=== PATIENT | female | born 1950 ===

== ENCOUNTER 2021-10-21 21:20 | Emergency (ER) | payer MEDICARE, SELFPAY ==
--- NOTE | ~2021-10-21 | XR_ITS ---
XR hand LT min 3V 10/22/2021 01:49 Indication: Left hand laceration after dog bite. Procedure: 3 views left hand Comparison: No prior studies for comparison. Findings: No fracture, subluxation or dislocation. There is anatomic alignment. Evaluation of soft ti ssues limited due to overlying gauze. There are mild degenerative changes of the triscaphe joint. No foreign bodies identified. Impression: 1: No acute fracture. Reviewed, dictated and finalized at location A. D TALENT QUALIFICATION SPECIALIST Impression: 1: No acute fracture.
[2021-10-21 21:58] VITALS: BP 176/76; PULSE 84; RESP 18; TEMP 37; O2SAT 97
[2021-10-21 23:55] VITALS: BP 179/89; PULSE 87; RESP 15; O2SAT 97
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
[2021-10-22] MEDS: AMOXICILLIN/CLAVULANATE K 875-125 MG TAB 1 TABLET PO (00:50)
[2021-10-22 02:29] VITALS: BP 154/61; PULSE 56; RESP 14; O2SAT 96
[2021-10-22] MEDS: ONDANSETRON HCL ODT 4 MG TABLET PO (02:29)
== END 2021-10-22 02:55 | disposition home or self-care (01) ==
PROVIDERS: Emergency Provider Emergency Medicine
DX: S61.452A Open bite of left hand, initial encounter (principal); W54.0XXA Bitten by dog, initial encounter
CPT/HCPCS: 12001; 73130; 99283; A9270

== ENCOUNTER 2024-10-05 17:19 | Inpatient (IN) | payer MEDICARE, SELFPAY ==
--- NOTE | ~2024-10-05 | XR_ITS ---
Portable chest x-ray Comparison: 10/05/2024 Clinical History: 90 Findings: Possible central congestive changes. No pleural effusion or pneumothorax. Cardiomediastin al silhouette is stable. Bones and soft tissues are unremarkable. Impression: Possible central congestive change. Reviewed, dictated and finalized at [facility]. WAY SWITCHMAN Impression: Possible central congestive change.
--- NOTE | ~2024-10-05 | XR_ITS ---
XR chest 2V Ordering provider: Que Alegre MD History: 74 years Female with . worsening pneumonia DX'D WITH PNEUMONIA AT [facility] . Comparison: None. FINDINGS: MEDIASTINUM: The cardiac silhouette is not enlarged. LUNGS: No effusions or pneumothorax. Prominent bronchovascular markings in the lower lobes. Early pneumonia cannot be excluded. OTHER: No free air under the diaphragm. Degenerative changes of the spine. IMPRESSION: Prominent bronchovascular markings in the lower lobes. Early pneumonia cannot be excluded. Reviewed, dictated and finalized at location A. ITY ARBORIST IMPRESSION: Prominent bronchovascular markings in the lower lobes. Early pneumonia cannot b e excluded.
[2024-10-05 17:26] VITALS: BP 154/60; PULSE 100; RESP 22; TEMP 37; O2SAT 99
--- NOTE | 2024-10-05 17:30 | ECG_ITS ---
Test Date: 2024-10-05 17:34:36 Measurements Intervals [place] Rate: 95 P: -3 DE: 127 QRS: 6 QRSD: 83 T: 30 QT: 337 QTc: 425 Interpretive Statements SINUS RHYTHM MODERATE VOLTAGE CRITERIA FOR LVH, CONSIDER NORMAL VARIANT [MEETS CRITERIA IN ONE OF: R(aVL), S(V1), R(V5), R(V5/V6)+S(V1)] NONSPECIFIC T-WAVE ABNORMALITY No previous ECG available for comparison Electronically Signed On 10-05-2024 17:54:16 HIGH RISK CASE MANAGER by Bernard Rubio M.D.
[2024-10-05 17:51] LABS: Hematocrit 37.9 % (37.0-47.0); Hemoglobin 11.7 g/dL (12.0-15.0); Mean Corpuscular HGB Conc 30.9 g/dl (32-36); Mean Corpuscular Hemoglobin 25.8 pg (26-34); Mean Corpuscular Volume 83.5 fl (80-100); Mean Platelet Volume 9.5 fl (7.4-10.4); Platelet Count Result 174 k/mm3 (150-375); Red Blood Count 4.54 M/mm3 (4.2-5.4); Red Cell Distribution Width 20.3 % (11.5-14.5)
[2024-10-05 18:05] LABS: Alanine Aminotransferase 17 U/L (6-35); Albumin Level 3.9 g/dL (3.5-5.1); Alkaline Phosphatase 71 U/L (38-126); Anion Gap 1 mmol/L (4-12); Aspartate Amino Transferase 27 U/L (14-36); Bilirubin,Total 0.5 mg/dL (0.2-1.3); Blood Urea Nitrogen 17 mg/dL (7-17); Calcium 9.1 mg/dL (8.4-10.2); Carbon Dioxide 30 mmol/L (22-30); Chloride 106 mmol/L (98-107); Estimated CRCL calculation 54 ml/min; Estimated Glomerular Filt Rate > 60; Glucose 177 mg/dL (65-110); Potassium 3.8 mmol/L (3.4-5.0); Sodium 137 mmol/L (137-145)
[2024-10-05 18:32] LABS: White Blood Count 87.5 K/mm3 (4.5-10.0)
[2024-10-05 18:36] LABS: Band Neutrophils Percent 1 % (0-6); Monocytes Absolute Manual 1.75 K/mm3 (0.1-0.90); Monocytes Percent Manual 2 % (3-9); Neutrophils Absolute Manual 19.25 K/mm3 (1.7-7.2); Neutrophils Percent Manual 21 % (46-73); Platelet Estimate Adequate (Adequate); Schistocytes None Seen; Total Cells Counted 100
[2024-10-05 18:37] LABS: Anisocytosis 2+; Hypochromasia 1+
--- NOTE | 2024-10-05 19:24 | ED_ITS ---
HPI - SOB/Dyspnea General Chief Complaint: Shortness of Breath/Dyspnea Stated Complaint: shortness of breath Time Seen by Provider: 10/05/24 17:32 Source: patient Mode of arrival: ambulatory Limitations: no limitations History of Present Illness HPI Narrative: This is a 74 year old female that presents to the ER for shortness of breath. Reports recently being diagnosed with pneumonia. She has had worsening shortness of breath and wheezing. She was seen in urgent care and started on oral antibiotics. Was given 2 nebulizer treatments in the Urgent Care with relief initially. Reports she had worsening shortness of breath and wheezing tonight which prompted her to be seen again. Denies fevers. Related Data Allergies Allergy/AdvReac Type Severity Reaction Status Date / Time morphine AdvReac Unknown CONFUSION,A Verified 10/05/24 17:20 GITATION Review of Systems 2 Review of Systems: CONSTITUTIONAL: Denies fever ENT: Reports congestion CARDIOVASCULAR: Denies chest pain RESPIRATORY: Reports cough and dyspnea. All systems reviewed & are unremarkable except as noted in HPI and below PMFSH Past Medical History Medical History (Updated 10/05/24 @ 23:10 by Cristina Junior PA-C) History of chronic lymphocytic leukemia Social History Social History (Updated 10/05/24 @ 19:28 by Cristina Junior PA-C) Substance use: never Exam 2 Narrative: GENERAL: Well-appearing, well-nourished, and in no acute distress. HEAD: Normocephalic, atraumatic. EYES: EOMI. ENT: Nares clear, no rhinorrhea or epistaxis. Mucous membranes moist. Oropharynx without tonsillar hypertrophy exudate or other lesions. NECK: Supple. No adenopathy or masses. CHEST: No respiratory distress. Diffuse expiratory wheezing. Lung sounds are coarse. No rales or rhonchi HEART: Regular rate and rhythm. No murmur heard. Normal peripheral pulses. EXTREMITIES: Normal range of motion. No edema. SKIN: Warm, dry, no rash. NEURO: No focal deficits. Alert and oriented x3. PSYCH: Normal mood and affect Course Course Emergency Course: patient updated on her workup. Patient with continued wheezing, shortness of breath after hour long nebulizer treatment. Will be admitted for further management Consultations Consultation #1: Spoke with hospitalist about patient and workup who accepts admission Date: 10/05/24 Vital Signs Vital signs: Vital Signs Temperature 98.6 F 10/05/24 17:26 Pulse Rate 100 10/05/24 17:26 Respiratory Rate 22 H 10/05/24 17:26 Blood Pressure 154/60 H 10/05/24 17:26 Pulse Oximetry 99 10/05/24 17:26 Oxygen Delivery Room Air 10/05/24 17:26 Temperature 98.6 F 10/05/24 17:26 Pulse Rate 130 H 10/05/24 22:48 Respiratory Rate 20 10/05/24 22:48 Blood Pressure 158/70 H 10/05/24 22:48 Pulse Oximetry 93 10/05/24 22:48 Oxygen Delivery Room Air 10/05/24 17:26 MDM - SOB/Dyspnea MDM Narrative Medical decision making narrative: Patient presents to the emergency department for shortness of breath, wheezing. She is afebrile and nontoxic appearing. Oxygen saturation has been mid to low 90s on room air. Lung sounds are diminished with diffuse expiratory wheezing. CBC with leukocytosis to 87.5, patient does have known history of CLL. Metabolic panel without concerning findings. Chest x-ray shows possible pneumonia. patient updated on her workup. Patient with continued wheezing, shortness of breath after hour long nebulizer treatment. Will be admitted for further management. Spoke with hospitalist about patient and workup who accepts admission Differential Diagnosis Differential diagnosis: Likely congestive heart failure, community acquired pneumonia, asthma with exacerbation and pulmonary embolism Lab Data Attestation: I reviewed the patient's lab results. 10/05/24 17:35 10/05/24 17:35 Labs: Lab Results 10/05/24 10/05/24 Range/Units 17:35 22:43 WBC 87.5 H* (4.5-10.0) K/mm3 RBC 4.54 (4.2-5.4) M/mm3 Hgb 11.7 L (12.0-15.0) g/dL Hct 37.9 (37.0-47.0) % MCV 83.5 (80-100) fl MCH 25.8 L (26-34) pg MCHC 30.9 L (32-36) g/dl RDW 20.3 H (11.5-14.5) % Plt Count 174 (150-375) k/mm3 MPV 9.5 (7.4-10.4) fl Immature Gran % (Auto) Not Reportable Neut % (Auto) Not Reportable Lymph % (Auto) Not Reportable [place] % (Auto) Not Reportable Eos % (Auto) Not Reportable Baso % (Auto) Not Reportable Lymph # (Auto) Not Reportable [place] # (Auto) Not Reportable Eos # (Auto) Not Reportable Baso # (Auto) Not Reportable Abs Immat Gran (auto) Not Reportable Absolute Neuts (auto) Not Reportable Absolute Nucleated RBC Not Reportable Total Counted 100 Neutrophils % (Manual) 21 L (46-73) % Band Neutrophils % 1 (0-6) % Lymphocytes % (Manual) 76.0 H (18-44) % Monocytes % (Manual) 2 L (3-9) % Nucleated RBC % Not Reportable Abs Neuts (Manual) 19.25 H (1.7-7.2) K/mm3 Abs Lymphs (Manual) 66.50 H (1.1-4.5) K/mm3 Abs Monocytes (Manual) 1.75 H (0.1-0.90) K/mm3 Platelet Estimate Adequate (Adequate) Hypochromasia 1+ Anisocytosis 2+ Schistocytes None seen D-Dimer < 0.27 (<0.48) ug/mL Sodium 137 (137-145) mmol/L Potassium 3.8 (3.4-5.0) mmol/L Chloride 106 (98-107) mmol/L Carbon Dioxide 30 (22-30) mmol/L Anion Gap 1 L (4-12) mmol/L BUN 17 (7-17) mg/dL Creatinine 0.90 (0.7-1.0) mg/dL Estim Creat Clear Calc 54 ml/min Estimated GFR > 60 (59 - ) Glucose 177 H (65-110) mg/dL Calcium 9.1 (8.4-10.2) mg/dL Total Bilirubin 0.5 (0.2-1.3) mg/dL AST 27 (14-36) U/L ALT 17 (6-35) U/L Alkaline Phosphatase 71 (38-126) U/L Total Protein 6.0 L (6.3-8.2) g/dL Albumin 3.9 (3.5-5.1) g/dL Influenza A (RT-PCR) Pending Influenza B (RT-PCR) Pending RSV (RT-PCR) Pending SARS-CoV-2 RNA (RT-PCR) Pending Imaging Data Radiologist's impression: ITS Impressions Chest X-Ray 10/05/24 17:46 IMPRESSION: Prominent bronchovascular markings in the lower lobes. Early pneumonia cannot be excluded. ECG Data EKG #1: ECG completion date: 10/05/24 EKG Interpretation: normal rate, sinus rhythm, no ST changes and normal QT Critical Care Time Critical Care Time Critical Care Time: No Discharge Plan Discharge Clinical Impression: Wheezing Community acquired pneumonia Qualifiers: Laterality: unspecified laterality Qualified Code(s): J18.9 - Pneumonia, unspecified organism Patient Disposition: Still a Patient Condition: Stable Patient Language: Uzbek Prescriptions: No Action amoxicillin-pot clavulanate [Augmentin] 875-125 mg tablet 1 tablet PO Q12H Qty: 20 0RF Follow-up/Referrals: UNKNOWN,DOCTOR [Primary Care Provider] -
[2024-10-05] MEDS: methylPREDNISolone SOD SUCC 125 MG VIAL IV PUSH (19:27)
[2024-10-05] MEDS: IPRATROPIUM 0.5 MG/ALBUTEROL SULFATE 2.5 MG AMPUL.NEB 3 ML INHALATION (19:31)
[2024-10-05 19:32] VITALS: PULSE 90; RESP 24
[2024-10-05 19:41] VITALS: PULSE 88; RESP 18
[2024-10-05 19:54] LABS: D Dimer < 0.27 ug/mL (<0.48)
[2024-10-05] MEDS: IPRATROPIUM BR 0.02% INH SOLN 0.5 MG/2.5 ML VIAL 1.5 MG INHALATION (20:57)
[2024-10-05] MEDS: ALBUTEROL SULFATE NEB 2.5 MG/3 ML INH 15 MG INHALATION (20:57)
[2024-10-05 20:58] VITALS: PULSE 105; RESP 24
[2024-10-05 22:48] VITALS: BP 158/70; PULSE 130; RESP 20; O2SAT 93
[2024-10-05 23:38] LABS: Influenza A QL RT-PCR Positive (Negative); Influenza B QL RT-PCR Negative (Negative); RSV RNA, RT-PCR Negative (Negative); SARS-CoV-2 RNA PCR Negative (Negative)
[2024-10-05] MEDS: AZITHROMYCIN 500 MG/NS 250 ML 500 MG/250 ML BAG 250 MG IVPB (23:45)
[2024-10-05 23:59] LABS: Troponin I < 0.012 ng/mL (0.000-0.034)
[2024-10-06] VITALS (14 sets, daily range): BP systolic 131–171; BP diastolic 53–88; PULSE 90–113; RESP 16–24; TEMP 36.3–37.6; O2SAT 91–96; BMI 36.6
[2024-10-06] MEDS: GABAPENTIN 300 MG CAPSULE PO ×2 (00:02→20:51)
--- NOTE | 2024-10-06 01:35 | ADMGEN ---
This patient, Rebeka Hsieh, was admitted to [facility] Surg Room 332-01. Patient/family oriented to hospital policies and general routines including ID bracelet, bed and alarms, visiting hours, pain management, procedures, bathroom and other care routines, personal items, smoking policy, room service/diet, and visiting hours. Information on how to activate the Rapid Response Team has been discussed. Patient/Family are encouraged to report perceived risks to care and to ask questions if they do not understand what they are told or what they should do.
[2024-10-06] MEDS: LEVALBUTEROL NEB 1.25 MG/3 ML 0.63 MG INHALATION ×3 (02:59→14:45)
[2024-10-06 06:38] LABS: Hematocrit 36.2 % (37.0-47.0); Mean Corpuscular HGB Conc 30.4 g/dl (32-36); Mean Corpuscular Hemoglobin 25.3 pg (26-34); Mean Corpuscular Volume 83.2 fl (80-100); Mean Platelet Volume 9.7 fl (7.4-10.4); Platelet Count Result 171 k/mm3 (150-375); Red Blood Count 4.35 M/mm3 (4.2-5.4); Red Cell Distribution Width 20.5 % (11.5-14.5)
[2024-10-06 06:51] LABS: Anion Gap 6 mmol/L (4-12); Blood Urea Nitrogen 21 mg/dL (7-17); Calcium 9.2 mg/dL (8.4-10.2); Carbon Dioxide 26 mmol/L (22-30); Chloride 106 mmol/L (98-107); Estimated CRCL calculation 68 ml/min; Estimated Glomerular Filt Rate > 60; Glucose 257 mg/dL (65-110); Sodium 138 mmol/L (137-145)
[2024-10-06 07:04] LABS: White Blood Count 85.8 K/mm3 (4.5-10.0)
[2024-10-06 07:08] LABS: Anisocytosis 2+; Band Neutrophils Percent 2 % (0-6); Lymphocytes Absolute Manual 72.93 K/mm3 (1.1-4.5); Lymphocytes Percent Manual 85 % (18-44); Neutrophils Absolute Manual 12.87 K/mm3 (1.7-7.2); Neutrophils Percent Manual 13 % (46-73); Platelet Estimate Adequate (Adequate); Schistocytes None Seen; Smudge Cells PRESENT; Total Cells Counted 100
[2024-10-06] MEDS: predniSONE 20 MG TABLET 60 MG PO (09:07)
--- NOTE | 2024-10-06 11:11 | PM.IMHP ---
H&P: HPI History of Present Illness Date/Time: 10/06/24 11:11 Chief Complaint: sob Narrative: this is a 74 year old female that presents to the ER for shortness of breath. Reports recently being diagnosed with pneumonia. She has had worsening shortness of breath and wheezing. She was seen in urgent care and started on oral antibiotics. Was given 2 nebulizer treatments in the Urgent Care with relief initially. Reports she had worsening shortness of breath and wheezing tonight which prompted her to be seen again. Denies fevers. She is afebrile and nontoxic appearing. Oxygen saturation has been mid to low 90s on room air. Lung sounds are diminished with diffuse expiratory wheezing. CBC with leukocytosis to 87.5, patient does have known history of CLL. Metabolic panel without concerning findings. Chest x-ray shows possible pneumonia. patient updated on her workup. Patient with continued wheezing, shortness of breath after hour long nebulizer treatment. Will be admitted for further management. EKG: NSR, no ST changes and normal QT Chest X-Ray 10/05/24 17:46 IMPRESSION: Prominent bronchovascular markings in the lower lobes. Early pneumonia cannot be excluded. Influenza A positive she still feels sob- on duonebs, helping a little bit Review of Systems Review of Systems: All systems reviewed & are unremarkable except as noted in HPI and below PMFSH Past Medical History Medical History (Updated 10/06/24 @ 11:17 by Lucita العراقي APRN) History of chronic lymphocytic leukemia Social History Social History (Updated 10/05/24 @ 19:28 by Cristina Junior PA-C) Smoking status: Never smoker Alcohol intake: never Substance use: never Do You Feel Safe in your Home?: Yes Lack of Transportation: No Lack of Food: Never True Current Housing: I Have Housing Concerned About Future Housing: No Difficulty Paying Gas/Electric Bills: No Difficulty Paying for Meds: No Currently Unemployed: No Education: Master's Degree or Higher Difficulty w/ Childcare or Family Care: No Spiritual care concerns: No Meds Home Medications and Allergies Home Medications ?Medication ?Instructions ?Recorded ?Confirmed ?Type albuterol sulfate 90 mcg/actuation 2 puff inhalation Q4H 10/06/24 10/06/24 History aerosol inhaler amlodipine 10 mg tablet 10 mg PO .daily 10/06/24 10/06/24 History atorvastatin 10 mg tablet 10 mg PO QPM 10/06/24 10/06/24 History azelastine 137 mcg (0.1 %) nasal 1 spray intranasal Q12H PRN 10/06/24 10/06/24 History spray allergy symptoms benzonatate 100 mg capsule 100 mg PO Q8H PRN coughing 10/06/24 10/06/24 History gabapentin 100 mg capsule 300 mg PO HS 10/06/24 10/06/24 History ipratropium bromide 42 mcg (0.06 2 spray intranasal QID PRN allergy 10/06/24 10/06/24 History %) nasal spray symptoms montelukast 10 mg tablet 10 mg PO QPM 10/06/24 10/06/24 History ondansetron HCl 4 mg tablet 4 mg PO Q6H PRN N/V 10/06/24 10/06/24 History paroxetine HCl 20 mg tablet 20 mg PO DAILY 10/06/24 10/06/24 History tirzepatide (weight loss) 2.5 2.5 mg subcut WEEKLY 10/06/24 10/06/24 History mg/0.5 mL subcutaneous pen injector (Zepbound) Allergies Allergy/AdvReac Type Severity Reaction Status Date / Time morphine AdvReac Unknown CONFUSION,A Verified 10/05/24 17:20 GITATION Vital Signs Vital Signs - 24 hr 10/05/24 17:26 10/05/24 19:32 10/05/24 19:41 Temperature 98.6 F Pulse Rate 100 90 88 Respiratory Rate 22 H 24 H 18 Blood Pressure 154/60 H Pulse Oximetry 99 Oxygen Delivery Room Air Fraction of Inspired Oxygen 10/05/24 20:58 10/05/24 22:48 10/06/24 01:16 Temperature 97.7 F Pulse Rate 105 H 130 H 113 H Respiratory Rate 24 H 20 18 Blood Pressure 158/70 H 152/62 H Pulse Oximetry 93 94 Oxygen Delivery Fraction of Inspired Oxygen 10/06/24 03:00 10/06/24 03:03 10/06/24 03:10 Temperature Pulse Rate 106 H 106 H 104 H Respiratory Rate 22 H 22 H Blood Pressure Pulse Oximetry 91 Oxygen Delivery Room Air Fraction of Inspired Oxygen 21 10/06/24 03:26 10/06/24 06:28 10/06/24 07:16 Temperature 98.5 F Pulse Rate 112 H 107 H Respiratory Rate 16 24 H Blood Pressure 131/87 Pulse Oximetry 92 Oxygen Delivery Room Air Fraction of Inspired Oxygen 10/06/24 07:28 10/06/24 08:00 Temperature Pulse Rate 100 Respiratory Rate 24 H Blood Pressure Pulse Oximetry Oxygen Delivery Room Air Fraction of Inspired Oxygen Exam Const: General: comfortable Eyes: General: appearance normal, both eyes and all related structures Resp: Auscultation: wheezes Other: faint wheezes Cardio: Rate: regular rate Rhythm: regular rhythm GI: GI Palp: Yes Soft to palpation Skin: General skin exam: normal color Neuro: Speech: normal speech Extrem: General: normal to inspection Psych: Affect: normal affect H&P: Results Labs Labs: Short CBC 10/05/24 10/06/24 Range/Units 17:35 05:57 WBC 87.5 H* 85.8 H* (4.5-10.0) K/mm3 Hgb 11.7 L 11.0 L (12.0-15.0) g/dL Hct 37.9 36.2 L (37.0-47.0) % Plt Count 174 171 (150-375) k/mm3 [facility] 10/05/24 10/06/24 17:35 05:57 Sodium 137 138 Potassium 3.8 4.0 Chloride 106 106 Carbon Dioxide 30 26 BUN 17 21 H Creatinine 0.90 0.70 Glucose 177 H 257 H Calcium 9.1 9.2 Cardiac Enzymes 10/05/24 Range/Units 23:27 Troponin I < 0.012 (0.000-0.034) ng/mL Liver Function 10/05/24 Range/Units 17:35 Total Bilirubin 0.5 (0.2-1.3) mg/dL AST 27 (14-36) U/L ALT 17 (6-35) U/L Alkaline Phosphatase 71 (38-126) U/L Albumin 3.9 (3.5-5.1) g/dL Assessment and Plan Assessment and plan (1) Community acquired pneumonia: Qualifiers: Laterality: unspecified laterality Qualified Code(s): J18.9 - Pneumonia, unspecified organism Code(s): J18.9 - Pneumonia, unspecified organism Status: Acute Assessment and Plan: was started on cetriaxone and azithromyacin will continue duonebs prn, was given methylprednisolone in in ed-start on po prednisone monitor resp status IS, ambulation (2) Influenza A: Code(s): J10.1 - Influenza due to other identified influenza virus with other respiratory manifestations Status: Acute Assessment and Plan: will start on tamiflu-5 days (3) History of chronic lymphocytic leukemia: Code(s): Z85.6 - Personal history of leukemia Status: Acute Plan # htn- chronic- will review home meds and restart if needed- amlodipine 10 mg # hld- chronic- on atorvastatin 10 mg Quality VTE Prophylaxis VTE prophylaxis: mechanical ordered Hospitalist [facility] Advance Care Plan I have confirmed that the patient's Advanced Care Plan is present, code status is documented, or surrogate decision maker is listed in patient medical record.: Yes Medication Reconciliation I have utilized all available resources to obtain, update and review the patients current medications (includes all prescriptions, OTC, herbals, cannabis, and nutritional supplements).: Yes
[2024-10-06] MEDS: AZITHROMYCIN 250 MG TABLET PO (12:07)
[2024-10-06] MEDS: amLODIPine BESYLATE 10 MG TABLET PO (12:33)
[2024-10-06] MEDS: OSELTAMIVIR PHOSPHATE 75 MG CAPSULE PO ×2 (14:36→20:51)
[2024-10-06] MEDS: ATORVASTATIN 10 MG TABLET PO (16:55)
[2024-10-06] MEDS: MONTELUKAST SODIUM 10 MG TABLET PO (16:55)
[2024-10-06] MEDS: MELATONIN 5 MG TABLET PO (20:51)
--- NOTE | 2024-10-06 23:08 | PCRCNOTE ---
Window of time for administration has passed. See next scheduled administration.
[2024-10-07] VITALS (12 sets, daily range): BP systolic 138–166; BP diastolic 60–72; PULSE 86–106; RESP 18–22; TEMP 36.4–37.1; O2SAT 92–97
[2024-10-07] MEDS: LEVALBUTEROL NEB 1.25 MG/3 ML 0.63 MG INHALATION ×4 (02:10→20:47)
[2024-10-07] MEDS: predniSONE 20 MG TABLET 60 MG PO (08:42)
[2024-10-07] MEDS: PARoxetine 20 MG TABLET PO (08:43)
[2024-10-07] MEDS: amLODIPine BESYLATE 10 MG TABLET PO (08:43)
[2024-10-07] MEDS: AZITHROMYCIN 250 MG TABLET PO (08:43)
[2024-10-07] MEDS: OSELTAMIVIR PHOSPHATE 75 MG CAPSULE PO ×2 (08:43→20:44)
--- NOTE | 2024-10-07 12:03 | PM.IMPN ---
Progress Note: A&P Assessment and Plan (1) Community acquired pneumonia: Qualifiers: Laterality: unspecified laterality Qualified Code(s): J18.9 - Pneumonia, unspecified organism Code(s): J18.9 - Pneumonia, unspecified organism Status: Acute Assessment and Plan: was started on cetriaxone and azithromyacin will continue duonebs prn, was given methylprednisolone in in ed-start on po prednisone monitor resp status IS, ambulation (2) Influenza A: Code(s): J10.1 - Influenza due to other identified influenza virus with other respiratory manifestations Status: Acute Assessment and Plan: will start on tamiflu-5 days (3) History of chronic lymphocytic leukemia: Code(s): Z85.6 - Personal history of leukemia Status: Acute Plan # htn- chronic- will review home meds and restart if needed- amlodipine 10 mg # hld- chronic- on atorvastatin 10 mg Time Spent With Patient Time with patient: 25 - 35 minutes Subjective Date/time seen: 10/07/24 12:03 Interval history: sob Narrative: this is a 74 year old female that presents to the ER for shortness of breath. Reports recently being diagnosed with pneumonia. She has had worsening shortness of breath and wheezing. She was seen in urgent care and started on oral antibiotics. Was given 2 nebulizer treatments in the Urgent Care with relief initially. Reports she had worsening shortness of breath and wheezing tonight which prompted her to be seen again. Denies fevers. She is afebrile and nontoxic appearing. Oxygen saturation has been mid to low 90s on room air. Lung sounds are diminished with diffuse expiratory wheezing. CBC with leukocytosis to 87.5, patient does have known history of CLL. Metabolic panel without concerning findings. Chest x-ray shows possible pneumonia. patient updated on her workup. Patient with continued wheezing, shortness of breath after hour long nebulizer treatment. Will be admitted for further management. EKG: NSR, no ST changes and normal QT Chest X-Ray 10/05/24 17:46 IMPRESSION: Prominent bronchovascular markings in the lower lobes. Early pneumonia cannot be excluded. Influenza A positive 10/07- she was started on antiviral yesterday. duonebs for wheezing and sob. overnight became very anxious as had lots of secretions. 5 mg of melatonin didnot help with sleep Review of Systems Review of Systems: All systems reviewed & are unremarkable except as noted in HPI and below Exam Const: General: comfortable Eyes: General: appearance normal, both eyes and all related structures Resp: Effort & Inspection: normal respiratory effort Auscultation: wheezes Other: faint wheezes Cardio: Rate: regular rate Rhythm: regular rhythm Skin: General skin exam: normal color Neuro: Speech: normal speech Extrem: General: normal to inspection Psych: Affect: normal affect Objective Data Vital Signs Vital Signs: Vital Signs - 24 hr 10/06/24 14:45 10/06/24 14:55 10/06/24 16:00 Temperature 97.7 F Pulse Rate 97 97 95 Respiratory Rate 22 H 22 H 20 Blood Pressure 171/82 H Pulse Oximetry 96 Oxygen Delivery Fraction of Inspired Oxygen 10/06/24 20:00 10/06/24 20:00 10/06/24 23:47 Temperature 99.7 F H 98.6 F Pulse Rate 96 90 Respiratory Rate 20 20 Blood Pressure 156/88 H 162/71 H Pulse Oximetry 96 94 Oxygen Delivery Room Air Fraction of Inspired Oxygen 10/07/24 01:55 10/07/24 01:55 10/07/24 04:00 Temperature 98.0 F Pulse Rate 92 95 Respiratory Rate 20 20 Blood Pressure 138/65 Pulse Oximetry 93 94 Oxygen Delivery Room Air Fraction of Inspired Oxygen 21 10/07/24 08:00 10/07/24 08:00 10/07/24 08:00 Temperature 98.7 F Pulse Rate 92 86 Respiratory Rate 20 22 H Blood Pressure 162/62 H Pulse Oximetry 92 92 Oxygen Delivery Room Air Fraction of Inspired Oxygen 10/07/24 08:00 10/07/24 08:14 Temperature Pulse Rate 94 Respiratory Rate 20 Blood Pressure Pulse Oximetry Oxygen Delivery Room Air Fraction of Inspired Oxygen Intake/Output Intake/Output: Intake & Output 10/04/24 10/05/24 10/06/24 10/07/24 23:59 23:59 23:59 23:59 Intake Total 50 1520 1138 Balance 50 1520 1138 Meds/Results Medications: Active Medications Generic Name Dose Route Start Last Admin Trade Name Freq PRN Reason Stop Dose Admin Albuterol 2 puff 10/06/24 13:55 Albuterol Sulfate (*Sp) Aerosol 1 Puff INHALATION Q4H PRN SOB/WHEEZING Amlodipine Besylate 10 mg 10/07/24 09:00 10/07/24 08:43 Amlodipine Besylate 10 Mg Tablet PO 10 mg DAILY JOEL Administration Atorvastatin Calcium 10 mg 10/06/24 18:00 10/06/24 16:55 Atorvastatin 10 Mg Tablet PO 10 mg QPM JOEL Administration Azelastine HCl 1 spray 10/06/24 13:52 Azelastine Hcl Nasal 0.1% 137 Mcg/Spr 30 Ml Btl NASAL Q12H PRN allergy symptoms Azithromycin 250 mg 10/06/24 11:25 10/07/24 08:43 Azithromycin 250 Mg Tablet PO 10/09/24 09:01 250 mg DAILY JOEL Administration Gabapentin 300 mg 10/06/24 21:00 10/06/24 20:51 Gabapentin 300 Mg Capsule PO 300 mg HS JOEL Administration Ceftriaxone Sodium 1 gm in 50 mls @ 100 mls/hr 10/05/24 22:20 10/06/24 21:21 Rocephin 1 Gm/Ns 50 Ml IVPB Infused HS JOEL Infusion Levalbuterol HCl 0.63 mg 10/06/24 02:00 10/07/24 08:00 Levalbuterol Neb 1.25 Mg/3 Ml INHALATION 0.63 mg Q6HRT JOEL Administration Melatonin 5 mg 10/06/24 21:00 10/06/24 20:51 Melatonin 5 Mg Tablet PO 5 mg HS JOEL Administration Montelukast Sodium 10 mg 10/06/24 18:00 10/06/24 16:55 Montelukast Sodium 10 Mg Tablet PO 10 mg QPM JOEL Administration Ondansetron HCl 4 mg 10/06/24 13:52 Ondansetron Hcl Odt 4 Mg Tablet PO Q6H PRN Nausea And Vomiting Oseltamivir Phosphate 75 mg 10/06/24 14:00 10/07/24 08:43 Oseltamivir Phosphate 75 Mg Capsule PO 10/10/24 21:01 75 mg Q12HR JOEL Administration Paroxetine HCl 20 mg 10/07/24 09:00 10/07/24 08:43 Paroxetine 20 Mg Tablet PO 20 mg DAILY JOEL Administration Prednisone 60 mg 10/06/24 08:00 10/07/24 08:42 Prednisone 20 Mg Tablet PO 60 mg DAILY@08 JOEL Administration Radiology Results: ITS Impressions Chest X-Ray 10/05/24 17:46 IMPRESSION: Prominent bronchovascular markings in the lower lobes. Early pneumonia cannot be excluded. Quality VTE Prophylaxis VTE prophylaxis: mechanical ordered
[2024-10-07] MEDS: hydrOXYzine HCL 25 MG TABLET 50 MG PO ×2 (15:02→20:46)
[2024-10-07] MEDS: ATORVASTATIN 10 MG TABLET PO (17:16)
[2024-10-07] MEDS: MONTELUKAST SODIUM 10 MG TABLET PO (17:16)
[2024-10-07] MEDS: MELATONIN 5 MG TABLET 10 MG PO (20:44)
[2024-10-07] MEDS: GABAPENTIN 300 MG CAPSULE PO (20:44)
[2024-10-07] MEDS: guaiFENesin 600 MG/DEXTROMETHORPHAN 30 MG SR TAB 12 HR 1 TAB PO (20:44)
[2024-10-08] VITALS (12 sets, daily range): BP systolic 135–156; BP diastolic 67–68; PULSE 72–102; RESP 18–22; TEMP 36.6–37.1; O2SAT 92–96
[2024-10-08] MEDS: LEVALBUTEROL NEB 1.25 MG/3 ML 0.63 MG INHALATION ×4 (02:25→21:08)
[2024-10-08 07:17] LABS: Hematocrit 40.9 % (37.0-47.0); Hemoglobin 12.3 g/dL (12.0-15.0); Mean Corpuscular HGB Conc 30.1 g/dl (32-36); Mean Corpuscular Hemoglobin 25.4 pg (26-34); Mean Corpuscular Volume 84.5 fl (80-100); Mean Platelet Volume 9.1 fl (7.4-10.4); Platelet Count Result 181 k/mm3 (150-375); Red Blood Count 4.84 M/mm3 (4.2-5.4)
[2024-10-08 07:23] LABS: White Blood Count 118.4 K/mm3 (4.5-10.0)
[2024-10-08 07:33] LABS: Anion Gap 0 mmol/L (4-12); Blood Urea Nitrogen 19 mg/dL (7-17); Calcium 9.5 mg/dL (8.4-10.2); Carbon Dioxide 36 mmol/L (22-30); Chloride 104 mmol/L (98-107); Estimated CRCL calculation 68 ml/min; Estimated Glomerular Filt Rate > 60; Glucose 136 mg/dL (65-110); Potassium 4.9 mmol/L (3.4-5.0); Sodium 140 mmol/L (137-145)
[2024-10-08] MEDS: AZITHROMYCIN 250 MG TABLET PO (09:35)
[2024-10-08] MEDS: OSELTAMIVIR PHOSPHATE 75 MG CAPSULE PO ×2 (09:35→20:57)
[2024-10-08] MEDS: predniSONE 20 MG TABLET 60 MG PO (09:35)
[2024-10-08] MEDS: PARoxetine 20 MG TABLET PO (09:36)
[2024-10-08] MEDS: guaiFENesin 600 MG/DEXTROMETHORPHAN 30 MG SR TAB 12 HR 1 TAB PO ×2 (09:36→20:57)
[2024-10-08] MEDS: amLODIPine BESYLATE 10 MG TABLET PO (09:36)
[2024-10-08] MEDS: hydrOXYzine HCL 25 MG TABLET 50 MG PO ×2 (13:53→20:57)
--- NOTE | 2024-10-08 15:21 | P.PNIM_ITS ---
Progress Note: A&P Assessment and Plan (1) Community acquired pneumonia: Qualifiers: Laterality: unspecified laterality Qualified Code(s): J18.9 - Pneumonia, unspecified organism Code(s): J18.9 - Pneumonia, unspecified organism Status: Acute Assessment and Plan: was started on cetriaxone and azithromyacin will continue duonebs prn, was given methylprednisolone in in ed-start on po prednisone monitor resp status IS, ambulation -will repeat chest xray (2) Influenza A: Code(s): J10.1 - Influenza due to other identified influenza virus with other respiratory manifestations Status: Acute Assessment and Plan: will start on tamiflu-5 days (3) History of chronic lymphocytic leukemia: Code(s): Z85.6 - Personal history of leukemia Status: Acute Plan # htn- chronic- will review home meds and restart if needed- amlodipine 10 mg # hld- chronic- on atorvastatin 10 mg Time Spent With Patient Time with patient: 25 - 35 minutes Subjective Date/time seen: 10/08/24 15:21 Interval history: sob Narrative: this is a 74 year old female that presents to the ER for shortness of breath. Reports recently being diagnosed with pneumonia. She has had worsening shortness of breath and wheezing. She was seen in urgent care and started on or al antibiotics. Was given 2 nebulizer treatments in the Urgent Care with relief initially. Reports she had worsening shortness of breath and wheezing tonight which prompted her to be seen again. Denies fevers. She is afebrile and nontoxic appearing. Oxygen saturation has been mid to low 90s on room air. Lung sounds are diminished with diffuse expiratory wheezing. CBC with leukocytosis to 87.5, patient does have known history of CLL. Metabolic panel without concerning findings. Chest x-ray shows possible pneumonia. patient updated on her workup. Patient with continued wheezing, shortness of breath after hour long nebulizer treatment. Will be admitted for further management. EKG: NSR, no ST changes and normal QT Chest X-Ray 10/05/24 17:46 IMPRESSION: Prominent bronchovascular markings in the lower lobes. Early pneumonia cannot be excluded. Influenza A positive 10/07- she was started on antiviral yesterday. duonebs for wheezing and sob. overnight became very anxious as had lots of secretions. 5 mg of melatonin didnot help with sleep 1/2 better night- slept better with atarax and increased melatonin. still somehwat wheezy but improving slowly Review of Systems Review of Systems: All systems reviewed & are unremarkable except as noted in HPI and below Exam Const: General: comfortable Eyes: General: appearance normal, both eyes and all related structures Resp: Effort & Inspection: normal respiratory effort Auscultation: wheezes Other: faint wheezes Cardio: Rate: regular rate Rhythm: regular rhythm Skin: General skin exam: normal color Neuro: Speech: normal speech Extrem: General: normal to inspection Psych: Affect: normal affect Objective Data Vital Signs Vital Signs: Vital Signs - 24 hr 10/07/24 16:00 10/07/24 20:00 10/07/24 20:00 Temperature 98.0 F 98.6 F Pulse Rate 106 H 100 Respiratory Rate 18 22 H Blood Pressure 166/72 H 160/68 H Pulse Oximetry 96 97 Oxygen Delivery Room Air 10/07/24 20:48 10/07/24 20:52 10/07/24 21:00 Temperature Pulse Rate 99 102 H Respiratory Rate 20 20 Blood Pressure Pulse Oximetry 96 Oxygen Delivery Room Air 10/07/24 21:01 10/08/24 02:25 10/08/24 02:25 Temperature Pulse Rate 72 72 Respiratory Rate 20 Blood Pressure Pulse Oximetry 94 Oxygen Delivery Room Air CPAP 10/08/24 02:33 10/08/24 04:54 10/08/24 06:48 Temperature 98.0 F Pulse Rate 75 95 90 Respiratory Rate 20 22 H 20 Blood Pressure 156/67 H Pulse Oximetry 92 95 Oxygen Delivery Room Air 10/08/24 06:48 10/08/24 06:58 10/08/24 12:48 Temperature Pulse Rate 90 89 94 Respiratory Rate 20 20 20 Blood Pressure Pulse Oximetry Oxygen Delivery 10/08/24 12:58 10/08/24 14:00 Temperature 98.7 F Pulse Rate 95 102 H Respiratory Rate 20 22 H Blood Pressure 135/67 Pulse Oximetry 96 Oxygen Delivery Intake/Output Intake/Output: Intake & Output 10/05/24 10/06/24 10/07/24 10/08/24 23:59 23:59 23:59 23:59 Intake Total 50 1520 1731 1180 Balance 50 1520 1731 1180 Meds/Results Medications: Active Medications Generic Name Dose Route Start Last Admin Trade Name Freq PRN Reason Stop Dose Admin Albuterol 2 puff 10/06/24 13:55 Albuterol Sulfate (*Sp) Aerosol 1 Puff INHALATION Q4H PRN SOB/WHEEZING Amlodipine Besylate 10 mg 10/07/24 09:00 10/08/24 09:36 Amlodipine Besylate 10 Mg Tablet PO 10 mg DAILY JOEL Administration Amoxicillin/Clavulanate Potassium 1 tablet 10/09/24 21:00 Amoxicillin/Clavulanate K 875-125 Mg Tab PO 10/12/24 09:01 Q12HR JOEL Atorvastatin Calcium 10 mg 10/06/24 18:00 10/07/24 17:16 Atorvastatin 10 Mg Tablet PO 10 mg QPM JOEL Administration Azelastine HCl 1 spray 10/06/24 13:52 Azelastine Hcl Nasal 0.1% 137 Mcg/Spr 30 Ml Btl NASAL Q12H PRN allergy symptoms Azithromycin 250 mg 10/06/24 11:25 10/08/24 09:35 Azithromycin 250 Mg Tablet PO 10/09/24 09:01 250 mg DAILY JOEL Administration Gabapentin 300 mg 10/06/24 21:00 10/07/24 20:44 Gabapentin 300 Mg Capsule PO 300 mg HS JOEL Administration Guaifenesin/Dextromethorphan 1 tab 10/07/24 21:00 10/08/24 09:36 Guaifenesin 600 Mg/Dextromethorphan 30 Mg Sr Tab 12 Hr PO 1 tab Q12HR JOEL Administration Hydroxyzine HCl 50 mg 10/07/24 14:41 10/08/24 13:53 Hydroxyzine Hcl 25 Mg Tablet PO 50 mg Q6H PRN Administration anxiety Levalbuterol HCl 0.63 mg 10/06/24 02:00 10/08/24 12:48 Levalbuterol Neb 1.25 Mg/3 Ml INHALATION 0.63 mg Q6HRT JOEL Administration Melatonin 10 mg 10/07/24 21:00 10/07/24 20:44 Melatonin 5 Mg Tablet PO 10 mg HS JOEL Administration Montelukast Sodium 10 mg 10/06/24 18:00 10/07/24 17:16 Montelukast Sodium 10 Mg Tablet PO 10 mg QPM JOEL Administration Ondansetron HCl 4 mg 10/06/24 13:52 Ondansetron Hcl Odt 4 Mg Tablet PO Q6H PRN Nausea And Vomiting Oseltamivir Phosphate 75 mg 10/06/24 14:00 10/08/24 09:35 Oseltamivir Phosphate 75 Mg Capsule PO 10/10/24 21:01 75 mg Q12HR JOEL Administration Paroxetine HCl 20 mg 10/07/24 09:00 10/08/24 09:36 Paroxetine 20 Mg Tablet PO 20 mg DAILY JOEL Administration Prednisone 60 mg 10/06/24 08:00 10/08/24 09:35 Prednisone 20 Mg Tablet PO 60 mg DAILY@08 JOEL Administration Radiology Results: ITS Impressions Chest X-Ray 10/05/24 17:46 IMPRESSION: Prominent bronchovascular markings in the lower lobes. Early pneumonia cannot be excluded. Labs Labs: Laboratory Results - last 24 hr 10/08/24 07:11 WBC 118.4 H* RBC 4.84 Hgb 12.3 Hct 40.9 MCV 84.5 MCH 25.4 L MCHC 30.1 L RDW 21.0 H Plt Count 181 MPV 9.1 Sodium 140 Potassium 4.9 Chloride 104 Carbon Dioxide 36 H Anion Gap 0 L BUN 19 H Creatinine 0.70 Estim Creat Clear Calc 68 Estimated GFR > 60 Glucose 136 H Calcium 9.5 Quality VTE Prophylaxis VTE prophylaxis: mechanical ordered
[2024-10-08] MEDS: ATORVASTATIN 10 MG TABLET PO (17:28)
[2024-10-08] MEDS: MONTELUKAST SODIUM 10 MG TABLET PO (17:28)
[2024-10-08] MEDS: ONDANSETRON HCL ODT 4 MG TABLET PO (17:53)
[2024-10-08] MEDS: GABAPENTIN 300 MG CAPSULE PO (20:57)
[2024-10-08] MEDS: MELATONIN 5 MG TABLET 10 MG PO (20:57)
[2024-10-09] VITALS (10 sets, daily range): BP systolic 142–146; BP diastolic 58–73; PULSE 78–96; RESP 17–20; TEMP 36.4–37; O2SAT 93–98
[2024-10-09] MEDS: LEVALBUTEROL NEB 1.25 MG/3 ML 0.63 MG INHALATION ×3 (03:23→14:19)
[2024-10-09] MEDS: predniSONE 20 MG TABLET 60 MG PO (08:31)
[2024-10-09] MEDS: amLODIPine BESYLATE 10 MG TABLET PO (08:31)
[2024-10-09] MEDS: guaiFENesin 600 MG/DEXTROMETHORPHAN 30 MG SR TAB 12 HR 1 TAB PO (08:32)
[2024-10-09] MEDS: PARoxetine 20 MG TABLET PO (08:32)
[2024-10-09] MEDS: OSELTAMIVIR PHOSPHATE 75 MG CAPSULE PO (08:32)
[2024-10-09] MEDS: AZITHROMYCIN 250 MG TABLET PO (08:32)
--- NOTE | 2024-10-09 13:52 | PM.DS ---
DS: Admitting Diagnosis Discharge Date 10/09 Admitting Diagnosis sob, wheezing DS: Discharge Diagnosis Discharge Diagnosis (1) Community acquired pneumonia: Qualifiers: Laterality: unspecified laterality Qualified Code(s): J18.9 - Pneumonia, unspecified organism Code(s): J18.9 - Pneumonia, unspecified organism Status: Acute (2) Influenza A: Code(s): J10.1 - Influenza due to other identified influenza virus with other respiratory manifestations Status: Acute (3) History of chronic lymphocytic leukemia: Code(s): Z85.6 - Personal history of leukemia Status: Acute DS: Summary Hospital Course Hospital Course: this is a 74 year old female that presents to the ER for shortness of breath. Reports recently being diagnosed with pneumonia. She has had worsening shortness of breath and wheezing. She was seen in urgent care and started on oral antibiotics. Was given 2 nebulizer treatments in the Urgent Care with relief initially. Reports she had worsening shortness of breath and wheezing tonight which prompted her to be seen again. Denies fevers. She is afebrile and nontoxic appearing. Oxygen saturation has been mid to low 90s on room air. Lung sounds are diminished with diffuse expiratory wheezing. CBC with leukocytosis to 87.5, patient does have known history of CLL. Metabolic panel without concerning findings. Chest x-ray shows possible pneumonia. patient updated on her workup. Patient with continued wheezing, shortness of breath after hour long nebulizer treatment. Will be admitted for further management. EKG: NSR, no ST changes and normal QT Chest X-Ray 10/05/24 17:46 IMPRESSION: Prominent bronchovascular markings in the lower lobes. Early pneumonia cannot be excluded. Influenza A positive 10/07- she was started on antiviral yesterday. duonebs for wheezing and sob. overnight became very anxious as had lots of secretions. 5 mg of melatonin didnot help with sleep slept better with atarax and increased melatonin. still somewhat wheezy but improving slowly. Melatonin was increased to 10 mg. Atarax was helping. / she is not wheezing today feeling better, wants to go home. she will be discharged home iwth 5 more doses of augmentin and 2 tamiflu. She completed her azithromycin course. Status at Discharge Functional status at discharge: independent ambulation Overall status at discharge: patient is progressing back to baseline Time Spent with Patient Time attestation: Total time spent providing and/or coordinating discharge services: Time spent: Greater than 30 minutes Exam Const: General: comfortable Eyes: General: appearance normal, both eyes and all related structures Resp: Effort & Inspection: normal respiratory effort Auscultation: wheezes Other: faint wheezes Cardio: Rate: regular rate Rhythm: regular rhythm Skin: General skin exam: normal color Neuro: Speech: normal speech Extrem: General: normal to inspection Psych: Affect: normal affect DS: Data Data Completed and Pending Labs on day of discharge: Preliminary micro results at discharge 10/05/24 22:30 Blood Culture - Preliminary Blood 10/05/24 22:43 Blood Culture - Preliminary Blood Discharge Plan Discharge Attending physician on discharge: Fransisco Yepez Discharging Clinician: Lucita العراقي Activity: february shower Diet: as tolerated and regular Discharge Instructions: You were admitted for pneumonia and flu. You completed Zithromax course and still have 5 doses left for Augmentin and 2 of tamiflu. I will send the remaining meds to your pharmacy. you can start taking it in am 1/4. i will send nebulizer treatments as well. use it as needed. please f/u with your PCP for a follow up. Patient Instructions: Influenza (GEN), Pneumonia (GEN) Patient Language: Portuguese Follow-up/Referrals: UNKNOWN,DOCTOR [Primary Care Provider] - 1 Week Discharge Medications: New oseltamivir [Tamiflu] 75 mg Capsule 75 mg PO Q12HR Qty: 2 0RF hydroxyzine HCl 25 mg Tablet 50 mg PO Q6H PRN (Reason: anxiety) Qty: 30 0RF amoxicillin-pot clavulanate 875-125 mg tablet 1 tablet PO Q12H Qty: 5 0RF (DME) nebulizer and compressor [[employer] Choice Nebulizer] Device See Rx Instructions .Route Qty: 1 0RF Rx Instructions: As directed ipratropium bromide 0.02 % solution 2.5 ml inhalation Q6H PRN (Reason: shortness of breath or wheezing) Qty: 62.5 0RF Continued atorvastatin 10 mg tablet 10 mg PO QPM ondansetron HCl 4 mg tablet 4 mg PO Q6H PRN (Reason: N/V) amlodipine 10 mg tablet 10 mg PO .daily benzonatate 100 mg capsule 100 mg PO Q8H PRN (Reason: coughing ) paroxetine HCl 20 mg tablet 20 mg PO DAILY montelukast 10 mg tablet 10 mg PO QPM gabapentin 100 mg capsule 300 mg PO HS azelastine 137 mcg (0.1 %) spray,non-aerosol 1 spray INTRANASAL Q12H PRN (Reason: allergy symptoms) albuterol sulfate 90 mcg/actuation HFA aerosol inhaler 2 puff INHALATION Q4H ipratropium bromide 42 mcg (0.06 %) spray,non-aerosol 2 spray INTRANASAL QID PRN (Reason: allergy symptoms) Zepbound 2.5 mg/0.5 mL pen injector 2.5 mg SUBCUT WEEKLY Patient Comments: take every saturday Date of admission: 10/07/24 10:08 Primary Care Provider: UNKNOWN,DOCTOR Admitting Provider: Ruddy Callejas Attending physician on admission: Ruddy Callejas Condition: Stable Quality VTE Prophylaxis VTE prophylaxis: mechanical ordered
--- OUTSIDE RECORDS SUMMARY | 2024-10-13 00:38 | XMS_ITS | Encounter Summary ---
Author Organization [facility] Address [address] [place] [address] Care Team Providers Care Instrument Mechanic Name Role Phone Unavailable Primary Care Provider Unavailabl e Encounter Details Date Type Department Care Team (Latest Contact Info) Description 09/21/2011 7:50 AM BOARD RUNNER - 09/21/2011 11:59 PM BOARD RUNNER Hospital Encounter [facility] [place] A [address] [place] [id number] [facility], External Provider [address] [place] [address] Discharge Disposition: Home or Self Care Social History Tobacco Use Types Packs/Day Years Used Date Smoking Tobacco: Never Assessed Sex and Gender Information Value Date Recorded Sex Assigned at Not on file Gender Identity Not on file Sexual Orientation Not on file documented as of this encounter Plan of Treatment Not on file documented as of this encounter Procedures Procedure Name Priority Date/Time Associated Diagnosis Comments MAMMO PRIOR STUDY Routine 09/21/2011 7:5 0 AM BOARD RUNNER Follow up documented in this encounter Results * MAMMO PRIOR STUDY (09/21/2011 7:50 AM BOARD RUNNER) Narrative 02/29/2016 7:47 AM CDT This exam was auto finalized to allow images to be scanned to PACS. [facility] documented in this encounter Visit Diagnoses Diagnosis Follow up documented in this encounter
--- OUTSIDE RECORDS SUMMARY | 2024-10-13 00:38 | XMS_ITS | Encounter Summary ---
Author Organization [facility] Address [address] [place] [address] Care Team Providers Care Code Number Stamper Name Role Phone Unavailable Primary Care Provider Unavailabl e Encounter Details Date Type Department Care Team (Latest Contact Info) Description 01/21/2015 7:50 AM CDT - 01/21/2015 11:59 PM CDT Hospital Encounter [facility] [place] A [address] [place] [id number] [facility], External Provider [address] [place] [address] Discharge Disposition: Home or Self Care Social [...] Associated Diagnosis Comments MAMMO PRIOR STUDY Routine 01/21/2015 7:5 0 AM CDT Follow up documented in this encounter Results * MAMMO PRIOR STUDY (01/21/2015 7:50 AM CDT) Narrative 02/29/2016 7:49 AM CDT This exam was auto finalized to allow images to be scanned to PACS. External Provider [facility] DIAGNOSTIC IMAGI NG ORDERABLES documented in this encounter Visit Diagnoses Diagnosis Follow up documented in this encounter
--- OUTSIDE RECORDS SUMMARY | 2024-10-13 00:38 | XMS_ITS | Encounter Summary ---
Author Organization [facility] Address [address] [place] [address] Care Team Providers Care Historic Site Administrator Name Role Phone Arben Paredes MD Primary Care Provider + Reason for Visit * Reason Comments Imm Inj Encounter Details Date Type Department Care Team (Late st Contact Info) Description 06/23/2019 10:00 AM CDT Office Visit [facility] [address] [place] [id number] Need for vaccination (Primary Dx) Social History Tobacco Use Types Packs/Day Years Used Date Smoking Tobacco: Never Assessed Sex and Gender Information Value Date Recorded Sex Assigned at Not on file Gender Identity Not on file Sexual Orientation Not on file documented as of this encounter Patient Instructions * Patient Instructions* Niki Patel 06/23/2019 9:51 AM CDT Patient Education Flu Vaccine in Adults PREBOARDER: The flu, or influenza, vaccine is an injection given to help prevent influenza (flu). The flu is caused by a virus. The virus spreads from person to person through coughing and sneezing. Several types of viruses cause the flu. The viruses exchange clerk time, so new vaccines are made each year. The vaccine begins to protect you about 2 weeks after you get it. The flu vaccine is usually injected intothe upper arm. It may be given in your thigh. The vaccine is offered every year starting in early fall. Get the vaccine as soon as it is available. Call your local emergency number (911 in the [place]) if: ?? Your mouth and throat are swollen. ?? You are wheezing or have trouble breathing. ?? You have chest pain or your heart is beating faster than normal for you. ?? You feel like you are going to faint. Call your doctor if: ?? Your face is red or swollen. ?? You have hives that spread over your body. ?? You feel weak or dizzy. ?? You have increased pain, redness, or swelling around the area where the shot was given. ?? You have questions or concerns about the influenza vaccine. Who should not get the flu vaccine or should wait to get it: ?? Anyone who has had an allergic reaction to the flu vaccine ?? Anyone who received a diagnosis of Guillain-Rodriguez?? syndrome within 6 weeks of getting a flu vaccine ?? Anyone who has a fever of 101??F (38.3 ??C) or higher will need to wait until he or she is well Flu vaccine and egg allergies: The flu vaccine may contain a small amount of egg protein. The amount is so low that it is not likely to cause an allergic reaction. Tell your healthcare provider if you have an egg allergy before you get the flu vaccine. Egg-free vaccines may be available, but do notdelay getting a flu vaccine to wait for it. Risks of the flu vaccine: The flu vaccine may cause mild symptoms, such as a fever, headache, and muscle aches. It may also cause mild to moderate soreness or redness at the area where you were giventhe injection. You may still get the flu after you receive the vaccine. You may have an allergic reaction to the vaccine. This can be life-threatening. Apply a warm compress to the injection area to decrease pain and swelling. Follow up with your doctor as directed: Write down your questions so you remember to ask them during your visits. ?? Copyright [employer] 2019 Information is for End User's use only and may not be sold, redistributed or otherwise used for commercial purposes. All illustrations and images included in CareNotes?? are the copyrighted property of [employer] or [employer] The above information is an occupational therapy aides teacher only. It is not intended as medical advice for individual conditions or treatments. Talk to your doctor, nurse or pharmacist before following any medical regimen to see if it is safe and effective for you. documented in this encounter Progress Notes * Niki Patel - 06/23/2019 9:51 AM CDT -Advised patient to keep a record of all vaccinations. (may use [facility] MyChart if desired) -May take Tylenol (acetaminophen) as needed for aches/pains per package directions. -If you develop redness, swelling at the injection site; it should resolve on its own within 5-7 days of injection. Use warm compresses as needed to the site. -Return to clinic for an evaluation if symptoms worsen or persist. -Current [facility] VIS Handout given Follow-up with your Arben Paredes MD as directed. .Niki Patel 06/23/2019 9:51 AM documented in this encounter Plan of Treatment Not on file documented as of this encounter Visit Diagnoses Diagnosis Need for vaccination- Primary Need for prophylactic vaccination and inoculation against unspecified single disease documented in this encounter Care Teams Historic Site Administrator Relationship Specialty Start Date End Date Arben Paredes MD [address] [place] [id number] PCP - General Infectious Disease 07/11/16 documented as of this encounter
--- OUTSIDE RECORDS SUMMARY | 2024-10-13 00:38 | XMS_ITS | Referral Summary ---
Author Organization [facility] Address [address] [place] [address] Care Team Providers Care Envelope Machine Operator Name Role Phone Arben Paredes MD Primary Care Provider + Source Comments [facility],non-owned Affiliates and Associated Physician Practices is amultiple site organization consisting of ambulatory clinics and hospital sitesin [place], [place], [place] and [place]. This disclosure is being madepursuant to the Care Everywhere program and may not contain all information available regarding this patient. Last updated 18.[facility] Allergies Active Allergy Reactions Criticality Noted Date Comments Morphine 06/18/2017 Immunizations Name Administration Dates Next Due INFLUENZA VACCINE, HIGH-DOSE , QUADR. (FLUZONE HIGH-DOSE QUADRIVALENT; 65Y+), 0.7 ML (HD-IIV4) 06/23/2019,06/18/2017,07/11/2016 Social History Tobacco Use Types Packs/Day Years Used Date Smoking Tobacco: Never Assessed Sex and Gender Information Value Date Recorded Sex Assigned at Not on file Gender Identity Not on file Sexual Orientation Not on file Plan of Treatment Not on file Care Teams Envelope Machine Operator Relationship Specialty Start Date End Date Arben Paredes MD [address] [place] [id number] PCP - General Infectious Disease 07/11/16
--- OUTSIDE RECORDS SUMMARY | 2024-10-13 00:38 | XMS_ITS | Encounter Summary ---
Author Organization [facility] Address [address] [place] [address] Care Team Providers Care Load Blocker Name Role Phone Unavailable Primary Care Provider Unavailabl e Encounter Details Date Type Department Care Team (Latest Contact Info) Description 08/20/2008 7:55 AM IRON GUARDRAIL INSTALLER - 08/20/2008 11:59 PM IRON GUARDRAIL INSTALLER Hospital Encounter [facility] [place] [address] [place] [phone] [facility], External Provider [address] [place] [address] Discharge Disposition: Home or Self Care Social [...] Associated Diagnosis Comments MAMMO PRIOR STUDY Routine 08/20/2008 7:5 5 AM IRON GUARDRAIL INSTALLER Follow up documented in this encounter Results * MAMMO PRIOR STUDY (08/20/2008 7:55 AM IRON GUARDRAIL INSTALLER) Narrative 02/29/2016 7:51 AM CDT This exam was auto finalized to allow images to be scanned to PACS. [facility] documented in this encounter Visit Diagnoses Diagnosis Follow up documented in this encounter
--- OUTSIDE RECORDS SUMMARY | 2024-10-13 00:38 | XMS_ITS | Encounter Summary ---
Author Organization [facility] Address [address] [place] [address] Care Team Providers Care Awning Frame Maker Name Role Phone Unavailable Primary Care Provider Unavailabl e Encounter Details Date Type Department Care Team (Latest Contact Info) Description 08/02/2006 7:50 AM CDT - 08/02/2006 11:59 PM CDT Hospital Encounter [facility] [place] [address] [place] [phone] [facility], External Provider [address] [place] [address] Discharge Disposition: Home or Self Care Social [...] Associated Diagnosis Comments MAMMO PRIOR STUDY Routine 08/02/2006 7:5 0 AM CDT Follow up documented in this encounter Results * MAMMO PRIOR STUDY (08/02/2006 7:50 AM CDT) Narrative 02/29/2016 7:50 AM CDT This exam was auto finalized to allow images to be scanned to PACS. External Provider [facility] DIAGNOSTIC IMAGI NG ORDERABLES documented in this encounter Visit Diagnoses Diagnosis Follow up documented in this encounter
--- OUTSIDE RECORDS SUMMARY | 2024-10-13 00:38 | XMS_ITS | Encounter Summary ---
Author Organization [facility] Address [address] [place] [address] Care Team Providers Care Missile And Missile Checkout Technician Name Role Phone Unavailable Primary Care Provider Unavailabl e Encounter Details Date Type Department Care Team (Latest Contact Info) Description 10/31/2012 7:50 AM AUTOMOBILE BRAKE BONDER - 10/31/2012 11:59 PM AUTOMOBILE BRAKE BONDER Hospital Encounter [facility] [place] A [address] [place] [phone] [facility], External Provider [address] [place] [address] Discharge Disposition: Home or Self Care Social [...] Associated Diagnosis Comments MAMMO PRIOR STUDY Routine 10/31/2012 7:5 0 AM AUTOMOBILE BRAKE BONDER Follow up documented in this encounter Results * MAMMO PRIOR STUDY (10/31/2012 7:50 AM AUTOMOBILE BRAKE BONDER) Narrative 02/29/2016 7:47 AM CDT This exam was auto finalized to allow images to be scanned to PACS. [facility] documented in this encounter Visit Diagnoses Diagnosis Follow up documented in this encounter
--- OUTSIDE RECORDS SUMMARY | 2024-10-13 00:38 | XMS_ITS | Encounter Summary ---
Author Organization [facility] Address [address] [place] [address] Care Team Providers Care Technical Account Representative Name Role Phone Unavailable Primary Care Provider Unavailabl e Encounter Details Date Type Department Care Team (Latest Contact Info) Description 09/07/2009 7:55 AM CARE PROVIDER - 09/07/2009 11:59 PM CARE PROVIDER Hospital Encounter [facility] [place] [address] [place] [phone] [facility], External Provider [address] [place] [address] Discharge Disposition: Home or Self Care Social [...] Associated Diagnosis Comments MAMMO PRIOR STUDY Routine 09/07/2009 7:5 5 AM CARE PROVIDER Follow up documented in this encounter Results * MAMMO PRIOR STUDY (09/07/2009 7:55 AM CARE PROVIDER) Narrative 02/29/2016 7:52 AM CDT This exam was auto finalized to allow images to be scanned to PACS. [facility] documented in this encounter Visit Diagnoses Diagnosis Follow up documented in this encounter
--- OUTSIDE RECORDS SUMMARY | 2024-10-13 00:38 | XMS_ITS | Clinical Summary ---
Author Organization [facility] [employer] Address [address] [place] [address] Care Team Providers Care Medical Dir Name Role Phone Librado Hernandez MD Primary Care Provider + Allergies Active Allergy Reactions Criticality Noted Date Comments Morphine Hives,Rash High 02/08/2016 Nickel Other (See comments),Rash Medium 04/03/2022 Burning sensation contact Medications azelastine (ASTELIN) 137 mcg (0.1 %) nasal sprayIndications :Seasonal Allergic Rhinitis Administer 1 spray into each nostril 2 (two) times a day Active calcium carbonate-vitami n D3 (CALTRATE WITH VITAMIN D3) 1,500 mg (600mg elemental) -800 unit per tabletIndication s:Prevention of Vitamin D Deficiency Take 1 tablet by mouth every morning Active montelukast (SINGULAIR) 10 mg tabletIndication s:Allergic Rhinitis Take 1 tablet (10 mg total) by mouth nightly Active PARoxetine (PAXIL) 20 mg tabletIndication s:depression Take 1 tablet (20 mg total) by mouth every morning 8 Active atorvastatin (LIPITOR) 10 mg tabletIndication s:hyperlipidemia Take 1 tablet (10 mg total) by mouth nightly 8 Active pramipexole 0.375 mg tablet extended release 24 hrIndications:Re stless Legs Syndrome,ALSO TAKING AN AM DOSE Take 1 tablet by mouth daily with dinner 8 Active pramipexole (MIRAPEX) 0.125 mg tabletIndication s:Restless Legs Syndrome Take 1 tablet (0.125 mg total) by mouth 2 (two) times a day Active omeprazole OTC (PriLOSEC OTC) 20 mg EC tabletIndication s:Treatment of Non-Bleeding Gastric Disorder Take 1 tablet (20 mg total) by mouth nightly Active meclizine (ANTIVERT) 25 mg tabletIndication s:Vertigo Take 1 tablet (25 mg total) by mouth 3 (three) times a day as needed for dizziness Active acetaminophen (TYLENOL) 500 mg tablet Take 2 tablets (1,000 mg total) by mouth every 8 (eight) hours 90 tablet 4 Active senna-docusate (PERICOLACE) 8.6-50 mg Take 2 tablets by mouth 2 (two) times a day May increase to 4 tablets twice daily if needed. HOLD medication for diarrhea. 80 tablet 4 Active multivitamin tablet Take 1 tablet by mouth daily Active amLODIPine (NORVASC) 10 mg tabletIndication s:Primary hypertension Take 1 tablet (10 mg total) by mouth daily 90 tablet 3 4 Active gabapentin (NEURONTIN) 100 mg capsuleIndicatio ns:Restless Legs Syndrome Take 3 capsules (300 mg total) by mouth nightly 90 capsule 3 4 Active tirzepatide, weight loss, (ZEPBOUND) 2.5 mg/0.5 mL pen injector Inject 0.5 mL (2.5 mg total) under the skin every 7 days 2 mL 4 Active ondansetron (ZOFRAN) 4 mg tablet Take 1 tablet (4 mg total) by mouth every 8 (eight) hours as needed for nausea or vomiting 20 tablet 4 Active amLODIPine (NORVASC) 5 mg tablet 2 tablets (10 mg total) 4 024 Discontin ued(Reord er) tirzepatide, weight loss, (ZEPBOUND) 2.5 mg/0.5 mL pen injectorIndicati ons:Class 2 severe obesity due to excess calories with serious comorbidity and body mass index (BMI) of 36.0 to 36.9 in adult (HCC) Inject 0.5 mL (2.5 mg total) under the skin every 7 days 2 mL 4 024 Discontin ued(Other ) Active Problems Problem Noted Date Diagnosed Date Failed total knee, left, 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 Will plan to start on tirzepatide, and follow up in 3 months. Chronic insomnia 07/23/2023 Sleep apnea 05/20/2023 Restless legs syndrome 05/20/2023 Hyperlipidemia 05/20/2023 Impaired fasting glucose 05/20/2023 Depressive disorder 05/20/2023 Assessment & Plan (07/15/2024 8:17 AM CDT): Stable well controlled on current regimen, will send in refills as needed Chronic lymphocytic leukemia 05/20/2023 Assessment & Plan (07/15/2024 8:16 AM CDT): Follows with oncology, planning to start medication soon. Benign paroxysmal positional vertigo 05/20/2023 Dry eye syndrome of both eyes 05/02/2021 Assessment & Plan (05/02/2021 11:19 AM CDT): Recommend increase lubricant eye drops to 4 times/day; consider preservative- free drops, especially if using drops more than that. Add hot compresses with lid scrubs to improve quality of tears. Failed total knee arthroplasty ([facility] 019 Overview (10/18/2018): Added automatically from request for surgery [id number] [place] of both optic discs 04/15/2018 Assessment & Plan (05/02/2021 9:38 AM CDT): More OS>OD. Small optic nerves. Takes amlodipine in the morning. Continue to monitor. Assessment & Plan (04/26/2020 1:31 PM CDT): More OS>OD. Small optic nerves. Takes amlodipine in the morning. Continue to monitor. Assessment & Plan (04/15/2018 11:19 AM CDT): More left eye (OS)>OD. Small optic nerves. Takes bp meds in the AM. 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 Area appears to be helaing well with no clinically evident residual SCCIS. Patient counseled to re-treat area with 5-FU topical bid for 2 weeks at some point before follow up in 6 months. Scar of nose 03/11/2018 Overview (03/11/2018): From SCCIS that has been biopsied. Patient counseled on sun protection and dermablend. Light pink color will likely improve over time. Discussed option of referral for laser or scar revision. Recheck at follow up visit. History of nonmelanoma skin cancer 08/09/2017 Overview (03/11/2018): Description: NER, Photoprotection,; Regular MD FBSE next visit. Basal cell carcinoma (BCC) of skin of trunk 11/2016 Overview (01/17/2018): Description: EDC today, 1st pass: 1.1cm. wound care provided.RTC 6 mo for f/u Neoplasm of skin of breast 09/05/2015 Overview (01/17/2018): Description: shave bx r/o bcc. rtc per path Eczema 08/08/2015 Overview (01/17/2018): Description: Given 2-3 week h/o papules and 2 day history of many of them, treat with TMC 0.1% ointment BID along with topical emollients. Follow closely in one month. Lentigo 01/17/2015 Nuclear sclerotic cataract of both eyes 12/16/19 15 Assessment & Plan (05/02/2021 11:18 AM CDT): Not visually significant. Do not recommend surgery at this time. Continue to monitor. Patient to call if problems with activities of daily living. Brochure offered/given. Assessment & Plan (04/26/2020 1:30 PM CDT): 2+NS OU. BAT 20/20 but glare and poor night vision are becoming bothersome to the patient and affecting her activities of daily living. Assessment & Plan (04/15/2018 11:13 AM CDT): Not visually significant. Do not recommend surgery at this time. Continue to monitor. Patient to call if problems with activities of daily living. Brochure offered/given. Try MRx change. History of malignant neoplasm of skin 08/27/2014 Hypertension 11/05/2013 Assessment & Plan (09/14/2024 10:50 AM NEUROPATHOLOGIST): Hypertensive in office today, will increase amlodipine to 10mg, and plan to follow up in 1 month Assessment & Plan (07/15/2024 8:14 AM CDT): Hypertensive in office today, Will have patient keep blood pressure log for the next two weeks and send back results. Will determine at that time if additional antihypertensive is needed. Would plan to increase amlodipine as needed. Actinic keratosis 09/05/2012 Overview (01/17/2018): Description: LN2 x 4 lesions on right yarsanism and right upper lip, blister care reviewed. Seborrheic keratosis 09/05/2012 Chronic pain of left knee 04/30/2011 Resolved Problems Problem Noted Date Diagnosed Date Resolved Date Trichiasis 02/26/2017 04/15/2018 Age-related osteoporosis wit hout current pathological fracture 02/22/2016 07/14/2024 Encounter for screening mamm ogram for malignant neoplasm of breast 02/08/2016 07/14/2024 Abnormal finding on imaging 02/03/2016 07/14/2024 Inflamed seborrheic keratosis 08/08/2015 03/11/2018 Overview (01/17/2018): Description: LN2 to 2 lesions, left thigh and left ankle, blister care reviewed Intertrigo 03/29/2014 03/11/2018 Skin neoplasm 03/29/2014 03/11/2018 Overview (01/17/2018): Annotation: back left medial clavicle Presbyopia 11/12/2012 04/15/2018 Melanocytic nevus 09/05/2012 03/11/2018 Keratosis, senilis 09/05/2012 8 Surgical follow-up care 05/16/201105/2024 Encounters Date Type Department Care Team Description 09/25/[address] [address] Librado Hernandez MD 09/22/2024 Orders Only [address] [address] Librado Hernandez MD 09/22/[address] [address] Librado Hernandez MD PA request 09/21/[address] [address] Librado Hernandez MD 09/16/2024 10:30 AM NEUROPATHOLOGIST Office Visit [facility] [address] [place] [address] Aurora Chou DNP Sleep apnea, unspecified type (Primary Dx); Sleep disorder; Iron deficiency; Vitamin D deficiency; CARRILLO (obstructive sleep apnea); Hypersomnia; RLS (restless legs syndrome) 09/16/2024 Telephone [facility] [address] [place] [address] Channing Kendrick MA DME 09/14/2024 11:00 AM NEUROPATHOLOGIST Office Visit [address] [address] Librado Hernandez MD Primary hypertension (Primary Dx); Class 2 severe obesity due to excess calories with serious comorbidity and body mass index (BMI) of 36.0 to 36.9 in adult (HCC) 07/14/2024 11:00 AM CDT Office Visit [address] [address] Librado Hernandez MD Primary hypertension (Primary Dx); Chronic lymphocytic leukemia (HCC); Depressive disorder from Last 3 Months Immunizations Name Administration Dates Next Due COVID-19 mRNA (iMedicare) 0.3 m L (30 mcg) vaccine (12 years and up) 06/26/2024 Influenza, Quad, Adjuvantate d, Intramuscular 06/20/2022 Influenza, Quadrivalent, Hig h Dose, Preservative Free, Intrr 07/12/2023,06/26/2021,06/10/2020,06/23,06/18/2017,07/11/2016 Influenza, Trivalent, High D ose, Split, Preservative Free, Intramuscular 06/26/2024,06/20/2022,06/23/2019,06/20,07/16/2017,06/18/2017,06/21/2016 ,06/15/2015 Influenza, Trivalent, IM (MDV) 06/23/2013 Influenza, Unspecified 07/19/2023,2021,06/21/2021,06/14 Yang (J&J) SARS-CoV-2 Vaccination 06/07/2021, 12/27/2020,11/17/2020 Moderna SARS-CoV-2 Monovalen t Vaccination (12+ YRS) 06/07/2021,12/27/2020,11/17/2020 Moderna Sars-cov-2 Bivalent Vaccine 50 Mcg/0.5 mL (12+ YRS)-Blue/Dugan 07/19/2023,06/20/2022 Pfizer SARS-CoV-2 Monovalent Vaccination (12+ Yrs) PURPLE 06/07/2021,12/27/2020,11/17/2020 Microtask Sars-Cov-2 Bivalent V accination (12+ YRS) 07/19/2023 Pneumococcal Conjugate PCV 13 10/28/2015 Pneumococcal Conjugate Pcv20 11/26/2023 Pneumococcal Polysaccharide PPV23 10/22/2014 RSV Vaccine, Pref, Recombina nt, Subunit, Adjuvanted, PF, IM (Arexvy) 07/19/2023 RSV, Bivalent, Protein Subun it Rsvpref, Diluent (Abrysvo) 07/12/2023 Tdap 03/20/2021,02/25/2012 ZOSTER Recombinant 02/17/2019,11/18/2018 Surgical History Surgery Date Site/Laterality Comments [place] CHOLECYSTECTOMY Cholecystectomy - (Added by TW Conv) TOTAL KNEE ARTHROPLASTY 10/07/2008 - 11/06/2008 Bilateral UPPER GASTROINTESTINAL ENDOSCOPY VEIN LIGATION AND STRIPPING 10/07/1981 - 10/06/1982 Right COLONOSCOPY REVISION TOTAL KNEE ARTHROPLASTY Left- 2010 KNEE ARTHROSCOPY W/ MENISCAL REPAIR 10/07/1996 - 10/06/1997 BASAL CELL CARCINOMA EXCISION x2- nose and forehead Medical History Medical History Date Comments Aftercare following joint re placement surgery Aftercare following joint replacement - (Added by TW Conv) Personal history of other ma lignant neoplasm of skin History of skin cancer - (Ad ded by TW Conv) Basal cell carcinoma of skin of other part of trunk Basal cell carcinoma of ante rior chest - (Added by TW Conv) Cataract PONV (postoperative nausea a nd vomiting) Hypertension Sleep apnea GERD (gastroesophageal reflux disease) Age-related osteoporosis wit hout current pathological fracture 02/22/2016 Family History Medical History Relation Name Comments Hypertension Father Family history of hypertension - (Added by TW Conv) Anesthesia problems Neg Hx Relation Name Status Comments Father Social History Tobacco Use Types Packs/Day Years Used Date Smoking Tobacco: Former Cigarettes 0.3 2 1 968 - 1970 Smokeless Tobacco: Never Tobacco Cessation:Counseling Given: Not Answered Alcohol Use Standard Drinks/Week Comments Yes 0 (1 standard drink = 0.6 oz pur e alcohol) RARELY AUDIT-C Answer Date Recorded Q1: How often do you have a drink containing alc ohol? Never 06/01/2024 Average Number of Drinks Not on file 024 Q3: How often do you have si x or more drinks on one occasion? Less than monthly 06/01/2024 PHQ-2 Answer Date Recorded PHQ-2 Score 0 05/28/2019 Personal Safety Answer Date Recorded Have you ever been in or are you currently in a harmful physical or emotional relationship or is someone making you feel afraid or unsafe? Denies 06/01/2024 Comments No Sex and Gender Information Value Date Recorded Sex Assigned at Not on file Legal Sex Female 9:36 AM NEUROPATHOLOGIST Gender Identity Not on file Sexual Orientation Not on file Obstetrics History Last Filed Vital Signs Vital Sign Reading Time Taken Comments Blood Pressure 150/73 09/16/2024 10:18 AM NEUROPATHOLOGIST Pulse 73 09/16/2024 10:18 AM NEUROPATHOLOGIST Temperature 36.4 ??C (97.6 ??F) 09/16/2024 10:[address] Respiratory Rate 20 06/13/2024 11:08 AM CDT Oxygen Saturation 95% 09/16/2024 10:18 AM NEUROPATHOLOGIST Inhaled Oxygen Concentration - - Weight 95.7 kg (211 lb) 09/16/2024 10:18 AM NEUROPATHOLOGIST Height 162.6 cm (5' 4.02 ) 09/14/2024 10:[address] Body Mass Index 36.2 09/14/2024 10:34 AM NEUROPATHOLOGIST Plan of Treatment Health Maintenance Due Date Last Done Comments Hepatitis C Screening 1950 Hepatitis B Screening 1967 Well Visit 65+ 2014 Depression Screening 10/18/2019 10/18/2018, 10/18/19 19 Covid-19 Vaccine ( season) 2024 06/26/2024, 07/19/2023, 07/19/2023, Additional history exists Fall Risk Assessment 06/02/2025 06/02/2024 Osteoporosis Screening-Bone Density Scan 03/25/2026 03/25/2024, 03/25/2024, 09/21/2022, Additional history exists Colon Cancer Screening-Colonoscopy 10/10/2028 10/10/2023 DTaP/Tdap/Td Vaccine (3 - Td or Tdap) 03/20/2031 03/20/2021, 02/25/2012 Zoster Vaccine Completed 02/17/2019, 11/18/2018 Pneumococcal vaccine 65+ Completed 024, 10/28/2015, 10/22/2014 Breast Cancer Screening-Mammogram Discontinued 12/27/2023, 12/27/2023, 09/21/2022, Additional history exists Influenza Vaccine Completed 06/26/2024, , 07/12/2023, Additional history exists Medical Devices Implanted Type Area Tablet Technician Device Identifier Shelf Expiration Date Model / Serial / Lot [employer] [id number] Biomet Ascent Maxim Primary Lock Bar Knee Component Tibial Tray - S.0 - [id number] Implanted:Qty: 1 on 12/30/2018 by Jim Fraire MD at [facility] [employer] [id number] 07/04/2027 [id number] / .0 / [id number] [employer] [id number] Vanguard [id number] Anterior Stabilize Inlay Knee 0d Bearing - S.0 - [id number] Implanted:Qty: 1 on 12/30/2018 by Jim Fraire MD at [facility] [employer] [id number] 04/22/2023 [id number] / .0 / [id number] [employer] Vanguard [id number] Anterior Stabilize Inlay Knee 0d Bearing [id number] - [id number] Implanted:Qty: 1 on 06/01/2024 at [facility] Left: Knee [employer] 08/14/2028 [id number] / / [id number] [employer] Biomet Ascent Maxim Primary Lock Bar Knee Component Tibial Tray [id number] - [id number] Implanted:Qty: 1 on 06/01/2024 at [facility] Left: Knee [employer] 01/06/2034 [id number] / / [id number] Procedures Procedure Name Priority Date/Time Associated Diagnosis Comments FERRITIN Routine 09/16/2024 1:07 PM NEUROPATHOLOGIST TEST AUTHORIZATION Routine 09/16/2024 1: 07 PM NEUROPATHOLOGIST IRON PROFILE W/ IBC Routine 09/16/2024 1 :07 PM NEUROPATHOLOGIST VITAMIN D 25 HYDROXY Routine 09/16/2024 1:07 PM NEUROPATHOLOGIST Vitamin D deficiency SCREENING MAMMOGRAM Routine 01/21/2015 1 1:50 AM CDT from Last 3 Months or Most Recently Relevant to Health Maintenance Results * TEST AUTHORIZATION (09/16/2024 1:07 PM NEUROPATHOLOGIST) Test name FERRITIN IRON AND TOTAL IRON [facility] TEST CODE: [id number] [id number] [facility] CLIENT CONTACT: CHANNING Bermudez ROXANN [facility] Report Always Message Signature [facility] Comment: The laboratory testing on this patient was verbally requested or confirmed by the ordering physician or his or her authorized territory sales representative after contact with an employee of [employer]. Federal regulations require that we maintain on file written authorization for all laboratory testing. ??Accordingly we are asking that the ordering physician or his or her authorized territory sales representative sign a copy of this report and promptly return it to the client support associate. Signature: Comment [facility] Comment: Fax number: [phone] 09/16/2024 1:07 PM NEUROPATHOLOGIST 09/16/2024 1:08 PM NEUROPATHOLOGIST Aurora Chou [facility] LAB BLOOD ORDERABLES Final Resu lt QUEST [facility] [address] [address] [place] [address] * Iron profile w/ IBC (09/16/2024 1:07 PM NEUROPATHOLOGIST) Iron 122 45 - 160 mcg/dL [facility] TIBC 367 250 - 450 mcg/dL (calc) [facility] Iron saturation 33 16 - 45 % (calc) [facility] 09/16/2024 1:07 PM NEUROPATHOLOGIST 09/16/2024 1:08 PM NEUROPATHOLOGIST Aurora Chou [facility] LAB BLOOD ORDERABLES Final Resu lt Performing Organization Address [facility] de Phone Number [facility] [address] [place] [address] * Vitamin D 25 hydroxy (09/16/2024 1:07 PM NEUROPATHOLOGIST) Vitamin D 25-OH 31 30 - 100 ng/mL [facility] Comment: Vitamin D Status ? 25-OH Vitamin D: Deficiency: ?<20 ng/mL Insufficiency: ? 20 - 29 ng/mL Optimal: ? > or = 30 ng/mL For 25-OH Vitamin D testing on patients on D2-supplementation and patients for whom quantitation of D2 and D3 fractions is required, the QuestAssureD(TM) 25-OH VIT D, (D2,D3), LC/MS/MS is recommended: order code 45466 (patients >2yrs). See Note 1 Note 1 For additional information, please refer to http://education.[employer]/faq/IET935 (This link is being provided for informational/ educational purposes only.) Blood 09/16/2024 1:07 PM NEUROPATHOLOGIST 09/16/2024 1:08 PM NEUROPATHOLOGIST Result [facility] Aurora Chou [facility] LAB BLOOD ORDERABLES Final Resu lt Performing Organization Address [facility] Co de Phone Number [facility] [address] [facility] [place] [address] * (ABNORMAL) Ferritin (09/16/2024 1:07 PM NEUROPATHOLOGIST) Pathologist [facility] Ferritin 422(H) 16 - 288 ng/mL [facility] 09/16/2024 1:07 PM NEUROPATHOLOGIST 09/16/2024 1:08 PM NEUROPATHOLOGIST Result [facility] Aurora Chou [facility] LAB BLOOD ORDERABLES Final Resu lt [place] [facility] [place] [address] [id number] * Screening Mammogram (01/21/2015 11:50 AM CDT) Anatomical Region Laterality Modality Breast N/A Mammography 01/21/2015 11:5 0 AM CDT Narrative 01/24/2015 12:41 PM CDT CHIRAG YEE M.D. FINAL REPORT The radiology attending physician has personally reviewed this study, and has reviewed and/or edited this written report and agrees with it. ACC# ??Date Time ??Exam [id number] Jan 21, 2015 11:50:00 HBC [id number] Bilateral Screen w Mauricio ?? Technologist(s): Susanna Sheffield; ; EXAMINATION: ??Mammogram Technique: Bilateral Bilateral Full-Field Digital Screening Mammogram and Digital Breast Tomosynthesis were performed. ??Views obtained: ??bilateral craniocaudal and bilateral mediolateral oblique. ??Computer Aided Detection of the 2D images was performed with [employer].3 version 9.3. Mammogram Findings: The present examination has been compared to prior imaging studies performed at [facility] on 11/05/2013, 10/31/2012, 09/21/2011, 09/18/2010 and 09/07/2009. There are scattered fibroglandular densities. There is no suspicious abnormality in either breast. IMPRESSION: ??Annual screening mammography is recommended. OVERALL FINAL ASSESSMENT: BI-RADS CATEGORY 1: ??Negative. Requested By: Dictated By: ?? CHIRAG YEE M.D. ??on Jan 24 2015 12:41P This document has been electronically signed by: CHIRAG YEE M.D. on Jan 24 2015 12:40P [id number] Procedure Note Provider, MD Kelton - 02/06/2017 CHIRAG YEE M.D. FINAL REPORT The radiology attending physician has personally reviewed this study, and has reviewed and/or edited this written report and agrees with it. ACC# Date Time Exam [id number] Jan 21, 2015 11:50:00 HBC [id number] Bilateral Screen w Mauricio Technologist(s): Susanna Sheffield; ; EXAMINATION: Mammogram Technique: Bilateral Bilateral Full-Field Digital Screening Mammogram and Digital Breast Tomosynthesis were performed. Views obtained: bilateral craniocaudal and bilateral mediolateral oblique. Computer AidedDetection of the 2D images was performed with HemaSource.3 version 9.3. Mammogram Findings: The present examination has been compared to prior imaging studies performed at [facility] on 11/05/2013, 10/31/2012,09/21/2011, 09/18/2010 and 09/07/2009. There are scattered fibroglandular densities. There is no suspicious abnormality in either breast. IMPRESSION: Annual screening mammography is recommended. OVERALL FINAL ASSESSMENT: BI-RADS CATEGORY 1: Negative. Requested By: Dictated By: CHIRAG YEE M.D. on Jan 24 2015 12:41P This document has been electronically signed by: CHIRAG YEE M.D. on Jan 24 2015 12:40P [id number] Historical Provider MD [facility] MAMMO PROCEDURES Belinda l Result from Last 3 Months or Most Recently Relevant to Health Maintenance Insurance AETNA MEDICARE [facility] MEDICARE [facility] SENIOR SUPPLEMENT [facility] AETNA MEDICARE AETNA MEDICARE Advance Directives For more information, please contact: [phone] Documents on File Type Date Recorded Patient Mattress Filler Expl anation Power of Forestry Foreman 06/01/2024 10:19 AM * Full Code (Latest Code Status on File) Date Activated Date Inactivated Comments 06/01/2024 4:58 PM 06/02/2024 2:30 PM * Full Code Date Activated Date Inactivated Comments 12/30/2018 12:48 PM 12/31/2018 7:12 PM Care Teams Medical Dir Relationship Specialty Start Date End Date Librado Hernandez MD [facility] [address] Queta ROY [address] [place] [id number] PCP - General Internal Medicine 06/02/24
--- OUTSIDE RECORDS SUMMARY | 2024-10-13 00:38 | XMS_ITS | Encounter Summary ---
Author Organization [facility] Address [address] [place] [address] Care Team Providers Care Business Analyst Sales Operations Name Role Phone Arben Paredes MD Primary Care Provider + Reason for Referral * Outpatient Services (Routine) - Closed Specialty Diagnoses / Procedures Referred By Rosangela zabala Referred To Contact Radiology Diagnoses Visit for screening mammogram Procedures MAMMO SCRN BILAT 3D ALFONZO W OR WO CAD MAMMO SCREEN BILAT W OR WO CAD Akua Pina MD NO ADDRESS ON FILE Referral ID Status Reason Start Date Expiration Date V isits Requested Visits Authorized [id number] Closed [facility] CTS 12/05/2017 01/05/2019 1 1 Reason for Visit * Outpatient Services (Routine) - Closed Specialty Diagnoses / Procedures Referred By Rosangela zabala Referred To Contact Radiology Diagnoses Visit for screening mammogram Procedures MAMMO SCRN BILAT 3D ALFONZO W OR WO CAD MAMMO SCREEN BILAT W OR WO Akua Syed MD NO ADDRESS ON FILE Referral ID Status Reason Start Date Expiration Date V isits Requested Visits Authorized [id number] Closed [facility] CTS 12/05/2017 01/05/2019 1 1 Encounter Details Date Type Department Care Team (Latest Contact Info) Description 03/12/2018 11:45 AM CDT - 03/12/2018 11:59 PM CDT Hospital Encounter [facility] [place] A [address] [place] [address] Akua Pina MD NO ADDRESS ON FILE Discharge Disposition: Home or Self Care Social [...] Name Priority Date/Time Associated Diagnosis Comments MAMMO 3D ALFONZO SCREEN BILAT W OR WO CAD Routine 03/12/2018 12:02 PM CDT Visit for screening mammogram documented in this encounter Results * MAMMO SCRN BILAT 3D ALFONZO W OR WO CAD (03/12/2018 12:02 PM CDT) Anatomical Region Laterality Modality Breast Bilateral Mammography 03/12/2018 12:0 3 PM CDT Impressions 03/12/2018 4:39 PM CDT IMPRESSION: Negative bilateral screening mammogram. Recommend routine followup. Overall Assessment: BI-RADS Category 1 - Negative. Dictation Location: [facility] Narrative 03/12/2018 4:39 PM CDT BILATERAL SCREENING DIGITAL MAMMOGRAMS WITH COMPUTER ASSISTED DIAGNOSIS WITH TOMOGRAPHY DATE: 03/12/2018 12:02 PM HISTORY: Annual screening study. COMPARISON: 03/01/2017, 09/21/2011. TECHNIQUE: A bilateral screening mammogram was performed. Low-dose full-field digital breast tomosynthesis examination was performed with 2D and 3D acquisitions. Examination is read in conjunction with computer aided detection. BREAST COMPOSITION: Scattered fibroglandular densities. FINDINGS: No new masses, suspicious calcifications, or areas of asymmetry or distortion are identified. The images were reviewed using the CAD system. Procedure Note Soumya Aponte MD - 03/12/2018 BILATERAL SCREENING DIGITAL MAMMOGRAMS WITH COMPUTER ASSISTED DIAGNOSIS WITH TOMOGRAPHY DATE: 03/12/2018 12:02 PM HISTORY: Annual screening study. COMPARISON: 03/01/2017, 09/21/2011. TECHNIQUE: A bilateral screening mammogram was performed. Low-dose full-field digital breast tomosynthesis examination was performed with 2D and 3D acquisitions. Examination is read in conjunction with computer aided detection. BREAST COMPOSITION: Scattered fibroglandular densities. FINDINGS: No new masses, suspicious calcifications, or areas of asymmetry or distortion are identified. The images were reviewed using the CAD system. IMPRESSION: Negative bilateral screening mammogram. Recommend routine followup. Overall Assessment: BI-RADS Category 1 - Negative. Dictation Location: [facility] Akua Pina MD MAMMO ORDERABLES documented in this encounter Visit Diagnoses Diagnosis Visit for screening mammogram Other screening mammogram documented in this encounter Care Teams Business Analyst Sales Operations Relationship Specialty Start Date End Date Arben Paredes MD [address] [phone] PCP - General Internal Medicine 02/20/16 documented as of this encounter
--- OUTSIDE RECORDS SUMMARY | 2024-10-13 00:38 | XMS_ITS | Encounter Summary ---
Author Organization [facility] Address [address] [place] [address] Care Team Providers Care Picker Box Operator Name Role Phone Arben Paredes MD Primary Care Provider + Reason for Referral * Outpatient Services (Routine) - Closed Specialty Diagnoses / Procedures Referred By Rosangela zabala Referred To Contact Radiology Diagnoses Visit for screening mammogram Procedures MAMMO DIGITAL SCREEN BILAT Akua Pina MD NO ADDRESS ON FILE Referral ID Status Reason Start Date Expiration Date V isits Requested Visits Authorized [id number] Closed [facility] 02/20/2016 03/22/2017 1 1 Reason for Visit * Auth/Cert Specialty Diagnoses / Procedures Referred By Rosangela zabala Referred To Contact Radiology [facility] [place] A [address] [place] [address] Referral ID Status Reason Start Date Expiration Date Visits Re quested Visits Authorized [id number] 1 1 Encounter Details Date Type Department Care Team (Latest Contact Info) Description 02/28/2016 9:24 AM CDT - 02/28/2016 11:59 PM CDT Hospital Encounter [facility] [place] A [address] [place] [address] Akua Pina MD NO ADDRESS ON FILE Arben Paredes MD [address] [place] [address] [address] [place] [phone] Discharge Disposition: Home or Self Care Social [...] Name Priority Date/Time Associated Diagnosis Comments MAMMO SCREEN BILAT W OR WO CAD Routine 02/28/2016 9:51 AM CDT Visit for screening mammogram documented in this encounter Results * MAMMO DIGITAL SCREEN BILAT (02/28/2016 9:51 AM CDT) Anatomical Region Laterality Modality Breast Bilateral Mammography 02/28/2016 9:5 1 AM CDT Impressions 02/29/2016 12:13 PM CDT IMPRESSION: No suspicious findings to suggest malignancy in either breast. Annual mammography is recommended. OVERALL ASSESSMENT: ??BI-RADS category 1 - Negative Narrative 02/29/2016 12:13 PM CDT BILATERAL FULL FIELD DIGITAL SCREENING MAMMOGRAM WITH CAD DATE: 02/28/2016 9:51 AM HISTORY: Routine screening. TECHNIQUE: Full field digital craniocaudal and mediolateral oblique projections of both breasts were obtained. Computer aided diagnosis was performed. COMPARISON: Mammograms from [facility] dated 11/05/2013 and older dating back to 08/02/2006 BREAST COMPOSITION: Scattered fibroglandular densities. FINDINGS: No suspicious mass, suspicious microcalcifications, or architectural distortion is identified in either breast. Computer aided detection was used in the interpretation of this examination. Procedure Note Kaleigh Glynn MD - 02/29/2016 BILATERAL FULL FIELD DIGITAL SCREENING MAMMOGRAM WITH CAD DATE: 02/28/2016 9:51 AM HISTORY: Routine screening. TECHNIQUE: Full field digital craniocaudal and mediolateral oblique projections of both breasts were obtained. Computer aided diagnosis was performed. COMPARISON: Mammograms from [facility] dated 11/05/2013 and older dating back to 08/02/2006 BREAST COMPOSITION: Scattered fibroglandular densities. FINDINGS: No suspicious mass, suspicious microcalcifications, or architectural distortion is identified in either breast. Computer aided detection was used in the interpretation of this examination. IMPRESSION IMPRESSION: No suspicious findings to suggest malignancy in either breast. Annual mammography is recommended. OVERALL ASSESSMENT: BI-RADS category 1 - Negative Akua Pina MD MAMMO ORDERABLES documented in this encounter Visit Diagnoses Diagnosis Visit for screening mammogram Other screening mammogram documented in this encounter Care Teams Picker Box Operator Relationship Specialty Start Date End Date Arben Paredes MD [address] [phone] PCP - General Internal Medicine 02/20/16 documented as of this encounter
--- OUTSIDE RECORDS SUMMARY | 2024-10-13 00:38 | XMS_ITS | Patient Health Summary ---
Author Organization [facility] Address [address] [place] [address] Care Team Providers Care Wastewater Treatment Operator Name Role Phone Arben Paredes MD Primary Care Provider + Note from [facility] [place],non-owned Affiliates and Associated Physician Practices is amultiple site organization consisting of ambulatory clinics and hospital sitesin [place], [place], [place] and [place]. This disclosure is being madepursuant to the Care Everywhere program and may not contain all information available regarding this patient. Last updated 18.[facility] Allergies * Morphine Immunizations * INFLUENZA VACCINE, HIGH-DOSE, QUADR. (FLUZONE HIGH-DOSE QUADRIVALENT; 65Y+), 0.7 ML (HD-IIV4)(Given 06/23/2019, 06/18/2017, 07/11/2016) Social History Tobacco Use Types Packs/Day Years Used Date Smoking Tobacco: Never Assessed Sex and Gender Information Value Date Recorded Sex Assigned at Not on file Gender Identity Not on file Sexual Orientation Not on file Care Teams Wastewater Treatment Operator Relationship Specialty Start Date End Date Arben Paredes MD [address] [address] PCP - General Infectious Disease 07/11/16
--- OUTSIDE RECORDS SUMMARY | 2024-10-13 00:38 | XMS_ITS | Encounter Summary ---
Author Organization [facility] Address [address] [place] [address] Care Team Providers Care Maintenance Shop Technician Name Role Phone Arben Paredes MD Primary Care Provider + Reason for Visit * Reason Comments Imm Inj Encounter Details Date Type Department Care Team (Late st Contact Info) Description 07/11/2016 9:15 AM CDT Office Visit [facility] AT [address] [place] [phone] Needs flu shot (Primary Dx) Social History Tobacco Use Types Packs/Day Years Used Date Smoking Tobacco: Never Assessed Sex and Gender Information Value Date Recorded Sex Assigned at Not on file Gender Identity Not on file Sexual Orientation Not on file documented as of this encounter Progress Notes * Praneeth Guajardo APRN-CNP - 07/11/2016 9:38 AM CDT Pt presents for Flu shot documented in this encounter Plan of Treatment Not on file documented as of this encounter Visit Diagnoses Diagnosis Needs flu shot- Primary Need for prophylactic vaccination and inoculation against influenza documented in this encounter Care Teams Maintenance Shop Technician Relationship Specialty Start Date End Date Arben Paredes MD [address] [address] PCP - General Infectious Disease 07/11/16 documented as of this encounter
--- OUTSIDE RECORDS SUMMARY | 2024-10-13 00:38 | XMS_ITS | Encounter Summary ---
Author Organization [facility] Address [address] [facility] [place] [address] Care Team Providers Care Sand Slinger Name Role Phone Arben Paredes MD Primary Care Provider + Encounter Details Date Type Department Care Team (Late st Contact Info) Description 01/02/2021 Orders Only [facility] - COVID Vax [address] [place] [address] Arie Ramirez MD [address] [facility] [address] [place] [address] Need for vaccination Social History Tobacco Use Types Packs/Day Years Used Date Smoking Tobacco: Never Assessed Sex and Gender Information Value Date Recorded Sex Assigned at Not on file Gender Identity Not on file Sexual Orientation Not on file documented as of this encounter Plan of Treatment Not on file documented as of this encounter Visit Diagnoses Diagnosis Need for vaccination Need for prophylactic vaccination and inoculation against unspecified single disease documented in this encounter Care Teams Sand Slinger Relationship Specialty Start Date End Date Arben Paredes MD [address] [facility] [address] [place] [address] PCP - General Infectious Disease 07/11/16 documented as of this encounter
--- OUTSIDE RECORDS SUMMARY | 2024-10-13 00:38 | XMS_ITS | Encounter Summary ---
Author Organization [facility] Address [address] [place] [address] Care Team Providers Care Sheather Name Role Phone Unavailable Primary Care Provider Unavailabl e Encounter Details Date Type Department Care Team (Latest Contact Info) Description 09/18/2010 7:55 AM FLORAL MANAGER - 09/18/2010 11:59 PM FLORAL MANAGER Hospital Encounter [facility] [place] A [address] [place] [phone] [facility], External Provider [address] [place] [address] Discharge Disposition: Home or Self Care Social [...] Associated Diagnosis Comments MAMMO PRIOR STUDY Routine 09/18/2010 7:5 5 AM FLORAL MANAGER Follow up documented in this encounter Results * MAMMO PRIOR STUDY (09/18/2010 7:55 AM FLORAL MANAGER) Narrative 02/29/2016 7:53 AM CDT This exam was auto finalized to allow images to be scanned to PACS. [facility] ORDERABLES documented in this encounter Visit Diagnoses Diagnosis Follow up documented in this encounter
--- OUTSIDE RECORDS SUMMARY | 2024-10-13 00:38 | XMS_ITS | Encounter Summary ---
Author Organization [facility] Address [address] [place] [address] Care Team Providers Care Quickbooks Bookkeeper Name Role Phone Unavailable Primary Care Provider Unavailabl e Encounter Details Date Type Department Care Team (Latest Contact Info) Description 11/05/2013 7:50 AM CAR PINCHER - 11/05/2013 11:59 PM CAR PINCHER Hospital Encounter [facility] [place] A [address] [place] [phone] [facility], External Provider [address] [place] [address] Discharge Disposition: Home or Self Care Social [...] Associated Diagnosis Comments MAMMO PRIOR STUDY Routine 11/05/2013 7:5 0 AM CAR PINCHER Follow up documented in this encounter Results * MAMMO PRIOR STUDY (11/05/2013 7:50 AM CAR PINCHER) Narrative 02/29/2016 7:48 AM CDT This exam was auto finalized to allow images to be scanned to PACS. [facility] documented in this encounter Visit Diagnoses Diagnosis Follow up documented in this encounter
--- OUTSIDE RECORDS SUMMARY | 2024-10-13 00:38 | XMS_ITS | Encounter Summary ---
Author Organization [facility] Address [address] [place] [address] Care Team Providers Care Drupal Web Developer Name Role Phone Unavailable Primary Care Provider Unavailabl e Encounter Details Date Type Department Care Team (Latest Contact Info) Description 08/05/2007 7:55 AM CDT - 08/05/2007 11:59 PM CDT Hospital Encounter [facility] [place] A [address] [place] [phone] [facility], External Provider [address] [place] [address] Discharge Disposition: Home or Self Care Social [...] Associated Diagnosis Comments MAMMO PRIOR STUDY Routine 08/05/2007 7:5 5 AM CDT Follow up documented in this encounter Results * MAMMO PRIOR STUDY (08/05/2007 7:55 AM CDT) Narrative 02/29/2016 7:51 AM CDT This exam was auto finalized to allow images to be scanned to PACS. External Provider [facility] DIAGNOSTIC IMAGI NG ORDERABLES documented in this encounter Visit Diagnoses Diagnosis Follow up documented in this encounter
--- OUTSIDE RECORDS SUMMARY | 2024-10-13 00:38 | XMS_ITS | Encounter Summary ---
Author Organization [facility] Address [address] [place] [address] Care Team Providers Care Assistant Chief Train Dispatcher Name Role Phone Arben Paredes MD Primary Care Provider + Reason for Visit * Reason Comments Imm Inj Encounter Details Date Type Department Care Team (Late st Contact Info) Description 06/18/2017 10:00 AM CDT Office Visit [facility] [employer] [facility] AT [address] [place] [address] Provider, [facility] Need for vaccination (Primary Dx) Social History Tobacco Use Types Packs/Day Years Used Date Smoking Tobacco: Never Assessed Sex and Gender Information Value Date Recorded Sex Assigned at Not on file Gender Identity Not on file Sexual Orientation Not on file documented as of this encounter Patient Instructions * Patient Instructions* Gila Rueda APRN-CNP - 06/18/2017 10:17 AM CDT Influenza Vaccine WHAT YOU NEED TO KNOW: The influenza vaccine is an injection given to help prevent influenza (flu). The flu is caused by avirus. The virus spreads from person to person through coughing and sneezing. Several types of viruses cause the flu. The viruses guide changer time, so new vaccines are made each year. The vaccine begins to protect you about 2 weeks after you get it. The flu shot usually injected into your upper arm. It may be given in your thigh. DISCHARGE INSTRUCTIONS: Call 911 for any of the following: ?? Your mouth and throat are swollen. ?? You are wheezing or have trouble breathing. ?? You have chest pain or your heart is beating faster than normal for you. ?? You feel like you are going to faint. Return to the emergency department if: ?? Your face is red or swollen. ?? You have hives that spread over your body. ?? You feel weak or dizzy. Contact your healthcare provider if: ?? You have increased pain, redness, or swelling around the area where the shot was given. ?? You have questions or concerns about the influenza vaccine. Apply a warm compress to the injection area if you got a flu shot. Apply the compress as directed to decrease pain and swelling. Follow up with your healthcare provider as directed: Write down your questions so you remember to ask them during your visits. ?? 2016 [employer]. Information is for End User's use only and may not be sold, redistributed or otherwise used for commercial purposes. All illustrations and images included in CareNotes?? are the copyrighted property of [employer]. or [employer]. The above information is an housekeeping aide only. It is not intended as medical advice for individual conditions or treatments. Talk to your doctor, nurse or pharmacist before following any medical regimen to see if it is safe and effective for you. documented in this encounter Progress Notes * Gila Rueda APRN-CNP - 06/18/2017 10:12 AM CDT Pt tolerated injection well. Pt advised to seek medical attention for severe reaction Including: hives, swelling of the face and/or throat, difficulty breathing, fever, a fast heartbeat, dizziness, and weakness. If you think you are having a severe allergic reaction or other emergency call 911 Educational material given documented in this encounter Plan of Treatment Not on file documented as of this encounter Visit Diagnoses Diagnosis Need for vaccination- Primary Need for prophylactic vaccination and inoculation against unspecified single disease documented in this encounter Care Teams Assistant Chief Train Dispatcher Relationship Specialty Start Date End Date Arben Paredes MD [address] [place] [address] PCP - General Infectious Disease 07/11/16 documented as of this encounter
--- OUTSIDE RECORDS SUMMARY | 2024-10-13 00:38 | XMS_ITS | Clinical Summary ---
Author Organization [facility] Address [address] [place] [phone] Care Team Providers Care Medical Support Specialist Name Role Phone Arben Paredes MD Primary Care Provider + Family History Medical History Relation Name Comments Breast Cancer Neg Hx Cancer Neg Hx Ovarian Cancer Neg Hx Social History Tobacco Use Types Packs/Day Years Used Date Smoking Tobacco: Never Assessed Sex and Gender Information Value Date Recorded Sex Assigned at Not on file Gender Identity Not on file Sexual Orientation Not on file Plan of Treatment Health Maintenance Due Date Last Done Comments DTAP/TDAP/TD VACCINES (1 - Tdap) 1968 COLORECTAL SCREENING 1994 Colorectal Cancer Screening 1994 FIT-DNA Q 3 years 1994 FIT/FOBT Q 1 year 1994 Flex Sig/CT Colonography Q 5 years 1994 ZOSTER VACCINE (1 of 2) 1999 PNEUMOCOCCAL VACCINE 65+ YEA RS (1 of 1 - PCV) 2014 INFLUENZA VACCINE (#1) 2024 06/18/2017, 2015 RSV VACCINE (60+ or ) (1 - 1-dose 75+ series) 2024 OSTEOPOROSIS SCREENING Completed 02/28/2016 Procedures Procedure Name Priority Date/Time Associated Diagnosis Comments XR DEXA BONE DENSITY AXIAL 1 OR MORE SITES Routine 02/28/2016 9:15 AM CDT Post-menopausal from Last 3 Months or Most Recently Relevant to Health Maintenance Results * XR DEXA BONE DENSITY AXIAL 1 OR MORE SITES (02/28/2016 9:15 AM CDT) Anatomical Region Laterality Modality Digital Radiogra phy 02/28/2016 9:15 AM CDT Impressions 02/28/2016 9:46 AM CDT IMPRESSION: Normal BMD. Lumbar Spine ??T-score 0.2 Left femoral neck ?T-score -0.9 Right femoral neck ??T-score -0.8 Left Forearm ??T-score 0.1 Comments: L3 excluded because of statistical variation related to significant osteoarthritis. Statistical change: No prior exam is available. Definitions: Normal: T-score above -1.0 Osteopenia T-score less than -1.0 and above -2.5 Osteoporosis: T-score <= -2.5 Follow-up Recommendations: ?? Patients without high risk factors for osteoporosis ? T-score -1.0 to -1.5 - Consider repeat BMD in 5-10 years ? T-score -1.5 to - 2.0 - Consider repeat BMD in 3-5 years ? T-score -2.0 to - 2.5 - Consider repeat BMD every 2 years ?? Patients on treatment for osteoporosis ? 1-2 years after initiation of treatment and every 2 [address] Mak Syed MD DICTATION LOCATION: Location 1 - [facility] 02/28/2016 9:46 AM CDT EXAMINATION: ??BONE DENSITY STUDY (DXA) DATE: 02/28/2016 9:15 AM CLINICAL HISTORY: 65 years ??postmenopausal female. PROCEDURE: Planar images of the lumbar spine, hip(s) and forearm(s) using a Pixelpipe DEXA scanner for bone mineral density determination (BMD). ?? FINDINGS: ? Lumbar Spine (L1, L2 and L4) T-score 0.2 ?? 1.189 g/sq cm Left femoral neck ?T-score -0.9 ?? 0.907 g/sq cm Right femoral neck ??T-score -0.8 ?? 0.926 g/sq cm ?? Left 33% radius T-score 0.1 ?? 0.881 density g/sq cm Detailed report placed in Imaging Section of [facility] EMR. Procedure Note Mak ySed MD - 02/28/2016 EXAMINATION: BONE DENSITY STUDY (DXA) DATE: 02/28/2016 9:15 AM CLINICAL HISTORY: 65 years postmenopausal female. PROCEDURE: Planar images of the lumbar spine, hip(s) and forearm(s) using a Pixelpipe DEXA scanner for bone mineral density determination (BMD). FINDINGS: Lumbar Spine (L1, L2 and L4) T-score 0.2 1.189 g/sq cm Left femoral neck T-score -0.9 0.907 g/sq cm Right femoral neck T-score -0.8 0.926 g/sq cm Left 33% radius T-score 0.1 0.881 density g/sq cm Detailed report placed in Imaging Section of [facility] EMR. IMPRESSION IMPRESSION: Normal BMD. Lumbar Spine T-score 0.2 Left femoral neck T-score -0.9 Right femoral neck T-score -0.8 Left Forearm T-score 0.1 Comments: L3 excluded because of statistical variation related to significant osteoarthritis. Statistical change: No prior exam is available. Definitions: Normal: T-score above -1.0 Osteopenia T-score less than -1.0 and above -2.5 Osteoporosis: T-score <= -2.5 Follow-up Recommendations: Patients without high risk factors for osteoporosis T-score -1.0 to -1.5 - Consider repeat BMD in 5-10 years T-score -1.5 to - 2.0 - Consider repeat BMD in 3-5 years T-score -2.0 to - 2.5 - Consider repeat BMD every 2 years Patients on treatment for osteoporosis 1-2 years after initiation of treatment and every 2 years thereafter [address] Dr[address] Mak Syed MD DICTATION LOCATION: Location 1 - [facility] Akua Pina MD DIAGNOSTIC IMAGING O RDERABLES from Last 3 Months or Most Recently Relevant to Health Maintenance Care Teams Medical Support Specialist Relationship Specialty Start Date End Date Arben Paredes MD [address] [facility] [address] [place] [address] PCP - General Internal Medicine 02/20/16
--- OUTSIDE RECORDS SUMMARY | 2024-10-13 00:38 | XMS_ITS | Clinical Summary ---
Author Organization [facility] Address [address] [facility] [place] [address] Care Team Providers Care Staff Registered Nurse Name Role Phone Arben Paredes MD Primary Care Provider + Source Comments [facility] [employer],non-owned Affiliates and Associated Physician Practices is amultiple site organization consisting of ambulatory clinics and hospital sitesin [place], [place], [place] and [place]. This disclosure is being madepursuant to the Care Everywhere program and may not contain all information available regarding this patient. Last updated 18.[facility] [employer] Allergies Active Allergy Reactions Criticality Noted Date [...] Health Maintenance Due Date Last Done Comments BONE DENSITY TESTING 1950 COLOGUARD (AGES 45-75) - COL ON CA SCREENING 1949 COLON MONITORING 1949 COLONOSCOPY - COLON CA SCREENING 1949 CT COLONOGRAPHY - COLON CA SCREENING 1950 Colorectal Cancer Screening 1949 FIT - COLON CA SCREENING 1949 FLEX SIG - COLON CA SCREENING 1949 LIPID TESTING 1950 MAMMOGRAM 1949 HEPATITIS C SCREENING 08/11/1967 DTAP/TDAP/TD VACCINES (1 - Tdap) 1968 ZOSTER VACCINE (1 of 2) 1999 PNEUMOCOCCAL VACCINE 65+ (1 of 1 - PCV) 2014 DEPRESSION SCREENING 10/07/2023 COVID-19 VACCINE (1 - 2023-2 5 season) 2024 INFLUENZA VACCINE (#1) 2024 9, 06/18/2017, 07/11/2016 Respiratory Syncytial Virus (RSV) Vaccine Pt: or over 60 yrs (1 - 1-dose 75+ series) 2024 HEPATITIS B VACCINE Aged Out No longe r eligible based on patient's age to complete this topic HIB VACCINE Aged Out No longer eligi ble based on patient's age to complete this topic HPV VACCINE Aged Out No longer eligi ble based on patient's age to complete this topic MENINGOCOCCAL VACCINE Aged Out No sylvia petar eligible based on patient's age to complete this topic Care Teams Staff Registered Nurse Relationship Specialty Start Date End Date Arben Paredes MD [address] [place] [address] PCP - General Infectious Disease 07/11/16
--- OUTSIDE RECORDS SUMMARY | 2024-10-13 00:38 | XMS_ITS | Encounter Summary ---
Author Organization [facility] Address [address] [place] [address] Care Team Providers Care Studio Data Analyst Name Role Phone Arben Paredes MD Primary Care Provider + Reason for Referral * Outpatient Services (Routine) - Closed Specialty Diagnoses / Procedures Referred By Rosangela zabala Referred To Contact Diagnoses Visit for screening mammogram Procedures MAMMO SCREEN BILAT W OR WO Akua Syed MD NO ADDRESS ON FILE Referral ID Status Reason Start Date Expiration Date V isits Requested Visits Authorized [id number] Closed [facility] 11/19/2016 12/20/2017 1 1 Reason for Visit * Outpatient Services (Routine) - Closed Specialty Diagnoses / Procedures Referred By Rosangela zabala Referred To Contact Diagnoses Visit for screening mammogram Procedures MAMMO SCREEN BILAT W OR WO Akua Syed MD NO ADDRESS ON FILE Referral ID Status Reason Start Date Expiration Date V isits Requested Visits Authorized [id number] Closed [facility] 11/19/2016 12/20/2017 1 1 Encounter Details Date Type Department Care Team (Latest Contact Info) Description 03/01/2017 10:26 AM CDT - 03/01/2017 11:59 PM CDT Hospital Encounter [facility] [address] [place] [id number] Akua Pina MD NO ADDRESS ON FILE [...] SCREEN BILAT W OR WO CAD Routine 03/01/2017 10:37 AM CDT Visit for screening mammogram documented in this encounter Results * MAMMO SCREEN BILAT W OR WO CAD (03/01/2017 10:37 AM CDT) Anatomical Region Laterality Modality Breast Bilateral Mammography 03/01/2017 10:3 7 AM CDT Impressions 03/01/2017 5:13 PM CDT IMPRESSION: No mammographic evidence of malignancy. RECOMMENDATIONS: Routine screening mammogram in one year. Dictation Location: [facility] Narrative 03/01/2017 5:13 PM CDT BILATERAL FULL-FIELD DIGITAL SCREENING MAMMOGRAM WITH CAD DATE: 03/01/2017 10:37 AM HISTORY: Routine screening. TECHNIQUE: Full field digital craniocaudal and mediolateral oblique projections of both breasts were obtained. Computer aided diagnosis was performed. COMPARISON: September 2010 through February 2016. BREAST COMPOSITION: Scattered fibroglandular densities. FINDINGS: No suspicious mass, suspicious microcalcifications, or architectural distortion in either breast is identified. Since the prior study, there has been no significant interval change. The computer aided diagnosis detects no significant abnormality. OVERALL ASSESSMENT: BI-RADS Category 1 - Negative. Procedure Note Mak Caro MD - 03/01/2017 BILATERAL FULL-FIELD DIGITAL SCREENING MAMMOGRAM WITH CAD DATE: 03/01/2017 10:37 AM HISTORY: Routine screening. TECHNIQUE: Full field digital craniocaudal and mediolateral oblique projections of both breasts were obtained. Computer aided diagnosis was performed. COMPARISON: September 2010 through February 2016. BREAST COMPOSITION: Scattered fibroglandular densities. FINDINGS: No suspicious mass, suspicious microcalcifications, or architectural distortion in either breast is identified. Since the prior study, there has been no significant interval change. The computer aided diagnosis detects no significant abnormality. OVERALL ASSESSMENT: BI-RADS Category 1 - Negative. IMPRESSION IMPRESSION: No mammographic evidence of malignancy. RECOMMENDATIONS: Routine screening mammogram in one year. Dictation Location: [facility] Akua Pina MD MAMMO ORDERABLES documented in this encounter Visit Diagnoses Diagnosis Visit for screening mammogram Other screening mammogram documented in this encounter Care Teams Studio Data Analyst Relationship Specialty Start Date End Date Arben Paredes MD [facility] [address] [address] PCP - General Internal Medicine 02/20/16 documented as of this encounter
--- OUTSIDE RECORDS SUMMARY | 2024-10-13 00:39 | XMS_ITS | Encounter Summary ---
Author Organization [facility] Address [address] [place] [address] Phone Care Team Providers Care Small Appliance Assembly Supervisor Name Role Phone Librado Hernandez MD Primary Care Provider + Encounter Details Date Type Department Care Team (Late st Contact Info) Description 09/21/2024 Telephone [facility] [address] [facility] [address] [place] [address] Librado Hernandez MD [address] [place] [address] [address] [place] [address] Social History Tobacco Use Types Packs/Day Years Used Date Smoking Tobacco: Former Cigarettes 0.3 2 1 968 - 1970 Smokeless Tobacco: Never Alcohol Use Standard Drinks/Week Comments Yes 0 [...] on file 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 12.16.24 NARY ARTIST documented in this encounter Plan of Treatment Not on file documented as of this encounter Visit Diagnoses Not on filedocumented in this encounter Care Teams Small Appliance Assembly Supervisor Relationship Specialty Start Date End Date Librado Hernandez MD [address] [place] [address] DR Queta ROY [address] [place] [address] PCP - General Internal Medicine 06/02/24 documented as of this encounter
--- OUTSIDE RECORDS SUMMARY | 2024-10-13 00:39 | XMS_ITS | Encounter Summary ---
Author Organization [facility] Address [address] [place] [address] Phone Care Team Providers Care Cake Former Name Role Phone Arben Paredes MD Primary Care Provider [phone] Encounter Details Date Type Department Care Team (Late st Contact Info) Description 11/18/2020 Telephone [facility] Dermatology [address] [place] [address] [address] [place] [address] Anthony Rodríguez MD [address] [place] [address] [address] [place] [address] Social History Tobacco Use Types Packs/Day Years Used Date Smoking Tobacco: Former Cigarettes 0.3 2 1 968 - 1970 Smokeless Tobacco: Never Alcohol Use Standard Drinks/Week Comments Yes 0 (1 standard drink = 0.6 oz pur e alcohol) RARELY PHQ-2 Answer Date Recorded PHQ-2 Score 0 05/28/2019 Comments No Sex and Gender Information Value Date Recorded Sex Assigned at Not on file 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 - 11/18/2020 2:24 PM CST Patient says someone called her today and said she could come in early she is on her way she says it takes her about 40 minutes. DING MACHINE OPERATOR AUTOMATIC documented in this encounter Plan of Treatment Not on file documented as of this encounter Visit Diagnoses Not on filedocumented in this encounter Care Teams Cake Former Relationship Specialty Start Date End Date Arben Paredes MD PCP - General 01/24/17 06/01/24 documented as of this encounter
--- OUTSIDE RECORDS SUMMARY | 2024-10-13 00:39 | XMS_ITS | Encounter Summary ---
Author Organization [facility] Address [address] [place] [address] Phone Care Team Providers Care Brush Polisher Name Role Phone Arben Paredes MD Primary Care Provider [phone] Reason for Referral * Diagnostic Imaging (Routine) - Closed Specialty Diagnoses / Procedures Referred By Rosangela zabala Referred To Contact Diagnoses Aftercare following left knee joint replacement surgery Procedures XR Knee Left 3 Views Jim Fraire MD [address] [facility] [address] [place] [address] Phone: tel: fax: [facility] Radiology [address] [facility] [address] [place] [address] Phone: tel: Referral ID Status Reason Start Date Expiration Date Visits Re quested Visits Authorized [id number] Closed 05/15/2024 06/14/2025 1 1 Reason for Visit * Reason Comments Pain * Consultation (Routine) - Closed Specialty Diagnoses / Procedures Referred By Rosangela zabala Referred To Contact Orthopedic Surgery Diagnoses Failure of total knee replacement, initial encounter ([facility]) [facility] Orthopaedic Surgery [address] [place] [address] Phone: tel: fax: [facility] (All Locations) Referral ID Status Reason Start Date Expiration Date V isits Requested Visits Authorized [id number] Closed Specialty Services Required 05/11/2024 06/10/2025 1 1 Encounter Details Date Type Department Care Team (Late st Contact Info) Description 05/26/2024 2:00 PM CDT Office Visit [facility] [address] [facility] [address] [place] [address] Jim Fraire MD [address] [facility] [address] [place] [address] Failure of total knee replacement, initial encounter (HCC) (Primary Dx); Aftercare following left knee joint replacement surgery Social History Tobacco Use Types Packs/Day Years Used Date Smoking Tobacco: Former Cigarettes 0.3 2 1 968 - 6980 Smokeless Tobacco: Never Alcohol Use Standard Drinks/Week Comments Yes 0 (1 standard drink = 0.6 oz pur e alcohol) RARELY AUDIT-C Answer Date Recorded Frequency of Alcohol Consumption Not on file 05/27/2024 Average Number of Drinks Not on file 024 Q3: How often do you have si x or more drinks on one occasion? 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 She has had progressive pain deformityin his stability since that time. At the time of her revision she had a broken polyethylene. She was revised to a thicker more conforming polyethylene. On exam today she has varus deformity with 2+ opening to valgus stress. Radiographs show asymmetric wear of the polyethylene with broken versus worn medial tibial polyethylene. Patient is candidate for liner change versus revision knee replacement. The components appear to be well fixed with no evidence of loosening. We will be prepared to do a complete revision however components appear well aligned well fixed and stable at the time of surgery will do a liner change. 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 Electronically signed by: Dionicio Aguilar MD Narrative 05/26/2024 2:31 PM CDT EXAMINATION: XR KNEE LEFT 3 VIEWS HISTORY: Left knee pain FINDINGS: Comparison dated 07/12/2020. 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 Alignment is unchanged. ??Heterotopic ossification about the left knee joint is unchanged. ??Mild patella baja. ??Small left knee joint effusion. ??Mild soft tissue swelling. Procedure Note Dionicio Aguilar MD - 05/26/2024 EXAMINATION: XR KNEE LEFT 3 VIEWS HISTORY: Left knee pain FINDINGS: Comparison dated 07/12/2020. 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 Alignment is unchanged. Heterotopic ossification about the left knee joint is unchanged. Mild patella baja. Small left knee joint effusion. Mild soft tissue swelling. 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 Electronically signed by: Dionicio Aguilar MD us Jim Fraire MD IMG XR PROCEDURES Final Res ult documented in this encounter Visit Diagnoses Diagnosis Failure of total knee replacement, initial encounter (HCC)- Primary Aftercare following left knee joint replacement surgery Aftercare following left knee joint replacement surgery documented in this encounter Orders Outpatient Referral Count Last Ordered Date Fir st Ordered Date AMB REFERRAL TO ORTHOPEDIC SURGERY 1 2023 documented in this encounter Care Teams Brush Polisher Relationship Specialty Start Date End Date Arben Paredes MD PCP - General 01/24/17 06/01/24 documented as of this encounter
--- OUTSIDE RECORDS SUMMARY | 2024-10-13 00:39 | XMS_ITS | Encounter Summary ---
Author Organization [facility] Address [address] [place] [address] Phone Care Team Providers Care Marine Service Operator Name Role Phone Arben Paredes MD Primary Care Provider [phone] Reason for Visit * Reason Comments Cataract Encounter Details Date Type Department Care Team (Late st Contact Info) Description 05/02/2021 10:15 AM CDT Office Visit [facility] Ophthalmology [address] [facility] 6th Floor, [address] [place] [facility] [place] [address] Julia Trimble MD [address] [facility], [address] [address] Nuclear sclerotic cataract of both eyes (Primary Dx); Drusen of both optic discs; Dry eye syndrome of both eyes Social History Tobacco Use Types Packs/Day Years [...] on file 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 documented in this encounter Progress Notes * Julia Trimble MD - 05/02/2021 10:15 AM CDT Assessment/Plan Diagnoses and all orders for this visit: Nuclear sclerotic cataract of both eyes (Primary) Assessment & Plan: Not visually significant. Do not recommend surgery at this time. Continue to monitor. Patient to call if problems with activities of daily living. Brochure offered/given. Drusen of both optic discs Assessment & Plan: More OS>OD. Small optic nerves. Takes amlodipine in the morning. Continue to monitor. Dry eye syndrome of both eyes Assessment & Plan: Recommend increase lubricant eye drops to 4 times/day; consider preservative- free drops, especiallyif using drops more than that. Add hot compresses with lid scrubs to improve quality of tears. Return in about 1 year (around 05/02/2022), or if symptoms worsen or fail to improve, for with Optometry/ ok to alternate with LMT. Visual Acuity (Snellen - Linear) Right Left Dist cc 20/20 -1 20/20 -1 Near cc J1 J1 Correction: Glasses Tonometry Tonometry (Tonopen, 10:32 AM) Right Left Pressure 21 21 Eyeglass Final Rx Eyeglass Final Rx Sphere Cylinder [place] Dist VA Add Right +1.75 +0.75 170 20/20 +2.50 Left +1.25 +1.00 005 20/20- +2.50 documented in this encounter Miscellaneous Notes * Assessment & Plan Note - Julia Trimble MD - 05/02/2021 11:19 AM CDT Associated Problem(s): Dry eye syndrome of both eyes Recommend increase lubricant eye drops to 4 times/day; consider preservative- free drops, especiallyif using drops more than that. Add hot compresses with lid scrubs to improve quality of tears. * Assessment & Plan Note - Martha Lui - 05/02/2021 9:38 AM CDTAssociated Problem(s): Drusen of both optic discs More OS>OD. Small optic nerves. Takes amlodipine in the morning. Continue to monitor. * Assessment & Plan Note - Martha Lui - 05/02/2021 9:37 AM CDTAssociated Problem(s): Nuclear sclerotic cataract of both eyes Not visually significant. Do not recommend surgery at this time. Continue to monitor. Patient to call if problems with activities of daily living. Brochure offered/given. 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 Dry eye syndrome of both eyes documented in this encounter Discontinued Medications Medication Sig Discontinue Reason Start Date End Da te diclofenac sodium (VOLTAREN) 1 % gel Apply 2 g topically 4 (four) times a day Apply topically 4gms to the effected joint 4 times a day Therapy completed 07/12/2020 05/02/2021 levocetirizine (XYZAL) 5 mg tablet Take 1 tablet by mouth daily Therapy completed 05/02/2021 aspirin 325 mg enteric coated tabletIndications:Deep Vein Thrombosis Prevention Take 1 tablet (325 mg total) by mouth 2 (two) times a day Therapy completed 12/31/2018 05/02/2021 ALPRAZolam (XANAX) 0.25 mg tablet TK 2 TS PO 1 HOUR BEFORE PROCEDURE Therapy completed 05/19/2020 05/02/2021 senna-docusate (PERICOLACE) 8.6-50 mgIndications:constipat ion Take 2 tablets by mouth 2 (two) times a day Therapy completed 12/31/2018 05/02/2021 documented as of this encounter Historical Medications * This list may reflect changes made after this encounter. pramipexole (MIRAPEX) 0.125 mg tabletIndications :Restless Legs Syndrome Take 1 tablet (0.125 mg total) by mouth 2 (two) times a day added in this encounter Eye Exam Visual Acuity (Snellen - Linear) Right eye Left eye Dist cc 20/20 -1 20/20 -1 Near cc J1 J1 Correction: Glasses Tonometry (Tonopen, 10:32 AM) Right eye Left eye Pressure 21 21 Pupils Dark Light Shape React APD Right eye 4 3 Round Brisk None Left eye 4 3 Round Brisk None Visual Johnson Right eye Left eye Full Full Extraocular Movement Right eye Left eye Full, Ortho Full, Ortho Neuro/Psych Oriented x3: Yes Mood/Affect: Normal Dilation Both eyes: 1.0% Mydriacyl, 2 .5% Phenylephrine @ 10:33 AM Keratometry K1 [place] K2 [place] Right eye 42.12 160 42.25 070 Left eye 43.00 113 43.37 023 Glare Testing (in direct) High Right eye 20/25 Left eye 20/25 External Exam Right eye Left eye External Normal Normal Slit Lamp Exam Right eye Left eye Lids/Lashes Trace Dermatochalasis Trace Derm atochalasis Conjunctiva/Sclera White and quiet White and mehreen et Cornea no Guttata, 1+ Punct ate epithelial erosions no Guttata, 1+ Punctate epithelial erosions Anterior Chamber Deep and quiet Deep and quiet Iris Round and dilated to 7mm Round a nd dilated to 7mm Lens 2+ Nuclear sclerosis 2+ Nuclear sclerosis Vitreous syneresis, no cell syneresis, no cell Fundus Exam Right eye Left eye Disc no Optic disc hemorr davin, slightly crowded no heme, +optic drusen, slightly crowded C/D Ratio 0.1 0.1 Macula Normal Normal Vessels Normal Normal Periphery Normal Normal Wearing Rx Sphere Cylinder [place] Add Right eye +1.75 +0.75 162 +2.50 Left eye +1.25 +0.75 008 +2.50 Age: 1yr Type: trifocal Manifest Refraction #1 (Auto) Sphere Cylinder [place] Dist VA Add Right eye +2.50 +0.75 170 Left eye +2.00 +0.50 005 Manifest Refraction #2 Sphere Cylinder [place] Dist VA Add Right eye +1.75 +0.75 170 20/20 +2.50 Left eye +1.25 +1.00 005 20/20- +2.50 Final Rx Sphere Cylinder [place] Dist VA Add Right eye +1.75 +0.75 170 20/20 +2.50 Left eye +1.25 +1.00 005 20/20- +2.50 Care Teams Marine Service Operator Relationship Specialty Start Date End Date Arben Paredes MD PCP - General 01/24/17 06/01/24 documented as of this encounter
--- OUTSIDE RECORDS SUMMARY | 2024-10-13 00:39 | XMS_ITS | Encounter Summary ---
Author Organization [facility] Address [address] [place] [address] Phone Care Team Providers Care Business Services Associate Name Role Phone Librado Hernandez MD Primary Care Provider + Reason for Referral * Consultation (Routine) - Pending Review Specialty Diagnoses / Procedures Referred By Rosangela zabala Referred To Contact Physical Therapy Diagnoses Failed total knee, left, sequela Left knee pain, unspecified chronicity Jim Fraire MD [address] [facility] [address] [place] [address] Phone: tel: fax: [facility] [address] [place] [address] fax: Referral ID Status Reason Start Date Expiration Date Visits Requested Visits Authorized [id number] Pending Review Specialty Services Required 06/02/2024 07/02/2025 24 24 Question Answer PTRFR PT Evaluate and Treat Therapy options discussed with patient? Yes Location provided for therapy services is: Patient requested/Patient preferred Please select the performing region: External Order [171] To loc/pos [facility] [[id number]] # of visits: 24 Comments POST-OPERATIVE TOTAL KNEE - PHYSICAL THERAPY REFERRAL DATE: 06/02/2024 1949 Diagnosis: Left Revision Total Knee Replacement Date of Surgery: 06/01/2024 Duration of therapy: 2-3 times per week for 4-6 weeks Evaluate and Treat Weight Bearing Status: Full weight bearing bilateral lower extremity Active/Active Assisted ROM, Passive ROM, Strengthening, Gait Training, Massage Therapy, Ultrasound, Modalities, and Home Exercise Program Restrictions: no squats past 45 degrees, use stationary bike at each visit. 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 documented in this encounter Plan of Treatment Scheduled Referrals Name Type Priority Associated Diagnoses Orde r Schedule Ambulatory referral order to Physical Therapy - Outpatient Referral Routine Failed total knee, left, sequela Left knee pain, unspecified chronicity Expected: 06/16/2024 (Approximate), Expires: 06/02/2025 documented as of this encounter Visit Diagnoses Diagnosis Failed total knee, left, sequela- Primary Left knee pain, unspecified chronicity documented in this encounter Care Teams Business Services Associate Relationship Specialty Start Date End Date Librado Hernandez MD [address] [place] [address] DR Queta ROY [address] [place] [id number] PCP - General Internal Medicine 06/02/24 documented as of this encounter
--- OUTSIDE RECORDS SUMMARY | 2024-10-13 00:39 | XMS_ITS | Encounter Summary ---
Author Organization [facility] Address [address] [facility] [address] [place] [address] Phone Care Team Providers Care Production Sound Mixer Name Role Phone Librado Hernandez MD Primary Care Provider + Encounter Details Date Type Department Care Team (Late st Contact Info) Description 09/25/2024 Telephone [facility] [address] [facility] [address] [place] [address] Librado Hernandez MD [address] [place] [address] [address] [place] [address] Social History Tobacco Use Types [...] on file Legal Sex Female 9:36 AM HIDE AND SKIN CLASSER Gender Identity Not on file Sexual Orientation Not on file documented as of this encounter Miscellaneous Notes * Telephone Encounter - Taylor Ac - 09/28/2024 12:04 PM CST Pt stated she called the insurance and it was approved and she was able to fill. 09.28.24. AND SKIN CLASSER * Telephone Encounter - Taylor Ac - 09/25/2024 12:43 PM CST Calling in regards to the [employer] 09.25.24 AND SKIN CLASSER documented in this encounter Plan of Treatment Not on file documented as of this encounter Visit Diagnoses Not on filedocumented in this encounter Care Teams Production Sound Mixer Relationship Specialty Start Date End Date Librado Hernandez MD [facility] [address] Queta ROY [address] [place] [address] PCP - General Internal Medicine 06/02/24 documented as of this encounter
--- OUTSIDE RECORDS SUMMARY | 2024-10-13 00:39 | XMS_ITS | Encounter Summary ---
Author Organization [facility] Address [address] [place] [address] Care Team Providers Care Lvn Name Role Phone Librado Hernandez MD Primary Care Provider + Reason for Visit * Reason Comments Hives Rash on her left leg around her knee, and on her back, and it is itchy, X 4 days, had knee surgury on 06/01 Encounter Details Date Type Department Care Team (Late st Contact Info) Description 06/13/2024 11:15 AM CDT Office Visit [facility] at [address] [address] Lashay Velazco PA [address] [place] [address] [address] [place], [place] [id number] Rash and nonspecific skin eruption (Primary Dx) Social History Tobacco Use Types [...] on file Legal Sex Female 9:36 AM NURSING INFORMATICS ANALYST Gender Identity Not on file Sexual Orientation Not on file documented as of this encounter Last Filed Vital Signs Vital Sign Reading Time Taken Comments Blood Pressure 146/76 06/13/2024 11:08 AM CDT Pulse 91 06/13/2024 11:08 AM CDT Temperature 36.9 ??C (98.4 ??F) 06/13/2024 11:08 AM C DT Respiratory Rate 20 06/13/2024 11:08 AM CDT Oxygen Saturation 96% 06/13/2024 11:08 AM CDT Inhaled Oxygen Concentration - - Weight 93.6 kg (206 lb 6.4 oz) 06/13/2024 11:08 AM CDT Height 162.6 cm (5' 4.02 ) 06/13/2024 11:08 AM C DT Body Mass Index 35.41 06/13/2024 11:08 AM CDT documented in this encounter Patient Instructions * Patient Instructions* Lashay Velazco PA - 06/13/2024 11:15 AM CDT -take medication as directed -continue cool packs -may try benadryl cream -may continue kenalog cream -follow up with ortho or pcp for further management -ER for new or worsening symptoms * Attachments The following attachments cannot be sent through Care Everywhere. * Acute Rash (AfterCare(R) Instructions(ER/ED)) (Indonesian) documented in this encounter Ordered Prescriptions Prescription Sig Dispense Quantity Refills Last Filled Start Date End Date predniSONE (DELTASONE) 20 mg tablet Take 1 tablet (20 mg) by mouth daily for 3 days 3 tablet 06/13/2024 hydrOXYzine (ATARAX) 25 mg tablet Take 1 tablet (25 mg total) by mouth 3 (three) times a day as needed for itching 12 tablet 06/13/2024 4 documented in this encounter Progress Notes * Lashay Velazco PA - 06/13/2024 11:15 AM CDT Images from the original note were not included. Subjective/Objective Patient ID: Albert Hsieh is a 73 y.o. female. Chief Complaint Hives (Rash on her left leg around her knee, and on her back, and it is itchy, X 4 days, had knee surgury on 06/01 ) Pt presents w/ rash x 4 days. Had L knee surgery (knee replacement revision) 12 days ago, states she has had itching around the incision since that time. No pain, redness, swelling. Then developed rash in the itching area 3-4 days ago. Also developed rash on her lower and mid back. Did start a new detergent 1-2 weeks ago. Has tried benadryl, ice packs, kenalog cream w/ minimal relief. Review of Systems All systems reviewed and are negative or non contributory for this patient's presentation today other than as stated in the HPI . Physical Exam Constitutional: General: She is not in acute distress. HENT: Head: Normocephalic and atraumatic. Mouth/Throat: Pharynx: Oropharynx is clear. Eyes: Pupils: Pupils are equal, round, and reactive to light. Cardiovascular: Rate and Rhythm: Normal rate. Pulmonary: Effort: Pulmonary effort is normal. Musculoskeletal: General: Normal range of motion. Cervical back: Normal range of motion. Skin: General: Skin is warm and dry. Comments: Fine erythematous maculopapular rash noted to mid and lower back as well as surrounding her L anterior knee incision. Incision itself is c/d/I, no erythema Neurological: General: No focal deficit present. Mental Status: She is alert and oriented to person, place, and time. Psychiatric: Mood and Affect: Mood normal. Behavior: Behavior normal. Vitals: 06/13/24 1108 BP: 146/76 Pulse: 91 Resp: 20 Temp: 36.9 ??C (98.4 ??F) TempSrc: Oral SpO2: 96% Weight: 93.6 kg (206 lb 6.4 oz) Height: 162.6 cm (5' 4.02 ) Assessment/Plan -rash to low/mid back and L knee x 3-4 days -did start new detergent 1-2 weeks ago, recommended going back to old detergent -of note, she did have revision of L knee replacement 12 days ago, has had itching around the incision for over a week but developed this maculopapular rash in the area surrounding it 3-4 days ago. The incision itself appears c/d/I with no signs of infection. -has tried benadryl w/ minimal relief, will try hydroxyzine -will also try low dose prednisone x 3 days, do not want to do more than that unless cleared by orthopedics -recommended continue ice packs -pcp or ortho follow up this week -ER precautions reviewed Diagnoses and all orders for this visit: Rash and nonspecific skin eruption (Primary) Other orders - hydrOXYzine (ATARAX) 25 mg tablet; Take 1 tablet (25 mg total) by mouth 3 (three) times a day as needed for itching - predniSONE (DELTASONE) 20 mg tablet; Take 1 tablet (20 mg) by mouth daily for 3 days No results found for this or any previous visit (from the past 4 hour(s)). Disposition Treatment plan including expectations, follow up, and return precautions discussed with patient/parent, verbalizes understanding. Medication dosage, use, and potential adverse reactions discussed with patient/parent. Advised to follow up with PCP if symptoms do not resolve as expected or sooner if condition worsens. Signs/symptoms warranting ER evaluation reviewed. Patient and/or guardian was given an opportunity to ask questions, questions answered. TOMMY Kulkarni 06/13/24 11:49 AM documented in this encounter Plan of Treatment Not on file documented as of this encounter Visit Diagnoses Diagnosis Rash and nonspecific skin eruption- Primary Rash and other nonspecific skin eruption documented in this encounter Care Teams Lvn Relationship Specialty Start Date End Date Librado Hernandez MD [address] [place] [address] DR Queta ROY [address] [place] [address] PCP - General Internal Medicine 06/02/24 documented as of this encounter
--- OUTSIDE RECORDS SUMMARY | 2024-10-13 00:39 | XMS_ITS | Encounter Summary ---
Author Organization [facility] Address [address] [place] [address] Phone Care Team Providers Care Clinical Systems Analyst Name Role Phone Arben Paredes MD Primary Care Provider [phone] Reason for Visit * Consultation (Routine) - Closed Specialty Diagnoses / Procedures Referred By Contac t Referred To Contact Dermatology Diagnoses Actinic keratosis Arben Paredes MD [address] [place] [address] Phone: tel: fax: [facility] [address] [facility] [address] [place] [address] Phone: tel: fax: Referral ID Status Reason Start Date Expiration Date V isits Requested Visits Authorized [id number] Closed Specialty Services Required 02/16/2020 08/27/2021 12 12 Encounter Details Date Type Department Care Team (Late st Contact Info) Description 06/15/2021 12:30 PM CDT Office Visit [facility] [address] [place] [address] [address] [place] [address] Anthony Rodríguez MD [address] [place] [address] [address] [place] [address] Actinic keratosis (Primary Dx); Seborrheic keratosis; History of nonmelanoma skin cancer Social History Tobacco Use Types Packs/Day Years [...] on file Legal Sex Female 9:36 AM BEHAVIORAL SPECIALIST Gender Identity Not on file Sexual Orientation Not on file documented as of this encounter Ordered Prescriptions Prescription Sig Dispense Quantity Refills Last Filled Start Date End Date calcipotriene (Dovonex) 0.005 % creamIndications: Plaque Psoriasis Mix 50/50 with Fluorouracil apply to forehead, cheeks, nose twice daily for 4 days then STOP. Repeat after 3 weeks. 60 g 06/15/2021 documented in this encounter Progress Notes * Anthony Rodríguez MD - 06/15/2021 12:30 PM CDT DERMATOLOGY OUTPATIENT NOTE CC: Red rough spots on face HPI Rebeka Hsieh is a 70 y.o. female with history of SCCIS nasal tip s/p 5fu, perioral dermatitis whopresents today for FBSE.. Concerns today: -Red scaly spots on face. Some of them have been present for months. They don't quite seem to heal.She is interested in treating with efudex. -Brown spots on trunk and extremities. Reviewed medications, allergies, past medical history, family history, and social history. Non-contributory unless otherwise specified below. ROS No fever or chills, mouth sores, genital sores PHYSICAL EXAM: Gen: WD, WN, NAD; Neuro: A&O; Psyc: Normal mood and affect; Skin exam: Inspected the Scalp/Hair, Head/Face, Conjunctivae/Lids, Oropharynx/Lips, Neck, R. Upper Extremity, L. Upper Extremity, Chest/Breast, Abdomen, Back, R. Lower Extremity, L. Lower Extremity, Buttocks Examination normal with the following exceptions: -Thin red papules with scale on the cheeks, nose, forehead. -Waxy brown papules with stuck-on appearance on the trunk and extremities. -WHSS without induration or pigmentation, nose ASSESSMENT AND PLAN: Actinic keratoses, flaring, chronic -Discussed precancerous nature of lesions -After verbal consent obtained, cryotherapy with LN for 5-7 seconds, 1 cycle per lesion, 3 lesions.Blister care reviewed -Start topical 5-FU cream + calcipotriene cream in 1:1 mixture, apply twice daily for 4 days on theforehead, cheeks, nose then STOP for 3 weeks, then repeat for 4 days. Seborrheic keratoses, trunk and extremities -Benign-appearing, reassurance provided. History of non-melanoma skin cancer -No evidence of recurrence on exam today -Skin cancer education was provided, sun protection measures were discussed. -Follow-up for any concerning new or changing moles or non healing sores. RTC 6 months Remington Horowitz MD Dermatology Resident, PGY-3 ATTESTATION: I have seen and examined the patient. I agree with the findings and plan of care as documented in the resident's note. I was present for the entire procedure. Anthony Rodríguez MD documented in this encounter Plan of Treatment Not on file documented as of this encounter Visit Diagnoses Diagnosis Actinic keratosis- Primary Seborrheic keratosis History of nonmelanoma skin cancer documented in this encounter Discontinued Medications Medication Sig Discontinue Reason Start Date End Da te calcipotriene (Dovonex) 0.005 % creamIndications:Plaq ue Psoriasis Mix 50/50 with Fluorouracil apply to forehead and chest for 5 days then stop. Reorder 11/05/2019 06/15/2021 documented as of this encounter Care Teams Clinical Systems Analyst Relationship Specialty Start Date End Date Arben Paredes MD PCP - General 01/24/17 06/01/24 documented as of this encounter
--- OUTSIDE RECORDS SUMMARY | 2024-10-13 00:39 | XMS_ITS | Referral Summary ---
Author Organization [facility] Address [address] [place] [address] Care Team Providers Care Financial Institution Branch Manager Name Role Phone Librado Hernandez MD Primary Care Provider + Encounters Date Type Department Care Team Description 09/25/[address] [address] Librado Hernandez MD 09/22/2024 Orders Only [address] [address] Librado Hernandez MD 09/22/[address] [address] Librado Hernandez MD PA request 09/21/[address] [address] Librado Hernandez MD 09/16/2024 Telephone [facility] [address] [facility] [address] [facility] 6[address] [place] [id number] Channing Kendrick MA DME 09/16/2024 10:30 AM FARM SUPERVISOR Office Visit [facility] [address] [facility] [facility] 6[address] [place] [id number] Aurora Chou DNP Sleep apnea, unspecified type (Primary Dx); Sleep disorder; Iron deficiency; Vitamin D deficiency; CARRILLO (obstructive sleep apnea); Hypersomnia; RLS (restless legs syndrome) 09/14/2024 11:00 AM FARM SUPERVISOR Office Visit [address] [address] Librado Hernandez MD Primary hypertension (Primary Dx); Class 2 severe obesity due to excess calories with serious comorbidity and body mass index (BMI) of 36.0 to 36.9 in adult ([facility]) 07/14/2024 11:00 AM CDT Office Visit [address] [address] Librado Hernandez MD Primary hypertension (Primary Dx); Chronic lymphocytic leukemia ([facility]); Depressive disorder from Last 3 Months Allergies Active Allergy Reactions Criticality Noted Date [...] the skin every 7 days 2 mL 12/09 024 Discontin ued(Other ) Active Problems Problem Noted Date Diagnosed Date Failed total knee, left, 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 [...] senilis 09/05/2012 8 Surgical follow-up care 05/16/201105/2024 Immunizations Name Administration Dates Next Due COVID-19 mRNA ([employer]) 0.3 m L (30 mcg) vaccine (12 [...] SARS-CoV-2 Monovalent Vaccination (12+ Yrs) PURPLE 06/07/2021,12/27/2020,11/17/2020 Uni-Pixel Sars-Cov-2 Bivalent V accination (12+ YRS) 07/19/2023 Pneumococcal Conjugate PCV 13 10/28/2015 Pneumococcal Conjugate Pcv20 11/26/2023 Pneumococcal Polysaccharide PPV23 10/22/2014 RSV Vaccine, Pref, Recombina nt, Subunit, Adjuvanted, PF, IM (Arexvy) 07/19/2023 RSV, Bivalent, Protein Subun it Rsvpref, Diluent (Abrysvo) 07/12/2023 Tdap 03/20/2021,02/25/2012 ZOSTER Recombinant 02/17/2019,11/18/2018 Social History Tobacco Use Types Packs/Day Years [...] on file Legal Sex Female 9:36 AM FARM SUPERVISOR Gender Identity Not on file Sexual Orientation Not on file Last Filed Vital Signs Vital Sign Reading Time Taken Comments Blood Pressure 150/73 09/16/2024 10:18 AM FARM SUPERVISOR Pulse 73 09/16/2024 10:18 AM FARM SUPERVISOR Temperature 36.4 ??C (97.6 ??F) 09/16/2024 10:[address] Respiratory Rate 20 06/13/2024 11:08 AM CDT Oxygen Saturation 95% 09/16/2024 10:18 AM FARM SUPERVISOR Inhaled Oxygen Concentration - - Weight 95.7 kg (211 lb) 09/16/2024 10:18 AM FARM SUPERVISOR Height 162.6 cm (5' 4.02 ) 09/14/2024 10:[address] Body Mass Index 36.2 09/14/2024 10:34 AM FARM SUPERVISOR Plan of Treatment Not on file Medical Devices Implanted Type Area Account Executive Trainee Device Identifier Shelf Expiration Date Model / Serial / Lot [employer] [id number] Biomet Ascent Maxim Primary Lock Bar Knee Component Tibial Tray - S.0 - [id number] Implanted:Qty: 1 on 12/30/2018 by Jim Fraire MD at [facility] [employer] [id number] 07/04/2027 [id number] / .0 / [id number] [employer] [id number] Vanguard [id number] Anterior Stabilize Inlay Knee 0d Bearing - S.0 - [id number] Implanted:Qty: 1 on 12/30/2018 by Jim Fraire MD at [facility] [employer] [id number] 04/22/2023 [id number] / .[id number] / [id number] [employer] Vanguard [id number] Anterior Stabilize Inlay Knee 0d Bearing [id number] - [id number] Implanted:Qty: 1 on 06/01/2024 at [facility] Left: Knee [employer] 08/14/2028 [id number] / / [id number] [employer] Biomet Ascent Maxim Primary Lock Bar Knee Component Tibial Tray [id number] - [id number] Implanted:Qty: 1 on 06/01/2024 at [facility] Left: Knee [employer] 01/06/2034 [id number] / / [id number] Procedures Procedure Name Priority Date/Time Associated Diagnosis Comments FERRITIN Routine 09/16/2024 1:07 PM FARM SUPERVISOR TEST AUTHORIZATION Routine 09/16/2024 1: 07 PM FARM SUPERVISOR IRON PROFILE W/ IBC Routine 09/16/2024 1 :07 PM FARM SUPERVISOR VITAMIN D 25 HYDROXY Routine 09/16/2024 1:07 PM FARM SUPERVISOR Vitamin D deficiency SCREENING MAMMOGRAM Routine 01/21/2015 1 1:50 AM CDT from Last 3 Months or Most Recently Relevant to Health Maintenance Results * TEST AUTHORIZATION (09/16/2024 1:07 PM FARM SUPERVISOR) Test name FERRITIN IRON AND TOTAL IRON [facility] TEST CODE: [id number] [id number] [facility] CLIENT CONTACT: CHANNING Bermudez ROXANN [facility] Report Always Message Signature [facility] Comment: The laboratory testing on this patient was verbally requested or confirmed by the ordering physician or his or her authorized food service sales representatives after contact with an employee of [facility]. Federal regulations require that we maintain on file written authorization for all laboratory testing. ??Accordingly we are asking that the ordering physician or his or her authorized food service sales representatives sign a copy of this report and promptly return it to the client service supervisor. Signature: Comment [facility] Comment: Fax number: [phone] 09/16/2024 1:07 PM FARM SUPERVISOR 09/16/2024 1:08 PM FARM SUPERVISOR Aurora Chou [facility] LAB BLOOD ORDERABLES Final Resu lt Performing Organization Address City/[facility] Co de Phone Number QUEST [facility] [address] [place] [address] * Iron profile w/ IBC (09/16/2024 1:07 PM FARM SUPERVISOR) Iron 122 45 - 160 mcg/dL [facility] TIBC 367 250 - 450 mcg/dL (calc) [facility] Iron saturation 33 16 - 45 % (calc) [facility] 09/16/2024 1:07 PM FARM SUPERVISOR 09/16/2024 1:08 PM FARM SUPERVISOR Aurora Chou [facility] LAB BLOOD ORDERABLES Final Resu lt [facility] [address] [place] [address] * Vitamin D 25 hydroxy (09/16/2024 1:07 PM FARM SUPERVISOR) Pathologist [facility] Vitamin D 25-OH 31 30 - 100 ng/mL [facility] Comment: Vitamin D Status ? 25-OH Vitamin D: Deficiency: ?<20 ng/mL Insufficiency: ? 20 - 29 ng/mL Optimal: ? > or = 30 ng/mL For 25-OH Vitamin D testing on patients on D2-supplementation and patients for whom quantitation of D2 and D3 fractions is required, the QuestAssureD(TM) 25-OH VIT D, (D2,D3), LC/MS/MS is recommended: order code 45277 (patients >2yrs). See Note 1 Note 1 For additional information, please refer to http://education.Teralytics/faq/LLP283 (This link is being provided for informational/ educational purposes only.) Blood 09/16/2024 1:07 PM FARM SUPERVISOR 09/16/2024 1:08 PM FARM SUPERVISOR Aurora Chou [facility] LAB BLOOD ORDERABLES Final Resu lt Performing Organization Address [facility] Co de Phone Number [facility] [address] [place] [address] * (ABNORMAL) Ferritin (09/16/2024 1:07 PM FARM SUPERVISOR) Pathologist [facility] Ferritin 422(H) 16 - 288 ng/mL [facility] 09/16/2024 1:07 PM FARM SUPERVISOR 09/16/2024 1:08 PM FARM SUPERVISOR Aurora Chou [facility] LAB BLOOD ORDERABLES Final Resu lt Performing Organization Address [facility]/State/[facility] Co de Phone Number [facility] [address] [phone] * Screening Mammogram (01/21/2015 11:50 AM CDT) Anatomical Region Laterality Modality Breast N/A Mammography 01/21/2015 11:5 0 AM CDT Narrative 01/24/2015 12:41 PM CDT CHIRAG YEE M.D. FINAL REPORT The radiology attending physician has personally reviewed this study, and has reviewed and/or edited this written report and agrees with it. ACC# ??Date Time ??Exam [id number] Jan 21, 2015 11:50:00 HBC [id number] Bilateral Screen w Mauricio ?? Technologist(s): Susanna Sheffield; ; EXAMINATION: ??Mammogram Technique: Bilateral Bilateral Full-Field Digital Screening Mammogram and Digital Breast Tomosynthesis were performed. ??Views obtained: ??bilateral craniocaudal and bilateral mediolateral oblique. ??Computer Aided Detection of the 2D images was performed with Vobi.3 version 9.3. Mammogram Findings: The present examination has been compared to prior imaging studies performed at [facility] on 11/05/2013, 10/31/2012, 09/21/2011, 09/18/2010 and 09/07/2009. There are scattered fibroglandular densities. There is no suspicious abnormality in either breast. IMPRESSION: ??Annual screening mammography is recommended. OVERALL FINAL ASSESSMENT: BI-RADS CATEGORY 1: ??Negative. Requested By: Dictated By: ?? CHIRAG YEE M.D. ??on Jan 24 2015 12:41P This document has been electronically signed by: CHIRAG YEE M.D. on Jan 24 2015 12:40P [id number] Procedure Note Provider, MD Kelton - 02/06/2017 CHIRAG YEE M.D. FINAL REPORT The radiology attending physician has personally reviewed this study, and has reviewed and/or edited this written report and agrees with it. ACC# Date Time Exam [id number] Jan 21, 2015 11:50:00 HBC [id number] Bilateral Screen w Mauricio Technologist(s): Susanna Sheffield; ; EXAMINATION: Mammogram Technique: Bilateral Bilateral Full-Field Digital Screening Mammogram and Digital Breast Tomosynthesis were performed. Views obtained: bilateral craniocaudal and bilateral mediolateral oblique. Computer AidedDetection of the 2D images was performed with Vobi.3 version 9.3. Mammogram Findings: The present examination has been compared to prior imaging studies performed at [facility] on 11/05/2013, 10/31/2012,09/21/2011, 09/18/2010 and 09/07/2009. There are scattered fibroglandular densities. There is no suspicious abnormality in either breast. IMPRESSION: Annual screening mammography is recommended. OVERALL FINAL ASSESSMENT: BI-RADS CATEGORY 1: Negative. Requested By: Dictated By: CHIRAG YEE M.D. on Jan 24 2015 12:41P This document has been electronically signed by: CHIRAG YEE M.D. on Jan 24 2015 12:40P [id number] Historical Provider MD [facility] MAMMO PROCEDURES Belinda l Result from Last 3 Months or Most Recently Relevant to Health Maintenance Insurance AETNA MEDICARE [facility] MEDICARE [facility] SENIOR SUPPLEMENT [facility] MEDICARE Address: [facility] [id number] [place] [phone] AETNA MEDICARE AETNA MEDICARE Advance Directives For more information, please contact: [phone] Documents on File Type Date Recorded Patient Scientific Informatics Project Leader Expl anation Power of Industrial Real Estate Agent 06/01/2024 10:19 AM * Full Code (Latest Code Status on File) Date Activated Date Inactivated Comments 06/01/2024 4:58 PM 06/02/2024 2:30 PM * Full Code Date Activated Date Inactivated Comments 12/30/2018 12:48 PM 12/31/2018 7:12 PM Care Teams Financial Institution Branch Manager Relationship Specialty Start Date End Date Librado Hernandez MD [facility] [address]ch [address] [address] PCP - General Internal Medicine 06/02/24
--- OUTSIDE RECORDS SUMMARY | 2024-10-13 00:39 | XMS_ITS | Encounter Summary ---
Author Organization [facility] Address [address] [place] [address] Phone Care Team Providers Care Health Administrator Name Role Phone Arben Paredes MD Primary Care Provider [phone] Encounter Details Date Type Department Care Team (Late st Contact Info) Description 01/11/2021 Orders Only [facility] [address] [place] [address] [address] [place] [address] Anthony Rodríguez MD [address] [place] [address] [address] [place] [address] Social History Tobacco Use Types [...] on file Legal Sex 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 Gender Identity Not on file Sexual Orientation Not on file documented as of this encounter Ordered Prescriptions Prescription Sig Dispense Quantity Refills Last Filled Start Date End Date triamcinolone (KENALOG) 0.1 % ointment Apply topically 2 (two) times a day as needed (Rash) 60 g 2 01/11/2021 4 documented in this encounter Plan of Treatment Not on file documented as of this encounter Visit Diagnoses Not on filedocumented in this encounter Care Teams Health Administrator Relationship Specialty Start Date End Date Arben Paredes MD PCP - General 01/24/17 06/01/24 documented as of this encounter
--- OUTSIDE RECORDS SUMMARY | 2024-10-13 00:39 | XMS_ITS | Encounter Summary ---
Author Organization [facility] Address [address] [facility] [address] [place] [address] Phone Care Team Providers Care Mold Laminator Name Role Phone Librado Hernandez MD Primary Care Provider + Reason for Visit * Reason Comments Obesity Encounter Details Date Type Department Care Team (Late st Contact Info) Description 09/14/2024 11:00 AM SMOKE INSPECTOR Office Visit [facility] [address] [facility] [address] [place] [address] Librado Hernandez MD [address] [place] [address] [address] [place] [address] Primary hypertension (Primary Dx); Class 2 severe obesity due to excess calories with serious comorbidity and body mass index (BMI) of 36.0 to 36.9 in adult (HCC) Social History Tobacco Use Types Packs/Day Years [...] on file 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 Gender Identity Not on file Sexual Orientation Not on file documented as of this encounter Last Filed Vital Signs Vital Sign Reading Time Taken Comments Blood Pressure 134/82 09/14/2024 10:34 AM SMOKE INSPECTOR Pulse 85 09/14/2024 10:34 AM SMOKE INSPECTOR Temperature - - Respiratory Rate - - Oxygen Saturation 96% 09/14/2024 10:34 AM SMOKE INSPECTOR Inhaled Oxygen Concentration - - Weight 95.7 kg (211 lb) 09/14/2024 10:34 AM SMOKE INSPECTOR Height 162.6 cm (5' 4.02 ) 09/14/2024 10:[address] Body Mass Index 36.2 09/14/2024 10:34 AM SMOKE INSPECTOR documented in this encounter Ordered Prescriptions Prescription Sig Dispense Quantity Refills Last Filled Start Date End Date amLODIPine (NORVASC) 10 mg tabletIndications: Primary hypertension Take 1 tablet (10 mg total) by mouth daily 90 tablet 3 09/14/2024 tirzepatide, weight loss, (ZEPBOUND) 2.5 mg/0.5 mL pen injectorIndication s:Class 2 severe obesity due to excess calories with serious comorbidity and body mass index (BMI) of 36.0 to 36.9 in adult (HCC) Inject 0.5 mL (2.5 mg total) under the skin every 7 days 2 mL 09/14/2024 09/16/2024 documented in this encounter Progress Notes * Librado Hernandez MD - 09/14/2024 11:00 AM CST Subjective/Objective Patient ID: Rebeka Hsieh is a 74 y.o. female. Chief Complaint Obesity Ms. Hsieh is here today to discuss her obesity. She notes she has been on GLP- 1 in the past and done well, and feels her weight is making her joint pains worse, as well has her hypertension not improving. She tries to eat well but has not had improvement in weight. She is hypertensive in office today, notes has been at home as well. She takes her medication as prescribed and tolerates well. Sheotherwise has no concerns today, is interested primarily in improving her weght nad blood pressure.No other concerns today. Review of Systems Constitutional: Negative for chills, fatigue and fever. Respiratory: Negative for cough, chest tightness and shortness of breath. Cardiovascular: Negative for chest pain, palpitations and leg swelling. Gastrointestinal: Negative for abdominal pain, diarrhea, nausea and vomiting. Musculoskeletal: Negative for back pain. Skin: Negative for rash. Neurological: Negative for dizziness, weakness, light-headedness, numbness and headaches. Physical Exam Vitals reviewed. Constitutional: Appearance: Normal appearance. She is obese. HENT: Head: Normocephalic and atraumatic. Mouth/Throat: Mouth: Mucous membranes are moist. Eyes: Extraocular Movements: Extraocular movements intact. Cardiovascular: Rate and Rhythm: Normal rate and regular rhythm. Heart sounds: Normal heart sounds. Pulmonary: Effort: Pulmonary effort is normal. Breath sounds: Normal breath sounds. Musculoskeletal: General: No swelling. Normal range of motion. Cervical back: Normal range of motion. Skin: General: Skin is warm and dry. Neurological: General: No focal deficit present. Mental Status: She is alert and oriented to person, place, and time. Assessment/Plan Diagnoses and all orders for this visit: Primary hypertension (I10) (Primary) Assessment & Plan: Hypertensive in office today, will increase amlodipine to 10mg, and plan to follow up in 1 month Orders: - amLODIPine (NORVASC) 10 mg tablet; Take 1 tablet (10 mg total) by mouth daily Class 2 severe obesity due to excess calories with serious comorbidity and body mass index (BMI) of36.0 to 36.9 in adult ([facility]) (E66.812, E66.01, Z68.36) Assessment & Plan: Notes no improvements in obesity, has been on GLP-1 in the past and done well. Will plan to start on tirzepatide, and follow up in 3 months. Orders: - tirzepatide, weight loss, (ZEPBOUND) 2.5 mg/0.5 mL pen injector; Inject 0.5 mL (2.5 mg total) under the skin every 7 days E INSPECTOR documented in this encounter Miscellaneous Notes * Assessment & Plan Note - Librado Hernandez MD - 09/14/2024 10:51 AM SMOKE INSPECTOR Associated Problem(s): Class 2 severe obesity due to excess calories with serious comorbidity and body mass index (BMI) of 36.0 to 36.9 in adult (HCC) Notes no improvements in obesity, has been on GLP-1 in the past and done well. Will plan to start on tirzepatide, and follow up in 3 months. E INSPECTOR * Assessment & Plan Note - Librado Hernandez MD - 09/14/2024 10:50 AM SMOKE INSPECTOR Associated Problem(s): Hypertension Hypertensive in office today, will increase amlodipine to 10mg, and plan to follow up in 1 month E INSPECTOR documented in this encounter Plan of Treatment Not on file documented as of this encounter Visit Diagnoses Diagnosis Primary hypertension- Primary Unspecified essential hypertension Class 2 severe obesity due to excess calories with serious comorbidity and body mass index (BMI) of 36.0 to 36.9 in adult (HCC) documented in this encounter Discontinued Medications Medication Sig Discontinue Reason Start Date End Da te amLODIPine (NORVASC) 5 mg tablet 2 tablets (10 mg total) Reorder 06/22/2024 09/14/2024 documented as of this encounter Care Teams Mold Laminator Relationship Specialty Start Date End Date Librado Hernandez MD [address] [place] [address] DR Queta ROY [address] [place] [address] PCP - General Internal Medicine 06/02/24 documented as of this encounter
--- OUTSIDE RECORDS SUMMARY | 2024-10-13 00:39 | XMS_ITS | Encounter Summary ---
Author Organization [facility] Address [address] [place] [address] Phone Care Team Providers Care Corporate Safety Director Name Role Phone Librado Hernandez MD Primary Care Provider + Reason for Referral * (Routine) - Pending Review Specialty Diagnoses / Procedures Referred By Contalbert zabala Referred To Contact Diagnoses Sleep apnea, unspecified type Procedures Miscellaneous DME Aurora Chou DNP [address] [facility] [facility] [address] [place] [address] Phone: tel: fax: Referral ID Status Reason Start Date Expiration Date V isits Requested Visits Authorized [id number] Pending Review 09/16/2024 10/16/2025 1 1 ND INSTRUCTOR BASIC Reason for Visit * Consultation (Routine) - Closed Specialty Diagnoses / Procedures Referred By Rosangela zabala Referred To Contact Sleep Medicine Diagnoses Sleep disorder Arben Paredes MD [address] [place] [address] Phone: tel: fax: [facility] (All Locations) Referral ID Status Reason Start Date Expiration Date V isits Requested Visits Authorized [id number] Closed Specialty Services Required 01/07/2024 02/05/2025 1 1 Encounter Details Date Type Department Care Team (Late st Contact Info) Description 09/16/2024 10:30 AM GROUND INSTRUCTOR BASIC Office Visit [facility] Neuro Sleep [address] [facility] 6th [address] [place] [address] Aurora Chou DNP [address] [place] [address] Sleep apnea, unspecified type (Primary Dx); Sleep disorder; Iron deficiency; Vitamin D deficiency; CARRILLO (obstructive sleep apnea); Hypersomnia; RLS (restless legs syndrome) Social History Tobacco Use Types Packs/Day Years [...] on file Legal Sex Female 9:36 AM GROUND INSTRUCTOR BASIC Gender Identity Not on file Sexual Orientation Not on file documented as of this encounter Last Filed Vital Signs Vital Sign Reading Time Taken Comments Blood Pressure 150/73 09/16/2024 10:18 AM GROUND INSTRUCTOR BASIC Pulse 73 09/16/2024 10:18 AM GROUND INSTRUCTOR BASIC Temperature 36.4 ??C (97.6 ??F) 09/16/2024 10:[address] Respiratory Rate - - Oxygen Saturation 95% 09/16/2024 10:18 AM GROUND INSTRUCTOR BASIC Inhaled Oxygen Concentration - - Weight 95.7 kg (211 lb) 09/16/2024 10:18 AM GROUND INSTRUCTOR BASIC Height - - Body Mass Index 36.2 09/14/2024 10:34 AM GROUND INSTRUCTOR BASIC documented in this encounter Patient Instructions * Patient Instructions* Aurora Chou DNP - 09/16/2024 10:30 AM GROUND INSTRUCTOR BASIC Healthy sleep habits at night: -The CDC and the [place] [employer] recommend adults get at least 7 hours of sleep per a day for optimal health. - Dedicate at least 30 minutes of wind-down time before bedtime in which you do something relaxing,such as read a book. Dim the lights in the house slightly for an hour or so before bed. - Disconnect electronics: Stay away from light-emitting devices such as television, laptops, phones, and tablets. The blue light from their screens can alert the brain and make it harder to fall asleep. - Use the bed and bedroom for sleep and sex only. - Established a regular pre-bedtime routine and a regular sleep-wake schedule - Avoid alcohol or heavy meals too close to bedtime. - Create a sleep-promoting environment that is dark, cool, and comfortable. - Avoid disturbing noises: Consider a bedside fan or white noise machine to block out disturbing sounds. - If you are unable to fall asleep within 20 minutes, get up and return to another space in the house to engage in a relaxing activity, such as reading or listening to music. Lying in bed awake can create an unhealthy conditioned association between the sleep environment and wakefulness. You want your bed to conjure sleepy thoughts and positive feelings only. - Go to bed and wake up at the same time every day. Even if you have difficulties falling asleep and trouble waking up in the morning because you are tired, try to get up at the same time every day including weekends. This can help adjust your body's clock and aid in falling asleep at night. Healthy sleep habits during the day: - Avoid caffeine, particularly after noon. - Avoid alcohol and nicotine, especially close to bedtime. - Exercise regularly earlier during the day, not within 3 hours before bedtime. - Avoid naps, particularly longer than 20 minutes in outside the 1-3 p.m. time window. Keep a sleep diary to identify sleep habits and patterns that you can share with your doctor. Recommendations based on data from the National Sleep Foundation. For more information, please visit sleepeducation.org or cdc.gov/sleep Tips for CPAP/Auto-PAP use -Keep up the good work! It will only get easier with time. -Use your CPAP whenever you sleep, including naps if you can (if you take naps in your bedroom). -If the CPAP pressure feels too strong for you, use the ???ramp?? setting on your CPAP unit, so that the pressure starts low and increases slowly to the prescribed level. -Avoid things that can make sleep apnea worse, like: alcohol, smoking, some medications (like sedatives,muscle relaxants and some sleeping pills) and not getting enough sleep. -Weight gain can make sleep apnea worse. If you are of normal weight, try to stay at your current weight. If you are overweight or obese, weight loss should be an important part of your treatment plan. -Clean your CPAP mask and equipment on a regular basis. Wash all mask parts that touch your face daily. Wash the entire mask, tubing and headgear once per week. Use warm water with a mild soap, such as dish soap. -Empty any leftover water from the humidifier chamber each morning. -Replace your CPAP mask, tubing and filters on a regular basis (usually every 4- 6 months). Sometimes, mask liners or pillows need to be replaced every month. Call your Durable medical equipment (DME)company to find out when you are due for replacement supplies. -Take your CPAP with you when you travel. If you travel outside of the [place], you may need an electrical adapter. When flying, you should take your CPAP as a carry-on item, but it should not count towards your carry-on allotment. Airport security personnel is usually familiar with CPAP equipment. PAP Cleaning Instructions: Daily Cleaning Wipe down your mask using a damp towel with mild detergent and warm water. Gently rinse with a clean towel and let the mask air-dry. You can also use pre-moistened towels designed specifically for cleaning CPAP masks. If your unit has a humidifier, empty any leftover water. Refill the humidifier with clean, distilled water right before bedtime. If you've been sick, wash your mask, tubing, humidifier and filter daily until your cold, flu or virus symptoms are gone. Weekly Cleaning Clean the CPAP tubing, nasal mask and headgear in a bathroom sink filled with warm water and a few drops of ammonia-free, mild dish detergent. Hang the tubing over the shower julieta, on a towel rack or in the laundry room to ensure all the water drips out. (If a heated hose with electrical prongs, keep the end with the electrical prongs out of the water and dry.) The mask and headgear can be air-dried on a towel or hung on a hook or rehanger. Wipe down your CPAP machine with a damp cloth (not too damp or wet, as water could get into the machine). Clean the long-term filter by removing it and rinsing it in warm tap water. Squeeze it under the water to make sure there is no dust. Then blot down the filter with a towel. Don't wash your machine's white filter --those are disposable and should be replaced once a month, or sooner if it's dirty. Humidifier Every week empty any remaining water and then wash the water chamber in the sink with warm soapy water. Rinse well and drain out as much of the water as possible. Let the chamber air-dry before placing it back into the CPAP unit. Every other week you should disinfect the humidifier by soaking it in a solution of one part vinegar to five parts water for 30 minutes, thoroughly rinsing and then placing in your general helper's top rack for washing. And keep it clean by using only distilled water to prevent mineral deposits that can build up and cause damage to your machine. Change disposable filters every 1-2 months. Restless Legs Syndrome Restless legs syndrome (RLS) is a disorder that causes a powerful urge to move your legs and feet. You may also have pain, itching, tingling, throbbing, or pulling sensations in your legs. Movement relieves the symptoms for a short time. RLS is usually worse late in the day and at night. Your symptoms may come and go for days or weeks at a time, and worsen during periods of stress. It is important to treat and manage RLS to improve your quality of life. What increases my risk for RLS? Chronic conditions such as diabetes, kidney disease, neuropathy, and Parkinson disease Medicines to treat nausea, psychosis, depression, allergies, or seizures A family history of RLS Anemia due to low levels of iron, folic acid, or other nutrients How is RLS treated? There is no cure for RLS, but you may receive medicine to help treat it. You must also learn how tomanage your symptoms. Management will not get rid of symptoms, but will help reduce them. Keep your legs warm with thick socks or an electric blanket. It may also help to take a hot bath ormassage your legs before bedtime. Avoid alcohol and caffeine, especially in the evening. Alcohol and caffeine may make your symptoms worse. Do not smoke. If you smoke, it is never too late to quit. Smoking worsens the symptoms of RLS. Ask your healthcare provider for information on programs to help you quit. Go to bed and wake up at the same time every day. Lack of sleep makes RLS symptoms worse. Stay active. Moderate physical activity such as walking and stretching may help relieve your symptoms. Ask your healthcare provider about the best exercise plan for you. It is also important to have normal iron and vitamin D levels, as low levels can cause or worsen restless legs syndrome. ND INSTRUCTOR BASIC documented in this encounter Ordered Prescriptions Prescription Sig Dispense Quantity Refills Last Filled Start Date End Date gabapentin (NEURONTIN) 100 mg capsuleIndications :Restless Legs Syndrome Take 3 capsules (300 mg total) by mouth nightly 90 capsule 3 09/16/2024 documented in this encounter Progress Notes * Aurora Chou DNP - 09/16/2024 10:30 AM CST Images from the original note were not included. Patient Name: Rebeka Hsieh Medical Record Number (MRN): [id number] Date of (): 1950 Encounter Date: 09/16/24 [facility] Chief Complaint She is a 74 y.o. female with a history of hypertension, dyslipidemia depression, GERD, CLL, seen today for evaluation of sleep disorder. Referring provider: Arben Paredes MD Initial HPI She has hx of CARRILLO (for 10+ years, says severe CARRILLO, no sleep study available for review), currently on CPAP prescribed 2 years ago in [place]. She wants to transfer her care here. She also has hx of RLS and insomnia. Getting iron infusion for low iron level. DME: [facility] (in [place]) Mask: Nasal pillow, old Resmed type Data download from the machine Data range: 06/18/2024 to 09/15/2024 Compliance rate (>4h): 100 % Average usage: 7h 35 min Current pressure setting: auto 8-10, median 9.1, max 9.8 Median leaks: 0.2 L/min, 95th %: 6.0 AHI: 1.4 Excessive daytime sleepiness: YES [place] Sleepiness Scale (ESS): 14 Duration: 10 Drowsy driving: no Tired/fatigued: YES Non-restorative sleep: YES Sleep apnea symptoms: Snoring: YES Duration: 10+ years Apnea: YES Restless sleep: YES Morning headaches: no Vivid dreams: no Narcolepsy symptoms: Cataplexy: no Sleep-related hallucinations: no Sleep paralysis: no Restless legs syndrome symptoms: Reports experiencing an uncomfortable sensation and urge to move in the legs in the evening/bedtime, which is worseing at rest and relieved by movement Happening nightly for over 10 years. She never tried gabapentin/lyrica/ropinirole. No labs available for RLS. She is supposed to be on mirapex 0.125 mg in AM, and mirapex ER 0.375 mg nightly. But she has been taking 3 of mirapex in AM (2 tabs did not work). If she does not take morning dose, her leg jerks by10 am. She would like to continue current dose. She never had morning symptoms initially. Having aug mentation? Parasomnia symptoms: Sleepwalking/sleep terrors/confusional arousals: no Dream enactment: no Sleep schedule: Bed/wake time: 10:30 pm through 2-4 am Sleep latency: 10 min Awakenings: 2-3 time for bathroom use and no reasons Wake after sleep onset: 2-3 min Naps: daily for 90 min Insomnia: Medication use to help sleep: none Current active medical problems Patient Active Problem List Diagnosis Chronic pain of left knee Hypertension Lentigo Eczema Neoplasm of skin of breast Nuclear sclerotic cataract of both eyes History of malignant neoplasm of skin Basal cell carcinoma (BCC) of skin of trunk Actinic keratosis History of nonmelanoma skin cancer 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 Scar of nose Drusen of both optic discs Seborrheic keratosis Failed total knee arthroplasty (CMS/HCC) (HCC) Dry eye syndrome of both eyes Failed total knee, left, sequela Sleep apnea Restless legs syndrome Class 2 severe obesity due to excess calories with serious comorbidity and body mass index (BMI) of36.0 to 36.9 in adult (HCC) Hyperlipidemia Impaired fasting glucose Depressive disorder Chronic lymphocytic leukemia (HCC) Benign paroxysmal positional vertigo Chronic insomnia Past Medical History: Diagnosis Date Aftercare following joint replacement surgery Aftercare following joint replacement - (Added by TW Conv) Age-related osteoporosis without current pathological fracture 02/22/2016 Basal cell carcinoma of skin of other part of trunk Basal cell carcinoma of anterior chest - (Added by TW Conv) Cataract GERD (gastroesophageal reflux disease) Hypertension Personal history of other malignant neoplasm of skin History of skin cancer - (Added by TW Conv) PONV (postoperative nausea and vomiting) Sleep apnea Past Surgical History: Procedure Laterality Date BASAL CELL CARCINOMA EXCISION x2- nose and forehead COLONOSCOPY KNEE ARTHROSCOPY W/ MENISCAL REPAIR 1996 [place] CHOLECYSTECTOMY Cholecystectomy - (Added by TW Conv) REVISION TOTAL KNEE ARTHROPLASTY Left- 2010 TOTAL KNEE ARTHROPLASTY Bilateral 10/2008 UPPER GASTROINTESTINAL ENDOSCOPY VEIN LIGATION AND STRIPPING Right 1981 Allergies Allergen Reactions Morphine Hives and Rash Nickel Other (See comments) and Rash Burning sensation contact Current Outpatient Medications: acetaminophen, 1,000 mg, oral, Q8H JOEL amLODIPine, 10 mg, oral, Daily atorvastatin, 10 mg, oral, Nightly azelastine, 1 spray, each nostril, BID calcium carbonate-vitamin D3, 1 tablet, oral, QAM meclizine, 25 mg, oral, TID PRN montelukast, 10 mg, oral, Nightly multivitamin, 1 tablet, oral, Daily omeprazole OTC, 20 mg, oral, Nightly PARoxetine, 20 mg, oral, QAM pramipexole, 0.125 mg, oral, BID pramipexole, 1 tablet, oral, Daily with dinner senna-docusate, 2 tablet, oral, BID tirzepatide (weight loss), 2.5 mg, subcutaneous, Q7 Days Family History Problem Relation Age of Onset Hypertension Father Family history of hypertension - (Added by TW Conv) Anesthesia problems Neg Hx Social History Tobacco Use Smoking status: Former Current packs/day: 0.00 Average packs/day: 0.3 packs/day for 2.0 years (0.5 ttl pk-yrs) Types: Cigarettes Start date: 1967 Quit date: 1970 Years since quittin.9 Smokeless tobacco: Never Substance and Sexual Activity Drug use: Never Sexual activity: Defer Alcohol Use: Not At Risk (06/01/2024) AUDIT-C Frequency of Alcohol Consumption: Never Average Number of Drinks: Not on file Frequency of Binge Drinking: Less than monthly 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 Marital status: Smoking: no Alcohol use: none per week Recreational drug use: no Caffeine use: 1 per day Exercise: none per week ROS Positive for: none reported Otherwise negative for ten organ systems reviewed except per HPI Lab/procedure review: Lab Results Component Value Date CO2 26 06/02/2024 CO2 28 05/27/2024 HGB 10.0 (L) 06/02/2024 HGB 11.9 05/27/2024 HCT 32.7 (L) 06/02/2024 HCT 37.7 05/27/2024 WBC 119.7 (Critical) 05/27/2024 WBC 12.7 (H) 12/31/2018 25HYDROVITD 36 05/27/2024 25HYDROVITD 46 12/12/2018 Lab Results Component Value Date ALT 16 05/27/2024 AST 27 05/27/2024 CREATININE 0.70 06/02/2024 Echocardiogram: none Vital Signs Vitals: 09/16/24 1018 BP: 150/73 BP Location: Left arm Patient Position: Sitting Pulse: 73 Temp: 36.4 ??C (97.6 ??F) SpO2: 95% Weight: 95.7 kg (211 lb) Wt Readings from Last 3 Encounters: 09/16/24 95.7 kg (211 lb) 09/14/24 95.7 kg (211 lb) 07/14/24 93.4 kg (206 lb) BMI Readings from Last 3 Encounters: 09/16/24 36.20 kg/m?? 09/14/24 36.20 kg/m?? 07/14/24 35.34 kg/m?? Physical Exam: Constitutional: Well appearing and well nourished with appropriate mood Head and Neck: The head is normocephalic and atraumatic. Oropharynx is clear ENT: Mallampati score: 3 Cardiovascular: Regular rate and rhythm without murmur Lungs: Clear to auscultation bilaterally Neurological: Alert and oriented times three, normal speech and comprehension CN: Pupils are equal/round/reactive to light, facial strength intact bilaterally, hearing intact bilaterally, palate elevates symmetrically, tongue protrudes to midline Motor: Normal bulk and tone, full strength on extremities Gait: Normal gait Assessment/Plan: The pt is a 74 y.o. female who presents to the clinic with symptoms suggestive of obstructive sleepapnea including snoring, witnessed apneas, daytime sleepiness, and poor sleep quality. Exam was notable for elevated BMI>30 and a narrow airway, which place her at higher risk for CARRILLO. She has hx of CARRILLO (for 10+ years, says severe CARRILLO, no sleep study available for review), currently on CPAP prescribed 2 years ago in [place]. She wants to transfer her care here. She also has hx of RLS and insomnia. Getting iron infusion for low iron level. 1. Obstructive sleep apnea -The physiology of sleep disordered breathing and its increased association with hypertension, diabetes, heart arrhythmia, strokes, heart attacks, heart failure, hypersomnia, obesity and mood disorders was discussed. -We went over normal maintenance and required cleaning and replacement of the PAP machine and related supplies, provided other troubleshooting and helpful tips. -Follow-up to ensure tolerance, efficacy and compliance. -Continue current setting of auto setting 8-10 cm. Will change her mask to P10. Will find a new DME. 2 Hypersomnia -Likely secondary to sleep fragmentation associated with sleep disordered breathing and insufficient sleep, RLS. -Advised to not drive while sleepy. 3 Morbid Obesity -Recommended diet and exercise for ideal body weight. 4. Restless legs syndrome -The history is suggestive of restless leg syndrome. RLS may be worsened by underlying iron depletion, sleep deprivation, or untreated sleep disordered breathing, or use of antihistamine, antiemetics, or antidepressants. -Will obtain ferritin level and iron panel, vitamin D. To [facility]. Note iron infusion was done a weekago. -If ferritin level is low (goal is >75 ng/ml), we recommend ferrous sulfate 325 mg daily. We explained that in order to maximize iron absorption, ferrous sulfate should be taken on an empty stomach, along with vitamin C 100-200 mg. Food and drinks that contain calcium, such as milk, may decreaseiron absorption. RLS symptoms may improve after possible CARRILLO is treated accordingly. We will repeata ferritin level at the next clinic visit. -Will add Gabapentin 100 mg nightly and titrate up as needed to 300 mg nightly. -for now continue mirapex 0.125 mg x3 in AM and mirapex ER 0.375mg at HS. Discontinue additional mirapex 0.125 mg at bedtime. Goal is to lower the dose further and minimize augmentation. -She is advised to avoid sleep deprivation, long trips without breaks, caffeine, alcohol, tobacco, and phlebotomy for blood donation. Light to moderate exercise was encouraged but avoid strenuous exercise before bedtime. We discussed conservative treatments such as hot baths, leg message, and applied heat/ice. -Will monitor closely for worsening of the above symptoms. Will follow up in 3 months. Future Appointments Date Time Provider Department Center 10/14/2024 10:00 AM Librado Hernandez MD [facility] 11/26/2024 10:30 AM Julia Trimble MD [facility] 12/16/2024 10:00 AM Librado Hernandez MD [facility] Thank you for allowing us to participate in the care of this pt. Please feel free to contact us with questions. Aurora Chou DNP, SCANNING COORDINATOR-C [facility], Department of Neurology [facility] Voice recognition software [employer] was used dictate and transcribe this document. Corporate Compliance Director variances may occur. Despite proofreading, typographical errors may occur I was with the patient during the session for 50 minutes. In addition to the time spent during the session with the patient, I spent 26 minutes on the day of the visit on other activities related to the visit such as preparing to see the patient, counseling and educating the patient/family/caregiver, ordering medications, tests, or procedures, referring and communicating with other healthcare professionals, documenting clinical information in the electronic or other health record, independentlyinterpreting results and communicating the results to the patient/family/caregiver, and/or on care coordination. My total encounter time today was 76 minutes which was spent in the activities documented in the note. This time does not include time spent in any separately reportable services. ND INSTRUCTOR BASIC documented in this encounter Plan of Treatment Scheduled Orders Name Type Priority Associated Diagnoses Orde r Schedule Iron profile w/ IBC Lab Routine Iron deficiency Expected: 09/16/2024, Expires: 09/16/2025 Ferritin Lab Routine Iron deficiency Expected: 09/16/2024, Expires: 09/16/2025 documented as of this encounter Procedures Procedure Name Priority Date/Time Associated Diagnosis Comments TEST AUTHORIZATION Routine 09/16/2024 1: 07 PM GROUND INSTRUCTOR BASIC IRON PROFILE W/ IBC Routine 09/16/2024 1 :07 PM GROUND INSTRUCTOR BASIC VITAMIN D 25 HYDROXY Routine 09/16/2024 1:07 PM GROUND INSTRUCTOR BASIC Vitamin D deficiency FERRITIN Routine 09/16/2024 1:07 PM GROUND INSTRUCTOR BASIC documented in this encounter Results * (ABNORMAL) Ferritin (09/16/2024 1:07 PM GROUND INSTRUCTOR BASIC) Ferritin 422(H) 16 - 288 ng/mL [facility] 09/16/2024 1:07 PM GROUND INSTRUCTOR BASIC 09/16/2024 1:08 PM GROUND INSTRUCTOR BASIC Aurora Chou [facility] BLOOD ORDERABLES Final Resu lt [facility] [address] [place] [address] * TEST AUTHORIZATION (09/16/2024 1:07 PM GROUND INSTRUCTOR BASIC) Test name FERRITIN IRON AND TOTAL IRON [facility] [place] TEST CODE: [id number] [facility] [place] CLIENT CONTACT: CHANNING HACKETT [facility] [place] Report Always Message Signature [facility] [place] Comment: The laboratory testing on this patient was verbally requested or confirmed by the ordering physician or his or her authorized account representative after contact with an employee of [facility]. Federal regulations require that we maintain on file written authorization for all laboratory testing. ??Accordingly we are asking that the ordering physician or his or her authorized account representative sign a copy of this report and promptly return it to the client solutions manager. Signature: Comment [facility] [place] Comment: Fax number: [phone] 09/16/2024 1:07 PM GROUND INSTRUCTOR BASIC 09/16/2024 1:08 PM GROUND INSTRUCTOR BASIC Aurora Chou [facility] BLOOD ORDERABLES Final Resu lt Performing Organization Address [facility] [facility] de Phone Number QUEST [facility] [address] [place] [address] * Iron profile w/ IBC (09/16/2024 1:07 PM GROUND INSTRUCTOR BASIC) [facility] Iron 122 45 - 160 mcg/dL [facility] TIBC 367 250 - 450 mcg/dL (calc) [facility] Iron saturation 33 16 - 45 % (calc) [facility] 09/16/2024 1:07 PM GROUND INSTRUCTOR BASIC 09/16/2024 1:08 PM GROUND INSTRUCTOR BASIC Aurora Chou [facility] LAB BLOOD ORDERABLES Final Resu Performing Organization Address [facility] de Phone Number QUEST [facility] [address] [place] [address] * Vitamin D 25 hydroxy (09/16/2024 1:07 PM GROUND INSTRUCTOR BASIC) Pathologist [facility] Vitamin D 25-OH 31 30 - 100 ng/mL [facility] Comment: Vitamin D Status ? 25-OH Vitamin D: Deficiency: ?<20 ng/mL Insufficiency: ? 20 - 29 ng/mL Optimal: ? > or = 30 ng/mL For 25-OH Vitamin D testing on patients on D2-supplementation and patients for whom quantitation of D2 and D3 fractions is required, the [facility]() 25-OH VIT D, (D2,D3), LC/MS/MS is recommended: order code [id number] (patients >2yrs). See Note 1 Note 1 For additional information, please refer to http://education.Intrapace/faq/EWE649 (This link is being provided for informational/ educational purposes only.) Blood 09/16/2024 1:07 PM GROUND INSTRUCTOR BASIC 09/16/2024 1:08 PM GROUND INSTRUCTOR BASIC Aurora Chou DNP LAB BLOOD ORDERABLES Final Resu lt [facility] [address] [place] [address] documented in this encounter Visit Diagnoses Diagnosis Sleep apnea, unspecified type- Primary Sleep disorder Unspecified sleep disturbance Iron deficiency Disorders of iron metabolism Vitamin D deficiency CARRILLO (obstructive sleep apnea) Obstructive sleep apnea (adult) (pediatric) Hypersomnia Hypersomnia, unspecified RLS (restless legs syndrome) Restless legs syndrome (RLS) documented in this encounter Discontinued Medications Medication Sig Discontinue Reason Start Date End Da te tirzepatide, weight loss, (ZEPBOUND) 2.5 mg/0.5 mL pen injectorIndications:Class 2 severe obesity due to excess calories with serious comorbidity and body mass index (BMI) of 36.0 to 36.9 in adult (HCC) Inject 0.5 mL (2.5 mg total) under the skin every 7 days Other 09/14/2024 09/16/2024 documented as of this encounter Orders General Supply Count Last Ordered Date First Or dered Date MISCELLANEOUS DME 1 09/16/2024 Outpatient Referral Count Last Ordered Date Fir st Ordered Date AMB REFERRAL TO SLEEP MEDICINE 1 09/16/2024 documented in this encounter Care Teams Corporate Safety Director Relationship Specialty Start Date End Date Librado Hernandez MD [address] [place] [address] DR Queta ROY [address] [place] [id number] PCP - General Internal Medicine 06/02/24 documented as of this encounter
--- OUTSIDE RECORDS SUMMARY | 2024-10-13 00:39 | XMS_ITS | Encounter Summary ---
Author Organization [facility] Address [address] [place] [address] Phone Care Team Providers Care Major Assembly Inspector Name Role Phone Librado Hernandez MD Primary Care Provider + Encounter Details Date Type Department Care Team (Late st Contact Info) Description 06/18/2024 Orders Only [facility] [address] [facility] Building [address] [place] [address] Jim Fraire MD [address] [place] [address] Social History Tobacco Use Types Packs/Day Years [...] on file Legal 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 Gender Identity Not on file Sexual Orientation Not on file documented as of this encounter Ordered Prescriptions Prescription Sig Dispense Quantity Refills Last Filled Start Date End Date methylPREDNISolone (MEDROL DOSEPACK) 4 mg Dosepack Take as directed on package 1 packet 06/18/2024 4 documented in this encounter Plan of Treatment Not on file documented as of this encounter Visit Diagnoses Not on filedocumented in this encounter Care Teams Major Assembly Inspector Relationship Specialty Start Date End Date Librado Hernandez MD [facility] [address]ch [address] [address] PCP - General Internal Medicine 06/02/24 documented as of this encounter
--- OUTSIDE RECORDS SUMMARY | 2024-10-13 00:39 | XMS_ITS | Encounter Summary ---
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, subsequent encounter [T84.018D, Z96.659] Procedures AL REVISE KNEE JOINT REPLACE,ALL PARTS AL REVJ TOT KNEE ARTHRP FEM&ENTIRE TIBIAL COMPONE AL REVJ TOTAL KNEE ARTHRP W/WO ALGRFT 1 COMPONENT REVISION ARTHROPLASTY LEFT TOTAL KNEE Referral ID Status Reason Start Date Expiration Date Visits Re quested Visits Authorized [id number] 1 1 Encounter Details Date Type Department Care Team (Late st Contact Info) Description 06/01/2024 2:02 PM CDT Anesthesia Event [facility] Operating Room [address] [place] [address] Melly Lee MD [address] [place] [address] Taylor Moseley CRNA [address] [place] [address] Anesthesia Record Procedure Summary Procedure Name Responsible Anesthesiologist Anesthesia Start Time Anesthesia Stop Time REVISION ARTHROPLASTY LEFT TOTAL KNEE (Left: Knee) Melly Lee MD 06/01/24 1402 06/01/24 1539 Events Date Time Event Comment 06/01/2024 1148 In Preop 1339 Time out - Regional 1339 Start Supplemental O2 1339 Face Time 1339 AN Equip Check 1342 An Block Induction The patie nt was reevaluated immediately before moderate or deep sedation and before anesthesia induction. 1345 Spinal Placed 1348 1402 In Room 1402 An Start 1402 An Start Data 1410 An Induction The patient was reevaluated immediately before moderate or deep sedation use and before anesthesia induction. 1418 Anesthesia Ready 1421 Proc Start 1422 Incision Start 1527 Proc Fin 1532 an stop data 1532 Out of Room 1538 Handoff to RN I completed my handoff to the receiving nurse during which we: 1. Patient identified 2. Responsible provider identified 3. Pertinent medical history reviewed 4. Procedure type and surgical course discussed 5. Intraoperative anesthetic management and any significant issues discussed 6. Expectations and concerns for postop period discussed 7. Questions solicited from receiving nurse 8. Patient disposition at the time of handoff: PACU 1539 An Stop Meds Name Total ceFAZolin (ANCEF) 1 gram/10 mL in steril e water (premix) 2,000 mg 2,000 mg tranexamic acid 10 mg/mL 100 mL (premix) 2,000 mg fentaNYL PF 100 mcg midazolam 2 mg/2 mL 2 mg Propofol Bolus 75 mg Propofol Infusion 292.96 mg mepivacaine 2% PF 3.4 mL Lidocaine IV 1% 5 mL ondansetron PF 4 mg ketorolac 15 mg LR 1,000 mL * Agents Name O2 N2O Air * Blood No blood administrations on file. Lines, Drains, and Airways Type Details Placement Removal Wound 06/01/24; N; Knee; Anterior, Left 06/01/24 0000 by Sadia Jamil RETIRED Surgical Site 12/30/18; 0823; Ri ght; Leg; 06/02/24; 0846; Not present on admission 12/30/18 0823 by Lyle Ralph RN 06/02/24 0846 by Kim Reilly RN Peripheral IV Placement Date: 06/01/24; Placement Time: 1237; Catheter Size: 20 G; Orientation: Anterior, Right; Location: Forearm; Site Prep: Chlorhexidine; Technique: Anatomical landmarks; Inserted by: Carter; Insertion Attempts: 4 (Fernando X2, EbelingX1, Carter x1); Patient Tolerance: Tolerated well; Removal Date: 06/02/24; Removal Time: 1024; Removal Reason: Discharge 06/01/24 1237 by Ashtyn Carter RN 06/02/24 1024 by Kim Reilly RN documented in this encounter Social History Tobacco Use Types Packs/Day Years Used Date Smoking Tobacco: Former Cigarettes 0.3 2 1 968 - 1969 Smokeless Tobacco: Never Alcohol Use Standard Drinks/Week [...] on file 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 Gender Identity Not on file Sexual Orientation Not on file documented as of this encounter OR Notes * Anesthesia Postprocedure Evaluation - Melly Lee MD - 06/01/2024 4:02 PM CDT Patient: Rebeka Hsieh Procedure Summary Date: 06/01/24 Room / Location: [facility] OPERATING ROOM 12 / [facility] OPERATING ROOM Anesthesia Start: 1402 Anesthesia Stop: 1539 Procedure: REVISION ARTHROPLASTY LEFT TOTAL KNEE (Left: Knee) Diagnosis: Failure of total knee replacement, subsequent encounter (Failure of total knee replacement, subsequent encounter [T84.018D, Z96.655]) Surgeons: Jim Fraire MD Responsible Provider: Melly Lee MD Anesthesia Type: regional as primary anesthetic, spinal ASA Status: 3 Anesthesia Type: regional as primary anesthetic, spinal Last vitals BP (!) 181/79 Pulse 81 Temp 36.4 ??C (97.5 ??F) Resp 30 SpO2 98% Anesthesia Post Evaluation Patient location during evaluation: PACU Pain management: adequate Airway patency: adequate and patent Cardiovascular status: acceptable Respiratory status: acceptable Hydration status: acceptable Comments: Ready for discharge from pacu No notable events documented. * Anesthesia Procedure Notes - Ne Graff MD - 06/01/2024 1:50 PM CDT Associated Order(s): Spinal Block Spinal Block Patient location: OR Reason for block: primary anesthetic Staff: Supervising provider: Melly Lee MD Placed by: Resident: Ne Graff MD Procedure prep: Preprocedure checklist: patient identified, procedure contraindications assessed, procedure consent, surgical consent, IV checked, risks, benefits and alternatives discussed, monitors and equipment checked and timeout performed Patient position: sitting Procedure performed while patient: awake Monitoring: ECG, oximetry, blood pressure and capnography Prep solution: chlorhexadine/alcohol PPE: provider hat/mask, sterile gloves and sterile drape Skin infiltrated with lidocaine 1%: yes Spinal: Approach: midline Introducer used: yes Location: L3-4 Spinal injection: CSF demonstrated Number of attempts: 1 Spinal Needle: Needle type: Chaparrita Dallas Needle gauge: 24 G Needle length: 10 cm Assessment: Sensory deficit - left: full eval pending Sensory deficit - right: full eval pending Events: patient tolerated procedure well with no complications Cosigned by Melly Lee MD at 06/01/2024 2:21 PM CDT * Anesthesia Preprocedure Evaluation - Melly Lee MD - 05/27/2024 9:17 AM CDT Images from the original note were not included. [facility] Preoperative Evaluation Record Evaluation type/location: [facility] Planned procedure site: [facility] OR Date: 05/27/24 Anesthesia Evaluation Rebeka Hsieh is a 73 y.o. female REVISION ARTHROPLASTY LEFT TOTAL KNEE (Left: Knee) Pre-Op Diagnosis Codes: * Failure of total knee replacement, subsequent encounter [T84.018D, Z96.659] HISTORY HPI Rebeka Hsieh is a 73 y.o. female with a hx of HTN, CARRILLO, and CLL who is being evaluated prior to undergoing REVISION ARTHROPLASTY LEFT TOTAL KNEE Past Medical History Information obtained from: patient and chart. Information obtained during: In Person Neurological + Neuromuscular disease (RLS) Pertinent negatives: seizures; CVA/stroke; TIA; CEA; ICA stenosis; dementia/mild cognitive impairment; psychiatric history and carotid artery stent Cardiovascular + Hypertension Typical systolic BP - 140 Typical diastolic BP - 70 + Hyperlipidemia (statin) + Systolic or diastolic dysfunction w/o CHF (TTE 06/2023) Diastolic dysfunction w/o CHF. Diastolic function: stage II - pseudonormal LVEF: >70%. + Current valvular disease (TTE 06/2023) - TR - mild. Pertinent negatives: CAD ; HI ; CABG ; valve replacement; atrial fibrillation; arrhythmia; pacemaker/ICD; PVD; DVT/PE; negative for CHF; drug-eluting stent(s); bare metal stent(s); unknown stent(s) type and coronary angioplasty Respiratory + Sleep apnea (CARRILLO) Prescribed device: CPAP and PAP compliant. Pertinent negatives: COPD; asthma; pulmonary hypertension; no O2 use outside the hospital and non-smoker Hepatic / Heme Pertinent negatives: liver disease; history of anemia; history of thrombocytopenia and history of Jayce positive Gastrointestinal + GERD - on daily therapy. Symptoms weekly but < daily. Pertinent negatives: hiatal hernia Renal / Pertinent negatives: renal disease; dialysis and nephrolithiasis Musculoskeletal/Pain + Chronic pain (Left knee) Pertinent negatives: chronic opioid use; previous treatment for opioid use disorder; osteoarthritisand headaches Comments: S/p bilateral TKA in 2008, L TKA revision in 2010 Endocrine / Other + Obesity (BMI >30) + Cancer history- skin cancer only and current cancer. Cancer type: CLL stage 0 s/p ongoing surveillance (diagnosed in 2019) and prior skin cancer. Pertinent negatives: diabetes mellitus; thyroid disease; rheumatological disease; transplanted organ; infectious disease; eye disorder and pancreatitis Comments: F/b oncology last OV 01/12 Dr. Meneses Functional Capacity Functional capacity: 4-6 METs Functional capacity limited by a non-cardiovascular, non-pulmonary condition. Comments: Water aerobic 3x week and walk up 1-2 flights of stairs without SOB or CP. Limited by left knee pain. Day of Surgery assessments + Possibility of assessed - ruled out by patient's provided history. Review of Systems + pedal edema (Right foot, improves with elevation) + previous transfusion (11/08 surgery) + transfusion reaction + chronic pain (Left knee) + vision loss (glasses) + heartburn Pertinent negatives: productive cough; wheezing; SOB; recent cold/flu; fever; chest pain; palpitations; orthopnea; PND; heavy menses; Sickle Cell disease/trait; melena/hematochezia; easy bruising; bleeding problems; syncope; dizziness; muscle weakness; numbness/tingling; hard of hearing; nausea; dys phagia; diarrhea; dentures/partials; chipped/loose teeth; abdominal pain; diaphoresis and no unexpected weight change Comments: Denies symptoms of UTI PAT Summary and Plans Cardiac risk classification of planned procedure: intermediate cardiac risk. Preoperative assessment status: complete. Initial preoperative evaluation discussed with: Mike Abdi MD Additional comments: Rebeka Hsieh is a 73 y.o. female who is being evaluated prior to undergoing an intermediate cardiac risk surgery. Revised Cardiac Risk Index factors are (none) for a total RCRIof 0 out of 6. Functional capacity is 4-6 METs. Obstructive sleep apnea (CARRILLO) screening status is HIGH RISK due to known CARRILLO. CARRILLO orders placed Blood bank needs for day of procedure: T&C 1 unit pRBCs Pending labs/tests include: CBC BMP T&S Vitamin D Reviewed with CPAP attending d/t hx murmur, 06/2023 TTE grade 2 diastolic dysfunction, EF 70%, and mild TR. METs 4-6 and denies SOB. No additional workup required. Anesthesia note: Pt has anxiety r/t spinal anesthesia. Recommend pre-op antianxiety medication. >>Hx PONV >>Hx CLL f/b oncology last OV 01/[address] Meneses, WBC 104 on 01/12. Asymptomatic and not current treatment with WBC ~80-100. Reviewed with CPAP attending. CBC drawn at today's visit, may need oncology recommendation prior to surgery if WBC remains elevated. Preoperative evaluation performed by Tiff Haas NP on 05/27/24 at 10:37 AM. . Follow up note Labs reviewed and are significant for: WBC 119. Pt with known CLL with ongoing surveillance. Last WBC 104 on 01/12. Discussed with Cpap attending today and will reach out to oncologist. Discussed abnormal labs with oncology team (Zahraa) via phone call. States that pt has new care team in office, as her previous oncologist, Dr. Meneses, has retired. Pt will now be followed by Dr. Roberta Love until she establishes care closer to home. Faxed current lab results to Dr. Love at . Office aware of pt's scheduled surgery date and will reach out to pt when lab results from Cpap are reviewed. Awaiting recommendation from Dr. Love. Message sent to surgeon's office to update. Patient called to update. Surgeon's office reviews laboratory results independently. Surgeon's office reviews laboratory results independently, including final results of surgeon ordered labs. Follow-up completed by: Charleen Hay NP on 05/28/24 at 8:25 AM Discussed with: Joseph Wylie MD I agree with this Pre-Procedural Assessment performed by the above primary evaluating TIN PLATER, who is currently in the CPAP TIN PLATER Orientation interval. Signed by: Rimma Moran NP on 05/28/24 at 11:51 AM Follow up note Received call from patients Medicine oncology office - they are unable to comment or make recs on this patient as the patient has relocated and is no longer established w/ them as a patient. Patients WBC has increased from 62 (05/2023) to 81 (10/2023) to 104 (01/2024) to 119 most recently at CPAP appointment. Called and spoke to patient who denies malaise or night sweats, states she is asymptomatic. She does have an oncologist [place] [facility] that she plans to follow up on soon for her CLL. CPAP will not require oncology follow up prior to her surgery - surgeon office messaged to notify for continuity of care. 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 03/11/2018 Scar of nose 03/11/2018 History of nonmelanoma skin cancer 08/09/2017 Basal cell carcinoma (BCC) of skin of trunk 02/05/2017 Age-related osteoporosis without current pathological fracture 02/22/2016 Encounter for screening mammogram for malignant neoplasm of breast 02/08/2016 Abnormal finding on imaging 02/03/2016 Neoplasm of skin of breast 09/05/2015 Eczema 08/08/2015 Lentigo 01/17/2015 Nuclear sclerotic cataract of both eyes 12/15/2014 History of malignant neoplasm of skin 08/27/2014 Hypertension 11/05/2013 Actinic keratosis 09/05/2012 Seborrheic keratosis 09/05/2012 Surgical follow-up care 05/16/2011 Knee pain 04/30/2011 Past Medical History: Diagnosis Date Aftercare following joint replacement surgery Aftercare following joint replacement - (Added by TW Conv) Basal cell carcinoma of skin of other part of trunk Basal cell carcinoma of anterior chest - (Added by TW Conv) Cataract Hypertension Personal history of other malignant neoplasm of skin History of skin cancer - (Added by TW Conv) PONV (postoperative nausea and vomiting) Sleep apnea Past Surgical History: Procedure Laterality Date BASAL CELL CARCINOMA EXCISION x2- nose and forehead COLONOSCOPY KNEE ARTHROSCOPY W/ MENISCAL REPAIR 1996 AL CHOLECYSTECTOMY Cholecystectomy - (Added by TW Conv) REVISION TOTAL KNEE ARTHROPLASTY Left- 2010 TOTAL KNEE ARTHROPLASTY Bilateral 10/2008 UPPER GASTROINTESTINAL ENDOSCOPY VEIN LIGATION AND STRIPPING Right 1981 OB History No obstetric history on file. Allergies Allergen Reactions Opioids - Morphine Analogues Hives Reaction: Hives, Morphine Hives Nickel Other (See comments) Burning sensation Med List Status: Nurse Complete Set By: Jef Moody RN at 05/27/2024 10:25 AM Taking? Last Dose Start Date End Date Provider acetaminophen (TYLENOL) 500 mg tablet 05/27/2024 -- -- ProviderKelton MD amLODIPine (NORVASC) 2.5 mg tablet 05/27/2024 -- -- ProviderKelton MD atorvastatin (LIPITOR) 10 mg tablet 05/26/2024 07/27/18 -- Provider, MD Kelton azelastine (ASTELIN) 137 mcg (0.1 %) nasal spray 05/26/2024 -- -- Provider, MD Kelton calcipotriene (Dovonex) 0.005 % cream Not Taking 06/19/21 -- Anthony Rodríguez MD Mix 50/50 with Fluorouracil apply to forehead, cheeks, nose twice daily for 4 days then STOP. Repeat after 3 weeks. Patient not taking: Reported on 05/27/2024 calcium carbonate-vitamin D3 (CALTRATE WITH VITAMIN D3) 1,500 mg (600mg elemental) -800 unit per tablet 05/27/2024 -- -- Provider, MD Kelton cetirizine (ZyrTEC) 10 mg tablet 05/27/2024 -- -- Provider, HistoricalMD docusate sodium (DOK) 100 mg tablet 05/26/2024 -- -- Provider, MD Kelton ketoconazole (NIZORAL) 2 % cream Not Taking 03/25/20 -- Anthony Rodríguez MD Apply to rash on body bid prn Patient not taking: Reported on 05/27/2024 liraglutide, weight loss, 3 mg/0.5 mL (18 mg/3 mL) pen injector 05/26/2024 -- -- Provider, MD Kelton meclizine (ANTIVERT) 25 mg tablet More than a month -- -- Provider, HistoricalMD montelukast (SINGULAIR) 10 mg tablet 05/26/2024 -- -- Provider, HistoricalMD mupirocin (BACTROBAN) 2 % ointment -- 05/26/24 05/31/24 Jim Fraire MD Apply topically 2 (two) times a day for 5 days APPLY TO NOSTRILS TWICE A DAY FOR 5 DAYS PRIOR TO SURGERY. Notes: Pre op med naproxen sodium 220 mg capsule 05/27/2024 -- -- Provider, MD Kelton omeprazole OTC (PriLOSEC OTC) 20 mg EC tablet 05/26/2024 -- -- ProviderKelton MD PARoxetine (PAXIL) 20 mg tablet 05/27/2024 02/06/18 -- Kelton Land MD pramipexole (MIRAPEX) 0.125 mg tablet 05/27/2024 -- -- Kelton Land MD pramipexole 0.375 mg tablet extended release 24 hr 05/26/2024 08/24/18 -- Kelton Land MD therapeutic multivitamin (THERA) tablet 05/27/2024 -- -- Kelton Land MD triamcinolone (KENALOG) 0.1 % ointment Not Taking 01/11/21 -- Anthony Rodríguez MD Apply topically 2 (two) times a day as needed (Rash) Patient not taking: Reported on 05/27/2024 vit C,E-Kb-chhcv-lutein-zeaxan 250-90-40-1 mg capsule 05/27/2024 -- -- Kelton Land MD -- -- Patient not taking: -- Notes: Current Outpatient Medications: acetaminophen (TYLENOL) 500 mg tablet amLODIPine (NORVASC) 2.5 mg tablet atorvastatin (LIPITOR) 10 mg tablet azelastine (ASTELIN) 137 mcg (0.1 %) nasal spray calcium carbonate-vitamin D3 (CALTRATE WITH VITAMIN D3) 1,500 mg (600mg elemental) -800 unit per tablet cetirizine (ZyrTEC) 10 mg tablet docusate sodium (DOK) 100 mg tablet liraglutide, weight loss, 3 mg/0.5 mL (18 mg/3 mL) pen injector montelukast (SINGULAIR) 10 mg tablet naproxen sodium 220 mg capsule omeprazole OTC (PriLOSEC OTC) 20 mg EC tablet PARoxetine (PAXIL) 20 mg tablet pramipexole (MIRAPEX) 0.125 mg tablet pramipexole 0.375 mg tablet extended release 24 hr therapeutic multivitamin (THERA) tablet vit C,Q-Iw-pvvpk-lutein-zeaxan 250-90-40-1 mg capsule calcipotriene (Dovonex) 0.005 % cream ketoconazole (NIZORAL) 2 % cream meclizine (ANTIVERT) 25 mg tablet mupirocin (BACTROBAN) 2 % ointment triamcinolone (KENALOG) 0.1 % ointment Social History Tobacco Use Smoking Status Former Current packs/day: 0.00 Average packs/day: 0.3 packs/day for 2.0 years (0.5 ttl pk-yrs) Types: Cigarettes Start date: 1967 Quit date: 1970 Years since quittin.6 Smokeless Tobacco Never Alcohol Use: Unknown (05/27/2024) AUDIT-C Frequency of Alcohol Consumption: Not on file Average Number of Drinks: Not on file Frequency of Binge Drinking: Less than monthly Substance and Sexual Activity Drug Use Never Family History Problem Relation Age of Onset Hypertension Father Family history of hypertension - (Added by TW Conv) Anesthesia problems Neg Hx PAT Physical Exam Cardiovascular Exam: Rate: regular Rhythm: regular Murmur: No extra heart sounds appreciated Negative for peripheral edema Pulmonary Exam: LCTA, bilat EENT Exam: trachea midline Dental Exam: Appears intact Skin Exam: Skin is warm. Capillary refill is < 3 seconds. Turgor is normal. Abdominal exam: Abdomen is soft. Bowel sounds are present. Current state: Patient's current state is cooperative and interactive. Vitals: 05/27/24 1025 05/27/24 1030 BP: (!) 173/69 146/73 Pulse: 86 Resp: 18 SpO2: 97% Relevant diagnostics: ECG(s): N/A TTE 06/07/23 OSH Conclusions: The left ventricular size is normal. The left ventricular function is normal. The ejection fraction is calculated to be 70% using the Recinos's method. There is grade 2 diastolic dysfunction with elevated left atrial pressure. Asymmetrical basal septal hypertrophy measuring 1.3 cm without evidence of REED. Consider cardiac MRI if infiltrative etiology of hypertrophy suspected. The left atrium is moderately enlarged. The aortic valve has minimal degenerative changes and no significant stenosis. There is mild tricuspid regurgitation. Stress test(s): N/A Cardiac catheterization(s): N/A PFT(s): 10/22/23 OSH Interpretation: The post-bronchodilator FVC, FEV1 and FEV1/FVC ratio is normal. Spirometry is normal. There is no good bronchodilator response. Lung volumes are normal. The diffusing capacity is normal. Flow-volume loop is adequate. Vascular studies: N/A Other: N/A PT: No results found for requested labs within last 30 days. INR: No results found for requested labs within last 30 days. APTT: No results found for requested labs within last 30 days. Hgb A1C: No results found for requested labs within last 30 days. CBC RBC: No results found for requested labs within last 30 days. RDW: No results found for requested labs within last 30 days. MCHC: No results found for requested labs within last 30 days. MCH: No results found for requested labs within last 30 days. MCV: No results found for requested labs within last 30 days. Hct: No results found for requested labs within last 30 days. Hgb: No results found for requested labs within last 30 days. WBC: No results found for requested labs within last 30 days. MPV: No results found for requested labs within last 30 days. Platelets: No results found for requested labs within last 30 days. RDW CV: No results found for requested labs within last 30 days. RDW Sd: No results found for requested labs within last 30 days. BMP Glucose: No results found for requested labs within last 30 days. Calcium: No results found for requested labs within last 30 days. Sodium: No results found for requested labs within last 30 days. Potassium: No results found for requested labs within last 30 days. CO2: No results found for requested labs within last 30 days. Chloride: No results found for requested labs within last 30 days. BUN: No results found for requested labs within last 30 days. Creatinine: No results found for requested labs within last 30 days. Dagoberto index score: 100 Short Blessed Total Score: 0 DOS Physical Exam Medical history, medications, and allergies reviewed. Attestation: This PAT evaluation Airway Exam: Mallampati: III Cervical ROM: limited extension Pulmonary Exam: LCTA, bilat EENT Exam: trachea midline Anesthesia Plan ASA 3 My patient is approved for the Anesthesia Controlled Medication protocol when under care of a TAPPER BIT Planned anesthesia: Regional as primary anesthetic and spinal Informed Consent: Anesthesia plan and risks discussed with patient. Plan and Consent Comments: Risks of spinal anesthesia discussed including infection, bleeding, nerve injury/paralysis, backache, PDPH as well as ineffective/patchy spinal effect (with potential conversion to general anesthesia) Consent and Attending signature: I and/or my designee have discussed the anesthesia plan, benefits, possible alternatives, parental presence at time of induction (if indicated), and clinically relevant risks that may include dental injury, unintentional awareness, and/or other complications. The patient and/or parent/legal guardian understand, and agree to proceed. All questions answered. documented in this encounter Plan of Treatment Not on file documented as of this encounter Procedures Procedure Name Priority Date/Time Associated Diagnosis Comments AL AN PROCEDURE PLACEHOLDER Routine 06/01/2024 1:50 PM CDT documented in this encounter Results * AL AN PROCEDURE PLACEHOLDER (06/01/2024 1:50 PM CDT) Narrative Melly Lee MD - 06/01/2024 1:50 PM CDT Ne Graff MD ? 06/01/2024 ??1:51 PM Spinal Block Patient location: OR Reason for block: primary anesthetic Staff: Supervising provider: Melly Lee MD Placed by: Resident: Ne Graff MD Procedure prep: Preprocedure checklist: patient identified, procedure contraindications assessed, procedure consent, surgical consent, IV checked, risks, benefits and alternatives discussed, monitors and equipment checked and timeout performed Patient position: sitting Procedure performed while patient: awake Monitoring: ECG, oximetry, blood pressure and capnography Prep solution: chlorhexadine/alcohol PPE: provider hat/mask, sterile gloves and sterile drape Skin infiltrated with lidocaine 1%: yes Spinal: Approach: midline Introducer used: yes Location: L3-4 Spinal injection: CSF demonstrated Number of attempts: 1 Spinal Needle: Needle type: Chaparrita [place] Needle gauge: 24 G Needle length: 10 cm Assessment: Sensory deficit - left: full eval pending Sensory deficit - right: full eval pending Events: patient tolerated procedure well with no complications Ne Graff MD ANESTHESIA ORDERABLES Final Re sult documented in this encounter Visit Diagnoses Not on filedocumented in this encounter Administered Medications Inactive Administered Medications - up to 3 most recent administrations Medication Order MAR Action Action Date Dose Rate Site ceFAZolin (ANCEF) 1 gram/10 mL in sterile water (premix) 2,000 mg 2,000 mg, intravenous, at 400 mL/hr, Administer over 3 Minutes, Once, On Sat06/01/24 at 1230, For 1 dose, Pre-Op, Administer within 60 minutes of incision., Indications: Prophylaxis, SurgicalIndications:Prophylaxis, Surgical Given 06/01/2024 2:05 PM CDT 2,000 mg fentaNYL (SUBLIMAZE) preservative free injection intravenous, As needed, Starting on Sat06/01/24 at 1339, Anesthesia Intra-op Given 06/01/2024 1:39 PM CDT 100 mcg ketorolac (TORADOL) 30 mg/mL injection intravenous, As needed, Starting on Sat06/01/24 at 1522, Anesthesia Intra-op Given 06/01/2024 3:22 PM CDT 15 mg Lactated Ringer's (LR) infusion intravenous, Continuous PRN, Starting on Sat06/01/24 at 1349, Anesthesia Intra-op New Bag 06/01/2024 2:28 PM CDT New Bag 06/01/2024 1:00 PM CDT 50 mL/hr lidocaine (PF) (XYLOCAINE) 10 mg/mL (1 %) preservative free injection intravenous, As needed, Starting on Sat06/01/24 at 1405, Anesthesia Intra-op Given 06/01/2024 2:09 PM CDT 5 mL mepivacaine (CARBOCAINE) 20 mg/mL (2 %) preservative free injection caudal block, As needed, Starting on Sat06/01/24 at 1345, Anesthesia Intra-op Given 06/01/2024 1:45 PM CDT 3.4 mL midazolam (VERSED) 1 mg/mL injection intravenous, As needed, Starting on Sat06/01/24 at 1339, Anesthesia Intra-op Given 06/01/2024 1:39 PM CDT 2 mg ondansetron (ZOFRAN) injection intravenous, Administer over 2 Minutes, As needed, Starting on Sat06/01/24 at 1405, Anesthesia Intra-op Given 06/01/2024 2:05 PM CDT 4 mg propofoL (DIPRIVAN) 10 mg/mL IV intravenous, Continuous PRN, Starting on Sat06/01/24 at 1405, Anesthesia Intra-op Rate/Dose Change 06/01/2024 2:34 PM CDT 35 mcg/kg/min 19.593 mL/hr New Bag 06/01/2024 2:09 PM CDT 50 mcg/kg/min 27.99 mL/h r propofoL (DIPRIVAN) 10 mg/mL IV intravenous, As needed, Starting on Sat06/01/24 at 1405, Anesthesia Intra-op Given 06/01/2024 2:34 PM CDT 25 mg Given 06/01/2024 2:09 PM CDT 50 mg tranexamic acid (CYKLOKAPRON) 1,000 mg/100 mL (10 mg/mL) in sodium chloride (premix) intravenous, Administer over 15 Minutes, As needed, Starting on Sat06/01/24 at 1410, Anesthesia Intra-op Given 06/01/2024 3:03 PM CDT 1,000 mg Given 06/01/2024 2:10 PM CDT 1,000 mg documented in this encounter Care Teams Marsh Buggy Operator Relationship Specialty Start Date End Date Arben Paredes MD PCP - General 01/24/17 06/01/24 documented as of this encounter
--- OUTSIDE RECORDS SUMMARY | 2024-10-13 00:39 | XMS_ITS | Encounter Summary ---
Author Organization [facility] Address [address] [place] [address] Phone Care Team Providers Care International Account Manager Name Role Phone Arben Paredes MD Primary Care Provider [phone] Reason for Visit * Consultation (Routine) - Closed Specialty Diagnoses / Procedures Referred By Contac t Referred To Contact Dermatology Diagnoses Basal cell carcinoma (BCC) of skin of trunk Anthony Rodríguez MD Phone: tel: fax: Anthony Rodríguez MD [address] [place] [address] [address] [place] [address] Phone: tel: fax: Referral ID Status Reason Start Date Expiration Date V isits Requested Visits Authorized [id number] Closed Specialty Services Required 02/12/2022 02/12/2023 25 25 Encounter Details Date Type Department Care Team (Late st Contact Info) Description 02/15/2022 3:15 PM CDT Office Visit [facility] Dermatology [address] [place] [address] [address] [place] [id number] Anthony Rodríguez MD [address] [place] [address] [address] [place] [address] Inflammatory papule (Primary Dx); Hx of nonmelanoma skin cancer; Multiple benign nevi; Lentigines; Seborrheic keratosis Social History Tobacco Use Types Packs/Day Years [...] on file 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 Concerns today: inflamed spot to left breast x today. Otherwise no new or concerning lesions. Reviewed medications, allergies, past medical history, family history, and social history. Non-contributory unless otherwise specified below. ROS No fever/chills. No unintended weight loss. PHYSICAL EXAM: Gen: WD, WN, NAD; Neuro: A&O; Psyc: Normal mood and affect; Skin exam: Inspected the Scalp/Hair, Head/Face, Conjunctivae/Lids, Oropharynx/Lips, Neck, R. Upper Extremity, L. Upper Extremity, Chest/Breast, Abdomen, Back, R. Lower Extremity, L. Lower Extremity, Buttocks Examination normal with the following exceptions: erythematous patch with central papule to left breast multiple regular brown macules and papules on trunk and extremities waxy brown papules with stuck-on appearance on the trunk and extremities. WHSS nose, forehead, right clavicle ASSESSMENT AND PLAN: Inflammatory papule, left breast, favor arthropod - Recommended OTC HCT - If worsens or persists, counseled to RTC Seborrheic keratoses - Benign. Reassured. Multiple Benign Nevi Lentigines - Patient reassured. - ABCDE's and photoprotection were reviewed. - Recommend monthly self-skin checks. - Recommend MD skin check every year. History of non-melanoma skin cancer - WHSS, NER - Photoprotect, SPF 30+ daily - Skin cancer warning signs reviewed - Regular MD FBSE RTC 6 months (moving to [place]) Erasto Mckinnon MD Dermatology PGY-3 ATTESTATION: I interviewed and examined the patient. I agree with the residents findings as documented in the note. Anthony Rodríguez MD documented in this encounter Plan of Treatment Not on file documented as of this encounter Visit Diagnoses Diagnosis Inflammatory papule- Primary Hx of nonmelanoma skin cancer Multiple benign nevi Lentigines Seborrheic keratosis documented in this encounter Orders Outpatient Referral Count Last Ordered Date Fir st Ordered Date AMB REFERRAL TO DERMATOLOGY 1 02/15/2022 documented in this encounter Care Teams International Account Manager Relationship Specialty Start Date End Date Arben Paredes MD PCP - General 01/24/17 06/01/24 documented as of this encounter
--- OUTSIDE RECORDS SUMMARY | 2024-10-13 00:39 | XMS_ITS | Encounter Summary ---
Author Organization [facility] Address 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 09.23.24 S PROFESSIONAL * Telephone Encounter - Librado Hernandez MD - 09/22/2024 1:32 PM PARTS PROFESSIONAL sent S PROFESSIONAL * Telephone Encounter - Librado Hernandez MD - 09/22/2024 8:23 AM PARTS PROFESSIONAL This was sent on 09/14 - someone in another office discontinued it off her medlist on 09/16 - shouldI resend it? S PROFESSIONAL * Telephone Encounter - Taylor Ac - 09/22/2024 8:11 AM CST I am getting a PA request for Zepbound for her, not listed in her chart. Is she on this? If so, needs script sent to pharmacy. 09.22.24 S PROFESSIONAL documented in this encounter Plan of Treatment Not on file documented as of this encounter Visit Diagnoses Not on filedocumented in this encounter Care Teams Industrial Safety Engineer Relationship Specialty Start Date End Date Librado Hernandez MD [address] [place] [address] [place] [address] PCP - General Internal Medicine 06/02/24 documented as of this encounter
--- OUTSIDE RECORDS SUMMARY | 2024-10-13 00:39 | XMS_ITS | Encounter Summary ---
Author Organization [facility] Address [address] [place] [address] Phone Care Team Providers Care Senior Interactive Producer Name Role Phone Librado Hernandez MD Primary Care Provider + Encounter Details Date Type Department Care Team (Late st Contact Info) Description 09/22/2024 Orders Only [facility] [address] [facility] [address] [place] [address] Librado Hernandez MD [address] [place] [address] [address] [place] [address] Social History Tobacco Use Types [...] on file 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 Gender Identity Not on file Sexual Orientation Not on file documented as of this encounter Ordered Prescriptions Prescription Sig Dispense Quantity Refills Last Filled Start Date End Date tirzepatide, weight loss, (ZEPBOUND) 2.5 mg/0.5 mL pen injector Inject 0.5 mL (2.5 mg total) under the skin every 7 days 2 mL 09/22/2024 documented in this encounter Plan of Treatment Not on file documented as of this encounter Visit Diagnoses Not on filedocumented in this encounter Care Teams Senior Interactive Producer Relationship Specialty Start Date End Date Librado Hernandez MD [address] [place] [address] [address]eta [address] [place] [id number] PCP - General Internal Medicine 06/02/24 documented as of this encounter
--- OUTSIDE RECORDS SUMMARY | 2024-10-13 00:39 | XMS_ITS | Encounter Summary ---
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, subsequent encounter [T84.018D, Z96.659] Procedures [place] REVISE KNEE JOINT REPLACE,ALL PARTS WV REVJ TOT KNEE ARTHRP FEM&ENTIRE TIBIAL COMPONE WV REVJ TOTAL KNEE ARTHRP W/WO ALGRFT 1 COMPONENT REVISION ARTHROPLASTY LEFT TOTAL KNEE Referral ID Status Reason Start Date Expiration Date Visits Re quested Visits Authorized [id number] 1 1 Encounter Details Date Type Department Care Team (Late st Contact Info) Description 06/01/2024 1:55 PM CDT - 06/01/2024 4:25 PM CDT Surgery [facility] Operating Room [address] [place] [address] Jim Fraire MD [address] [place] [address] REVISION ARTHROPLASTY LEFT TOTAL KNEE Surgery Details Date/Time Status Location OR Service Patient Class Case Class Case Type Trauma Case? 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 Gender Identity Not on file Sexual Orientation Not on file documented as of this encounter Last Filed Vital Signs Vital Sign Reading Time Taken Comments Blood Pressure 174/81 06/01/2024 4:25 PM CDT Pulse 81 06/01/2024 4:25 PM CDT Temperature 36.6 ??C (97.9 ??F) 06/01/2024 4:05 PM CD T Respiratory Rate 30 06/01/2024 4:25 PM CDT Oxygen Saturation 96% 06/01/2024 4:25 PM CDT Inhaled Oxygen Concentration - - Weight 93.3 kg (205 lb 9.6 oz) 06/01/2024 11:48 AM CDT Height 162.6 cm (5' 4.02 ) 06/01/2024 11:48 AM C DT Body Mass Index 35.27 06/01/2024 11:48 AM CDT documented in this encounter Discharge Summaries * Rita Khanna NP - 06/02/2024 6:48 AM CDT Inpatient Discharge Summary Admitting Provider: Jim Fraire MD Discharge Provider: Jim Fraire MD Primary Care Physician at Discharge: Arben Paredes MD [phone] Admission Date: 06/01/2024 Discharge Date: 06/02/2024 Primary Discharge Diagnosis: Failed total knee arthroplasty (CMS/[facility]) ([facility]) Secondary Discharge Diagnosis: Principal Problem: Failed total knee arthroplasty (CMS/HCC) ([facility]) Active Problems: Failed total knee, left, sequela Resolved Problems: No resolved hospital problems. DETAILS OF HOSPITAL STAY Date of Admission: 06/01/2024 Date of Discharge: 06/02/2024 Procedure Performed: Procedure(s): REVISION ARTHROPLASTY LEFT TOTAL KNEE Chief Complaint: Left knee pain History of Present Illness: The patient is a 73 y.o. year old female cared for by Dr. Jim Fraire. The risks, benefits, alternatives and complications of a left revision total knee arthroplasty was discussed with the patientat length prior to surgery. The patient elected to proceed with a surgical intervention given the significant influence on their quality of life. Informed consent was obtained prior to surgery. Physical Exam: On the day of discharge, the patient was afebrile with stable vital signs. Examination of the left lower extremity revealed the patient was neurovascularly intact. Incision was clean, dry and intact.Pain was adequately maintained on oral opiates. Hospital Course: The patient was admitted on 06/01/2024 and underwent the aforementioned procedure. The patient tolerated the procedure well and was taken in stable condition to the postoperative recovery room then transferred to the orthopedic floor in stable condition. The patient progressed well and was able to be weaned off IV opiates. The patient participated with physical and occupational therapy and was deemed stable for discharge. She was maintained on Aspirin for deep venous thrombosis prophylaxis. Pain was adequately maintained on oral opiates. The patient was discharged in stable condition to home with outpatient therapy on 06/02/2024. Discharge Medications: Your medication list START taking these medications Instructions Last Dose Given Next Dose Due aspirin 81 mg enteric coated tablet 81 mg, oral, 2 times daily meloxicam 7.5 mg tablet Commonly known as: MOBIC 7.5 mg, oral, Daily oxyCODONE 5 mg immediate release tablet Commonly known as: ROXICODONE 5 mg, oral, Every 4 hours PRN senna-docusate 8.6-50 mg Commonly known as: PERICOLACE 2 tablets, oral, 2 times daily, May increase to 4 tablets twice daily if needed. HOLD medication for diarrhea. traMADoL 50 mg tablet Commonly known as: ULTRAM 50 mg, oral, Every 8 hours PRN CHANGE how you take these medications Instructions Last Dose Given Next Dose Due acetaminophen 500 mg tablet Commonly known as: TYLENOL What changed: when to take this reasons to take this 1,000 mg, oral, Every 8 hours scheduled CONTINUE taking these medications Instructions Last Dose Given Next Dose Due amLODIPine 2.5 mg tablet Commonly known as: NORVASC 5 mg, oral, Every morning atorvastatin 10 mg tablet Commonly known as: LIPITOR 10 mg, oral, Nightly azelastine 137 mcg (0.1 %) nasal spray Commonly known as: ASTELIN 1 spray, each nostril, 2 times daily Caltrate with Vitamin D3 1,500 mg (600mg elemental) -800 unit per tablet Generic drug: calcium carbonate-vitamin D3 1 tablet, oral, Every morning cetirizine 10 mg tablet Commonly known as: ZyrTEC 10 mg, oral, Nightly liraglutide (weight loss) 3 mg/0.5 mL (18 mg/3 mL) pen injector 1.2 mg, subcutaneous, Nightly meclizine 25 mg tablet Commonly known as: ANTIVERT 25 mg, oral, 3 times daily PRN omeprazole OTC 20 mg EC tablet Commonly known as: PriLOSEC OTC 20 mg, oral, Nightly PARoxetine 20 mg tablet Commonly known as: PAXIL 20 mg, oral, Every morning pramipexole 0.125 mg tablet Commonly known as: MIRAPEX 0.125 mg, oral, 2 times daily pramipexole 0.375 mg tablet extended release 24 hr 1 tablet, oral, Daily with dinner Singulair 10 mg tablet Generic drug: montelukast 10 mg, oral, Nightly STOP taking these medications calcipotriene 0.005 % cream Commonly known as: Dovonex docusate sodium 100 mg tablet Commonly known as: DOK ketoconazole 2 % cream Commonly known as: NIZORAL mupirocin 2 % ointment Commonly known as: BACTROBAN naproxen sodium 220 mg capsule therapeutic multivitamin tablet Commonly known as: THERA triamcinolone 0.1 % ointment Commonly known as: KENALOG vit C,J-Cg-tccmm-lutein-zeaxan 250-90-40-1 mg capsule Where to Get Your Medications These medications were sent to [id number] - [place] - [address] [place] [address] acetaminophen 500 mg tablet aspirin 81 mg enteric coated tablet meloxicam 7.5 mg tablet oxyCODONE 5 mg immediate release tablet senna-docusate 8.6-50 mg traMADoL 50 mg tablet Discharge Activity: Weight bearing: Weight bearing as tolerated left lower extremity Assistive Devices: Walker or crutches for all walking DVT prophylaxis: Aspirin 81mg twice daily for 30 days Discharge Diet: Resume previous diet Follow-up: Dr. Jim Fraire. on 06/23/2024 at 1:00pm at [facility], [address] [place] [address], Medical Office [address], [address] [address]. Condition on Discharge: Stable Cosigned by Jim Fraire MD at 06/02/2024 4:03 PM CDT documented in this encounter Discharge Instructions * Discharge Instructions* Rita Khanna NP - 06/02/2024 6:48 AM CDT Images from the original note were not included. Our goal is for you to be successful in using your new joint and be ready to return to an active lifestyle. It is important to us that your journey is successful. Please use this QR code to view the discharge video to help you and your Joint Deblocker with the post- operative recovery: Or use this URL link: [email or web address] Review this page of our website for additional resources documented in this encounter Medications at Time of Discharge acetaminophen (TYLENOL) 500 mg tablet Take 2 tablets (1,000 mg total) by mouth every 8 (eight) hours 90 tablet 06/02/2024 atorvastatin (LIPITOR) 10 mg tabletIndication s:hyperlipidemia Take 1 tablet (10 mg total) by mouth nightly 07/27/2018 azelastine (ASTELIN) 137 mcg (0.1 %) nasal sprayIndications :Seasonal Allergic Rhinitis Administer 1 spray into each nostril 2 (two) times a day calcium carbonate-vitami n D3 (CALTRATE WITH VITAMIN D3) 1,500 mg (600mg elemental) -800 unit per tabletIndication s:Prevention of Vitamin D Deficiency Take 1 tablet by mouth every morning meclizine (ANTIVERT) 25 mg tabletIndication s:Vertigo Take 1 tablet (25 mg total) by mouth 3 (three) times a day as needed for dizziness montelukast (SINGULAIR) 10 mg tabletIndication s:Allergic Rhinitis Take 1 tablet (10 mg total) by mouth nightly omeprazole OTC (PriLOSEC OTC) 20 mg EC tabletIndication s:Treatment of Non-Bleeding Gastric Disorder Take 1 tablet (20 mg total) by mouth nightly PARoxetine (PAXIL) 20 mg tabletIndication s:depression Take 1 tablet (20 mg total) by mouth every morning 02/06/2018 pramipexole (MIRAPEX) 0.125 mg tabletIndication s:Restless Legs Syndrome Take 1 tablet (0.125 mg total) by mouth 2 (two) times a day pramipexole 0.375 mg tablet extended release 24 hrIndications:Re stless Legs Syndrome,ALSO TAKING AN AM DOSE Take 1 tablet by mouth daily with dinner 08/24/2018 amLODIPine (NORVASC) 2.5 mg tabletIndication s:hypertension Take 2 tablets (5 mg total) by mouth every morning 4 aspirin 81 mg enteric coated tablet Take 1 tablet (81 mg total) by mouth 2 (two) times a day 60 tablet 06/02/2024 4 cetirizine (ZyrTEC) 10 mg tabletIndication s:Seasonal Allergic Rhinitis Take 1 tablet (10 mg total) by mouth nightly 4 liraglutide, weight loss, 3 mg/0.5 mL (18 mg/3 mL) pen injectorIndicati ons:Weight Loss Management for Obese Patient (BMI >= 30) Inject 1.2 mg under the skin nightly Indications: weight loss management for an obese person 4 meloxicam (MOBIC) 7.5 mg tablet Take 1 tablet (7.5 mg total) by mouth daily 30 tablet 06/02/2024 4 oxyCODONE (ROXICODONE) 5 mg immediate release tabletIndication s:Pain Take 1 tablet (5 mg total) by mouth every 4 (four) hours as needed for pain (Breakthrough Pain) 30 tablet 06/01/2024 4 senna-docusate (PERICOLACE) 8.6-50 mg Take 2 tablets by mouth 2 (two) times a day May increase to 4 tablets twice daily if needed. HOLD medication for diarrhea. 80 tablet 1 06/02/2024 4 traMADoL (ULTRAM) 50 mg tablet Take 1 tablet (50 mg total) by mouth every 8 (eight) hours as needed for pain 42 tablet 06/01/2024 4 documented as of this encounter Ordered Prescriptions Prescription Sig Dispense Quantity Refills Last Filled Start Date End Date acetaminophen (TYLENOL) 500 mg tablet Take 2 tablets (1,000 mg total) by mouth every 8 (eight) hours 90 tablet 06/02/2024 meloxicam (MOBIC) 7.5 mg tablet Take 1 tablet (7.5 mg total) by mouth daily 30 tablet 06/02/2024 4 senna-docusate (PERICOLACE) 8.6-50 mg Take 2 tablets by mouth 2 (two) times a day May increase to 4 tablets twice daily if needed. HOLD medication for diarrhea. 80 tablet 1 06/02/2024 4 aspirin 81 mg enteric coated tablet Take 1 tablet (81 mg total) by mouth 2 (two) times a day 60 tablet 06/02/2024 4 traMADoL (ULTRAM) 50 mg tablet Take 1 tablet (50 mg total) by mouth every 8 (eight) hours as needed for pain 42 tablet 06/01/2024 4 oxyCODONE (ROXICODONE) 5 mg immediate release tabletIndications: Pain Take 1 tablet (5 mg total) by mouth every 4 (four) hours as needed for pain (Breakthrough Pain) 30 tablet 06/01/2024 4 documented in this encounter Discharge Disposition Disposition Code Departure Means Destination Comment s Discharge to home or self care documented in this encounter Progress Notes * Sonali LkueTerrell - 06/02/2024 8:45 AM CDT [facility] Physical Therapy Treatment Patient Name: Rebeka Hsieh Date of Service: 06/02/2024 Date of : 1950 Age: 73 y.o. female Room: [address] Admit Date: 06/01/2024 Attending Provider: Jim Fraire MD Primary Diagnosis: Failed total knee arthroplasty (CMS/HCC) ([facility]) Subjective HPI: Rebeka Hsieh is a 73 y.o. female s/p revision left total knee arthroplasty on 06/01/[address] Fraire. Patient is agreeable to physical therapy treatment. Precautions: fall risk and CARRILLO Weightbearing Status: Weightbearing as tolerated (WBAT) on left Lower Extremity Patient Comment: Pat sitting up in bed with daughter present. Pat reports pain is well controlled. Pat does not need to perform stairs at home, however family requested stairs be performed. Objective Vitals: Blood pressure: 141/67 mmHg, Heart rate: 74 beats per minute, SPO2: 96% Comments: Blood pressure taken in right arm and pat on room air Activity Tolerance: Endurance: Tolerates 30 minutes of activity with multiple rests Pain Assessment: Pre-treatment pain: 2 /10 Post-treatment pain: I don't feel any Location: Medial left knee Pain intervention: Patient received pain medication prior to physical therapy treatment, Cold applied, Repositioned, Ambulation, Exercise, Physical therapy, and RN notified Cognition: Overall Cognitive Status: WFL to complete therapy related tasks Lower Extremity Assessment: left Knee ROM: 5o-83o Supine AROM Bed Mobility: Patient performs supine to and from edge of bed with supervision/touching assistance. Simulated home environment with side and height of bed. Cues provided to utilize what they have at home to perform bed mobility. Transfers: Patient performs sit to and from stand with wheeled walker and supervision/touching assistance. Cues provided for hand placement. Patient performs car transfer via the FERRER-SIT Car Transfer Simulator with wheeled walker and supervision/touching assistance. Patient educated on safety/precaution awareness, seat positioning, and hand placement. Pat educated to keep walker close when approaching car. Gait: Patient ambulates x 125 x 125 feet with wheeled walker and supervision/touching assistance. Pat demonstrates upright posture, heel strike, reciprocal gait pattern, and upright posture. Stairs: Patient negotiates 4 stairs with bilat hand railing and supervision/touching assistance. Cue provided for walker management when approaching stairs and leading lower extremity. Gait belt was used for all out of bed mobility. Therapeutic Exercise: Ankle Pumps 1x10 Quad Sets 1x10 Straight Leg Raise 1x10 Short-Arc Quads 1x10 Heel Slides 1x10 Long-Arc Quads 1x10 Comments: Per [facility] TKA protocol. Balance Sitting Static Balance Good: The patient is able to maintain balance without hand-hold support; limited postural sway Comments: Assessed with pat sitting at the edge of the bed. Dynamic Balance Fair: The patient accepts minimal challenge; able to maintain balance while turning head/trunk Comments: Assessed with pat sitting at the edge of the bed. Standing Static Balance Good: The patient is able to maintain balance without hand-hold support; limited postural sway Comments: Assessed during walker height assessment Dynamic Balance Fair: The patient accepts minimal challenge; able to maintain balance while turning head/trunk Comments: Assessed during ambulation with wheeled walker. Assessment Prognosis: Good Response to today???s treatment: Good Completed patient handoff and notified RN of patient???s location and functional status upon completion of session. Pat sitting up in bed and is agreeable to treatment. Supervision/touching assist for all mobility with intermittent verbal cues provided for hand placement with transfers, walker management, and sequencing with stairs. Pat reports that her daughter will be available to assist on return to home. At end of session pat sitting up in chair with questions addressed, ice returned, and call button in reach. Education: Patient and family has been educated on the role of physical therapy, precautions, mobility training, stairs, home exercise program, and car transfer technique. Education completed via explanation and teach back. Patient and family verbalized understanding and demonstrated understanding. Handouts Issued: None issued this visit Patient at high risk for: (None) Care Plan Goals established: 06/01/24 Goals to be completed by: 06/03/2024 The patient will perform bed mobility including supine to/from sit with supervision/touching assistance in order to safely return home by the above completion date. Comments: Completed 06/02/24 The patient will perform sit to/from stand transfers using wheeled walker and supervision/touching assistance in order to safely return home by the above completion date. Comments: Completed 06/02/24 The patient will ambulate 100 feet using wheeled walker and supervision/touching assistance in order to safely return home by the above completion date. Comments: Completed 06/02/24 The patient will perform HEP appropriately per protocol with assistance from joint cheerleading coach as needed in order to increase strength/increase endurance by the above completion date. Comments: Completed 06/02/24 Plan Physical therapy frequency: Discharge from this Service If this is the last note, consider this the discharge summary Physical Therapy interventions: (n/a) Recommended equipment to safely discharge: Wheeled walker (Issued last session) Recommended method of transportation at discharge: Personal vehicle with family Referrals Recommended: None Patient okay to discharge: Yes Discharge Recommendation: Home with family, Home with intermittent assist, Outpatient PT Discharge destination and transportation depends not only upon the therapists??? recommendations, but also on insurance authorization, bed availability, acceptance to the facility, medical diagnosis,and any other specialized needs. Case Management and/or Social Work will work with the patient and their interdisciplinary team to determine the most appropriate discharge disposition. Sonali Luke, [facility] Cosigned by Zain Nguyen PT at 06/02/2024 9:54 AM CDT Associated attestation - Zain Nguyen PT - 06/02/2024 9:54 AM CDT I was present and in the room for the entire session. The student participating in delivery of services directed by myself. I have reviewed their note and I am in agreement with the plan and recommendations. Zain Nguyen, PT * Arben Johnson MD - 06/02/2024 6:30 AM CDT Orthopaedic Reconstruction Service Daily Progress Note Admit Date: 06/01/2024 Hospital Day: 0 Barrack Rev L TKA, poly liner exchange Significant PMHx/PSHx: HTN, RLS, CARRILLO, and CLL Interval History: POD1. Pain controlled this morning, doing well. LLE NVI, dressing c/d/I. Labs within expected postoperative values; glucose 200. Plan for therapy, likely discharge today. Edited by: Arben Johnson MD at 06/02/2024 0630 Objective Vitals: 24hr Min/Max: Temp Min: 36.3 ??C (97.3 ??F) Max: 37.1 ??C (98.8 ??F) Pulse Min: 81 Max: 90 BP Min: 129/55 Max: 188/84 Resp Min: 15 Max: 30 SpO2 Min: 90 % Max: 100 % I/O last 2 completed shifts: In: 1500 [P.O.:500; I.V.:1000] Out: 550 [Urine:450; Blood:100] I/O this shift: In: 600 [P.O.:600] Out: 1500 [Urine:1500] Physical Exam: Gen: No acute distress Alert and oriented: x3 Extremity LLE Dressing/wound: dressing c/d/i Immobilization: N/A Sensation: SILT SP/DP/T Motor: fires TA/GS/EHL/FHL Perfusion: Toes WWP Wound Vac(s): n/a Hemovac(s): n/a Lab/Diagnostic Review: Recent Labs Lab Units 06/02/24 0308 06/01/24 1234 05/27/24 1124 SODIUM mmol/L 136 -- 144 POTASSIUM PLASMA mmol/L 4.3 -- 3.7 CHLORIDE mmol/L 99 -- 106 CO2 mmol/L 26 -- 28 ANIONGAP mmol/L 11 -- 11 GLUCOSE mg/dL 200* -- 90 POC GLUCOSE MONITOR -- < > -- BUN SERUM mg/dL 15 -- 15 CREATININE mg/dL 0.70 -- 0.67 CALCIUM mg/dL 8.9 -- 9.6 ALBUMIN g/dL -- -- 4.3 ALK PHOS Units/L -- -- 88 ALT Units/L -- -- 16 AST Units/L -- -- 27 BILIRUBIN TOTAL mg/dL -- -- 0.3 WBC K/cumm -- -- 119.7* HEMOGLOBIN g/dL 10.0* -- 11.9 HEMATOCRIT % 32.7* -- 37.7 PLATELETS K/cumm -- -- 259 NEUTROS PCT % -- -- 0.8 See Comment LYMPHS PCT % -- -- 95.1 See Comment MONOS PCT % -- -- See Comment See Comment EOS PCT % -- -- See Comment See Comment < > = values in this interval not displayed. Micro: No results found for: MICROBIOLOGY Assessment/Plan: 73 y.o. female s/p L revision TKA with liner exchange. WB Status: WBAT LLE Activity: Ambulate with assist Therapy: PT for OOB/mobilization as tolerated. Precautions: n/a Drain: n/a DVT ppx: ASA 81mg BID Antibiotics: Ancef 24 hours postoperative Cultures: n/a Rachel: n/a Wound Care: Maintain surgical dressing, will be managed by Ortho team Diet: Regular Additional Needs: None Closure/Dressings: dionisio/donaldo Ortho Recon is the primary team, and will manage this patient's hospital course. Dispo: Pending progress, postoperative recovery, and progress with therapy Follow-Up: This patient does not require any formal follow-up with orthopaedic surgery Edited by: Arben Johnson MD at 06/02/2024 0630 Please call with questions during daytime. See below for overnight issues. If you know the resident's name on the appropriate orthopaedic surgery team, please use [email or web address] to page resident directly. If questions arise and the appropriate resident can't be reached or you are calling overnight, please contact [phone] ([facility] 7:30 PM - 6:30 AM - Floor Resident) or [phone] (24 hours/day - Consult Resident) Cosigned by Jim Fraire MD at 06/02/2024 5:19 PM CDT documented in this encounter H&P Notes * Jammie Church MD - 06/01/2024 12:37 PM CDT I have reviewed the H&P, examined the patient, and endorse the findings as written. Plan of Care : Based on the above findings, I consider Rebeka Hsieh to be an acceptable risk for : Procedure(s): REVISION ARTHROPLASTY LEFT TOTAL KNEE Jammie Church MD Adult Reconstruction and Preservation Fellow ' [employer] Department of Orthopaedic Surgery Source Note - Renny Doe NP - 05/27/2024 9:17 AM CDT Images from the original note were not included. Center for Preoperative Assessment and Planning Preoperative Evaluation Record Evaluation type/location: [facility] Planned procedure site: [facility] OR Date: 05/27/24 Anesthesia Evaluation Rebeka Hsieh [...] TR - mild. Pertinent negatives: CAD ; [place] ; CABG ; valve replacement; atrial fibrillation; [...] Assessment performed by the above primary evaluating BARBERING INSTRUCTOR, who is currently in the CPAP BARBERING INSTRUCTOR Orientation interval. Signed by: Rimma Moran NP [...] She does have an oncologist here [facility] at [facility] that she plans to follow up on [...] History of skin cancer - (Added by KALLI Conv) PONV (postoperative nausea and vomiting) Sleep apnea Past Surgical History: Procedure Laterality Date BASAL CELL CARCINOMA EXCISION x2- nose and forehead COLONOSCOPY KNEE ARTHROSCOPY W/ MENISCAL REPAIR 1996 [place] CHOLECYSTECTOMY Cholecystectomy - (Added by TW Conv) REVISION TOTAL KNEE ARTHROPLASTY Left- 2011 TOTAL KNEE ARTHROPLASTY Bilateral 10/2008 UPPER GASTROINTESTINAL ENDOSCOPY VEIN LIGATION AND STRIPPING Right 1981 OB History No obstetric history on file. Allergies Allergen Reactions Opioids - Morphine Analogues Hives Reaction: Hives, Morphine Hives Nickel Other (See comments) Burning sensation Med List Status: Nurse Complete Set By: Jef Moody, RN at 05/27/2024 10:25 AM Taking? Last Dose Start Date End Date Provider acetaminophen (TYLENOL) 500 mg tablet 05/27/2024 -- -- Provider, HistoricalMD amLODIPine (NORVASC) 2.5 mg tablet 05/27/2024 -- -- Provider, MD Keltno atorvastatin (LIPITOR) 10 mg tablet 05/26/2024 07/27/18 -- Provider, HistoricalMD azelastine (ASTELIN) 137 mcg (0.1 %) nasal [...] 10 mg tablet 05/27/2024 -- -- Provider, MD Kelton docusate sodium (DOK) 100 mg tablet 05/26/2024 -- -- Provider, MD Kelton ketoconazole (NIZORAL) 2 % cream Not Taking 03/25/20 -- Anthony Rodríguez MD Apply to rash on body bid prn Patient not taking: Reported on 05/27/2024 liraglutide, weight loss, 3 mg/0.5 mL (18 mg/3 mL) pen injector 05/26/2024 -- -- ProviderKelton MD meclizine (ANTIVERT) 25 mg tablet More than a month -- -- ProviderKelton MD montelukast (SINGULAIR) 10 mg tablet 05/26/2024 -- -- Kelton Land MD mupirocin (BACTROBAN) 2 % ointment -- 05/26/24 05/31/24 Jim Fraire MD Apply topically 2 (two) times a day for 5 days APPLY TO NOSTRILS TWICE A DAY FOR 5 DAYS PRIOR TO SURGERY. Notes: Pre op med naproxen sodium 220 mg capsule 05/27/2024 -- -- Kelton Land MD omeprazole OTC (PriLOSEC OTC) 20 mg EC tablet 05/26/2024 -- -- Kelton Land MD PARoxetine (PAXIL) 20 mg tablet 05/27/2024 02/06/18 -- ProviderKelton MD pramipexole (MIRAPEX) 0.125 mg tablet 05/27/2024 -- -- ProviderKelton MD pramipexole 0.375 mg tablet extended release 24 hr 05/26/2024 08/24/18 -- ProviderKelton MD therapeutic multivitamin (THERA) tablet 05/27/2024 -- -- Kelton Land MD triamcinolone (KENALOG) 0.1 % ointment Not Taking 01/11/21 -- Anthony Rodríguez MD Apply topically 2 (two) times a day as needed (Rash) Patient not taking: Reported on 05/27/2024 vit C,B-Lj-dmzzy-lutein-zeaxan 250-90-40-1 mg capsule 05/27/2024 -- -- ProviderKelton MD -- -- Patient not taking: -- [...] 24 hr therapeutic multivitamin (THERA) tablet vit C,F-Qw-zdhul-lutein-zeaxan 250-90-40-1 mg capsule calcipotriene (Dovonex) 0.005 % cream ketoconazole (NIZORAL) 2 % cream meclizine (ANTIVERT) 25 mg tablet mupirocin (BACTROBAN) 2 % ointment triamcinolone (KENALOG) 0.1 % ointment Social History Tobacco Use Smoking Status Former Current packs/day: 0.00 Average packs/day: 0.3 packs/day for 2.0 years (0.5 ttl pk-yrs) Types: Cigarettes Start date: 1967 Quit date: 1969 Years since quittin.6 Smokeless Tobacco Never Alcohol [...] score: 100 Short Blessed Total Score: 0 documented in this encounter Consult Notes * Mika Valladares, PT - 06/01/2024 6:03 PM CDT [facility] Physical Therapy Initial Evaluation Patient Name: Rebeka Hsieh Date of Service: 06/01/2024 Date of : 1950 Age: 73 y.o. female Room: [address] Admit Date: 06/01/2024 Attending Provider: Jim Fraire MD Primary Diagnosis: Failed total knee arthroplasty ([facility]) ([facility]) Subjective HPI: Rebeka Hsieh is a 73 y.o. female s/p right revision total knee arthroplasty, polyethylene liner exchange on 06/01/[address] Fraire. Patient is agreeable to physical therapy evaluation. Past Medical History: Diagnosis Date Aftercare following [...] COLONOSCOPY KNEE ARTHROSCOPY W/ MENISCAL REPAIR 1996 [place] CHOLECYSTECTOMY Cholecystectomy - (Added by [facility]) REVISION TOTAL KNEE ARTHROPLASTY Left- 2011 TOTAL KNEE ARTHROPLASTY Bilateral 10/2008 UPPER GASTROINTESTINAL ENDOSCOPY VEIN LIGATION AND STRIPPING Right 1981 Precautions: fall risk and CARRILLO Weightbearing Status: Weightbearing as tolerated (WBAT) on left Lower Extremity Physical Therapy Goal: Return home. Patient Comment: Patient reports she is doing well. Prior Living Environment and Level of Function: Type of Home: Apartment Lives With: Alone Stairs to Enter: Elevator entrance Railings: 0 Stairs Inside: 0 Railings: 0 Comments: Daughter is going to stay with patient 24 hours/day to assist as needed until Saturday. Then patient has another daughter that lives 5 minutes away. Home Equipment: single point cane Comments: Patient was using cane prior to surgery. Prior Level of Function: Independent with ADLs, Independent with transfers, and Independent with ambulation Driving: Yes Vocational/Occupation: Retired Falls Within the Last 6 Months: Yes: Had a series of falls, due to vertigo, in early Spring. Objective Vitals: Blood pressure: 131/83 mmHg, Heart rate: 90 beats per minute, SPO2: 91% Comments: on room air Activity Tolerance: Endurance: Tolerates 30 minutes of activity with multiple rests. Pain Assessment: Pre-evaluation pain: 10 Post-evaluation pain: Location: Left knee Pain intervention: Cold applied, Repositioned, Ambulation, Exercise, Physical therapy, Rest, and RNnotified Cognition: Overall Cognitive Status: WFL to complete therapy related tasks Lower Extremity Assessment: left knee ROM: 5o-70o In supine Bed Mobility: Patient performs edge of bed and short sit to supine with partial/moderate assistance. Verbal cues provided for sequencing and safety. Assistance is provided for lifting left lower extremity into bed. Transfers: Patient performs sit to and from stand with wheeled walker and partial/moderate assistance. Verbal cues provided for sequencing and safety. Patient utilized bilateral upper extremities to assist withforce production to assume standing position as well as to control descent to sit. Gait: Patient ambulates x 10 feet with wheeled walker and partial/moderate assistance. Verbal cues provided for sequencing and safety. Patient demonstrates decreased aric, step length and weight bearingon left lower extremity. Stairs: Not assessed at this time. Gait belt was used for all out of bed mobility. Therapeutic Exercise: Ankle Pumps 1x10 Quad Sets 1x10 Straight Leg Raise 1x10 Short-Arc Quads 1x10 Heel Slides 1x10 Long-Arc Quads 1x10 Comments: Per [facility] TKA protocol. Balance Sitting Static Balance Good: The patient is able to maintain balance without hand-hold support; limited postural sway Standing Static Balance Fair: The patient is able to maintain balance with hand-hold support; may require occasional minimal assistance Assessment Physical Therapy Diagnosis: Impaired joint mobility, motor function, muscle performance, and range of motion associated with joint arthroplasty Prognosis: Good Response to today???s treatment: Good Completed patient handoff and notified RN of patient???s location and functional status upon completion of session. Patient tolerated physical therapy session well. Patient's daughter is present for today's therapy session. Patient performed home exercise program and demonstrated understanding. Patient ambulated 10' from recliner to bed with wheeled walker and partial/moderate assistance. Patient is supine in bed with sequential compression devices in place and on at conclusion of therapy session. Patient has call light within reach and is instructed to utilize call light to communicate out of bed needs withnursing. RN is notified of patient's status. Patient's clinical presentation is stable and the patient's clinical course is expected to progress in a typical manner. Patient demonstrates deficiencies in the following areas: gait deviations, decreased strength, decreased range of motion, decreased endurance, and decreased mobility. Patient would benefit from physical therapy intervention to address these impairments and functional limitations. Education: Patient and family has been educated on the role of physical therapy, safety, mobility training, home exercise program, and car transfer technique. Education completed via explanation, teach back, demonstration, and handout . Patient and family verbalized understanding, demonstrated understanding, and needs ongoing reinforcement. Handouts Issued: [facility] TKA HEP Patient at high risk for: Falls Care Plan Goals established: 06/01/24 Goals to be completed by: 06/03/2024 The patient will perform bed mobility including supine to/from sit with supervision/touching assistance in order to safely return home by the above completion date. Comments: Initiated The patient will perform sit to/from stand transfers using wheeled walker and supervision/touching assistance in order to safely return home by the above completion date. Comments: Initiated The patient will ambulate 100 feet using wheeled walker and supervision/touching assistance in order to safely return home by the above completion date. Comments: Initiated The patient will perform HEP appropriately per protocol with assistance from joint cheerleading coach as needed in order to increase strength/increase endurance by the above completion date. Comments: Initiated Plan Physical therapy frequency: Daily If this is the last note, consider this the discharge summary Physical Therapy interventions: Balance Training, Bed mobility, Endurance training, Equipment eval/education, Functional activity, Functional transfer training, Gait training, Range of motion, Therapeutic activity, Therapeutic exercise, Transfer training Recommended equipment to safely discharge: Wheeled walker (issued 06/01/24) Recommended method of transportation at discharge: Personal vehicle with family Referrals Recommended: None Patient okay to discharge: No Discharge Recommendation: Home with family, Home with intermittent assist, Outpatient PT Discharge destination and transportation depends not only upon the therapists??? recommendations, but also on insurance authorization, bed availability, acceptance to the facility, medical diagnosis,and any other specialized needs. Case Management and/or Social Work will work with the patient and their interdisciplinary team to determine the most appropriate discharge disposition. Mika Valladares PT documented in this encounter Miscellaneous Notes * Plan of Care - Maryam Draper PTA - 06/02/2024 9:46 AM CDT Patient care and status discussed at multidisciplinary discharge rounds. Charge Nurse, Therapy Lead, Pharmacist, Power Regulator, and Provider present. Planned discharge 06/02/24 to home with familysupport on ASA for DVT prophylaxis and with Outpatient Physical Therapy. * Plan of Care - Kim Reilly RN - 06/02/2024 8:43 AM CDT Goals: Clinical Goals for the Shift: pain management, stable vitals, work with therapy, IS 10 x/hr, ankle pumps, discharge planning and education [facility] Patient Centered Goal for Treatment: d/c home Summary: Problem: Discharge Planning Goal: Understanding discharge needs will improve Outcome: Adequate for Discharge Problem: Fall Risk Goal: Will remain free from falls Outcome: Adequate for Discharge Problem: Skin/Tissue Integrity Goal: Incisions, wounds, or drain sites healing without S/S of infection Outcome: Adequate for Discharge Problem: Musculoskeletal Goal: Return ADL status to a safe level of function Outcome: Adequate for Discharge Problem: Lack of Knowledge Goal: Ability to develop a pain control plan will improve Outcome: Adequate for Discharge * Plan of Care - Di Irvin RN - 06/02/2024 1:36 AM CDT Problem: Discharge Planning Goal: Understanding discharge needs will improve Outcome: Progressing Flowsheets (Taken 06/01/20242099) Understanding of discharge needs will improve: Discuss information regarding discharge instructions Problem: Fall Risk Goal: Ability to state ways to decrease the risk of falls will improve Outcome: Progressing Flowsheets (Taken 06/01/20242099) Ability to state ways to decrease the risk of falls will improve: Teach fall prevention measures Goal: Will remain free from falls Outcome: Progressing Flowsheets (Taken 06/01/20242099) Will remain free from falls: Implement fall prevention measures Goal: Will remain free from injury from falls Outcome: Progressing Flowsheets (Taken 06/01/20242099) Will remain free from injury from falls: Provide safe environment for conduction of activities of daily living in hospital environment Problem: Neurosensory Goal: Achieves stable or improved neurological status Outcome: Progressing Goal: Achieves maximal functionality and self care Outcome: Progressing Flowsheets (Taken 06/01/20242099) Achieves maximal functionality and self care: Encourage and assist patient to increase activity andself care with guidance from therapies Problem: Skin/Tissue Integrity Goal: Skin integrity remains intact Outcome: Progressing Flowsheets (Taken 06/01/20242099) Skin integrity remains intact: Assess and document risk factors for pressure injury development Assess and document skin integrity Monitor for areas of redness and/or skin breakdown Goal: Incisions, wounds, or drain sites healing without S/S of infection Outcome: Progressing Flowsheets (Taken 06/01/20242099) Incision(s), Wound(s) or Drain Site(s) healing without S/S of infection: Assess and document skin integrity Problem: Musculoskeletal Goal: Maintain proper alignment of affected body part Outcome: Progressing Flowsheets (Taken 06/01/20242099) Maintain proper alignment of affected body part: Instruct and reinforce with patient and family useof appropriate assistive device and precautions (e.g. spinal or hip dislocation precautions) Goal: Return ADL status to a safe level of function Outcome: Progressing Flowsheets (Taken 06/01/20242099) Return activities of daily living status to a safe level of function: Assess patient's activities of daily living deficits and provide assistive devices as needed Goal: Ability to perform activities at highest level will improve Outcome: Progressing Flowsheets (Taken 06/01/20242099) Ability to perform activities at highest level will improve: Collaborate with rehabilitation services Problem: Lack of Knowledge Goal: Ability to develop a pain control plan will improve Outcome: Progressing Flowsheets (Taken 06/01/20242099) Ability to develop a pain control plan will improve: Teach information regarding pain management Educate pain scale for assessing level of pain Problem: Medication Goal: Satisfaction with pain management medication regimen will improve Outcome: Progressing Flowsheets (Taken 06/01/20242099) Satisfaction with pain management medication regimen will improve: Provide administration of medications prior to painful activities Report inadequate pain control to healthcare provider Assess satisfaction with pain management regimen Problem: Sensory Goal: Ability to identify factors that increase pain levels will improve while working to decrease the patient's pain levels Outcome: Progressing Flowsheets (Taken 06/01/20242099) Ability to identify factors that increase pain levels will improve while working to decrease patients pain levels: Assess pain status Provide hot or cold therapy Explore factors that precipitate, worsens, or relieves pain or discomfort Assess effects of pain control measures Problem: Coping Goal: Ability to cope will improve Outcome: Progressing Flowsheets (Taken 06/01/20242099) Ability to cope will Improve: Encourage vebalization of feelings surrounding pain Problem: Health Behavior Goal: Identification of resources available to assist in meeting health care needs will improve Outcome: Progressing Goals: Clinical Goals for the Shift: Pain management discussed ,use of incentive spirometer,return demo ,ankle pumps,pt encouraged to use calllight at all times,am labs and am physical therapy,pain level stephen below 4 at the end of my shift [facility] Patient [facility] Goal for Treatment: d/c home Summary: * Plan of Care - Alvaro Majano RN - 06/01/2024 5:49 PM CDT Goals: Clinical Goals for the Shift: Pt will report pain <4, VSS, IS 10/hr, ambulate OOB [facility] Patient Centered Goal for Treatment: D/C Summary: Problem: Discharge Planning Goal: Understanding discharge needs will improve Outcome: Progressing Problem: Fall Risk Goal: Ability to state ways to decrease the risk of falls will improve Outcome: Progressing Goal: Will remain free from falls Outcome: Progressing Goal: Will remain free from injury from falls Outcome: Progressing * Op Note - Jim Fraire MD - 06/01/2024 2:22 PM CDT OPERATIVE REPORT ATTENDING SURGEON: Jim Fraire M.D. 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 POSTOPERATIVE DIAGNOSIS: Left knee polyethylene liner failure PROCEDURE: Right revision total knee arthroplasty, polyethylene liner exchange IMPLANTS: Dayna anterior stabilized polyethylene: 20 mm thick SURGICAL DETAILS: 1) Incision/arthrotomy type: Medial parapatellar 2) Estimated blood loss: 50 3) Crystalloid replacement: 1500 4) Colloid replacement: 0 5) Blood replacement: 0 6) Anesthesia type: spinal 7) Specimens removed: none 8) Capsular injection: 30 mL of 0.5% Marcaine with epinephrine and 30 mg of Toradol 9) Tourniquet Use: none 10) Tourniquet Time in Minutes: 0 INDICATIONS FOR PROCEDURE: This patient presents today with pain and instability many years after a total knee arthoplasty, including a revision knee arthroplasty consisting of polyethylene exchange. Radiographs demonstrated poly wear and subluxation. The patient has failed non-operative treatment and presents for revision total knee replacement with polyethylene liner exchange. Risks, complications, and benefits of the procedure have been discussed and all questions have been answered preoperatively. PROCEDURE: The patient was brought to the operating room and placed on the operating room table in the supine position. After anesthesia was established, the patient was positioned supine and a tourniquet placed on the proximal thigh. Bony prominences were padded. The patient was given prophylactic antibiotics within one hour of skin incision. The involved lower extremity was prepped and draped in usual sterile fashion. Surgical timeout was taken to confirm the operative side and planned procedure. The prior incision was used medial to the midline carried through the subcutaneous tissue to the underlying extensor mechanism. A medial parapatellar approach was utilized. The poly was exposed and removed; there was evidence of shear force on the poly especially medially, with loose polyethylene fragment visible in the joint. The knee was copiously irrigated. A trial poly of 20 mm was used and the knee was tested for full extension, stability to stress in extension, mid flexion, and 90 of flexion, as well as for patellar tracking. We were happy with the stability. The tibial insert was exchanged to the final tibial insert 20 mm which was impacted into position. The wound was closed in layers and the skin was approximated with subcutaneous Monocryl and Prineo dressing. The patient tolerated the procedure well and was taken to the recovery room in stable condition. EXCEPTIONS/COMPLICATIONS: none SPONGE, INSTRUMENT AND NEEDLE COUNTS: Correct x 2. See Dr. Fraire's attending addendum for further details. ATTENDING SURGEON ADDENDUM: I was present for all critical portions of the case including component removal and insertion of all trials and implants, and assessment of alignment stability, range of motion, and patellar tracking. Dr. Jammie Church was immediately available for the noncritical portions of the procedure. * Brief Op Note - Arben Johnson MD - 06/01/2024 2:22 PM CDT Operative Progress Note Surgical Team: Surgeons and Role: * Jim Fraire MD - Primary * Arben Johnson MD - Resident - Assisting Anesthesiologist: Melly Lee MD DIRECTOR EHS: Jose Crowley CRNA Electrical Engineering Professor: Sujata Tsang RN Electrical Engineering Professor Relief: Sadia Jamil Scrub: Clover Dominguez ST MANAGER HARBOR: Kateryna Carmona RN DATE OF SURGERY : 06/01/2024 Preoperative Diagnosis: Pre-op Diagnosis * Failure of total knee replacement, subsequent encounter [T84.018D, Z96.373] Postoperative Diagnosis: Post-op Diagnosis * Failure of total knee replacement, subsequent encounter [T84.018D, Z96.096] Procedure(s): Procedure(s) (LRB): REVISION ARTHROPLASTY LEFT TOTAL KNEE (Left) Operative Findings: Poly shearing, loose fragment of polyethylene Estimated Blood Loss: No blood loss documented. Intraoperative Fluids: 1500 mls Specimens: No specimen collected in procedure Implants: Nothing was implanted during the procedure Blood/Blood Products Transfused: 0 mls Complications: None Condition on Discharge from the operating room was stable Arben Johnson MD Date: 06/01/2024 Time: 3:30 PM TEACHING ATTESTATION : I was present and directly participated in the entire procedure (including opening and closing). Cosigned by Jim Fraire MD at 06/02/2024 5:19 PM CDT documented in this encounter Plan of Treatment Not on file documented as of this encounter Procedures Procedure Name Priority Date/Time Associated Diagnosis Comments EGFR Routine 06/02/2024 3:08 AM CDT HEMOGLOBIN AND HEMATOCRIT Routine 06/02/2024 3:08 AM CDT BASIC METABOLIC PANEL Routine 06/02/2024 3:08 AM CDT XR KNEE LEFT 1 OR 2 VIEWS ED Urgent/IP Urgent 06/01/2024 3:49 PM CDT REVISION ARTHROPLASTY TOTAL KNEE 06/01/2024 2:02 PM CDT Failure of total knee replacement, subsequent encounter Special Needs [place] PREPARE RBC Timed 06/01/2024 1:20 PM CDT ABO/RH Timed 06/01/2024 12:39 PM CDT TYPE AND SCREEN Timed 06/01/2024 12:39 PM CDT POCT GLUCOSE DEVICE Routine 06/01/2024 1 2:34 PM CDT documented in this encounter Results * eGFR (06/02/2024 3:08 AM CDT) Pathologist [facility] eGFR >90 >=60 mL/min/1. 73 m2 Comment: Interpretive Data Reference Interval Normal ?>/= 90 mL/min/1.73m2 Mildly decreased* ? 60 - 89 mL/min/1.73m2 Mildly to moderately decreased ?45 - 59 mL/min/1.73m2 Moderately to severely decreased ??30 - 44 mL/min/1.73m2 Severely decreased ?15 - 29 mL/min/1.73m2 Kidney Failure ?< 15 ??mL/min/1.73m2 *Relative to young adult level Estimated glomerular filtration rate is determined by the 2020 CKD-EPI equation recommended by the National Kidney Foundation (A Unifying Approach to GFR Estimation: Recommendations of the NKF-ASK Task Force on Reassessing the Inclusion of Race in Diagnosing Kidney Disease, JASN 2020). The CKD-EPI equation should not be used for patients with unstable renal function and has not been validated in children and those over 70. Current interpretive data was last reviewed 2021. Blood 06/02/2024 3:08 AM CDT 06/02/2024 3:11 AM CDT us Jammie Church MD LAB BLOOD ORDERABLES Final Result [facility] [id number] [facility]. [place] [address] * (ABNORMAL) Hemoglobin and hematocrit (06/02/2024 3:08 AM CDT) Pathologist [facility] Hgb 10.0(L) 11.9 - 15.5 g/dL Hct 32.7(L) 35.6 - 45.5 % [facility] Blood 06/02/2024 3:08 AM CDT 06/02/2024 3:11 AM CDT us Jammie Church MD LAB BLOOD ORDERABLES Final Result [facility] [id number] [facility] Department [place] [address] * (ABNORMAL) Basic metabolic panel (06/02/2024 3:08 AM CDT) [facility] Sodium 136 135 - 145 mmol/L Potassium, pl 4.3 3.3 - 4.9 mmol/L [facility] Chloride 99 97 - 110 mmol/L [facility] CO2 26 22 - 32 mmol/L [facility] Anion gap 11 2 - 15 mmol/L [facility] BUN 15 6 - 25 mg/dL [facility] Creatinine 0.70 0.60 - 1.10 mg/dL [facility] Glucose 200(H) 70 - 199 mg/dL [facility] Comment: Interpretive Data Fasting glucose >/= 126 mg/dl is diagnostic for diabetes. ?? Fasting is defined as no caloric intake for at least 8 hours. Fasting glucose between 100 mg/dl to 125 mg/dl is diagnostic of prediabetes. In a patient with classic symptoms of hyperglycemia or hyperglycemic crisis, a random glucose >/= 200 mg/dl is diagnostic for diabetes. In the absence of unequivocal hyperglycemia, results should be confirmed by repeat testing. The classification and Diagnosis of Diabetes Diabetes Care 202; 46: S19-S40. Current interpretive data was last revised 2022. Calcium 8.9 8.5 - 10.3 mg/dL [facility] Blood 06/02/2024 3:08 AM CDT 06/02/2024 3:11 AM CDT Jammie Church MD LAB BLOOD ORDERABLES Final Result [facility] [id number] [address] Department [place] [address] * XR Knee Left 1 or 2 View (06/01/2024 3:49 PM CDT) Anatomical Region Laterality Modality Lower Extremities, Knee Left Computed Radiography 06/01/2024 3:52 PM CDT Impressions 06/01/2024 3:52 PM CDT 1. ??Unchanged left knee arthroplasty in near-anatomic alignment. Electronically signed by: Hank Muller MD Narrative 06/01/2024 3:52 PM CDT EXAMINATION: XR KNEE LEFT 1 OR 2 VIEWS HISTORY: ??Knee pain. FINDINGS: Comparison is made to 05/26/2024. Unchanged left total knee arthroplasty in near-anatomic alignment. No periprosthetic fracture or component migration. ??Deep soft tissue gas and small effusion persists. ??Heterotopic ossification at the medial and lateral knee unchanged. Procedure Note Hank Muller MD - 06/01/2024 EXAMINATION: XR KNEE LEFT 1 OR 2 VIEWS HISTORY: Knee pain. FINDINGS: Comparison is made to 05/26/2024. Unchanged left total knee arthroplasty in near-anatomic alignment. No periprosthetic fracture or component migration. Deep soft tissue gas and small effusion persists. Heterotopic ossification at the medial and lateral knee unchanged. IMPRESSION: 1. Unchanged left knee arthroplasty in near-anatomic alignment. Electronically signed by: Hank Muller MD Jammie Church MD IMG XR PROCEDURES Final Re sult * Prepare RBC: 1 Units (06/01/2024 1:20 PM CDT) Units requested 1 Units requested Ready YESSENIA SUAZO Blood 06/01/2024 1:20 PM CDT 06/01/2024 1:20 PM CDT Narrative YESSENIA XAVIERKevinCH - 06/01/2024 1:23 PM CDT Are special requirements needed? (All products are leukoreduced and CMV- safe)->No Tiff Haas [employer]BER[employer]CTOR BLOOD BANK PRODUCT OR DERABLES Final Result Performing Organization Address [facility] Co de Phone Number [facility] [phone] [employer] [address] [place], [place] [id number] * ABO/Rh (06/01/2024 12:39 PM CDT) Pathologist [facility] ABO/Rh B Positive Blood 06/01/2024 12:3 9 PM CDT 06/01/2024 12:39 PM CDT Narrative YESSENIA SUAZO - 06/01/2024 1:20 PM CDT Has the patient had Daratumumab or Isatuximab in the past 6 months?->Unknown Jim Fraire MD LAB BLOOD BANK TEST ORDERAB LES Final Result Performing Organization Address [facility] de Phone Number [facility] [id number] [facility] [employer] [place], [place] [id number] * POCT glucose (06/01/2024 12:34 PM CDT) Pathologist [facility] Glucose, POC 101 70 - 199 mg/dL Comment: Interpretive Data Glucose is assumed to be non-fasting. Fasting Glucose reference ranges are: 0 - 150 years: ??70 mg/dL - 99 mg/dL Current interpretive data was last revised on 2014. POC Performer [id number] YESSENIA PHILIP POC Device Number [id number] [facility] Blood 06/01/2024 12:3 4 PM CDT 06/01/2024 12:34 PM CDT Jim Fraire MD LAB POCT ORDERABLES - DEVIC E Final Result Performing Organization Address [facility] Co de Phone Number YESSENIA [facility] [phone] [facility]. 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, left, sequela documented in this encounter Administered Medications Inactive Administered Medications - up to 3 most recent administrations Medication Order MAR Action Action Date Dose Rate Site acetaminophen (TYLENOL) tablet 1,000 mg 1,000 mg, oral, Every 8 hours, First dose on Sat06/01/24 at 2200, Indications: PainIndications:Pain Given 06/02/2024 5:30 AM CDT 1,000 mg Given 06/01/2024 9:11 PM CDT 1,000 mg aluminum-magnesium hydroxide-simethicone (MAALOX) 40-40-4 mg/mL oral suspension 30 mL 30 mL, oral, Every 4 hours PRN, indigestion, heartburn, Starting on Sat06/01/24 at 1658, Indications: HeartburnIndications:Heartburn amLODIPine (NORVASC) tablet 5 mg 5 mg, oral, Every morning, First dose on Sat06/02/24 at 0900, Indications: hypertensionIndications:hypertension Given 06/02/2024 7:49 AM CDT 5 mg aspirin enteric coated tablet 81 mg 81 mg, oral, 2 times daily, First dose on Sat06/01/24 at 2100, Start first dose POD#0 at 2100. Do not crush, chew, cut, dissolve, open or otherwise manipulate tablet/capsule., Indications: Deep Vein Thrombosis PreventionIndications:Deep Vein Thrombosis Prevention Given 06/02/2024 7:49 AM CDT 81 mg Given 06/01/2024 9:12 PM CDT 81 mg atorvastatin (LIPITOR) tablet 10 mg 10 mg, oral, Nightly, First dose on Sat06/01/24 at 2100, Indications: hyperlipidemiaIndications:hyperlipid emia Given 06/01/2024 9:12 PM CDT 10 mg azelastine (ASTELIN) 137 mcg (0.1 %) nasal spray 1 spray 1 spray, each nostril, 2 times daily, First dose on Sat06/01/24 at 2100, Indications: Seasonal Allergic RhinitisIndications:Seasonal Allergic Rhinitis Given 06/02/2024 7:50 AM CDT 1 spray benzocaine-menthoL (CHLORASEPTIC MAX) lozenge 1 lozenge 1 lozenge, mouth/throat, Every 4 hours PRN, sore throat, Starting on Sat06/01/24 at 1658, Indications: Mouth IrritationIndications:Mouth Irritation BUPivacaine (MARCAINE) 0.25 % (2.5 mg/mL) preservative free injection As needed, Starting on Sat06/01/24 at 1506, Intra-Op Given 06/01/2024 3:06 PM CDT 31 mL Left Knee camphor-menthoL (SARNA) 0.5-0.5 % lotion topical, Every 2 hours PRN, other, itching, Starting on Sat06/01/24 at 1658, Apply to affected area: other, Indications: UrticariaIndications:Urticaria cetirizine (ZyrTEC) tablet 10 mg 10 mg, oral, Nightly, First dose on Sat06/01/24 at 2100, Indications: Seasonal Allergic RhinitisIndications:Seasonal Allergic Rhinitis Given 06/01/2024 9:12 PM CDT 10 mg famotidine (PEPCID) tablet 20 mg 20 mg, oral, 2 times daily, First dose on Sat06/01/24 at 2100, Indications: HeartburnIndications:Heartburn Given 06/02/2024 7:50 AM CDT 20 mg Given 06/01/2024 9:12 PM CDT 20 mg meloxicam (MOBIC) tablet 7.5 mg 7.5 mg, oral, Daily, First dose on Sat06/02/24 at 0900, Indications: PainIndications:Pain Given 06/02/2024 7:49 AM CDT 7.5 mg montelukast (SINGULAIR) tablet 10 mg 10 mg, oral, Nightly, First dose on Sat06/01/24 at 2100, Indications: Allergic RhinitisIndications:Allergic Rhinitis Given 06/01/2024 9:12 PM CDT 10 mg ondansetron (ZOFRAN) injection 4 mg 4 mg, intravenous, Administer over 2 Minutes, Every 6 hours PRN, nausea, vomiting, Starting on Sat06/01/24 at 1658, Proceed to prochlorperazine if no relief within 30 minutes. oxyCODONE (ROXICODONE) tablet 5 mg 5 mg, oral, Every 4 hours PRN, breakthrough pain, May administer 1 hour after 1st line treatment. If pain remains uncontrolled or is increasing - revert back to 1st line treatment if available otherwise repeat dose of Oxycodone may be given. MAX 2 tablets Oxycodone within a 4-hour period of time., Starting on Sat06/01/24 at 1658, Indications: PainIndications:Pain Given 06/02/2024 7:49 AM CDT 5 mg Given 06/02/2024 3:25 AM CDT 5 mg Given 06/02/2024 12:51 AM CDT 5 mg PARoxetine (PAXIL) tablet 20 mg 20 mg, oral, Every morning, First dose on Sat06/02/24 at 0900, Indications: depressionIndications:depression Given 06/02/2024 7:49 AM CDT 20 mg polyethylene glycol (MIRALAX) packet 17 g 17 g, oral, Daily PRN, constipation, Starting on Sat06/01/24 at 1658, Indications: constipationIndications:constipation pramipexole (MIRAPEX) tablet 0.25 mg 0.25 mg, oral, 2 times daily, First dose (after last modification) on Sat06/01/24 at 2100, Indications: Restless Legs SyndromeIndications:Restless Legs Syndrome Given 06/02/2024 7:49 AM CD T 0.25 mg Given 06/01/2024 9:12 PM CDT 0.25 mg prochlorperazine (COMPAZINE) injection 5 mg 5 mg, intravenous, Administer over 2 Minutes, Every 6 hours PRN, nausea, vomiting, Starting on Sat06/01/24 at 1658, If not relieved by ondansetron within 30 minutes. senna-docusate (PERICOLACE) 8.6-50 mg per tablet 2 tablet 2 tablet, oral, 2 times daily, First dose on Sat06/01/24 at 2100, Hold for diarrhea., Indications: constipationIndications:constipation Given 06/02/2024 7:50 AM CDT 2 table ts Given 06/01/2024 9:12 PM CDT 2 tablets sodium chloride 0.9% flush 0.5-20 mL 0.5-20 mL, intra-catheter, Every 8 hours scheduled, First dose on Sat06/01/24 at 1730, Flush volume based on line type and size. Given 06/02/2024 5:31 AM CDT 10 mL Given 06/01/2024 10:11 PM CDT 10 mL sodium chloride 0.9% flush 0.5-20 mL 0.5-20 mL, intra-catheter, As needed, line care, Starting on Sat06/01/24 at 1658, Flush volume based on line type and size. Flush before and after each use. sodium chloride 0.9% infusion 100 mL/hr, intravenous, Continuous, Starting on Sat06/01/24 at 1730 sodium chloride 0.9% irrigation As needed, Starting on Sat06/01/24 at 1505, Intra-Op Given 06/01/2024 3:05 PM CDT 250 mL traMADoL (ULTRAM) tablet 50 mg 50 mg, oral, Every 6 hours PRN, 1st line for pain, Starting on Sat06/01/24 at 1658, Indications: PainIndications:Pain Given 06/02/2024 6:45 AM CDT 50 mg Given 06/02/2024 12:03 AM CDT 50 mg Given 06/01/2024 5:36 PM CDT 50 mg documented in this encounter Discontinued Medications Medication Sig Discontinue Reason Start Date End Da te ketoconazole (NIZORAL) 2 % creamIndications:do not apply near incision Apply to rash on body bid prn Stop Taking at Discharge 03/25/2020 06/02/2024 triamcinolone (KENALOG) 0.1 % ointment Apply topically 2 (two) times a day as needed (Rash) Stop Taking at Discharge 01/11/2021 06/02/2024 calcipotriene (Dovonex) 0.005 % creamIndications:Plaqu e Psoriasis Mix 50/50 with Fluorouracil apply to forehead, cheeks, nose twice daily for 4 days then STOP. Repeat after 3 weeks. Stop Taking at Discharge 06/19/2021 06/02/2024 mupirocin (BACTROBAN) 2 % ointment Apply topically 2 (two) times a day for 5 days APPLY TO NOSTRILS TWICE A DAY FOR 5 DAYS PRIOR TO SURGERY. Stop Taking at Discharge 05/26/2024 06/02/2024 acetaminophen (TYLENOL) 500 mg tablet Take 2 tablets (1,000 mg total) by mouth every 6 (six) hours as needed for pain Stop Taking at Discharge 06/02/2024 naproxen sodium 220 mg capsuleIndications:Jodi n Take 2 capsules by mouth 2 (two) times a day Stop Taking at Discharge 06/02/2024 therapeutic multivitamin (THERA) tabletIndications:Denae min Deficiency Prevention Take 1 tablet by mouth every morning Stop Taking at Discharge 06/02/2024 vit C,O-St-mwgwc-lutein-ze axan 250-90-40-1 mg capsule Take 1 capsule by mouth 2 (two) times a day Stop Taking at Discharge 06/02/2024 docusate sodium (DOK) 100 mg tabletIndications:cons tipation Take 2 tablets (200 mg total) by mouth nightly Stop Taking at Discharge 06/02/2024 documented as of this encounter Active and Recently Administered Medications Times are shown in CDT. Scheduled Medication Order 05/31/2024 06/01/2024 06/02/2024 acetaminophen (TYLENOL) tablet 1,000 mg (COMPLETED) 1,000 mg, oral, Once, On Sat06/01/24 at 1230, For 1 dose, Pre-Op, Indications: Pain 1225 (Given - Provider: Ashtyn Carter RN) acetaminophen (TYLENOL) tablet 1,000 mg 1,000 mg, oral, Every 8 hours, First dose on Sat06/01/24 at 2200, Indications: Pain 2110 (Given - Provider: Di Irvin RN) 0530 (Given - Provider: Di Irvin RN) amLODIPine (NORVASC) tablet 5 mg 5 mg, oral, Every morning, First dose on Sat06/02/24 at 0900, Indications: hypertension 0749 (Given - Provider: Kim Reilly RN) aspirin enteric coated tablet 81 mg 81 mg, oral, 2 times daily, First dose on Sat06/01/24 at 2100, Start first dose POD#0 at 2100. Do not crush, chew, cut, dissolve, open or otherwise manipulate tablet/capsule., Indications: Deep Vein Thrombosis Prevention 2111 (Given - Provider: Di Irvin RN) 0749 (Given - Provider: Kim Reilly RN) atorvastatin (LIPITOR) tablet 10 mg 10 mg, oral, Nightly, First dose on Sat06/01/24 at 2100, Indications: hyperlipidemia 2112 (Given - Provider: Di Irvin RN) azelastine (ASTELIN) 137 mcg (0.1 %) nasal spray 1 spray 1 spray, each nostril, 2 times daily, First dose on Sat06/01/24 at 2100, Indications: Seasonal Allergic Rhinitis 2116 (Not Given - Provider: Di Irvin RN - Reason: Patient/family refused) 0750 (Given - Provider: Kim Reilly RN) ceFAZolin (ANCEF) 1 gram/10 mL in sterile water (premix) 2,000 mg (COMPLETED) 2,000 mg, intravenous, at 400 mL/hr, Administer over 3 Minutes, Once, On Sat06/01/24 at 1230, For 1 dose, Pre-Op, Administer within 60 minutes of incision., Indications: Prophylaxis, Surgical 1404 (Given - Provider: Jose Crowley CRNA) ceFAZolin (ANCEF) 2,000 mg/20 mL in sterile water (premix) 2,000 mg (COMPLETED) 2,000 mg, intravenous, at 400 mL/hr, Administer over 3 Minutes, Every 8 hours, First dose on Sat06/01/24 at 2200, For 2 doses, Beginning 8 hours after last sloan-operative dose., Indications: Prophylaxis, Surgical 2112 (Given - Provider: Di Irvin RN) 0530 (Given - Provider: Di Irvin RN) cetirizine (ZyrTEC) tablet 10 mg 10 mg, oral, Nightly, First dose on Sat06/01/24 at 2100, Indications: Seasonal Allergic Rhinitis 2111 (Given - Provider: Di Irvin RN) dexAMETHasone (DECADRON) 4 mg/mL injection 8 mg (COMPLETED) 8 mg, intravenous, Administer over 2 Minutes, Once, On Sat06/02/24 at 0800, For 1 dose, Indications: Pain Treatment Adjunct 0750 (Given - Provider: Kim Reilly, JUDD) famotidine (PEPCID) tablet 20 mg 20 mg, oral, 2 times daily, First dose on Sat06/01/24 at 2100, Indications: Heartburn 2111 (Given - Provider: Di Irvin RN) 0750 (Given - Provider: Kim Reilly RN) ketorolac (TORADOL) 15 mg/mL injection 15 mg (COMPLETED) 15 mg, intravenous, Every 6 hours, First dose on Sat06/01/24 at 2100, For 2 doses, For Adult IV push, administer over 15 seconds, Indications: Pain 2111 (Given - Provider: Di Irvin RN) 0322 (Given - Provider: Di Irvin RN) Lactated Ringer's (LR) bolus 1,000 mL (COMPLETED) 1,000 mL, intravenous, Once, On Sat06/01/24 at 1230, For 1 dose, Pre-Op 1238 (New Bag - Provider: Ashtyn Carter RN) meloxicam (MOBIC) tablet 15 mg (COMPLETED) 15 mg, oral, Once, On Sat06/01/24 at 1230, For 1 dose, Pre-Op, Indications: Pain 1225 (Given - Provider: Ashtyn Carter RN) meloxicam (MOBIC) tablet 7.5 mg 7.5 mg, oral, Daily, First dose on Sat06/02/24 at 0900, Indications: Pain 0749 (Given - Provider: Kim Reilly RN) montelukast (SINGULAIR) tablet 10 mg 10 mg, oral, Nightly, First dose on Sat06/01/24 at 2100, Indications: Allergic Rhinitis 2111 (Given - Provider: Di Irvin RN) oxyCODONE (ROXICODONE) tablet 5 mg (CANCELED) 5 mg, oral, Every 15 min, First dose on Sat06/01/24 at 1630, For 2 doses, Phase I, Give upon arrival in PACU as soon as able to tolerate PO. May give 2nd pill 15 minutes later if needed for pain. , Indications: Pain 1605 (Given - Provider: Carina Zepeda RN)1739 (Canceled Entry - Provider: Alvaro Majano RN) PARoxetine (PAXIL) tablet 20 mg 20 mg, oral, Every morning, First dose on Sat06/02/24 at 0900, Indications: depression 0749 (Given - Provider: Kim Reilly RN) pramipexole (MIRAPEX) tablet 0.25 mg 0.25 mg, oral, 2 times daily, First dose (after last modification) on Sat06/01/24 at 2100, Indications: Restless Legs Syndrome 2111 (Given - Provider: Di Irvin RN) 0749 (Given - Provider: Kim Reilly RN) scopolamine patch 72 hour 1 patch 1 patch, transdermal, Administer over 72 Hours, Every 72 hours, First dose on Sat06/01/24 at 1730, For 1 dose, Pre-Op, Apply to Dr. Cochran's patients, as well as to beach-chair position shoulder surgery patients, and to patients with a history of PONV and/or Motion Sickness. Do NOT administer to patients with a history of BPH or Glaucoma. Consult Anesthesiologist with any questions. In case of Urinary Retention, remove patch immediately and clean patch site with Alcohol., Indications: Motion Sickness, Prevention of Motion Sickness, Prevention of Post-Operative Nausea and Vomiting 1736 (Not Given - Provider: Alvaro Majano RN - Reason: Patient/family refused) senna-docusate (PERICOLACE) 8.6-50 mg per tablet 2 tablet 2 tablet, oral, 2 times daily, First dose on Sat06/01/24 at 2100, Hold for diarrhea., Indications: constipation 2111 (Given - Provider: Di Irvin RN) 0750 (Given - Provider: Kim Reilly RN) sodium chloride 0.9% flush 0.5-20 mL 0.5-20 mL, intra-catheter, Every 8 hours scheduled, First dose on Sat06/01/24 at 1730, Flush volume based on line type and size. 173 (Canceled Entry - Provider: Alvaro Majano RN)2211 (Given - Provider: Di Irvin RN) 0531 (Given - Provider: Di Irvin RN) Continuous Medication Order 05/31/2024 06/01/2024 06/02/2024 sodium chloride 0.9% infusion 100 mL/hr, intravenous, Continuous, Starting on Sat06/01/24 at 1730 1737 (Canceled Entry - Provider: Alvaro Majano RN) PRN Medication Order 05/31/2024 06/01/2024 06/02/2024 aluminum-magnesium hydroxide-simethicone (MAALOX) 40-40-4 mg/mL oral suspension 30 mL 30 mL, oral, Every 4 hours PRN, indigestion, heartburn, Starting on Sat06/01/24 at 1658, Indications: Heartburn benzocaine-menthoL (CHLORASEPTIC MAX) lozenge 1 lozenge 1 lozenge, mouth/throat, Every 4 hours PRN, sore throat, Starting on Sat06/01/24 at 1658, Indications: Mouth Irritation BUPivacaine (MARCAINE) 0.25 % (2.5 mg/mL) preservative free injection (CANCELED) As needed, Starting on Sat06/01/24 at 1506, Intra-Op 1506 (Given - Provider: Jim Fraire MD) camphor-menthoL (SARNA) 0.5-0.5 % lotion topical, Every 2 hours PRN, other, itching, Starting on Sat06/01/24 at 1658, Apply to affected area: other, Indications: Urticaria famotidine (PEPCID) injection 20 mg 20 mg, intravenous, Administer over 2 Minutes, Once as needed, heartburn, Medication to be administered by the anesthesia staff (Anesthesiologist or DIRECTOR EHS), Starting on Sat06/01/24 at 1658, For 1 dose, Pre-Op, Indications: Heartburn, Heartburn Prevention, gastroesophageal reflux disease, Reflux HYDROmorphone (DILAUDID) injection 0.2 mg (CANCELED) 0.2 mg, intravenous, Administer over 2 Minutes, Every 5 min PRN, 1st line for pain, Starting on Sat06/01/24 at 1558, Phase I, Use as first line pain medication for INpatients with pain score LESS than 6 out of 10. May use as first line medication for OUTpatients with extremely severe pain (7 out of 10 or above), history of opioid tolerance, or history of Chronic Pain with opioid tolerance, after consulting with Anesthesiologist. Inform anesthesiologist when dose reaches 2 mg for INpatients or 1 mg for OUTpatients. , Indications: Pain 1616 (Given - Provider: Carina Zepeda RN)1629 (Given - Provider: Carina Zepeda RN)1641 (Given - Provider: Carina Zepeda RN) labetaloL (NORMODYNE,TRANDATE) injection 5 mg (CANCELED) 5 mg, intravenous, Every 5 min PRN, high blood pressure, Starting on Sat06/01/24 at 1558, For 4 doses, Phase I, Max cumulative dose 20 mg. Dose if systolic blood pressure greater than 180 AND HR greater than 70. 1605 (Given - Provider: Carina Zepeda RN)1630 (Given - Provider: Carina Zepeda RN)1641 (Given - Provider: Carina Zepeda RN) lidocaine (PF) (XYLOCAINE) 10 mg/mL (1 %) preservative free injection 2-10 mg 2-10 mg (0.2-1 mL), subcutaneous, Once as needed, pain with IV placement, Starting on Sat06/01/24 at 1658, For 1 dose, Pre-Op, Administer volume needed to infiltrate IV site. ondansetron (ZOFRAN) injection 4 mg 4 mg, intravenous, Administer over 2 Minutes, Every 6 hours PRN, nausea, vomiting, Starting on Sat06/01/24 at 1658, Proceed to prochlorperazine if no relief within 30 minutes. oxyCODONE (ROXICODONE) tablet 5 mg 5 mg, oral, Every 4 hours PRN, breakthrough pain, May administer 1 hour after 1st line treatment. If pain remains uncontrolled or is increasing - revert back to 1st line treatment if available otherwise repeat dose of Oxycodone may be given. MAX 2 tablets Oxycodone within a 4-hour period of time., Starting on Sat06/01/24 at 1658, Indications: Pain 1850 (Given - Provider: Alvaro Majano, JUDD)2210 (Given - Provider: Di Irvin, JUDD) 0051 (Given - Provider: Di Irvin, JUDD)0325 (Given - Provider: Di Irvin RN)0749 (Given - Provider: Kim Reilly RN) polyethylene glycol (MIRALAX) packet 17 g 17 g, oral, Daily PRN, constipation, Starting on Sat06/01/24 at 1658, Indications: constipation prochlorperazine (COMPAZINE) injection 5 mg 5 mg, intravenous, Administer over 2 Minutes, Every 6 hours PRN, nausea, vomiting, Starting on Sat06/01/24 at 1658, If not relieved by ondansetron within 30 minutes. sodium chloride 0.9% flush 0.5-20 mL 0.5-20 mL, intra-catheter, As needed, line care, Flush [place] Block Hep Locks to keep vein open., Starting on Sat06/01/24 at 1658, Pre-Op, Flush volume based on line type and size. Flush before and after each use. , Indications: Flushing sodium chloride 0.9% flush 0.5-20 mL 0.5-20 mL, intra-catheter, As needed, line care, Starting on Sat06/01/24 at 1658, Flush volume based on line type and size. Flush before and after each use. sodium chloride 0.9% irrigation (CANCELED) As needed, Starting on Sat06/01/24 at 1505, Intra-Op 1505 (Given - Provider: Jim Fraire MD) traMADoL (ULTRAM) tablet 50 mg 50 mg, oral, Every 6 hours PRN, 1st line for pain, Starting on Sat06/01/24 at 1658, Indications: Pain 1736 (Given - Provider: Alvaro Majano RN) 0003 (Given - Provider: Di Irvin RN)0645 (Given - Provider: Di Irvin RN) documented in this encounter Orders Medications Ordered That Stephen ht Not Have Been Administered Count Last Ordered Date First Ordered Date acetaminophen (TYLENOL) tablet 1,000 mg 2 0 06/01/2024 acetaminophen (TYLENOL) tablet 500 mg 1 aluminum-magnesium hydroxide -simethicone (MAALOX) 40-40-4 mg/mL oral suspension 30 mL 1 06/01/2024 amLODIPine (NORVASC) tablet 5 mg 06/01/20 aspirin enteric coated tablet 81 mg 06/01 atorvastatin (LIPITOR) tablet 10 mg 1 06/01 azelastine (ASTELIN) 137 mcg (0.1 %) nasal spray 1 spray 06/01/2024 benzocaine-menthoL (CHLORASE PTIC MAX) lozenge 1 lozenge 1 06/01/2024 camphor-menthoL (SARNA) 0.5-0.5 % lotion 1 06/01/2024 ceFAZolin (ANCEF) 1 gram/10 mL in sterile water (premix) 2,000 mg 1 06/01/2024 ceFAZolin (ANCEF) 2,000 mg/2 0 mL in sterile water (premix) 2,000 mg 1 06/01/2024 ceFAZolin (ANCEF) 3,000 mg i n sodium chloride 0.9% 3,000 mL irrigation solution 1 06/01/2024 cetirizine (ZyrTEC) tablet 10 mg 1 06/01/20 dexAMETHasone (DECADRON) 4 m g/mL injection 8 mg 2 06/01/2024 diphenhydrAMINE (BENADRYL) 5 0 mg/mL injection 12.5 mg 1 06/01/2024 famotidine (PEPCID) injection 20 mg 06/01 famotidine (PEPCID) tablet 20 mg 1 06/01/20 hydrALAZINE (APRESOLINE) injection 5 mg 1 0 06/01/2024 HYDROmorphone (DILAUDID) injection 0.2 mg 06/01/2024 HYDROmorphone (DILAUDID) injection 0.4 mg 1 06/01/2024 ketorolac (TORADOL) 15 mg/mL injection 15 mg 06/01/2024 ketorolac (TORADOL) 30 mg/mL injection 15 mg 1 06/01/2024 labetaloL (NORMODYNE,TRANDAT E) injection 5 mg 1 06/01/2024 Lactated Ringer's (LR) bolus 1,000 mL 1 Lactated Ringer's (LR) bolus 500 mL 06/01 Lactated Ringer's (LR) infusion 2 lidocaine (PF) (XYLOCAINE) 1 0 mg/mL (1 %) preservative free injection 2-10 mg 1 06/01/2024 meloxicam (MOBIC) tablet 15 mg 1 06/01/2024 meloxicam (MOBIC) tablet 7.5 mg meperidine (DEMEROL) preserv ative free injection 12.5 mg 1 06/01/2024 montelukast (SINGULAIR) tablet 10 mg 1 05/08 naloxone (NARCAN) 0.4 mg/mL injection 0.04-0.4 mg 1 06/01/2024 ondansetron (ZOFRAN) injection 4 mg 2 06/01 oxyCODONE (ROXICODONE) tablet 5 mg 2 2023 PARoxetine (PAXIL) tablet 20 mg 1 polyethylene glycol (MIRALAX) packet 17 g 1 06/01/2024 pramipexole (MIRAPEX) tablet 0.125 mg 1 pramipexole (MIRAPEX) tablet 0.25 mg 1 05/08 pramipexole tablet extended release 24 hr 1 tablet 1 06/01/2024 prochlorperazine (COMPAZINE) injection 5 mg 2 06/01/2024 scopolamine patch 72 hour 1 patch 1 024 senna-docusate (PERICOLACE) 8.6-50 mg per tablet 2 tablet 1 06/01/2024 sodium chloride 0.9% flush 0.5-20 mL 3 05/08 sodium chloride 0.9% infusion 1 06/01/2024 traMADoL (ULTRAM) tablet 50 mg 1 06/01/2024 tranexamic acid (CYKLOKAPRON ) 1,000 mg/100 mL (10 mg/mL) in sodium chloride (premix) 1,000 mg 2 06/01/2024 Lab Orders Without Results Count Last Ordered D ate First Ordered Date ANTIBODY SCREEN 1 06/01/2024 General Supply Count Last Ordered Date First Or dered Date WALKER 1 06/01/2024 Diet Count Last Ordered Date First Orde red Date ADULT DISCHARGE DIET 1 06/02/2024 Nursing Count Last Ordered Date First Orde red Date DISCHARGE ACTIVITY 1 06/02/2024 DISCHARGE CALL PROVIDER 11 06/02/2024 DISCHARGE DRESSING 1 06/02/2024 DISCHARGE INSTRUCTIONS 2 06/02/2024 WEIGHT BEARING STATUS 1 06/02/2024 BLADDER SCAN 1 06/01/2024 VITAL SIGNS 1 06/01/2024 Admission Count Last Ordered Date First Orde red Date ADMIT TO INPATIENT 1 06/02/2024 INITIATE OUTPATIENT IN A BED 2 06/01/2024 Discharge Count Last Ordered Date First Orde red Date DISCHARGE PATIENT 1 06/02/2024 documented in this encounter Care Teams Team Driver Relationship Specialty Start Date End Date Arben Paredes MD PCP - General 01/24/17 06/01/24 documented as of this encounter
--- OUTSIDE RECORDS SUMMARY | 2024-10-13 00:39 | XMS_ITS | Encounter Summary ---
Author Organization [facility] Address [address] [place] [address] Phone Care Team Providers Care Crocheter Hand Name Role Phone Arben Paredes MD Primary Care Provider [phone] Librado Hernandez MD Primary Care Provider + Reason for Visit * Reason Onset Date Comments TJA 05/26/2024 Encounter Details Date Type Department Care Team (Late st Contact Info) Description 05/26/2024 Documentation [facility] Orthopaedic Surgery [address] [facility] [address] Building [address] [place] [address] Nalini Rodriguez RN TJA Social History Tobacco Use Types Packs/Day Years [...] on file 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 (work) Procedure: L TKA Rev OR Date: 06/01/2024 OR Location: [facility] Joint Cooler Service Supervisor Name: daughterRebeka Telephone: PCP: Librado Hernandez MD When was you last visit: Pre-Op Scheduling Anesthesia: Spinal Preferred Blood Requirements: T & S Consents: Surgery procedure consent obtained. Blood transfusion consent obtained. Preadmission Testing/Anesthesia H&P: Date: 05/27/24 Time: 1000 Pre-Op Joint Class Scheduled for: Date: Saturday Time: 1 pm PreHab Rx given to Patient: Faxed to: Doppler: Date: Time: Pre-Op Meds/Anticoag: Instructed to stop primary prevention ASA/hormones/supplements 7 Days prior to surgery Instructed to stop NSAIDS 5 days prior to surgery Anticoagulation protocol discussed: yes ASA Decolonization Instructions: yes Skin preparations guide Mupirocin Rx Prescription for Celebrex The patient was given a TKA teaching packet including surgery guidelines with instructions, DECOL protocol instructions, instructions to stop all NSAID's, Blood thinners and aspirin products one weekbefore surgery, as well as office contacts to call if they have any additional questions prior to their surgery date. Current Outpatient Medications: acetaminophen (TYLENOL) 500 mg tablet, Take 2 tablets (1,000 mg total) by mouth every 8 (eight) hours, Disp: 90 tablet, Rfl: 0 amLODIPine (NORVASC) 2.5 mg tablet, Take 2 tablets (5 mg total) by mouth every morning, Disp: , Rfl: aspirin 81 mg enteric coated tablet, Take 1 tablet (81 mg total) by mouth 2 (two) times a day, Disp: 60 tablet, Rfl: 0 atorvastatin (LIPITOR) 10 mg tablet, Take 1 tablet (10 mg total) by mouth nightly, Disp: , Rfl: azelastine (ASTELIN) 137 mcg (0.1 %) nasal spray, Administer 1 spray into each nostril 2 (two) times a day, Disp: , Rfl: calcium carbonate-vitamin D3 (CALTRATE WITH VITAMIN D3) 1,500 mg (600mg elemental) -800 unit per tablet, Take 1 tablet by mouth every morning, Disp: , Rfl: cetirizine (ZyrTEC) 10 mg tablet, Take 1 tablet (10 mg total) by mouth nightly, Disp: , Rfl: hydrOXYzine (ATARAX) 25 mg tablet, Take 1 tablet (25 mg total) by mouth 3 (three) times a day as needed for itching, Disp: 12 tablet, Rfl: 0 liraglutide, weight loss, 3 mg/0.5 mL (18 mg/3 mL) pen injector, Inject 1.2 mg under the skin nightly Indications: weight loss management for an obese person, Disp: , Rfl: meclizine (ANTIVERT) 25 mg tablet, Take 1 tablet (25 mg total) by mouth 3 (three) times a day as needed for dizziness, Disp: , Rfl: meloxicam (MOBIC) 7.5 mg tablet, Take 1 tablet (7.5 mg total) by mouth daily, Disp: 30 tablet, Rfl:0 montelukast (SINGULAIR) 10 mg tablet, Take 1 tablet (10 mg total) by mouth nightly, Disp: , Rfl: omeprazole OTC (PriLOSEC OTC) 20 mg EC tablet, Take 1 tablet (20 mg total) by mouth nightly, Disp: , Rfl: PARoxetine (PAXIL) 20 mg tablet, Take 1 tablet (20 mg total) by mouth every morning, Disp: , Rfl: pramipexole (MIRAPEX) 0.125 mg tablet, Take 1 tablet (0.125 mg total) by mouth 2 (two) times a day,Disp: , Rfl: pramipexole 0.375 mg tablet extended release 24 hr, Take 1 tablet by mouth daily with dinner, Disp:, Rfl: senna-docusate (PERICOLACE) 8.6-50 mg, Take 2 tablets by mouth 2 (two) times a day May increase to 4 tablets twice daily if needed. HOLD medication for diarrhea., Disp: 80 tablet, Rfl: 0 She is allergic to morphine and nickel. Risk Assessment CARRILLO RISK: Yes STOP BANG Score: CMP(CO2): Sleep Study: CPAP/BIPAP: Yes Bone Health screen - Vitamin D Level Ordered: Yes No Oral Health: Healthy teeth Smoking History: No Family History of DVT/PE: No She reports that she quit smoking about 54 years ago. Her smoking use included cigarettes. She started smoking about 56 years ago. She has a 0.5 pack-year smoking history. She has never used smokeless tobacco. She reports that she does not use drugs. Patient denies consuming alcoholic drinks. Audit-C Alcohol Screening How often do you have a drink containing alcohol?: Monthly or less How many standard drinks containing alcohol do you have on a typical day?: 1 or 2 drinks How often do you have six or more drinks on one occasion?: Never Audit-C Score: 1 Male: Female: <3 (negative) Illegal Drug Use: Never Functional/Home Assessment nematologist assistance: Live in available day/night In a: Apartment Home Accessibility: Home Environment: Entry Steps: no Bedroom Location: 1st Floor Bathroom Location:1st Floor What Medical Devices/Equipment used: Tub bench and CPAP/BIPAP Are you able to self-manage activities of daily living: ADL's: Bathing, Dressing, Self-feeding, Personal Hygiene, and Toilet Hygiene IADL's: Housework, Medications, Managing Money, Shopping, and Telephone Transportation: Self Pre-Op Ambulation: Impaired Community distances Projected Post-Op Weight bearing: Full or WBAT Home Location: < 150 miles RAPT: What is your age group?: 66-75 Years Gender: Female How far on average can you walk? (a block is 200 meters): 1-2 blocks (+/-rest) Which gait aid do you use most? (more often than not): Single-point stick Do you use community supports? (home-help, meals on wheels, district nursing): None or one per week Will you live with someone who can care for you after your operation?: Yes RAPT Total Score: 8 (If <9 send to Recon CAM MAKER's floor care team for review) (If <6 Pre-Op SW Consult) BUSTAMANTE: Destination at discharge from acute care predicted by score: Scores <6 facility placement Scores 6-9 directly home after additional acute intervention Scores >9 directly home Patient's expectation of discharge destination is also a determinant. The prediction indicated by the score is discussed with the patient and the destination agreed to. Patient's preference: Home Agreed destination: Home-Self Care Social Work Referral: Potential Rehab/SNF Candidate: RRAT Infection Risk Factors: Is patient positive for MRSA colonization at CPAP?: No Every Patient is decolonized per guideline. - Nasal Mupirocin (Bid x5 days pre-op) or povidone-iodine (DOS) and chlorhexidine gluconate (CHG) showers (QD x5 days prior to surgery & morning of surgery) and appropriate antibiotic coverage. - If these requirements are not met then HARD STOP until protocol implemented. Smoking (Tobacco Use): Current Smoker? No All tobacco users will be provided with smoking cessation resources and instructed to stop tobacco use a minimum of 1 month prior to surgery and 1 month after surgery. Obesity: What is the patient's BMI? BMI 36 - 39 Cardiovascular Disease: Patient has a history of Coronary Artery Disease (CAD), stroke, Peripheral Vascular Disease or VTED, is 60 years of age or older and has at least 2 cardiac risk factors: Yes All qualifying patients will require medical and/or cardiac clearance/and will be flagged for CPAP high risk screening/monitoring sloan-Operatively. Venous Thromboembolic Disease: Does the patient have a history of Pulmonary Embolus or Deep Vein Thrombosis? No Does the patient have any of the following VTED risk factors: CVA, COPD, BMI>30, CAD, Stroke, PVD, or Activated Protein C Resistance? Yes Neurocognitive, Psychological and Behavioral Problems (including alcohol and drug dependency): Does the patient have a history of alcohol abuse or chronic active narcotic dependency? No Does the patient have any neurocognitive deficits such as traumatic brain injury (TBI)l active psychiatric illness, dementia, etc? No Was the patient's last calculated PROMIS depression score greater than or equal to 60? No Physical Deconditioning: Patient is nonambulatory or needs assistance with transfer status? No Patient has comorbidities affecting physical function and ambulation? No Diabetes: Is the patient diabetic? No Last calculated Fasting Blood Glucose > 180 mg/dl? Last calculated Hgb A1c > 8? Is DM well controlled? RRAT Total Score: 4 Recommendations for Preoperative Care/Optimization: 3-4 Moderate Risk: Preoperative optimization interventions with medical clearance obtained prior tosurgery. Alejandra Rodriguez RN documented in this encounter Plan of Treatment Not on file documented as of this encounter Visit Diagnoses Not on filedocumented in this encounter Care Teams Crocheter Hand Relationship Specialty Start Date End Date Arben Paredes MD PCP - General 01/24/17 06/01/24 Librado Hernandez MD [address] [place] [address] DR Queta ROY [address] [place] [id number] PCP - General Internal Medicine 06/02/24 documented as of this encounter
--- OUTSIDE RECORDS SUMMARY | 2024-10-13 00:39 | XMS_ITS | Encounter Summary ---
Author Organization [facility] Address [address] [place] [address] Phone Care Team Providers Care Antique Furniture Restorer Name Role Phone Librado Hernandez MD Primary Care Provider + Reason for Visit * Reason Onset Date Comments DME 09/16/2024 Encounter Details Date Type Department Care Team (Late st Contact Info) Description 09/16/2024 Telephone [facility] Neuro Sleep [address] 6[address] [place] [address] Waleska Kendrick MA DME Social History Tobacco Use Types Packs/Day Years [...] on file 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 -------Fax Transmission Report------- To: Recipient at [phone] Subject: DME Order and Note 2 Result: The transmission was successful. Explanation: All Pages Ok Pages Sent: 9 Connect Time: 3 minutes, 38 seconds Transmit Time: 09/16/2024 14:15 SEAT TRIMMER SEAT TRIMMER * Telephone Encounter - Waleska Kendrick MA - 09/16/2024 2:14 PM CST ----- Message from Aurora Chou DNP sent at 09/16/2024 10:35 AM HEEL SEAT TRIMMER ----- Regarding: Order is coming Please look for order for new supply. She moved from [place], and needs a new DME. Pleas find one for her. She lives in [place]. Thank you. SEAT TRIMMER documented in this encounter Plan of Treatment Not on file documented as of this encounter Visit Diagnoses Not on filedocumented in this encounter Care Teams Antique Furniture Restorer Relationship Specialty Start Date End Date Librado Hernandez MD [address] [place] [address] DR Queta ROY [address] [place] [id number] PCP - General Internal Medicine 06/02/24 documented as of this encounter
--- OUTSIDE RECORDS SUMMARY | 2024-10-13 00:39 | XMS_ITS | Encounter Summary ---
Author Organization [facility] Address [address] [place] [address] Phone Care Team Providers Care Brazer Crawler Torch Name Role Phone Librado Hernandez MD Primary Care Provider + Reason for Visit * Consultation (Routine) - Closed Specialty Diagnoses / Procedures Referred By Contac t Referred To Contact Orthopedic Surgery Diagnoses Follow-up exam Librado Hernandez MD [address] [facility] [address] [address] Phone: tel: fax: [facility] (All Locations) Referral ID Status Reason Start Date Expiration Date V isits Requested Visits Authorized [id number] Closed Specialty Services Required 06/15/2024 07/15/2025 1 1 Encounter Details Date Type Department Care Team (Late st Contact Info) Description 06/15/2024 10:30 AM CDT Office Visit [facility] Orthopaedic Surgery [facility] Medical Office Building [address] [place] [address] Jim Fraire MD [facility] [address] [place] [address] Follow-up exam Social History Tobacco Use Types Packs/Day Years [...] on file 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 HOLD medication for diarrhea. 80 tablet 06/15/2024 documented in this encounter Plan of Treatment Not on file documented as of this encounter Visit Diagnoses Diagnosis Follow-up exam Unspecified follow-up examination documented in this encounter Discontinued Medications Medication Sig Discontinue Reason Start Date End Da te oxyCODONE (ROXICODONE) 5 mg immediate release tabletIndications:Pain Take 1 tablet (5 mg total) by mouth every 4 (four) hours as needed for pain (Breakthrough Pain) Therapy completed 06/01/2024 06/15/2024 predniSONE (DELTASONE) 20 mg tablet Take 1 tablet (20 mg) by mouth daily for 3 days Therapy completed 06/13/2024 06/15/2024 traMADoL (ULTRAM) 50 mg tablet Take 1 tablet (50 mg total) by mouth every 8 (eight) hours as needed for pain Therapy completed 06/01/2024 06/15/2024 senna-docusate (PERICOLACE) 8.6-50 mg Take 2 tablets by mouth 2 (two) times a day May increase to 4 tablets twice daily if needed. HOLD medication for diarrhea. Reorder 06/02/2024 06/15/2024 documented as of this encounter Orders Outpatient Referral Count Last Ordered Date Fir st Ordered Date AMB REFERRAL TO ORTHOPEDIC SURGERY 1 2023 documented in this encounter Care Teams Brazer Crawler Torch Relationship Specialty Start Date End Date Librado Hernandez MD [facility] [address]eta ROY [address] [place] [address] PCP - General Internal Medicine 06/02/24 documented as of this encounter
--- OUTSIDE RECORDS SUMMARY | 2024-10-13 00:39 | XMS_ITS | Encounter Summary ---
Author Organization [facility] Address [address] [place] [address] Phone Care Team Providers Care Oceanologist Name Role Phone Librado Hernandez MD Primary Care Provider + Reason for Visit * Reason Onset Date Comments newpt 06/30/2024 Encounter Details Date Type Department Care Team (Late st Contact Info) Description 06/30/2024 Telephone [facility] Ophthalmology [address] [place] [address] Julia Trimble MD [address] [facility] DEPT OPHTHALMOLOGY, [address] [address] newpt Social History Tobacco Use Types Packs/Day Years [...] on file 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 Homero GRACE Referring doctor contact information: [phone] Pt's appt scheduled for: 11.26 Transfer of care or 2nd opinion? FRANK Were Notes requested? Yes *Please inform caller that records need to be received before the appointment. If records are not received, there is a chance that the appointment may be canceled* Additional comments: PT had moved to [place] and is back and wanting to reestablish care w/ Dr. Trimble. PT was last seen by Dr. Randall . documented in this encounter Plan of Treatment Not on file documented as of this encounter Visit Diagnoses Not on filedocumented in this encounter Care Teams Oceanologist Relationship Specialty Start Date End Date Librado Hernandez MD [address] [place] [address] DR [address] [address] PCP - General Internal Medicine 06/02/24 documented as of this encounter
--- OUTSIDE RECORDS SUMMARY | 2024-10-13 00:39 | XMS_ITS | Encounter Summary ---
Author Organization [facility] Address [address] [place] [address] Phone Care Team Providers Care Electric Locomotive Crane Operator Name Role Phone Arben Paredes MD Primary Care Provider [phone] Reason for Referral * Diagnostic Imaging (Routine) - Closed Specialty Diagnoses / Procedures Referred By Contac t Referred To Contact Diagnoses Left knee pain, unspecified chronicity Procedures XR Knee Left 3 Views Jim Fraire MD [address] [facility] [address] [place] [address] Phone: tel: fax: [address] [address] Referral ID Status Reason Start Date Expiration Date Visits Re quested Visits Authorized [id number] Closed 07/12/2020 08/11/2021 1 1 Encounter Details Date Type Department Care Team (Late st Contact Info) Description 07/12/2020 Orders Only [facility] Orthopaedic Surgery [address] [facility] Medical Office Building [address] [place] [address] Jim Fraire MD [address] [facility] [address] [place], [place] [id number] Left knee pain, unspecified chronicity (Primary Dx) Social History Tobacco Use Types [...] on file 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 The radiology attending physician has personally reviewed this study, and had reviewed and/or edited this written report and agrees with it. Electronically signed by: Carlyn Mitchell M.D. Narrative 07/12/2020 12:47 PM CDT EXAMINATION: XR KNEE RIGHT 3 VIEWS XR KNEE LEFT 3 VIEWS HISTORY: Bilateral knee pain FINDINGS: Right knee: 3 radiographs of the right knee are submitted for interpretation with comparison made to 01/26/2019. ??Right total knee arthroplasty is noted in unchanged near anatomic alignment. ??No radiographic evidence of periprosthetic fracture or lucency. ??There are scattered loose bodies ??about the knee joint. ??Trace joint effusion. Left knee: 3 radiographs left knee are submitted for interpretation with comparison made to 01/26/2019 and 11/03/2018. ??Left total knee arthroplasty is noted in unchanged near anatomic alignment. ??No radiographic evidence of periprosthetic fracture or lucency. ??There are scattered loose bodies about the knee joint. ??Trace joint effusion. Procedure Note Carlyn Mitchell MD - 07/12/2020 EXAMINATION: XR KNEE RIGHT 3 VIEWS XR KNEE LEFT 3 VIEWS HISTORY: Bilateral knee pain FINDINGS: Right knee: 3 radiographs of the right knee are submitted for interpretation with comparison made to 01/26/2019. Right total knee arthroplasty is noted in unchanged near anatomic alignment. No radiographic evidence of periprosthetic fracture or lucency. There are scattered loose bodies about the knee joint. Trace joint effusion. Left knee: 3 radiographs left knee are submitted for interpretation with comparison made to 01/26/2019 and 11/03/2018. Left total knee arthroplasty is noted in unchanged near anatomic alignment. No radiographic evidence of periprosthetic fracture or lucency. There are scattered loose bodies about the knee joint. Trace joint effusion. IMPRESSION: Bilateral total knee arthroplasties in unchanged near anatomic alignment Dictated by: Rogers Nieves M.D. The radiology attending physician has personally reviewed this study, and had reviewed and/or edited this written report and agrees with it. Electronically signed by: Carlyn Mitchell M.D. Jim Fraire MD IMG XR PROCEDURES Final Res ult documented in this encounter Visit Diagnoses Diagnosis Aftercare following right knee joint replacement surgery Left knee pain, unspecified chronicity Left knee pain, unspecified chronicity- Primary documented in this encounter Care Teams Electric Locomotive Crane Operator Relationship Specialty Start Date End Date Arben Paredes MD PCP - General 01/24/17 06/01/24 documented as of this encounter
--- OUTSIDE RECORDS SUMMARY | 2024-10-13 00:39 | XMS_ITS | Encounter Summary ---
Author Organization [facility] Address [address] [place] [address] Phone Care Team Providers Care Platen Press Operator Apprentice Name Role Phone Librado Hernandez MD Primary Care Provider + Reason for Visit * Reason Comments Post-op * Consultation (Routine) - Closed Specialty Diagnoses / Procedures Referred By Contac t Referred To Contact Orthopedic Surgery Diagnoses Follow-up exam Librado Hernandez MD [address] [facility] [address] [address] Phone: tel: fax: [facility] (All Locations) Referral ID Status Reason Start Date Expiration Date V isits Requested Visits Authorized [id number] Closed Specialty Services Required 06/18/2024 07/18/2025 1 1 Encounter Details Date Type Department Care Team (Late st Contact Info) Description 06/23/2024 1:00 PM CDT Office Visit [facility] Orthopaedic Surgery [facility] Medical Office Building [address] [place] [address] Jim Fraire MD [facility] [address] [place] [address] Status post left knee replacement (Primary Dx); Follow-up exam Social History Tobacco Use Types [...] on file 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 Incision is well healed no redness erythema or drainage. Excellent early motion 0-120 degrees with excellent stability. She will return on an annual basis for routine follow-up. documented in this encounter Plan of Treatment Not on file documented as of this encounter Visit Diagnoses Diagnosis Status post left knee replacement- Primary Follow-up exam Unspecified follow-up examination documented in this encounter Orders Outpatient Referral Count Last Ordered Date Fir st Ordered Date AMB REFERRAL TO ORTHOPEDIC SURGERY 1 2023 documented in this encounter Care Teams Platen Press Operator Apprentice Relationship Specialty Start Date End Date Librado Hernandez MD [address] [place] [address] DR Queta ROY [address] [place] [address] PCP - General Internal Medicine 06/02/24 documented as of this encounter
--- OUTSIDE RECORDS SUMMARY | 2024-10-13 00:39 | XMS_ITS | Encounter Summary ---
Author Organization [facility] Address [facility] [address] [place] [address] Phone Care Team Providers Care Sheet Metal Layout Mechanic Name Role Phone Librado Hernandez MD Primary Care Provider + Reason for Visit * Reason Comments Hypertension Encounter Details Date Type Department Care Team (Late st Contact Info) Description 07/14/2024 11:00 AM CDT Office Visit [place] [id number] [facility] [address] [place] [address] Librado Hernandez MD [address] [place] [address] [address] [place] [address] Primary hypertension (Primary Dx); Chronic lymphocytic leukemia (HCC); Depressive disorder Social History Tobacco Use Types Packs/Day Years [...] on file 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 Gender Identity Not on file Sexual Orientation Not on file documented as of this encounter Last Filed Vital Signs Vital Sign Reading Time Taken Comments Blood Pressure 160/86 07/14/2024 10:31 AM CDT Pulse 88 07/14/2024 10:31 AM CDT Temperature - - Respiratory Rate - - Oxygen Saturation 98% 07/14/2024 10:31 AM CDT Inhaled Oxygen Concentration - - Weight 93.4 kg (206 lb) 07/14/2024 10:31 AM CDT Height 162.6 cm (5' 4.02 ) 07/14/2024 10:31 AM C DT Body Mass Index 35.34 07/14/2024 10:31 AM CDT documented in this encounter Progress Notes * Librado Hernandez MD - 07/14/2024 11:00 AM CDT Subjective/Objective Patient ID: Rebeka Hsieh is a 73 y.o. female. Chief Complaint Hypertension Ms. Hsieh is here today to establish care. She overall is doing okay, no major concerns - she notes that she has a history of CLL and plans to start medication soon. She is hypertensive in office today, notes she does not routinely check her blood pressure at home. She takes her medication as prescribed and tolerates it well. She denies any chest pain, dyspnea, headaches, dizziness. She otherwise has no major concerns today. Review of Systems Constitutional: Negative [...] Exam Vitals reviewed. Constitutional: Appearance: Normal appearance. HENT: Head: Normocephalic and atraumatic. Mouth/Throat: Mouth: [...] Assessment & Plan: Hypertensive in office today, Will have patient keep blood pressure log for the next two weeks and send back results. Will determine at that time if additional antihypertensive is needed. Would plan to increase amlodipine as needed. Chronic lymphocytic leukemia (HCC) (C91.10) Assessment & Plan: Follows with oncology, planning to start medication soon. Depressive disorder (F32.A) Assessment & Plan: Stable well controlled on current regimen, will send in refills as needed documented in this encounter Miscellaneous Notes * Assessment & Plan Note - Librado Hernandez MD - 07/15/2024 8:17 AM CDT Associated Problem(s): Depressive disorder Stable well controlled on current regimen, will send in refills as needed * Assessment & Plan Note - Librado Hernandez MD - 07/15/2024 8:16 AM CDT Associated Problem(s): Chronic lymphocytic leukemia (HCC) Follows with oncology, planning to start medication soon. * Assessment & Plan Note - Librado Hernandez MD - 07/15/2024 8:14 AM CDT Associated Problem(s): Hypertension Hypertensive in office today, Will have patient keep blood pressure log for the next two weeks and send back results. Will determine at that time if additional antihypertensive is needed. Would plan to increase amlodipine as needed. documented in this encounter Plan of Treatment Not on file documented as of this encounter Visit Diagnoses Diagnosis Primary hypertension- Primary Unspecified essential hypertension Chronic lymphocytic leukemia (HCC) Chronic lymphoid leukemia, without mention of having achieved remission Depressive disorder Depressive disorder, not elsewhere classified documented in this encounter Discontinued Medications Medication Sig Discontinue Reason Start Date End Da te amLODIPine (NORVASC) 2.5 mg tabletIndications:hype rtension Take 2 tablets (5 mg total) by mouth every morning Therapy completed 07/14/2024 cetirizine (ZyrTEC) 10 mg tabletIndications:Seas onal Allergic Rhinitis Take 1 tablet (10 mg total) by mouth nightly Therapy completed 07/14/2024 liraglutide, weight loss, 3 mg/0.5 mL (18 mg/3 mL) pen injectorIndications:We ight Loss Management for Obese Patient (BMI >= 30) Inject 1.2 mg under the skin nightly Indications: weight loss management for an obese person Therapy completed 07/14/2024 aspirin 81 mg enteric coated tablet Take 1 tablet (81 mg total) by mouth 2 (two) times a day Therapy completed 06/02/2024 07/14/2024 meloxicam (MOBIC) 7.5 mg tablet Take 1 tablet (7.5 mg total) by mouth daily Therapy completed 06/02/2024 07/14/2024 hydrOXYzine (ATARAX) 25 mg tabletIndications:Prur itus of Skin Take 2 tablets (50 mg total) by mouth 3 (three) times a day as needed for itching Therapy completed 06/16/2024 07/14/2024 documented as of this encounter Historical Medications * This list may reflect changes made after this encounter. multivitamin tablet Take 1 tablet by mouth daily amLODIPine (NORVASC) 5 mg tablet 2 tablets (10 mg total) 06/22/2024 09/14/2024 added in this encounter Care Teams Sheet Metal Layout Mechanic Relationship Specialty Start Date End Date Librado Hernadnez MD [facility] [address] [place] [facility] [place] [address] PCP - General Internal Medicine 06/02/24 documented as of this encounter
--- OUTSIDE RECORDS SUMMARY | 2024-10-13 00:39 | XMS_ITS | Encounter Summary ---
Author Organization [facility] Address [address] [place] [address] Phone Care Team Providers Care Clinical Operations Leader Name Role Phone Arben Paredes MD Primary Care Provider [phone] Encounter Details Date Type Department Care Team (Late st Contact Info) Description 05/26/2024 Orders Only [facility] Orthopaedic Surgery [address] [facility] Medical Office Building [address] [place] [id number] Jim Fraire MD [address] [facility] [address] [place] [address] Social History Tobacco Use Types Packs/Day Years [...] on file 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 22 g 05/26/2024 documented in this encounter Plan of Treatment Not on file documented as of this encounter Visit Diagnoses Not on filedocumented in this encounter Care Teams Clinical Operations Leader Relationship Specialty Start Date End Date Arben Paredes MD PCP - General 01/24/17 06/01/24 documented as of this encounter
--- OUTSIDE RECORDS SUMMARY | 2024-10-13 00:39 | XMS_ITS | Encounter Summary ---
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 Gender Identity Not on file Sexual Orientation Not on file documented as of this encounter Plan of Treatment Pending Results Name Type Priority Associated Diagnoses Date /Time Senior staff review Lab Routine 05/27 11:24 AM CDT Crossmatch Lab Routine 05/27/2024 11: 24 AM CDT documented as of this encounter Procedures Procedure Name Priority Date/Time Associated Diagnosis Comments VITAMIN D 25 HYDROXY Routine 05/27/2024 11:36 AM CDT Failure of total knee replacement, subsequent encounter Vitamin D deficiency TYPE AND SCREEN 14 DAY Routine 11:24 AM CDT Preoperative testing EGFR Routine 05/27/2024 11:24 AM CDT Failure of total knee replacement, subsequent encounter DIFFERENTIAL AUTO Routine 05/27/2024 11: 24 AM CDT Failure of total knee replacement, subsequent encounter SENIOR STAFF REVIEW Routine 05/27/2024 1 1:24 AM CDT Failure of total knee replacement, subsequent encounter CBC WITH AUTO DIFFERENTIAL Routine 05/27/2024 11:24 AM CDT Failure of total knee replacement, subsequent encounter ABO/RH Routine 05/27/2024 11:24 AM CDT Preoperative testing MANUAL DIFFERENTIAL Routine 05/27/2024 1 1:24 AM CDT Failure of total knee replacement, subsequent encounter CROSSMATCH Routine 05/27/2024 11:24 AM CDT Preoperative testing ANTIBODY SCREEN Routine 05/27/2024 11:24 AM CDT Preoperative testing COMPREHENSIVE METABOLIC PANEL Routine 05/27/2024 11:24 AM CDT Failure of total knee replacement, subsequent encounter documented in this encounter Results * Vitamin D 25 hydroxy (05/27/2024 11:36 AM CDT) Vitamin D 25-OH 36 30 - 80 ng/mL Blood 05/27/2024 11:3 6 AM CDT 05/27/2024 12:11 PM CDT us Jim Fraire MD LAB BLOOD ORDERABLES Final Result Performing Organization Address City/[facility]/ZIP Co de Phone Number YESSENIA PARKWCH [phone] [facility]. [place] [place] [address] * Crossmatch (05/27/2024 11:24 AM CDT) [facility] Crossmatch Compatible [facility] Unit number for crossmatch [id number] [facility] Blood 05/27/2024 11:2 4 AM CDT 05/27/2024 12:11 PM CDT Jim Fraire MD LAB BLOOD BANK TEST ORDERAB LES Final Result Performing Organization Address [facility] Co de Phone Number YESSENIA PARKWCH [phone] [facility] [place] [address] * (ABNORMAL) Manual Differential (05/27/2024 11:24 AM CDT) [facility] Neutrophil abs 1.0(L) 1.5 - 6.5 K/cumm Imm gran abs See Comment 0.0 - 0.1 K/cumm [facility] Lymphocyte abs 118.7(H) 0.8 - 3.3 K/cumm [facility] Monocyte abs See Comment 0.2 - 0.8 K/cumm [facility] Eosinophil abs See Comment 0.0 - 0.5 K/cumm [facility] Basophil abs See Comment 0.0 - 0.1 K/cumm [facility] Neutrophil pct 0.8 % [facility] Comment: Interpretive Data Percent cell count reference ranges are not reported, since discordance with absolute values may lead to misinterpretation of CBC data. Current Interpretive Data was last revised on 2018. Imm gran pct See Comment % [facility] Comment: Interpretive Data Percent cell count reference ranges are not reported, since discordance with absolute values may lead to misinterpretation of CBC data. Current Interpretive Data was last revised on 2018. Lymphocyte pct 95.1 % [facility] Comment: Interpretive Data Percent cell count reference ranges are not reported, since discordance with absolute values may lead to misinterpretation of CBC data. Current Interpretive Data was last revised on 2018. Monocyte pct See Comment % YESSENIA SUAZO Comment: Interpretive Data Percent cell count reference ranges are not reported, since discordance with absolute values may lead to misinterpretation of CBC data. Current Interpretive Data was last revised on 2018. Eosinophil pct See Comment % YESSENIA SUAZO Comment: Interpretive Data Percent cell count reference ranges are not reported, since discordance with absolute values may lead to misinterpretation of CBC data. Current Interpretive Data was last revised on 2018. Basophil pct See Comment % YESSENIA SUAZO Comment: Interpretive Data Percent cell count reference ranges are not reported, since discordance with absolute values may lead to misinterpretation of CBC data. Current Interpretive Data was last revised on 2018. Variant lymph pct 4.1(H) 0.0 - 0.0 % YESSENIA SUAZO Pathologist comment Reviewed by Hematopatho logist/Maynor tologist, Modesta Rossi M.D. 05/28/2024 Consistent with history. YESSENIA SU[facility]O Blood 05/27/2024 11:2 4 AM CDT 05/28/2024 3:53 PM CDT Jim Fraire MD LAB BLOOD ORDERABLES Edited Result - Final POPEYEROSE PARKWCH [address] [facility]. [place] [address] * Senior staff review (05/27/2024 11:24 AM CDT) Senior Staff Review Specimen Blood Comment:Testing performed by : [facility], [address] [facility] [place]., [address] Senior Staff Review Review Done YESSENIA SUAZO Comment: <Text removed> Testing performed by: [facility], [address] [facility] [place]., [address] Blood 05/27/2024 11:2 4 AM CDT 05/27/2024 2:21 PM CDT Narrative YESSENIA PARKWCH - 05/28/2024 3:56 PM CDT Pathology review us Jim Fraire MD LAB BLOOD ORDERABLES Final Result Performing Organization Address [facility] de Phone Number YESSENIA PHILIPCH [address] [employer] [employer] [place] [place] [address] * eGFR (05/27/2024 11:24 AM CDT) eGFR >90 >=60 mL/min/1. 73 m2 Comment: [...] interpretive data was last reviewed 2021. Blood 05/27/2024 11:2 4 AM CDT 05/27/2024 12:11 PM CDT Jim Fraire MD LAB BLOOD ORDERABLES Final Result Performing Organization Address [facility] de Phone Number YESSENIA PHILIPCH [phone] [employer] [address] * Differential, auto (05/27/2024 11:24 AM CDT) Neutrophil abs See Comment 1.5 - 6.5 K/cumm Comment:Credited, duplicate test. Imm gran abs See Comment 0.0 - 0.1 K/cumm [facility] Comment:Credited, duplicate test. Lymphocyte abs See Comment 0.8 - 3.3 K/cumm [facility] Comment:Credited, duplicate test. Monocyte abs See Comment 0.2 - 0.8 K/cumm [facility] Comment:Credited, duplicate test. Eosinophil abs See Comment 0.0 - 0.5 K/cumm [facility] Comment:Credited, duplicate test. Basophil abs See Comment 0.0 - 0.1 K/cumm [facility] Comment:Credited, duplicate test. Neutrophil pct See Comment % [facility] Comment: Credited, duplicate test. Interpretive Data Percent cell count reference ranges are not reported, since discordance with absolute values may lead to misinterpretation of CBC data. Current Interpretive Data was last revised on 2018. Imm gran pct See Comment % [facility] Comment: Credited, duplicate test. Interpretive Data Percent cell count reference ranges are not reported, since discordance with absolute values may lead to misinterpretation of CBC data. Current Interpretive Data was last revised on 2018. Lymphocyte pct See Comment % [facility] Comment: Credited, duplicate test. Interpretive Data Percent cell count reference ranges are not reported, since discordance with absolute values may lead to misinterpretation of CBC data. Current Interpretive Data was last revised on 2018. Monocyte pct See Comment % [facility] Comment: Credited, duplicate test. Interpretive Data Percent cell count reference ranges are not reported, since discordance with absolute values may lead to misinterpretation of CBC data. Current Interpretive Data was last revised on 2018. Eosinophil pct See Comment % [facility] Comment: Credited, duplicate test. Interpretive Data Percent cell count reference ranges are not reported, since discordance with absolute values may lead to misinterpretation of CBC data. Current Interpretive Data was last revised on 2018. Basophil pct See Comment % YESSENIA XAVIERWCH Comment: Credited, duplicate test. Interpretive Data Percent cell count reference ranges are not reported, since discordance with absolute values may lead to misinterpretation of CBC data. Current Interpretive Data was last revised on 2018. Blood 05/27/2024 11:2 4 AM CDT 05/27/2024 12:11 PM CDT Jim Fraire MD LAB BLOOD ORDERABLES Final Result Performing Organization Address [facility] de Phone Number YESSENIA BJWCH [phone] [employer] [place] [place] [address] * Antibody screen (05/27/2024 11:24 AM CDT) Jayce, indirect, Gel Interpretation Negative ABSC Blood 05/27/2024 11:2 4 AM CDT 05/27/2024 12:11 PM CDT Narrative YESSENIA PARKWCH - 05/27/2024 1:03 PM CDT Is this test being ordered in advance for a procedure?->Yes Expected date of procedure:->06/01/24 Has the patient been transfused in the past 3 months?->No Has the patient been in the past 3 months?->No Tiff Haas NP LAB BLOOD BANK TEST O RDERABLES Final Result Performing Organization Address [facility] de Phone Number YESSENIA PARKWCH [address] [facility]. [facility] [place] [address] * ABO/Rh (05/27/2024 11:24 AM CDT) ABO/Rh B Positive Blood 05/27/2024 11:2 4 AM CDT 05/27/2024 12:11 PM CDT Narrative YESSENIA PARKWCH - 05/27/2024 1:03 PM CDT Is this test being ordered in advance for a procedure?->Yes Expected date of procedure:->06/01/24 Has the patient been transfused in the past 3 months?->No Has the patient been in the past 3 months?->No Tiff Haas SMOKING PIPES CLEANER LAB BLOOD BANK TEST O RDERABLES Final Result [facility] [address] [facility]. [place] [address] * (ABNORMAL) Comprehensive metabolic panel (05/27/2024 11:24 AM CDT) Pathologist [facility] Sodium 144 135 - 145 mmol/L Potassium, pl 3.7 3.3 - 4.9 mmol/L [facility] Chloride 106 97 - 110 mmol/L [facility] CO2 28 22 - 32 mmol/L [facility] Anion gap 11 2 - 15 mmol/L [facility] BUN 15 6 - 25 mg/dL [facility] Creatinine 0.67 0.60 - 1.10 mg/dL [facility] Glucose 90 70 - 199 mg/dL [facility] Comment: Interpretive Data Fasting glucose >/= 126 [...] classification and Diagnosis of Diabetes Diabetes Care 2021; 46: S19-S40. Current interpretive data was last revised 2022. Calcium 9.6 8.5 - 10.3 mg/dL [facility] Bilirubin, total 0.3 0.1 - 1.2 mg/dL [facility] Protein, pl 6.3(L) 6.5 - 8.5 g/dL [facility] Albumin 4.3 3.5 - 5.0 g/dL [facility] Alk phos 88 40 - 130 Units/L [facility] ALT 16 7 - 45 Units/L [facility] AST 27 10 - 45 Units/L [facility] Blood 05/27/2024 11:2 4 AM CDT 05/27/2024 12:11 PM CDT us Jim Fraire MD LAB BLOOD ORDERABLES Final Result Performing Organization Address City/[facility]/ZIP Co de Phone Number YESSENIA SUAZO [address] [facility] [employer] [place] [place] [address] * (ABNORMAL) CBC with auto differential (05/27/2024 11:24 AM CDT) WBC 119.7(C) 3.8 - 9.9 K/cumm Comment:Consistent with prev ious result Verified by peripheral smear Previous WBC 104.9. Critical result called to and read back by UMER TOBAR RN on 05 27 2024 at 1437 to BENTLEY CASTANO. Hgb 11.9 11.9 - 15.5 g/dL [facility] Hct 37.7 35.6 - 45.5 % [facility] Plt 259 150 - 400 K/cumm [facility] MPV 9.4 9.1 - 12.3 fL [facility] RBC 4.46 3.90 - 5.20 M/cumm [facility] MCV 84.5 81.3 - 96.4 fL [facility] MCH 26.7(L) 27.1 - 33.3 pg [facility] MCHC 31.6(L) 32.3 - 35.7 g/dL [facility] RDW CV 15.9(H) 11.1 - 14.9 % [facility] RDW SD 48.1 35.7 - 48.1 fL [facility] NRBC abs 0.00 0.00 - 0.01 K/cumm [facility] Blood 05/27/2024 11:2 4 AM CDT 05/27/2024 12:11 PM CDT Jim Fraire MD LAB BLOOD ORDERABLES Final Result Performing Organization Address City/[facility]/ZIP Co de Phone Number YESSENIA SUAZO [address] [place] [address] documented in this encounter Visit Diagnoses Diagnosis Preoperative testing Unspecified pre-operative examination Failure of total knee replacement, subsequent encounter Vitamin D deficiency documented in this encounter Care Teams Review Coordinator Relationship Specialty Start Date End Date Arben Paredes MD PCP - General 01/24/17 06/01/24 documented as of this encounter
--- OUTSIDE RECORDS SUMMARY | 2024-10-13 00:39 | XMS_ITS | Encounter Summary ---
Author Organization [facility] Address [address] [place] [address] Phone Care Team Providers Care Child Care Attendant School Name Role Phone Arben Paredes MD Primary Care Provider [phone] Reason for Visit * Consultation (Routine) - Closed Specialty Diagnoses / Procedures Referred By Contac t Referred To Contact Dermatology Diagnoses Actinic keratosis Arben Paredes MD [address] [place] [address] Phone: tel: fax: [facility] [address] [place] [address] Phone: tel: fax: Referral ID Status Reason Start Date Expiration Date V isits Requested Visits Authorized [id number] Closed Specialty Services Required 02/16/2020 08/27/2021 12 12 Encounter Details Date Type Department Care Team (Late st Contact Info) Description 11/18/2020 4:15 PM BINDERY LEADPERSON Office Visit 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 Gender Identity Not on file Sexual Orientation Not on file documented as of this encounter Last Filed Vital Signs Vital Sign Reading Time Taken Comments Blood Pressure - - Pulse - - Temperature 36.4 ??C (97.5 ??F) 11/18/2020 3:14 PM CS T Respiratory Rate - - Oxygen Saturation - - Inhaled Oxygen Concentration - - Weight - - Height - - Body Mass Index - - documented in this encounter Ordered Prescriptions Prescription Sig Dispense Quantity Refills Last Filled Start Date End Date erythromycin (ILOTYCIN) ophthalmic ointmentIndication s:Periocular dermatitis Apply topically to red rash on face three times daily until resolved 3.5 g 3 11/18/2020 4 Oracea 40 mg capsuleIndications :Periocular dermatitis Take 1 capsule po daily 30 capsule 6 11/18/2020 4 documented in this encounter Progress Notes * Anthony Rodríguez MD - 11/18/2020 4:15 PM CST CC: Rash near eye HPI Rebeka Hsieh is a 70 y.o. female with history SCCIS nasal tip s/p -5fu presents for FBSE. Concerns today: - Rash near eye. Has been present for a few weeks. Gets red and angry occasionally, she is worried it might affect her eye. She has a history of rosacea, no longer using Oracea (ran out) or metronidazole. The rash is not very itchy. - Rough itchy spots on her back. She has not tried treating with anything. She also points out similar spots on her thighs and arms. Reviewed medications, allergies, past medical history, family history, and social history. Non-contributory unless otherwise specified below. ROS Constitutional: No fever or chills Oral: No mouth sores Genitourinary: No genital sores Lymphatic:No swollen lymph nodes PHYSICAL EXAM: Gen: WD, WN, NAD; Neuro: A&O; Psyc: Normal mood and affect; Skin exam: Inspected the Scalp/Hair, Head/Face, Conjunctivae/Lids, Oropharynx/Lips, Neck, R. Upper Extremity, L. Upper Extremity, Chest/Breast, Abdomen, Back, R. Lower Extremity, L. Lower Extremity, Buttocks Examination normal with the following exceptions: Erythematous papules on R church and sloan-ocular cheek. Waxy brown papules with stuck-on appeareance and surrounding erythema on back. Waxy brown stuck-on appearing papules on the arms and thighs. No abnormalities of the tip of the nose. ASSESSMENT AND PLAN: Periocular dermatitis - flaring -Start oracea 40mg PO daily; SER including GI upset and photosenstivity -Start erythromycin ointment TID Inflamed seborrheic keratoses, back -After verbal consent obtained, cryotherapy with LN for 5-7 seconds, 1 cycle per lesion, 3 lesions. -Blister care reviewed Seborrheic keratoses, extremities -Benign, reassurance History of nonmelanoma skin cancer -No evidence of recurrence on the nose Skin cancer education was provided, sun protection measures were discussed. Follow-up if any concerning new or changing moles or non healing sores. RTC 6 months Remington Horowitz MD Dermatology Resident, PGY-2 ATTESTATION: I have seen and examined the patient. I agree with the findings and plan of care as documented in the resident's note. I was present for the entire procedure. Anthony Rodríguez MD ERY LEADPERSON documented in this encounter Plan of Treatment Not on file documented as of this encounter Visit Diagnoses Diagnosis Periocular dermatitis- Primary Rosacea Inflamed seborrheic keratosis Other seborrheic keratosis History of nonmelanoma skin cancer documented in this encounter Discontinued Medications Medication Sig Discontinue Reason Start Date End Da te Oracea 40 mg capsule Take 1 capsule po daily Reorder 04/05/2020 11/18/2020 documented as of this encounter Care Teams Child Care Attendant School Relationship Specialty Start Date End Date Arben Paredes MD PCP - General 01/24/17 06/01/24 documented as of this encounter
--- OUTSIDE RECORDS SUMMARY | 2024-10-13 00:39 | XMS_ITS | Encounter Summary ---
Author Organization [facility] Healthcare Address [address] [place] [address] Care Team Providers Care Spray Booth Operator Name Role Phone Arben Paredes MD Primary Care Provider [phone] Reason for Referral * Diagnostic Imaging (Routine) - Closed Specialty Diagnoses / Procedures Referred By Rosangela zabala Referred To Contact Diagnoses Left knee pain, unspecified chronicity Procedures XR Knee Left 3 Views Jim Fraire MD [address] [facility] [address] [place] [address] Phone: tel: fax: [address] [phone] Referral ID Status Reason Start Date Expiration Date Visits Re quested Visits Authorized [id number] Closed 07/12/2020 08/11/2021 1 1 * Diagnostic Imaging (Routine) - Closed Specialty Diagnoses / Procedures Referred By Rosangela zabala Referred To Contact Diagnoses Aftercare following right knee joint replacement surgery Procedures XR Knee Right 3 Views Jim Fraire MD [address] [facility] [address] [place] [address] Phone: tel: fax: [address] [place] [address] Referral ID Status Reason Start Date Expiration Date Visits Re quested Visits Authorized [id number] Closed 07/12/2020 08/11/2021 1 1 Reason for Visit * Diagnostic Imaging (Routine) - Closed Specialty Diagnoses / Procedures Referred By Rosangela zabala Referred To Contact Diagnoses Aftercare following right knee joint replacement surgery Procedures XR Knee Right 3 Views Jim Fraire MD [address] [facility] [address] [place] [address] Phone: tel: fax: [facility] [address] [address] [phone] Referral ID Status Reason Start Date Expiration Date Visits Re quested Visits Authorized [id number] Closed 07/12/2020 08/11/2021 1 1 Encounter Details Date Type Department Care Team (Latest Contact Info) Description 07/12/2020 10:14 AM CDT - 07/12/2020 11:59 PM CDT Hospital Encounter [id number] [address] [facility] [address] [place] [phone] Jim Fraire MD [address] [facility] [address] [place], [place] [id number] Aftercare following right knee joint replacement surgery; Left knee pain, unspecified chronicity Discharge Disposition: Discharge to home or self care Social History Tobacco Use Types Packs/Day Years [...] on file 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 Gender Identity Not on file Sexual Orientation Not on file documented as of this encounter Medications at Time of Discharge atorvastatin (LIPITOR) 10 mg tabletIndication s:hyperlipidemia Take [...] Take 1 tablet by mouth every morning montelukast (SINGULAIR) 10 mg tabletIndication s:Allergic Rhinitis Take 1 tablet (10 mg total) by mouth nightly PARoxetine (PAXIL) 20 mg tabletIndication s:depression Take 1 tablet (20 mg total) by mouth every morning 02/06/2018 pramipexole 0.375 mg tablet extended release 24 hrIndications:Re stless Legs Syndrome,ALSO TAKING AN AM DOSE Take 1 tablet by mouth daily with dinner 08/24/2018 acidophilus-pect in, citrus 100 million cell-10 mg capsule Take 1 tablet by mouth every other day 4 ALPRAZolam (XANAX) 0.25 mg tablet TK 2 TS PO 1 HOUR BEFORE PROCEDURE 05/19/2020 1 amLODIPine (NORVASC) 2.5 mg tabletIndication s:hypertension Take 2 tablets (5 mg total) by mouth every morning 4 aspirin 325 mg enteric coated tabletIndication s:Deep Vein Thrombosis Prevention Take 1 tablet (325 mg total) by mouth 2 (two) times a day 84 tablet 12/31/2018 1 calcipotriene (Dovonex) 0.005 % creamIndications :Plaque Psoriasis Mix 50/50 with Fluorouracil apply to forehead and chest for 5 days then stop. 60 g 11/05/2019 1 diclofenac sodium (VOLTAREN) 1 % gel Apply 2 g topically 4 (four) times a day Apply topically 4gms to the effected joint 4 times a day 1 Tube 2 07/12/2020 1 ketoconazole (NIZORAL) 2 % creamIndications :do not apply near incision Apply to rash on body bid prn 15 g 1 03/25/2020 4 levocetirizine (XYZAL) 5 mg tablet Take 1 tablet by mouth daily 1 Oracea 40 mg capsule Take 1 capsule po daily 30 capsule 2 04/05/2020 1 senna-docusate (PERICOLACE) 8.6-50 mgIndications:co nstipation Take 2 tablets by mouth 2 (two) times a day 60 tablet 1 12/31/2018 1 documented as of this encounter Discharge Disposition Disposition Code Departure Means Destination Discharge to home or self care documented in this encounter Plan of Treatment Not on file documented as of this encounter Procedures Procedure Name Priority Date/Time Associated Diagnosis Comments XR KNEE RIGHT 3 VIEWS Schedule Routine, Read Routine (OP Routine) 07/12/2020 10:56 AM CDT Aftercare following right knee joint replacement surgery XR KNEE LEFT 3 VIEWS Schedule Routine, Read Routine (OP Routine) 07/12/2020 10:56 AM CDT Left knee pain, unspecified chronicity documented in this encounter Results * XR Knee Left [...] MD IMG XR PROCEDURES Final Res ult * XR Knee Right 3 Views (07/12/2020 10:56 AM CDT) Anatomical Region Laterality Modality Lower Extremities, Knee Right Computed Radiography 07/12/2020 11:2 8 AM CDT [...] replacement surgery Left knee pain, unspecified chronicity documented in this encounter Care Teams Spray Booth Operator Relationship Specialty Start Date End Date Arben Paredes MD PCP - General 01/24/17 06/01/24 documented as of this encounter
--- OUTSIDE RECORDS SUMMARY | 2024-10-13 00:39 | XMS_ITS | Encounter Summary ---
Author Organization [facility] Healthcare Address [address] [place] [address] Care Team Providers Care Dry Ice Maker Name Role Phone Arben Paredes MD Primary Care Provider [phone] Reason for Referral * Diagnostic Imaging (Routine) - Closed Specialty Diagnoses / Procedures Referred By Rosangela zabala Referred To Contact Diagnoses Aftercare following left knee joint replacement surgery Procedures XR Knee Left 3 Views Jim Fraire MD [address] [place] [address] Phone: tel: fax: [facility] Radiology [address] [place] [phone] Phone: tel: Referral ID Status Reason Start Date Expiration Date Visits Re quested Visits Authorized [id number] Closed 05/15/2024 06/14/2025 1 1 Reason for Visit * Diagnostic Imaging (Routine) - Closed Specialty Diagnoses / Procedures Referred By Rosangela zabala Referred To Contact Diagnoses Aftercare following left knee joint replacement surgery Procedures XR Knee Left 3 Views Jim Fraire MD [address] [address] Phone: tel: fax: [facility] Radiology [address] [place] [phone] Phone: tel: Referral ID Status Reason Start Date Expiration Date Visits Re quested Visits Authorized [id number] Closed 05/15/2024 06/14/2025 1 1 Encounter Details Date Type Department Care Team (Latest Contact Info) Description 05/26/2024 1:23 PM CDT - 05/26/2024 11:59 PM CDT Hospital Encounter [id number] [address] [facility] [address] [place] [phone] Aftercare following left knee joint replacement surgery Discharge Disposition: Discharge to home or self care Social History Tobacco Use Types Packs/Day Years Used Date Smoking Tobacco: Former Cigarettes 0.3 2 1 968 - 2734 Smokeless Tobacco: Never Alcohol Use Standard Drinks/Week [...] on file 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 Repeat after 3 weeks. 60 g 06/19/2021 4 erythromycin (ILOTYCIN) ophthalmic ointmentIndicati ons:Periocular dermatitis Apply topically to red rash on face three times daily until resolved 3.5 g 3 11/18/2020 4 ketoconazole (NIZORAL) 2 % creamIndications :do not apply near incision Apply to rash on body bid prn 15 g 1 03/25/2020 4 meloxicam (MOBIC) 7.5 mg tablet Take 1 tablet (7.5 mg total) by mouth daily 30 tablet 06/02/2024 4 mupirocin (BACTROBAN) 2 % ointment Apply topically 2 (two) times a day for 5 days APPLY TO NOSTRILS TWICE A DAY FOR 5 DAYS PRIOR TO SURGERY. 22 g 05/26/2024 4 Oracea 40 mg capsuleIndicatio ns:Periocular dermatitis Take 1 capsule po daily 30 capsule 6 11/18/2020 4 oxyCODONE (ROXICODONE) 5 mg immediate release [...] needed for pain 42 tablet 06/01/2024 4 triamcinolone (KENALOG) 0.1 % ointment Apply topically 2 (two) times a day as needed (Rash) 60 g 2 01/11/2021 4 documented as of this encounter Discharge Disposition Disposition Code Departure Means Destination Discharge to home or self care documented in this encounter Plan of Treatment Not on file documented as of this encounter Procedures Procedure Name Priority Date/Time Associated Diagnosis Comments XR KNEE LEFT 3 VIEWS Schedule Routine, Read Routine (OP Routine) 05/26/2024 1:38 PM CDT Aftercare following left knee joint replacement surgery documented in this encounter Results * XR [...] this encounter Visit Diagnoses Diagnosis Aftercare following left knee joint replacement surgery documented in this encounter Care Teams Dry Ice Maker Relationship Specialty Start Date End Date Arben Paredes MD PCP - General 01/24/17 06/01/24 documented as of this encounter
--- OUTSIDE RECORDS SUMMARY | 2024-10-13 00:39 | XMS_ITS | Encounter Summary ---
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, subsequent encounter [T84.018D, Z96.659] Procedures MA REVISE KNEE JOINT REPLACE,ALL PARTS MA REVJ TOT KNEE ARTHRP FEM&ENTIRE TIBIAL COMPONE MA REVJ TOTAL KNEE ARTHRP W/WO ALGRFT 1 COMPONENT REVISION ARTHROPLASTY LEFT TOTAL KNEE Referral ID Status Reason Start Date Expiration Date Visits Re quested Visits Authorized [id number] 1 1 Encounter Details Date Type Department Care Team (Latest Contact Info) Description 06/01/2024 10:17 AM CDT - 06/02/2024 10:25 AM CDT Hospital Encounter [facility] [address] [id number] [place] [address] Jim Fraire MD [address] [place], [place] [id number] Failure of total knee replacement, subsequent encounter (Primary Dx) Discharge Disposition: Discharge to home or self [...] on file Legal Sex Female 9:36 AM 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 Gender Identity Not on file Sexual Orientation Not on file documented as of this encounter Last Filed Vital Signs Vital Sign Reading Time Taken Comments Blood Pressure 141/67 06/02/2024 8:10 AM CDT Pulse 83 06/02/2024 8:10 AM CDT Temperature 36.4 ??C (97.5 ??F) 06/02/2024 7:45 AM CD T Respiratory Rate 18 06/02/2024 7:44 AM CDT Oxygen Saturation 95% 06/02/2024 8:10 AM CDT Inhaled Oxygen Concentration - - [...] Care Physician at Discharge: Arben Paredes MD [phone] Admission Date: 06/01/2024 Discharge Date: 06/02/2024 Primary Discharge Diagnosis: Failed total knee arthroplasty (CMS/HCC) ([facility]) Secondary Discharge Diagnosis: Principal Problem: Failed total knee arthroplasty (CMS/HCC) ([facility]) Active Problems: Failed total knee, left, sequela [...] % ointment Commonly known as: KENALOG vit C,L-St-kxnxm-lutein-zeaxan 250-90-40-1 mg capsule Where to Get Your Medications These medications were sent to [id number] - [place] - [address], [place] [address] acetaminophen 500 mg tablet aspirin 81 mg [...] Jim Fraire. on 06/23/2024 at 1:00pm at [facility], [address] [place] [address], Medical Office [address], [address] [address]. Condition on Discharge: Stable Cosigned by Jim [...] video to help you and your Joint Company Marker with the post- operative recovery: Or use this URL link: [email or web address] Review this page of our website for [...] in this encounter Progress Notes * Sonali Luke - 06/02/2024 8:45 AM CDT [facility] Physical Therapy Treatment Patient Name: Rebeka Hsieh Date of Service: 06/02/2024 Date of : 1950 Age: 73 y.o. female Room: [address] Admit Date: 06/01/2024 Attending Provider: Jim Fraire MD Primary Diagnosis: Failed total knee arthroplasty (CMS/HCC) ([facility]) Subjective HPI: Rebeka Hsieh is a 73 [...] Slides 1x10 Long-Arc Quads 1x10 Comments: Per [facility] TKA protocol. Balance Sitting Static Balance Good: [...] appropriately per protocol with assistance from joint coach builder as needed in order to increase strength/increase [...] determine the most appropriate discharge disposition. Sonali Lkue, SPT Cosigned by Zain Nguyen PT at 06/02/2024 [...] team Diet: Regular Additional Needs: None Closure/Dressings: strata/prineo Ortho Recon is the primary team, and [...] the appropriate orthopaedic surgery team, please use [email or web address] to page resident directly. If questions arise and the appropriate resident can't be reached or you are calling overnight, please contact [phone] ([facility] 7:30 PM - 6:30 AM - Floor Resident) or [phone] (24 hours/day - Consult Resident) Cosigned by [...] MD Adult Reconstruction and Preservation Fellow ' [facility] [employer] Department of Orthopaedic Surgery Source Note - Renny Doe NP - 05/27/2024 9:17 AM CDT Images from the original note were not included. Center for Preoperative Assessment and Planning Preoperative Evaluation Record Evaluation type/location: CPAP [facility] Planned procedure site: [facility] OR Date: 05/27/24 Anesthesia Evaluation Rebeka Hsieh [...] TR - mild. Pertinent negatives: CAD ; GA ; CABG ; valve replacement; atrial fibrillation; [...] Assessment performed by the above primary evaluating MOVIE CRITIC, who is currently in the CPAP MOVIE CRITIC Orientation interval. Signed by: Rimma Moran NP [...] She does have an oncologist here in [place] at [facility] that she plans to follow [...] COLONOSCOPY KNEE ARTHROSCOPY W/ MENISCAL REPAIR 1996 [place] CHOLECYSTECTOMY Cholecystectomy - (Added by TW Conv) [...] 500 mg tablet 05/27/2024 -- -- Provider, MD Kelton amLODIPine (NORVASC) 2.5 mg tablet 05/27/2024 -- -- Provider, MD Kelton atorvastatin (LIPITOR) 10 mg tablet 05/26/2024 07/27/18 -- Provider, MD Kelton azelastine (ASTELIN) 137 mcg (0.1 %) nasal spray 05/26/2024 -- -- ProviderKelton MD calcipotriene (Dovonex) 0.005 % cream Not Taking [...] (SINGULAIR) 10 mg tablet 05/26/2024 -- -- ProviderKelton MD mupirocin (BACTROBAN) 2 % ointment -- [...] Patient not taking: Reported on 05/27/2024 vit C,G-Hq-hkpqr-lutein-zeaxan 250-90-40-1 mg capsule 05/27/2024 -- -- Kelton [...] 24 hr therapeutic multivitamin (THERA) tablet vit C,L-Hm-zsyfp-lutein-zeaxan 250-90-40-1 mg capsule calcipotriene (Dovonex) 0.005 % [...] Valladares, PT - 06/01/2024 6:03 PM CDT [facility] Physical Therapy Initial Evaluation Patient Name: Rebeka Hsieh Date of Service: 06/01/2024 Date of : 1950 Age: 73 y.o. female Room: [address] Admit Date: 06/01/2024 Attending Provider: Jim Fraire MD Primary Diagnosis: Failed total knee arthroplasty (CMS/HCC) ([facility]) Subjective HPI: Rebeka Hsieh is a 73 y.o. female s/p right revision total knee arthroplasty, polyethylene liner exchange on 06/01/[address] Fraire. Patient is agreeable to physical therapy evaluation. Past Medical History: Diagnosis Date Aftercare following joint replacement surgery Aftercare following joint replacement - (Added by Conv) Basal cell carcinoma of skin of other part of trunk Basal cell carcinoma of anterior chest - (Added by Conv) Cataract GERD (gastroesophageal reflux disease) Hypertension Personal history of other malignant neoplasm of skin History of skin cancer - (Added by TW Conv) PONV (postoperative nausea and vomiting) Sleep apnea Past Surgical History: Procedure Laterality Date BASAL CELL CARCINOMA EXCISION x2- nose and forehead COLONOSCOPY KNEE ARTHROSCOPY W/ MENISCAL REPAIR 1996 [place] CHOLECYSTECTOMY Cholecystectomy - (Added by TW Conv) [...] with multiple rests. Pain Assessment: Pre-evaluation pain: Post-evaluation pain: Location: Left knee Pain intervention: [...] Slides 1x10 Long-Arc Quads 1x10 Comments: [facility]. Balance Sitting Static Balance Good: [...] understanding, and needs ongoing reinforcement. Handouts Issued: [facility] TKA HEP Patient at high risk for: [...] appropriately per protocol with assistance from joint coach builder as needed in order to increase strength/increase [...] discharge rounds. Charge Nurse, Therapy Lead, Pharmacist, Mailing Specialist, and Provider present. Planned discharge 06/02/24 to home with familysupport on ASA for DVT prophylaxis and with Outpatient Physical Therapy. * Plan of Care - Kim Reilly RN - 06/02/2024 8:43 AM CDT Goals: Clinical Goals for the Shift: pain management, stable vitals, work with therapy, IS 10 x/hr, ankle pumps, discharge planning and education [employer] Patient Centered Goal for Treatment: d/c home [...] 4 at the end of my shift [employer] Patient Centered Goal for Treatment: d/c home Summary: * Plan of Care - Alvaro Majano RN - 06/01/2024 5:49 PM CDT Goals: Clinical Goals for the Shift: Pt will report pain <4, VSS, IS 10/hr, ambulate OOB Fdc Patient Centered Goal for Treatment: D/C Summary: Problem: Discharge Planning Goal: Understanding discharge needs will improve Outcome: Progressing Problem: Fall Risk Goal: Ability to state ways to decrease the risk of falls will improve Outcome: Progressing Goal: Will remain free from falls Outcome: Progressing Goal: Will remain free from injury from falls Outcome: Progressing * Op Note - Jim Frarie MD - 06/01/2024 2:22 PM CDT OPERATIVE REPORT ATTENDING SURGEON: Jim Fraire M.D. FIRST FISHER TERRAPIN: Arben Johnson MD PREOPERATIVE DIAGNOSIS: Left knee [...] Resident - Assisting Anesthesiologist: Melly Lee MD ADMINISTRATIVE SERVICES DIRECTOR: Jose Crowley CRNA Tan Room Supervisor: Sujata Tsang RN Tan Room Supervisor Relief: Sadia Jamil Scrub: Clover Dominguez ST RNFA: Katreyna Carmona RN DATE OF SURGERY : 06/01/2024 Preoperative Diagnosis: Pre-op Diagnosis * Failure of total knee replacement, subsequent encounter [T84.018D, Z96.659] Postoperative Diagnosis: Post-op Diagnosis * Failure of total knee replacement, subsequent encounter [T84.018D, Z96.659] Procedure(s): Procedure(s) (LRB): REVISION ARTHROPLASTY LEFT TOTAL [...] Results * eGFR (06/02/2024 3:08 AM CDT) eGFR >90 >=60 mL/min/1. 73 [...] data was last reviewed 2021. Blood 06/02/2024 3:0 8 AM CDT 06/02/2024 3:11 AM CDT Jammie Church MD LAB BLOOD ORDERABLES Final Result Performing Organization Address City/State/[facility] Phone Number [facility] [phone] [facility]. [place] [address] * (ABNORMAL) Hemoglobin and hematocrit (06/02/2024 3:08 AM CDT) Hgb 10.0(L) 11.9 - 15.5 g/dL Hct 32.7(L) 35.6 - 45.5 % YESSENIA SUAZO Blood 06/02/2024 3:08 AM CDT 06/02/2024 3:11 AM CDT Jammie Church MD LAB BLOOD ORDERABLES Final Result Performing Organization Address City/[facility]/ZIP Co de Phone Number YESSENIA SUAZO [phone] [address] [address] * (ABNORMAL) Basic metabolic panel (06/02/2024 3:08 AM CDT) Sodium 136 135 - 145 mmol/L Potassium, pl 4.3 3.3 - 4.9 mmol/L [facility] Chloride 99 97 - 110 mmol/L [facility] W CO2 26 22 - 32 mmol/L [facility] Anion gap 11 2 - 15 mmol/L [facility] BUN 15 6 - 25 mg/dL [facility] Creatinine 0.70 0.60 - 1.10 mg/dL [facility] Glucose 200(H) 70 - 199 mg/dL [facility] Comment: Interpretive Data Fasting glucose >/= 126 [...] 2022. Calcium 8.9 8.5 - 10.3 mg/dL [facility] Blood 06/02/2024 3:08 AM CDT 06/02/2024 3:11 AM CDT Jammie Church MD LAB BLOOD ORDERABLES Final Result Performing Organization Address [facility]/ZIP Co de Phone Number YESSENIA SUAZO [phone] [address] [place] [address] * XR Knee Left 1 or 2 [...] PM CDT 06/01/2024 1:20 PM CDT Narrative [facility] - 06/01/2024 1:23 PM CDT Are special requirements needed? (All products are leukoreduced and CMV- safe)->No us Tiff Haas NP BLOOD BANK PRODUCT OR DERABLES Final Result [facility] [id number] [facility]. [place] [address] * ABO/Rh (06/01/2024 12:39 PM CDT) Pathologist [facility] ABO/Rh B Positive Blood 06/01/2024 12:3 9 PM CDT 06/01/2024 12:39 PM CDT Narrative YESSENIA SUAZO - 06/01/2024 1:20 PM CDT Has the patient had Daratumumab or Isatuximab in the past 6 months?->Unknown Jim Fraire MD LAB BLOOD BANK TEST ORDERAB LES Final Result Performing Organization Address [facility] de Phone Number YESSENIA [facility] [phone] [facility] [address] [place], [place] [id number] * POCT glucose (06/01/2024 12:34 PM CDT) Pathologist [facility] Glucose, POC 101 70 - 199 mg/dL Comment: Interpretive Data Glucose is assumed to be non-fasting. Fasting Glucose reference ranges are: 0 - 150 years: ??70 mg/dL - 99 mg/dL Current interpretive data was last revised on 2014. POC Performer [id number] [facility] POC Device Number [id number] YESSENIA PHILIP Blood 06/01/2024 12:3 4 PM CDT 06/01/2024 12:34 PM CDT Jim Fraire MD LAB POCT ORDERABLES - DEVIC E Final Result Performing Organization Address [facility] de Phone Number YESSENIA [facility] [phone] [facility] [place] [address] documented in this encounter Visit Diagnoses Diagnosis Failed total knee arthroplasty (CMS/HCC) (HCC)- Primary Failure of total knee replacement, subsequent encounter Failed total knee, left, sequela documented in this encounter Admitting Diagnoses Diagnosis Failed total knee arthroplasty (CMS/HCC) (HCC) Failed total knee, left, sequela documented in this encounter Administered Medications Inactive Administered Medications - up to 3 most recent administrations Medication Order MAR Action Action Date Dose Rate Site acetaminophen (TYLENOL) tablet 1,000 mg 1,000 mg, oral, Once, On Sat06/01/24 at 1230, For 1 dose, Pre-Op, Indications: PainIndications:Pain Given 06/01/2024 12:25 PM CDT 1,000 mg acetaminophen (TYLENOL) tablet 1,000 mg 1,000 mg, [...] First dose on Sat06/01/24 at 2100, Indications: hyperlipidemiaIndications:hyperlipi demia Given 06/01/2024 9:12 PM CDT 10 mg [...] Sat06/01/24 at 1658, Indications: Mouth IrritationIndications:Mouth Irritation camphor-menthoL (SARNA) 0.5-0.5 % lotion topical, Every 2 hours PRN, other, itching, Starting on Sat06/01/24 at 1658, Apply to affected area: other, Indications: UrticariaIndications:Urticaria ceFAZolin (ANCEF) 2,000 mg/20 mL in sterile water (premix) 2,000 mg 2,000 mg, intravenous, at 400 mL/hr, Administer over 3 Minutes, Every 8 hours, First dose on Sat06/01/24 at 2200, For 2 doses, Beginning 8 hours after last sloan-operative dose., Indications: Prophylaxis, SurgicalIndications:Prophylaxis, Surgical Given 06/02/2024 5:30 AM CDT 2,000 mg 400 mL/hr Given 06/01/2024 9:13 PM CDT 2,000 mg 400 mL/hr cetirizine (ZyrTEC) tablet 10 mg 10 mg, oral, Nightly, First dose on Sat06/01/24 at 2100, Indications: Seasonal Allergic RhinitisIndications:Seasonal Allergic Rhinitis Given 06/01/2024 9:12 PM CDT 10 mg dexAMETHasone (DECADRON) 4 mg/mL injection 8 mg 8 mg, intravenous, Administer over 2 Minutes, Once, On Sat06/02/24 at 0800, For 1 dose, Indications: Pain Treatment AdjunctIndications:Pain Treatment Adjunct Given 06/02/2024 7:50 AM CDT 8 mg famotidine (PEPCID) tablet 20 mg 20 mg, oral, 2 times daily, First dose on Sat06/01/24 at 2100, Indications: HeartburnIndications:Heartburn Given 06/02/2024 7:50 AM CDT 20 mg Given 06/01/2024 9:12 PM CDT 20 mg HYDROmorphone (DILAUDID) injection 0.2 mg 0.2 mg, intravenous, Administer over 2 Minutes, [...] or 1 mg for OUTpatients. , Indications: PainIndications:Pain Given 06/01/2024 4:41 PM CDT 0.2 mg Given 06/01/2024 4:29 PM CDT 0.2 mg Given 06/01/2024 4:16 PM CDT 0.2 mg ketorolac (TORADOL) 15 mg/mL injection 15 mg 15 mg, intravenous, Every 6 hours, First dose on Sat06/01/24 at 2100, For 2 doses, For Adult IV push, administer over 15 seconds, Indications: PainIndications:Pain Given 06/02/2024 3:22 AM CDT 15 mg Given 06/01/2024 9:11 PM CDT 15 mg labetaloL (NORMODYNE,TRANDATE) injection 5 mg 5 mg, intravenous, Every 5 min PRN, high blood pressure, Starting on Sat06/01/24 at 1558, For 4 doses, Phase I, Max cumulative dose 20 mg. Dose if systolic blood pressure greater than 180 AND HR greater than 70. Given 06/01/2024 4:41 PM CDT 5 mg Given 06/01/2024 4:30 PM CDT 5 mg Given 06/01/2024 4:05 PM CDT 5 mg Lactated Ringer's (LR) bolus 1,000 mL 1,000 mL, intravenous, Once, On Sat06/01/24 at 1230, For 1 dose, Pre-Op New Bag 06/01/2024 12:38 PM CDT 1,000 m L meloxicam (MOBIC) tablet 15 mg 15 mg, oral, Once, On Sat06/01/24 at 1230, For 1 dose, Pre-Op, Indications: PainIndications:Pain Given 06/01/2024 12:25 PM CDT 15 mg meloxicam (MOBIC) tablet 7.5 mg 7.5 [...] tablet 5 mg 5 mg, oral, Every 15 min, First dose on Sat06/01/24 at 1630, For 2 doses, Phase I, Give upon arrival in PACU as soon as able to tolerate PO. May give 2nd pill 15 minutes later if needed for pain. , Indications: PainIndications:Pain Given 06/01/2024 4:05 PM CDT 5 mg oxyCODONE (ROXICODONE) tablet 5 mg 5 mg, [...] intravenous, Continuous, Starting on Sat06/01/24 at 1730 traMADoL (ULTRAM) tablet 50 mg 50 mg, [...] morning Stop Taking at Discharge 06/02/2024 vit C,T-Ft-agzqi-lutein-ze axan 250-90-40-1 mg capsule Take 1 capsule [...] dose on Sat06/01/24 at 2200, Indications: Pain 2111 (Given - Provider: Di Irvin RN) 0530 [...] 2111 (Given - Provider: Di Irvin RN) 07 (Given - Provider: Kim Reilly, JUDD) atorvastatin (LIPITOR) tablet 10 mg 10 mg, oral, Nightly, First dose on Sat06/01/24 at 2100, Indications: hyperlipidemia 2111 (Given - Provider: Di Irvin RN) azelastine (ASTELIN) 137 mcg (0.1 %) nasal spray 1 spray 1 spray, each nostril, 2 times daily, First dose on Sat06/01/24 at 2100, Indications: Seasonal Allergic Rhinitis 2116 (Not Given - Provider: Di Irvin RN - Reason: Patient/family refused) 0 (Given - Provider: Kim Reilly RN) ceFAZolin [...] Irvin RN) 0750 (Given - Provider: Kim Reilly, JUDD) ketorolac (TORADOL) 15 mg/mL injection 15 mg (COMPLETED) 15 mg, intravenous, Every 6 hours, First dose on Sat06/01/24 at 2100, For 2 doses, For Adult IV push, administer over 15 seconds, Indications: Pain 2110 (Given - Provider: Di Irvin RN) 321 (Given - Provider: Di Irvin RN) Lactated Ringer's (LR) bolus 1,000 mL (COMPLETED) 1,000 mL, intravenous, Once, On Sat06/01/24 at 1230, For 1 dose, Pre-Op 1238 (New Bag - Provider: Ashtyn Carter RN) meloxicam (MOBIC) tablet 15 mg (COMPLETED) 15 mg, oral, Once, On Sat06/01/24 at 1230, For 1 dose, Pre-Op, Indications: Pain 1225 (Given - Provider: Ashtyn Carter, JUDD) meloxicam (MOBIC) tablet 7.5 mg 7.5 mg, oral, Daily, First dose on Sat06/02/24 at 0900, Indications: Pain 0749 (Given - Provider: Kim Reilly, JUDD) montelukast (SINGULAIR) tablet 10 mg 10 mg, [...] Indications: depression 0749 (Given - Provider: Kim Reilly, JUDD) pramipexole (MIRAPEX) tablet 0.25 mg 0.25 mg, [...] volume based on line type and size. 1737 (Canceled Entry - Provider: Alvaro Majano RN)2211 (Given - Provider: Di Irvin, JUDD) 0531 (Given - Provider: Di Irvin RN) [...] administered by the anesthesia staff (Anesthesiologist or ADMINISTRATIVE SERVICES DIRECTOR), Starting on Sat06/01/24 at 1658, For 1 [...] Indications: Pain 1850 (Given - Provider: Alvaro Majano RN)2210 (Given - Provider: Di Irvin RN) 0051 (Given - Provider: Di Irvin RN)0325 (Given - Provider: Di Irvin RN)0749 (Given [...] mL, intra-catheter, As needed, line care, Flush [address] Block [place] to keep vein open., [...] Date First Ordered Date acetaminophen (TYLENOL) tablet 500 mg 1 aluminum-magnesium hydroxide -simethicone (MAALOX) 40-40-4 mg/mL oral suspension 30 mL 1 06/01/2024 benzocaine-menthoL (CHLORASE PTIC MAX) lozenge 1 lozenge 1 06/01/2024 BUPivacaine (MARCAINE) 0.25 % (2.5 mg/mL) preservative free injection 1 06/01/2024 camphor-menthoL (SARNA) 0.5-0.5 % lotion 1 06/01/2024 ceFAZolin (ANCEF) 1 gram/10 mL in sterile water (premix) 2,000 mg 1 06/01/2024 ceFAZolin (ANCEF) 3,000 mg i n sodium chloride 0.9% 3,000 mL irrigation solution 1 06/01/2024 dexAMETHasone (DECADRON) 4 m g/mL injection 8 mg 1 06/01/2024 diphenhydrAMINE (BENADRYL) 5 0 mg/mL injection 12.5 mg 1 06/01/2024 famotidine (PEPCID) injection 20 mg 1 06/01 hydrALAZINE (APRESOLINE) injection 5 mg 1 0 06/01/2024 HYDROmorphone (DILAUDID) injection 0.4 mg 1 06/01/2024 ketorolac (TORADOL) 30 mg/mL injection 15 mg 1 06/01/2024 Lactated Ringer's (LR) bolus 500 mL 1 06/01 Lactated Ringer's (LR) infusion 2 lidocaine (PF) (XYLOCAINE) 1 0 mg/mL (1 %) preservative free injection 2-10 mg 1 06/01/2024 meperidine (DEMEROL) preserv ative free injection 12.5 mg 1 06/01/2024 naloxone (NARCAN) 0.4 mg/mL injection 0.04-0.4 mg 1 06/01/2024 ondansetron (ZOFRAN) injection 4 mg 2 06/01 polyethylene glycol (MIRALAX) packet 17 g 1 06/01/2024 pramipexole (MIRAPEX) tablet 0.125 mg 1 pramipexole tablet extended release 24 hr 1 tablet 1 06/01/2024 prochlorperazine (COMPAZINE) injection 5 mg 2 06/01/2024 scopolamine patch 72 hour 1 patch 1 024 sodium chloride 0.9% flush 0.5-20 mL 2 05/08 sodium chloride 0.9% infusion 1 06/01/2024 sodium chloride 0.9% irrigation 1 tranexamic acid (CYKLOKAPRON ) 1,000 mg/100 mL [...] 06/02/2024 documented in this encounter Care Teams Promotional Representative Relationship Specialty Start Date End Date Arben Paredes MD PCP - General 01/24/17 06/01/24 Lirbado Hernandez MD [address] [place] [address] DR Queta ROY [address] [place] [id number] PCP - General Internal Medicine 06/02/24 documented as of this encounter
--- OUTSIDE RECORDS SUMMARY | 2024-10-13 00:39 | XMS_ITS | Encounter Summary ---
Author Organization [facility] Healthcare Address [address] [facility] [address] [place] [address] Care Team Providers Care Installer Technician Name Role Phone Arben Paredes MD Primary Care Provider [phone] Encounter Details Date Type Department Care Team (Latest Contact Info) Description 05/27/2024 10:00 AM CDT Pre-Admission Testing [facility] Pre-Anesthesia Testing [address] [place] [address] Preoperative testing (Primary Dx) Anesthesia Record Procedure Summary Procedure Name Responsible [...] of handoff: PACU 1539 An Stop Meds * Agents No agents on file. * Blood No blood administrations on file. Lines, Drains, and Airways Type Details Placement Removal Wound 06/01/24; N; Knee; Anterior, Left 06/01/24 0000 by Sadia Jamil RETIRED Surgical Site 12/30/18; 0823; Ri ght; Leg; 06/02/24; 0846; Not present on admission 12/30/18 0823 by Lyle Ralph RN 06/02/24 0846 by Kim Reilly, JUDD Peripheral IV Placement Date: 06/01/24; Placement Time: 1237; Catheter Size: 20 G; Orientation: Anterior, Right; Location: Forearm; Site Prep: Chlorhexidine; Technique: Anatomical landmarks; Inserted by: Raul; Insertion Attempts: 4 (Fernando X2, EbelingX1, Raul x1); Patient Tolerance: Tolerated well; Removal Date: 06/02/24; Removal Time: 1024; Removal Reason: Discharge 06/01/24 1237 by Ashtyn Carter RN 06/02/24 1024 by Kim Reilly, RN documented in this encounter Social History [...] on file 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 Gender Identity Not on file Sexual Orientation Not on file documented as of this encounter Last Filed Vital Signs Vital Sign Reading Time Taken Comments Blood Pressure 146/73 05/27/2024 10:30 AM CDT Pulse 86 05/27/2024 10:25 AM CDT Temperature - - Respiratory Rate 18 05/27/2024 10:25 AM CDT Oxygen Saturation 97% 05/27/2024 10:25 AM CDT Inhaled Oxygen Concentration - - Weight 93.4 kg (206 lb) 05/27/2024 10:25 AM CDT Height 162.6 cm (5' 4 ) 05/27/2024 10:25 AM CDT Body Mass Index 35.36 05/27/2024 10:25 AM CDT documented in this encounter Miscellaneous Notes * Perioperative Nursing Note - Jef Moody RN - 05/27/2024 10:00 AM CDT [facility] Pre[facility] Planning Perioperative Nursing Note CPAP Clinic at [facility] ([facility]) Date: 05/27/24 This assessment was completed with the patient. Vitals: 05/27/24 1025 05/27/24 1030 BP: (!) 173/69 146/73 BP Location: Left arm Right arm Patient Position: Sitting Sitting Pulse: 86 Resp: 18 SpO2: 97% Weight: 93.4 kg (206 lb) Height: 162.6 cm (5' 4 ) CHEST CIRCUMFERENCE: Social History Tobacco Use Smoking Status Former Current packs/day: 0.00 Average packs/day: 0.3 packs/day for 2.0 years (0.5 ttl pk-yrs) Types: Cigarettes Start date: 1967 Quit date: 1970 Years since quittin.6 Smokeless Tobacco Never Substance and Sexual Activity Drug Use Never Alcohol Use Q3: How often do you have six or more drinks on one occasion?: Less than monthly Outpatient Medications Marked as Taking for the 05/27/24 encounter (Pre-Admission Testing) with [facility] NURSE, PRE ADMISSION TESTING RM 1 Medication Sig Dispense Refill acetaminophen (TYLENOL) 500 mg tablet Take 2 tablets (1,000 mg total) by mouth every 6 (six) hours as needed for pain amLODIPine (NORVASC) 2.5 mg tablet Take 2 tablets (5 mg total) by mouth every morning atorvastatin (LIPITOR) 10 mg tablet Take 1 tablet (10 mg total) by mouth nightly azelastine (ASTELIN) 137 mcg (0.1 %) nasal spray Administer 1 spray into each nostril 2 (two) timesa day calcium carbonate-vitamin D3 (CALTRATE WITH VITAMIN D3) 1,500 mg (600mg elemental) -800 unit per tablet Take 1 tablet by mouth every morning cetirizine (ZyrTEC) 10 mg tablet Take 1 tablet (10 mg total) by mouth nightly docusate sodium (DOK) 100 mg tablet Take 2 tablets (200 mg total) by mouth nightly liraglutide, weight loss, 3 mg/0.5 mL (18 mg/3 mL) pen injector Inject 1.2 mg under the skin nightly Indications: weight loss management for an obese person montelukast (SINGULAIR) 10 mg tablet Take 1 tablet (10 mg total) by mouth nightly naproxen sodium 220 mg capsule Take 2 capsules by mouth 2 (two) times a day omeprazole OTC (PriLOSEC OTC) 20 mg EC tablet Take 1 tablet (20 mg total) by mouth nightly PARoxetine (PAXIL) 20 mg tablet Take 1 tablet (20 mg total) by mouth every morning pramipexole (MIRAPEX) 0.125 mg tablet Take 1 tablet (0.125 mg total) by mouth 2 (two) times a day pramipexole 0.375 mg tablet extended release 24 hr Take 1 tablet by mouth daily with dinner therapeutic multivitamin (THERA) tablet Take 1 tablet by mouth every morning vit C,O-Tq-blbyl-lutein-zeaxan 250-90-40-1 mg capsule Take 1 capsule by mouth 2 (two) times a day Implants Type Not Specified TyraZnaptaget Alekto [id number] Biomet Ascent Maxim Primary Lock Bar Knee Component Tibial Tray - S.0 - [id number] - Implanted (Right) Inventory item: TYRAPPTVET [employer] Biomet Ascent Maxim Primary Lock Bar Knee Component Tibial Tray [id number] Model/Cat number: [id number] Serial number: .0 Continuous Dryout Operator: Triblio Lot number: [id number] Device identifier: [id number] Device identifier type: GS1 As of 12/30/2018 Status: Implanted [employer] [id number] Vanguard [id number] Anterior Stabilize Inlay Knee 0d Bearing - S.0 - [id number] - Implanted (Right) Inventory item: [employer] Vanguard [id number] Anterior Stabilize Inlay Knee 0d Bearing [id number] Model/Cat number: [id number] Serial number: .0 Continuous Dryout Operator: [employer] Lot number: [id number] Device identifier: [id number] Device identifier type: GS1 As of 12/30/2018 Status: Implanted SKIN Piercings Remaining: Yes Wound (LDAs) Type of Wound (LDA): (denies) SCREENINGS Pain Assessment: No/denies pain Lubin Fall Risk Score (Retired): 40 Dagoberto index score: 100 Short Blessed Total Score: 0 NUTRITION BUSTAMANTE Nutrition and Function History Questionnaire Is BMI < 20?: No Have you lost any weight in the past 6 months without trying? : No Have you eaten < 50% of normal in the past 2 weeks without trying?: No Have you experienced any of the following in the past month?: No Symptom Score: 0 Has your activity level decreased over the past 6 months or do you use an assistive device such as a walker, cane, or wheelchair?: Yes Total Score: 1 PATIENT CARE PLANNING Advance Directives (For Healthcare) Advance Directive: Patient has advance directive, copy not in chart Communication/Nutrition Educator Needs Communication Needs: Glasses Assistive Devices/DME: CPAP/BiPAP, Eyeglasses, Cane Discharge Planning Type of Residence: Private residence Living Arrangements: Spouse/significant other Support Systems: Spouse/significant other [employer] NO ADDITIONAL COMMENTS/ FOLLOW UP * Pre-Procedure Instructions - Jef Moody RN - 05/27/2024 10:00 AM CDT [facility] PREOPERATIVE ASSESSMENT AND PLANNING (CPAP) PRE-SURGICAL NURSING INSTRUCTIONS Clinic Assessment General Information Discussed with Patient: Surgery location provided to patient. Arrival time and surgical time will be provided to the patient by their surgeon. You should wear clothing that is clean, loose, comfortable and easy to get in and out of on the dayof surgery. Remove nail coverings, artificial nails and nail kuwaiti prior to the day of surgery. This is to lower your risk of infection and to allow the day of surgery team to monitor your oxygen levels. You should leave your valuables and any jewelry at home. No metal or piercings are allowed in the operating room. You should bring your insurance card, a photo ID (example: Medical Device Sales's License) and a method of payment for any insurance copay, deductible or copay for discharge medications. You should bring a complete, up-to-date, list of all your medications on the day of surgery, including any over the counter medications or supplements you may take. Please note on your medication list, the last date & time you took each medication. The healthcare team, on the day of surgery, will ask for this information. You should bring your Advanced Directive and/or Living Will with you on the day of surgery if you have not verified a copy is already in your Epic Chart. If you are having surgery at [facility], please arrive on the day of surgery with the name and phone number of your local 24 hour pharmacy. Due to evening discharges, your routine pharmacy may be closed. In order to obtain your prescriptions that evening, your surgeon may need to send prescriptions to this pharmacy or have you take prescriptions to this pharmacy when you are discharged. Without this information, you may not be able to obtain your prescriptions that evening. PREVENTING INFECTION (DECOLONIZATION): Decolonization is the use of a topical antiseptic soap and sometimes a nasal ointment to remove bacteria (germs) from the skin's surface. Antiseptic soap: Chlorhexidine gluconate or CHG (brand name: Hibiclens??) Before surgery, your entire body must be thoroughly cleaned. CHG helps to reduce the bacteria on your skin. You may be given one or more bottles of CHG or you may be asked to obtain from your preferred pharmacy. Be sure to ask your pharmacist if you need help finding this product. Nasal ointment: Mupirocin (brand name: Bactroban)- This will only be ordered for the 5 Day Bathing Protocol. Your surgeon may also prescribe a topical ointment that is rubbed inside each of the nostrils to reduce the bacteria in your nose. Mupirocin ointment requires a prescription. If needed, it will be prescribed by your surgeon and obtained from your preferred pharmacy. SHOWERING WITH ANTISEPTIC SOAP (CHG) What You Need For Each Shower 60 mL (?? cup) of CHG 2 clean washcloths Below is the Pre-Surgical Bathing Protocol you should follow for your surgery. If your surgeon provides you different bathing instructions, please follow your surgeon's orders. 5 Day CHG Bathing & Nasal Ointment (Mupirocin) Protocol The following bathing instructions were discussed with the patient. Patient provided detailed scrubinstructions via A Guide for Patients Having Surgery: Your Pathway to Excellent Care, pages 7-10. Patients may also access the guide via the web link: [email or web address]. Patient stated understanding of the bathing instructions. Other Important Handouts/Education Discussed with Patient: Guide for Patients Having Surgery: Your Pathway to Excellent Care. Reviewed and provided document to patient. Patient stated understanding. Safe Surgery for Patients with Obstructive Sleep Apnea/Screening brochure. Reviewed and provided document to patient. Patient stated understanding. Advanced Directive. Reviewed and provided document to patient. Patient stated understanding. Nutrition Education Handout, Fuel Up For Surgery. Reviewed and provided document to patient. Patient stated understanding. Educated patient on the need for yellow FALL RISK wrist band while attending additional [facility] appointments. Placed yellow FALL RISK wrist band on patient. Fall preventions/risk education provided. Reviewed and provided below document(s) to patient. Patient stated understanding. Safety Tips for Preventing Falls in the Hospital and at Home. Blood Thinners & Falls: Keeping You Safe. Instructions and resources on smoking cessation. Reviewed with patient. Patient stated understanding. Travel/Exposure Screening: Travel Screening Have you traveled outside the [place] in the last 6 months?: No Exposure Screening Have you been exposed to anyone who is sick in the last 30 days?: No Have you been exposed to or tested positive for COVID-19 within the last 10 days?: No Infectious Disease Screening Are you having any of the following:: None As of 07/31/2022 any COVID TESTING required for surgery will be set up by your surgeon's office. Please reach out to your surgeon's office if you develop any COVID symptoms, test positive for COVID or are exposed to a COVID positive person. All patients should read below section: Information on [facility]: Please view [email or web address] (Patient & Visitor Information) for additional details regarding Advanced Directive forms, AWARE, directions, parking information, lodging, Internet access, dining and more. Information on [facility] or [facility] ([facility]): Please view [email or web address] (Patient and Visitor Information) for parking/directions and more. For MyChart information, to activate account or password recovery, please go to [email or web address] or call [phone] (toll-free: [phone]), Sat- Saturday 8am-5pm. Information for Suicide Prevention: National Suicide Prevention Lifeline (9-779-908-RIOP (8662)) orcall or text 830. Chat resources: [email or web address]. Surgery Times: For patients having surgery @ [facility], if your surgeon's office has not notified you of your surgery time by 2pm THE BUSINESS DAY BEFORE your surgery, please call the surgery center at [phone] and ask for your surgeon's office Dr. Fraire. The Center for Preoperative Assessment & Planning (CPAP) does not provide arrival times for the day of surgery or provide the duration of surgery. This information is provided by your surgeon'soffice or by the center where you are having surgery. We appreciate your understanding. * Pre-Procedure Instructions - Tiff Haas NP - 05/27/2024 10:00 AM CDT Center for Preoperative Assessment and Planning CPAP Clinic Location: [facility] The night before your surgery: * Do not eat anything after midnight the night before your procedure. The morning of your surgery: * You may have clear liquids on your surgery day. You must stop drinking two hours before you arrive to the surgery facility. Acceptable clear liquids include water, clear sports drinks, black coffee, tea, or clear soda. DO NOT drink any milk, creamer, or alcohol. * Your surgeon's office may have provided additional instructions or restrictions. Please follow those instructions. * You may brush your teeth and rinse your mouth out. * Do not glue your dentures. * Do not wear jewelry, body piercings, makeup, hairpins, false eyelashes or contact lenses to the hospital. * Leave any valuables at home or with your family. If you have Sleep Apnea (CARRILLO): * Bring your CPAP/BiPAP/VPAP machine to the hospital the day of your surgery * For a few days after your surgery, you will need to wear your CPAP/ BiPAP/VPAP machine any time your are sleeping. This includes when you take a nap. Instructions For Your Medications: Pre-Surgery Instructions: Medication Instructions acetaminophen (TYLENOL) 500 mg tablet Take on day of surgery if needed amLODIPine (NORVASC) 2.5 mg tablet Take morning of surgery atorvastatin (LIPITOR) 10 mg tablet Take the evening prior to surgery azelastine (ASTELIN) 137 mcg (0.1 %) nasal spray Don't take on day of surgery calcium carbonate-vitamin D3 (CALTRATE WITH VITAMIN D3) 1,500 mg (600mg elemental) -800 unit per tablet Don't take on day of surgery cetirizine (ZyrTEC) 10 mg tablet Don't take on day of surgery docusate sodium (DOK) 100 mg tablet Don't take on day of surgery liraglutide, weight loss, 3 mg/0.5 mL (18 mg/3 mL) pen injector Stop taking 1 week prior to surgery montelukast (SINGULAIR) 10 mg tablet Don't take on day of surgery naproxen sodium 220 mg capsule Stop taking 5 days prior to surgery omeprazole OTC (PriLOSEC OTC) 20 mg EC tablet Take morning of surgery PARoxetine (PAXIL) 20 mg tablet Take morning of surgery pramipexole (MIRAPEX) 0.125 mg tablet Take morning of surgery pramipexole 0.375 mg tablet extended release 24 hr Take the evening prior to surgery therapeutic multivitamin (THERA) tablet Stop taking 1 week prior to surgery vit C,F-Xj-bitvq-lutein-zeaxan 250-90-40-1 mg capsule Stop taking 1 week prior to surgery meclizine (ANTIVERT) 25 mg tablet Take on day of surgery if needed General Instructions For Medications: * Stop all of these medications 5 days prior to your surgery: excedrin, motrin, advil, ibuprofen, aleve, naproxen, meloxicam, celebrex, celecoxib. For medications that you are instructed to take on the morning of surgery, take the medications with a few sips of water. Stop all of these medications 7-14 days prior to your surgery: Vitamin E, Herbal medicines, Diet Pills If you use inhalers, please bring them with you on the day of your procedure. If you have pain, you may take tylenol (acetaminophen). Do not take more than 6 tablets or 3000 mg (3 g) within a 24 period. Call your surgeon and the CPAP clinic if any of the following happens before surgery: Any changes in your health You have a fever You have any signs of an infection (chest, urinary tract or tooth) You have been to the Emergency Room or were in the hospital You have started taking any new medications If laboratory testing was completed during your visit, we will only contact you regarding any results that require you to take additional action prior to your planned procedure. documented in this encounter Plan of Treatment Not on file documented as of this encounter Visit Diagnoses Diagnosis Preoperative testing- Primary Unspecified pre-operative examination documented in this encounter Discontinued Medications Medication Sig Discontinue Reason Start Date End Da te acidophilus-pectin, citrus 100 million cell-10 mg capsule Take 1 tablet by mouth every other day Therapy completed 05/27/2024 erythromycin (ILOTYCIN) ophthalmic ointmentIndications:Per iocular dermatitis Apply topically to red rash on face three times daily until resolved Therapy completed 11/18/2020 05/27/2024 Oracea 40 mg capsuleIndications:Dora ocular dermatitis Take 1 capsule po daily Therapy completed 11/18/2020 05/27/2024 documented as of this encounter Historical Medications * This list may reflect changes made after this encounter. meclizine (ANTIVERT) 25 mg tabletIndications: Vertigo Take 1 tablet (25 mg total) by mouth 3 (three) times a day as needed for dizziness omeprazole OTC (PriLOSEC OTC) 20 mg EC tabletIndications: Treatment of Non-Bleeding Gastric Disorder Take 1 tablet (20 mg total) by mouth nightly liraglutide, weight loss, 3 mg/0.5 mL (18 mg/3 mL) pen injectorIndication s:Weight Loss Management for Obese Patient (BMI >= 30) Inject 1.2 mg under the skin nightly Indications: weight loss management for an obese person 4 cetirizine (ZyrTEC) 10 mg tabletIndications: Seasonal Allergic Rhinitis Take 1 tablet (10 mg total) by mouth nightly 4 docusate sodium (DOK) 100 mg tabletIndications: constipation Take 2 tablets (200 mg total) by mouth nightly 4 vit C,P-Ol-tcykv-lutei n-zeaxan 250-90-40-1 mg capsule Take 1 capsule by mouth 2 (two) times a day 4 therapeutic multivitamin (THERA) tabletIndications: Vitamin Deficiency Prevention Take 1 tablet by mouth every morning 4 naproxen sodium 220 mg capsuleIndications :Pain Take 2 capsules by mouth 2 (two) times a day 4 acetaminophen (TYLENOL) 500 mg tablet Take 2 tablets (1,000 mg total) by mouth every 6 (six) hours as needed for pain 4 added in this encounter Care Teams Installer Technician Relationship Specialty Start Date End Date Arben Paredes MD PCP - General 01/24/17 06/01/24 documented as of this encounter
--- OUTSIDE RECORDS SUMMARY | 2024-10-13 00:39 | XMS_ITS | Encounter Summary ---
Author Organization [facility] Address [address] [place] [address] Phone Care Team Providers Care Culinary Intern Name Role Phone Librado Hernandez MD Primary Care Provider + Reason for Visit * Reason Onset Date Comments Medical Records Request 07/03/2024 Encounter Details Date Type Department Care Team (Late st Contact Info) Description 07/03/2024 Telephone [facility] Ophthalmology [address] [place] [address] Julia Trimble MD [address] [facility] DEPT OPHTHALMOLOGY, [address] [address] Medical Records Request Social History Tobacco Use Types Packs/Day Years [...] on file 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 She would need to sign a release of records. Told her if we need anything she can sign the form when she is in. * Telephone Encounter - Joy Nunez RMA - 07/03/2024 12:48 PM CDT Pt called stating that in order to get her records faxed over, she was told that someone from 's Team would have to make the request. Please reach out to eye ctr below: [facility], Dr. Homero Randall, PT# [phone] documented in this encounter Plan of Treatment Not on file documented as of this encounter Visit Diagnoses Not on filedocumented in this encounter Care Teams Culinary Intern Relationship Specialty Start Date End Date Librado Hernandez MD [address] [place] [address] [address]ch [address] [address] PCP - General Internal Medicine 06/02/24 documented as of this encounter
--- OUTSIDE RECORDS SUMMARY | 2024-10-13 00:40 | XMS_ITS | Encounter Summary ---
Author Organization [facility] Healthcare Address [address] [place] [address] Care Team Providers Care Buckle Stringer Name Role Phone Arben Paredes MD Primary Care Provider [phone] Encounter Details Date Type Department Care Team (Late st Contact Info) Description 12/30/2018 7:24 AM CDT Anesthesia Event [facility] Operating Room [address] [facility] [place] [address] Chad Thomas MD PhD [address] [place] [address] Marissa Johansen CRNA [address] [facility] [id number] [place] [address] Anesthesia Record Procedure Summary Procedure Name Responsible Anesthesiologist Anesthesia Start Time Anesthesia Stop Time REVISION ARTHROPLASTY TOTAL KNEE (Right: Knee) Chad Thomas MD PhD 12/30/18 0724 12/30/18 0915 Events Date Time Event Comment 12/30/2018 0716 0723 In Room 0724 An Start 0724 An Start Data 0730 Start Supplemental O2 0737 Spinal Placed 0745 Anesthesia Ready 0804 Proc Start 0804 Incision Start 0857 Proc Fin 0903 an stop data 0905 Out of Room 0915 Handoff to RN I completed my handoff [...] disposition at the time of handoff: PACU 0915 An Stop Meds Name Total midazolam PF 4 mg bupivacaine 0.75 %-dextrose 8.25 % PF 1. 8 mL propofol 30 mg propofol 415.25 mg fentaNYL 15 mcg ceFAZolin (ANCEF) 2,000 mg/20 mL in ster ile water (premix) 2,000 mg 2,000 mg tranexamic acid 2,000 mg lidocaine 1 % 30 mg ketorolac 15 mg Lactated Ringer's (LR) infusion 1,900 mL * Agents Name O2% N2O O2 Sevoflurane Inspired Sevoflurane * Blood No blood administrations on file. Lines, Drains, and Airways Type Details Placement Removal Urethral Catheter Placement Date: 12/30/18; Inserted by: Ciera Sims; Type: Non-latex, Straight-tip, Temperature probe; Size: 16 Fr.; Balloon Size: 10 mL; Urine Returned: Yes; Removal Date: 12/30/18; Removal Time: 1707; Removal Reason: Per protocol 12/30/18 0000 by Lyle Ralph RN 12/30/18 1707 by Bret Estevez Peripheral IV Placement Date: 12/30/18; Placement Time: 0556; Catheter Size: 20 G; Orientation: Right; Location: Hand; Site Prep: Alcohol; Insertion Attempts: 1; Patient Tolerance: Tolerated well; Removal Date: 12/31/18; Removal Time: 1437; Removal Reason: Removed by patient 12/30/18 0556 by Kateryna Sharpe RN 12/31/18 1437 by Gissel Marie, JUDD RETIRED Surgical Site 12/30/18; 0823; Ri ght; Leg; 06/02/24; 0846; Not present on admission 12/30/18 0823 by Lyle Ralph RN 06/02/24 0846 by Kim Reilly RN documented in this encounter Social History Tobacco Use Types Packs/Day Years Used Date Smoking Tobacco: Former Cigarettes 0.3 2 1 968 - 1970 Smokeless Tobacco: Never Alcohol Use Standard Drinks/Week Comments Yes 0 (1 standard drink = 0.6 oz pur e alcohol) RARELY Comments No Sex and Gender Information Value Date Recorded Sex Assigned at Not on file 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 Gender Identity Not on file Sexual Orientation Not on file documented as of this encounter OR Notes * Anesthesia Postprocedure Evaluation - Amanda Lindsay MD - 12/30/2018 10:41 AM CDT Patient: Rebeka Hsieh Procedure Summary Date: 12/30/18 Room / Location: [facility] OR POD 2 ROOM 206 / [facility] OR POD 2 Anesthesia Start: 723 Anesthesia Stop: 914 Procedure: REVISION ARTHROPLASTY TOTAL KNEE (Right Knee) Diagnosis: Failure of total knee replacement, initial encounter (CMS/HCC) (Failure of total knee replacement, initial encounter (CMS/HCC) [T84.018A, Z96.659]) Surgeon: Jim Fraire MD Responsible Provider: Chad Thomas MD PhD Anesthesia Type: spinal ASA Status: 3 Anesthesia Type: spinal Last vitals BP 135/51 Pulse 77 Temp 36.1 ??C (97 ??F) (Temporal) Resp 17 SpO2 98% Anesthesia Post Evaluation Patient location during evaluation: PACU Patient participation: complete - patient participated Level of consciousness: fully awake Pain score: 0 Pain management: adequate Airway patency: adequate Evidence of recall: no Anesthetic complications: no Cardiovascular status: hemodynamically stable Respiratory status: nasal cannula Hydration status: stable Pt is: normothermic Nausea/Vomiting status: none * Anesthesia Postprocedure Evaluation - Malachi Page MD - 12/30/2018 10:33 AM CDT Patient: Rebeka Hsieh Procedure Summary Date: 12/30/18 Room / Location: [facility] OR POD 2 ROOM 206 / [facility] OR POD 2 Anesthesia Start: 723 Anesthesia Stop: 914 Procedure: REVISION ARTHROPLASTY TOTAL KNEE (Right Knee) Diagnosis: Failure of total knee replacement, initial encounter (CMS/HCC) (Failure of total knee replacement, initial encounter (CMS/[facility]) [T84.018A, Z96.659]) Surgeon: Jim Fraire MD Responsible Provider: Chad Thomas MD PhD Anesthesia Type: spinal ASA Status: 3 Anesthesia Type: spinal Last vitals BP 135/51 Pulse 77 Temp 36.1 ??C (97 ??F) (Temporal) Resp 17 SpO2 98% Anesthesia Post Evaluation Patient location during evaluation: PACU Patient participation: complete - patient participated Level of consciousness: fully awake Pain score: 0 Pain management: adequate Airway patency: adequate Evidence of recall: no Anesthetic complications: no Cardiovascular status: acceptable and hemodynamically stable Respiratory status: acceptable and nasal cannula Hydration status: euvolemic Pt is: normothermic Nausea/Vomiting status: none Comments: Pt reports itching, believes 2/2 dry skin from multiple days of skin prep. S/p 25mg benadryl with good effect. Cosigned by Amanda Lindsay MD at 12/30/2018 3:39 PM CDT * Anesthesia Procedure Notes - Hipolito Rob CRNA - 12/30/2018 8:02 AM CDT Associated Order(s): Spinal Block Spinal Block Patient location: OR Start time: 12/30/2018 7:30 AM End time: 12/30/2018 7:37 AM Reason for block: primary anesthetic Staff: Supervising anesthesiologist: Chad Thomas MD PhD Placed by: RISK CONTROL ANALYST:Hal Gaviria CRNA Other staff: Marissa Johansen RN Procedure prep: Preprocedure checklist: patient identified, procedure contraindications assessed, procedure consent, surgical consent, IV checked, risks, benefits and alternatives discussed and monitors and equipment checked Patient position: sitting Procedure performed while patient: sedate with meaningful contact Monitoring: oximetry, blood pressure and capnography Supplemental O2: facemask Prep solution: chlorhexadine/alcohol PPE: provider hat/mask, sterile gloves and sterile drape Skin infiltrated with lidocaine 1%: yes Spinal: Approach: midline Introducer used: no Location: L4-5 Spinal injection: CSF demonstrated, no aspiration of heme and no paresthesias noted Number of attempts: 2 Spinal Needle: Needle type: Quincke Needle gauge: 25 G Needle length: 9 cm Assessment: Sensory deficit - left: T10 Sensory deficit - right: T10 Events: patient tolerated procedure well with no complications Bupi 0.75% Lot #[id number] Expiration Date [id number] * Anesthesia Preprocedure Evaluation - Chad Thomas MD PhD - 12/12/2018 10:32 AM CST [facility] Preoperative Evaluation Record [facility] ([facility] Date: 12/12/18 Anesthesia Evaluation Rebeka Hsieh is a 68 y.o. female Procedure(s): REVISION ARTHROPLASTY TOTAL KNEE HISTORY HPI Rebeka Hsieh is a 68 y.o. female who is being evaluated prior to undergoing total knee arthoplasty revision for failure of total knee replacement . Past Medical History Neurological + Psychiatric history - depression Pertinent negatives: seizures; CVA/stroke and TIA Cardiovascular + Hypertension Hypertension year diagnosed: . + Hyperlipidemia Pertinent negatives: CAD ; AL ; CABG ; atrial fibrillation; arrhythmia; pacemaker/ICD; DVT/PE; negative for CHF; drug-eluting stent(s); bare metal stent(s) and unknown stent(s) type Respiratory + Sleep apnea (CARRILLO) (and restless leg syndrome) Prescribed device: PAP compliant and CPAP. Pertinent negatives: COPD and asthma Hepatic / Heme Pertinent negatives: liver disease; history of anemia; history of thrombocytopenia and history of Jayce positive Gastrointestinal Pertinent negatives: GERD and hiatal hernia Renal / Pertinent negatives: renal disease; dialysis and nephrolithiasis Musculoskeletal/Pain + Osteoarthritis Pertinent negatives: chronic pain and headaches Endocrine / Other + Obesity (BMI >30) (BMI 36.3) + Cancer history- skin cancer only. Cancer type: Skin cancer- x2 BCC nose and forehead. 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 and does water aerobics 2x/week Review of Systems + previous transfusion (History- 2008) + vision loss (wears corrective lenses) Pertinent negatives: productive cough; wheezing; SOB; recent cold/flu; fever; chest pain; palpitations; orthopnea; pedal edema; PND; melena/hematochezia; easy bruising; bleeding problems; syncope; dizziness; muscle weakness; chronic pain; numbness/tingling; hard of hearing; heartburn; nausea; dysphagia; diarrhea; dentures/partials; chipped/loose teeth; abdominal pain (denies UTI symptoms); diaphoresis and no unexpected weight change PAT Summary and Plans Cardiac risk classification of planned procedure: intermediate cardiac risk. Preoperative assessment status: lab tests ordered. Additional comments: Rebeka Hsieh is a 68 y.o. female who is being evaluated prior to undergoing anintermediate cardiac risk surgery. Revised Cardiac Risk Index factors are (none) for a total RCRI of 0 out of 6. Functional capacity is 4-6 METs. Obstructive sleep apnea (CARRILLO) screening status is HIGH RISK due to known CARRILLO. Blood bank needs for day of procedure: T&C 1 unit pRBCs Pending labs/tests include: CBC CMP T&S Vitamin D ESR CRP T&S and T/Cx1 ordered DOS Preoperative evaluation performed by Cathy Chavez NP on 12/12/18 at 10:35 AM. . Follow up note Labs reviewed and are significant for: co2 33. Patient has known h/o of COPD and is compliant with CPAP machine. CPAP process complete. Follow-up completed by: Zabrina Oh NP on 12/15/18 at 9:29 AM Patient Active Problem List Diagnosis ??? Knee pain ??? Surgical follow-up care ??? Hypertension ??? Lentigo ??? Eczema ??? Neoplasm of skin of breast ??? Abnormal finding on imaging ??? Nuclear sclerotic cataract of both eyes ??? History of malignant neoplasm of skin ??? Basal cell carcinoma (BCC) of skin of trunk ??? Actinic keratosis ??? History of nonmelanoma skin cancer ??? 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 Scar of nose ??? Drusen of both optic discs ??? Post-menopausal osteoporosis ??? Screening mammogram, encounter for ??? Seborrheic keratosis ??? Failed total knee arthroplasty (CMS/HCC) Past Medical History: Diagnosis Date ??? Aftercare following joint replacement surgery Aftercare following joint replacement - (Added by TW Conv) ??? Basal cell carcinoma of skin of other part of trunk Basal cell carcinoma of anterior chest - (Added by TW Conv) ??? Cataract ??? Personal history of other malignant neoplasm of skin History of skin cancer - (Added by TW Conv) Past Surgical History: Procedure Laterality Date ??? BASAL CELL CARCINOMA EXCISION x2- nose and forehead ??? COLONOSCOPY ??? KNEE ARTHROSCOPY W/ MENISCAL REPAIR 1996 ??? DC REMOVAL GALLBLADDER Cholecystectomy - (Added by TW Conv) ??? REVISION TOTAL KNEE ARTHROPLASTY Left- 2011 ??? TOTAL KNEE ARTHROPLASTY Bilateral 10/2008 ??? UPPER GASTROINTESTINAL ENDOSCOPY ??? VEIN LIGATION AND STRIPPING Right 1981 OB History None Allergies Allergen Reactions ??? Opioids - Morphine Analogues Hives Reaction: Hives, ??? Nickel HOME MEDICATIONS : acidophilus-pectin, citrus 100 million cell-10 mg capsule amLODIPine (NORVASC) 2.5 mg tablet atorvastatin (LIPITOR) 10 mg tablet azelastine (ASTELIN) 137 mcg (0.1 %) nasal spray azithromycin (ZITHROMAX) 1 gram powder calcium carbonate-vitamin D3 (CALTRATE WITH VITAMIN D3) 1,500 mg (600mg elemental) -800 unit per tablet ketoconazole (NIZORAL) 2 % cream montelukast (SINGULAIR) 10 mg tablet multivitamin tablet PARoxetine (PAXIL) 20 mg tablet pramipexole (MIRAPEX) 0.125 mg tablet pramipexole 0.375 mg tablet extended release 24 hr mupirocin (BACTROBAN) 2 % ointment azithromycin (ZITHROMAX) 250 mg tablet cephalexin (KEFLEX) 500 mg capsule fluorouracil (EFUDEX) 5 % cream hydroCHLOROthiazide (HYDRODIURIL) 12.5 mg tablet levocetirizine (XYZAL) [address] (PROTONIX) 40 mg EC tablet triamcinolone (KENALOG) 0.1 % ointment Current Outpatient Medications: ??? acidophilus-pectin, citrus 100 million cell-10 mg capsule ??? amLODIPine (NORVASC) 2.5 mg tablet ??? atorvastatin (LIPITOR) 10 mg tablet ??? azelastine (ASTELIN) 137 mcg (0.1 %) nasal spray ??? azithromycin (ZITHROMAX) 1 gram powder ??? calcium carbonate-vitamin D3 (CALTRATE WITH VITAMIN D3) 1,500 mg (600mg elemental) -800 unit per tablet ??? ketoconazole (NIZORAL) 2 % cream ??? montelukast (SINGULAIR) 10 mg tablet ??? multivitamin tablet ??? PARoxetine (PAXIL) 20 mg tablet ??? pramipexole (MIRAPEX) 0.125 mg tablet ??? pramipexole 0.375 mg tablet extended release 24 hr ??? mupirocin (BACTROBAN) 2 % ointment Social History Tobacco Use Smoking Status Former Smoker ??? Packs/day: 0.25 ??? Start date: 1967 ??? Last attempt to quit: 1969 ??? Years since quittin.2 Smokeless Tobacco Never Used Substance and Sexual Activity Alcohol Use Yes Comment: RARELY Substance and Sexual Activity Drug Use Never Family History Problem Relation Age of Onset ??? Hypertension Father Family history of hypertension - (Added by TW Conv) PAT Physical Exam Airway Exam: Mallampati: IV Cervical ROM: FROM TM distance: 3 Cardiovascular Exam: Rate: regular Rhythm: regular Negative for peripheral edema Pulmonary Exam: LCTA, bilat EENT Exam: trachea midline Dental Exam: Appears intact Skin Exam: Skin is warm and dry. Abdominal exam: Abdomen is soft. Bowel sounds are present. Current state: Patient's current state is cooperative and interactive. Vitals: 12/12/18 1055 12/12/18 1102 BP: 139/82 123/76 Pulse: 65 SpO2: 94% Dagoberto index score: 100 AD8 Dementia Score: 0 Short Blessed Total Score: 2 DOS Physical Exam Medical history, medications, and allergies reviewed. Attestation: I endorse the findings of the anesthesia pre-evaluation assessment dated: 12/12/2018. Airway Exam: Mallampati: III Cervical ROM: FROM TM distance: 3 Jaw ROM: full Cardiovascular Exam: Rate: regular Rhythm: regular Negative for Murmur Negative for peripheral edema Pulmonary Exam: LCTA EENT Exam: trachea midline Dental Exam: Appears intact Skin Exam: Skin is warm. Capillary refill is < 3 seconds. Turgor is normal. Abdominal Exam: Abdomen is soft. Bowel sounds are present. Current state: Patient's current state is cooperative and anxious. Anesthesia Plan ASA 3 My patient is approved for the Anesthesia Controlled Medication protocol when under care of a RISK CONTROL ANALYST Planned anesthesia: Spinal and MAC Induction: Induction: intravenous. Postoperative Plan: Postoperative administration opioids intended. No postoperative mechanical ventilation intended. Patient's planned disposition post procedure is Floor. Informed Consent: Discussed plan with RISK CONTROL ANALYST and resident. Anesthesia plan and risks discussed with patient and daughter. Plan and Consent Comments: Risks and benefits of spinal block vs GETA d/w patient and her daughter by regional resident, RISK CONTROL ANALYST and myself, including, not limited to, rare complications such as bleeding, infection, nerve injury,worsening of LBP, paralyzed, failure, converted to GA, mi, cva, left intubated to ICU, etc. They understood and wish to proceed with spinal block. Questions answered. Pt also understood he will be sedated only. Consent and Attending signature: I and/or my designee have discussed the anesthesia plan, benefits, possible alternatives, parental presence at time of induction (if indicated), and clinically relevant risks that may include dental injury, unintentional awareness, and/or other complications. The patient and/or parent/legal guardian understand, and agree to proceed. All questions answered. ICAL BORING MILL OPERATOR ICAL BORING MILL OPERATOR documented in this encounter Plan of Treatment Not on file documented as of this encounter Procedures Procedure Name Priority Date/Time Associated Diagnosis Comments DC AN PROCEDURE PLACEHOLDER Routine 12/30/2018 8:02 AM CDT Procedure Note - Hipolito Rob CRNA - 12/30/2018 8:02 AM CDTThis note is in progress. Spinal Block Patient location: OR Start time: 12/30/2018 7:30 AM End time: 12/30/2018 7:37 AM Reason for block: primary anesthetic Staff: Supervising anesthesiologist: Chad Thomas MD PhD Placed by: RISK CONTROL ANALYST:Hal Gaviria CRNA Other staff: Marissa Johansen RN Procedure prep: Preprocedure checklist: patient identified, procedure contraindicationsassessed, procedure consent, surgical consent, IV checked, risks, benefitsand alternatives discussed and monitors and equipment checked Patient position: sitting Procedure performed while patient: sedate with meaningful contact Monitoring: oximetry, blood pressure and capnography Supplemental O2: facemask Prep solution: chlorhexadine/alcohol PPE: provider hat/mask, sterile gloves and sterile drape Skin infiltrated with lidocaine 1%: yes Spinal: Approach: midline Introducer used: no Location: L4-5 Spinal injection: CSF demonstrated, no aspiration of heme and noparesthesias noted Number of attempts: 2 Spinal Needle: Needle type: Quincke Needle gauge: 25 G Needle length: 9 cm Assessment: Sensory deficit - left: T10 Sensory deficit - right: T10 Events: patient tolerated procedure well with no complications Bupi 0.75% Lot #[id number] Expiration Date [id number] documented in this encounter Visit Diagnoses Not on filedocumented in this encounter Administered Medications Inactive Administered Medications - up to 3 most recent administrations Medication Order MAR Action Action Date Dose Rate Site bupivacaine 0.75% (MARCAINE SPINAL) preservative free injection in dextrose intrathecal, As needed, Starting on Sat12/30/18 at 0737, Anesthesia Intra-op, Indications: Spinal AnesthesiaIndications:Spinal Anesthesia Given 12/30/2018 7:37 AM CDT 1.8 mL ceFAZolin (ANCEF) 2,000 mg/20 mL in sterile water (premix) 2,000 mg 2,000 mg, intravenous, at 400 mL/hr, Administer over 3 Minutes, Once, On Sat12/30/18 at 0615, For 1 dose, Pre-Op, Administer within 60 minutes of incision., Indications: Prophylaxis, SurgicalIndications:Prophyla xis, Surgical Given 12/30/2018 7:40 AM CDT 2,000 mg fentaNYL (SUBLIMAZE) preservative free injection As needed, Starting on Sat12/30/18 at 0737, Anesthesia Intra-op Given 12/30/2018 7:37 AM CDT 15 mcg ketorolac (TORADOL) injection As needed, Starting on Sat12/30/18 at 0844, Anesthesia Intra-op Given 12/30/2018 8:44 AM CDT 15 mg Lactated Ringer's (LR) infusion 30 mL/hr, intravenous, Continuous, Starting on Sat12/30/18 at 0615, Pre-Op Rate/Dose Verify 12/30/2018 8:23 AM CDT New Bag 12/30/2018 7:44 AM CDT New Bag 12/30/2018 6:56 AM CDT 30 mL/hr 30 mL/hr lidocaine (XYLOCAINE) 10 mg/mL (1 %) injection As needed, Starting on Sat12/30/18 at 0745, Anesthesia Intra-op, Indications: Administration of Local AnesthesiaIndications:Administration of Local Anesthesia Given 12/30/2018 7:45 AM CDT 30 mg midazolam (VERSED) preservative free injection intravenous, Administer over 2 Minutes, As needed, Starting on Sat12/30/18 at 0715, Anesthesia Intra-op Given 12/30/2018 7:30 AM CDT 2 mg Given 12/30/2018 7:20 AM CDT 1 mg Given 12/30/2018 7:15 AM CDT 1 mg propofol (DIPRIVAN) IV intravenous, Continuous PRN, Starting on Sat12/30/18 at 0740, Anesthesia Intra-op Rate/Dose Change 12/30/2018 8:33 AM CDT 70 mcg/kg/min 40.28 mL/hr New Bag 12/30/2018 7:40 AM CDT 50 mcg/kg/min 28.77 mL/h r propofol (DIPRIVAN) IV intravenous, As needed, Starting on Sat12/30/18 at 0832, Anesthesia Intra-op Given 12/30/2018 8:32 AM CDT 30 mg tranexamic acid (CYKLOKAPRON) 1,000 mg/10 mL (100 mg/mL) solution intravenous, As needed, Starting on Sat12/30/18 at 0740, Anesthesia Intra-op Given 12/30/2018 8:44 AM CDT 1,000 m g Given 12/30/2018 7:40 AM CDT 1,000 mg documented in this encounter Orders Procedures Count Last Ordered Date First Orde red Date Spinal Block 1 12/30/2018 documented in this encounter Care Teams Buckle Stringer Relationship Specialty Start Date End Date Arben Paredes MD PCP - General 01/24/17 06/01/24 documented as of this encounter
--- OUTSIDE RECORDS SUMMARY | 2024-10-13 00:40 | XMS_ITS | Encounter Summary ---
Author Organization [facility] Address [address] [place] [address] Phone Care Team Providers Care Final Assembly Worker Name Role Phone Arben Paredes MD Primary Care Provider [phone] Encounter Details Date Type Department Care Team (Late st Contact Info) Description 04/05/2020 Orders Only [facility] Dermatology [address] [place] [address] [address] [place] [address] Anthony Rodríguez MD [address] [place] [address] [address] [place] [address] Social History Tobacco Use Types Packs/Day Years Used Date Smoking Tobacco: Former Cigarettes 0.3 2 1 968 - 6487 Smokeless Tobacco: Never Alcohol Use Standard Drinks/Week Comments Yes 0 (1 standard drink = 0.6 oz pur e alcohol) RARELY PHQ-2 Answer Date Recorded PHQ-2 Score 0 05/28/2019 Comments No Sex and Gender Information Value Date Recorded Sex Assigned at Not on file 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
--- OUTSIDE RECORDS SUMMARY | 2024-10-13 00:40 | XMS_ITS | Encounter Summary ---
Author Organization [facility] Address [address] [place] [address] Phone Care Team Providers Care Wood [employer] Wood Products Labourer Name Role Phone Arben Paredes MD Primary Care Provider [phone] Encounter Details Date Type Department Care Team (Late st Contact Info) Description 03/25/2020 Orders Only [facility] Dermatology [address] [place] [address] [address] [place] [address] Anthony Rodríguez MD [address] [place] [address] [address] [place] [address] Social History Tobacco Use Types [...] on file 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 Gender Identity Not on file Sexual Orientation Not on file documented as of this encounter Ordered Prescriptions Prescription Sig Dispense Quantity Refills Last Filled Start Date End Date ketoconazole (NIZORAL) 2 % creamIndications:do not apply near incision Apply to rash on body bid prn 15 g 1 03/25/2020 06/02/2024 documented in this encounter Plan of Treatment Not on file documented as of this encounter Visit Diagnoses Not on filedocumented in this encounter Discontinued Medications Medication Sig Discontinue Reason Start Date End Da te ketoconazole (NIZORAL) 2 % creamIndications:do not apply near incision apply to rash on body BID PRN Reorder 03/29/2014 03/25/2020 documented as of this encounter Care Teams Wood [employer] Wood Products Labourer Relationship Specialty Start Date End Date Arben Paredes MD PCP - General 01/24/17 06/01/24 documented as of this encounter
--- OUTSIDE RECORDS SUMMARY | 2024-10-13 00:40 | XMS_ITS | Encounter Summary ---
Author Organization [facility] Address [address] [place] [address] Phone Care Team Providers Care Monitor Worker Name Role Phone Arben Paredes MD Primary Care Provider [phone] Encounter Details Date Type Department Care Team (Late st Contact Info) Description 11/04/2019 Telephone [facility] Dermatology [address] [place] [address] [address] [place] [phone] Anthony Rodríguez MD [address] [place] [address] [address] [place] [address] Social History Tobacco Use Types Packs/Day Years Used Date Smoking Tobacco: Former Cigarettes 0.3 2 1 968 - 8556 Smokeless Tobacco: Never Alcohol Use Standard Drinks/Week Comments Yes 0 (1 standard drink = 0.6 oz pur e alcohol) RARELY PHQ-2 Answer Date Recorded PHQ-2 Score 0 05/28/2019 Comments No Sex and Gender Information Value Date Recorded Sex Assigned at Not on file Legal Sex Female 9:36 AM INSTRUMENT TECHNICIAN APPRENTICE Gender Identity Not on file Sexual Orientation Not on file documented as of this encounter Miscellaneous Notes * Telephone Encounter - Evita Jerry RMA - 11/04/2019 2:24 PM CST Offered pt appt tomorrow at 2pm.. Pt accepted. RUMENT TECHNICIAN APPRENTICE * Telephone Encounter - Sumeet Regalado - 11/04/2019 9:19 AM CST Pt would like to talk to medical staff.Pt says that she belives she has skin cancer scab above right eye lid would like to be seen sooner.Only pt I could offer would be late nov. Thank you RUMENT TECHNICIAN APPRENTICE documented in this encounter Plan of Treatment Not on file documented as of this encounter Visit Diagnoses Not on filedocumented in this encounter Care Teams Monitor Worker Relationship Specialty Start Date End Date Arben Paredes MD PCP - General 01/24/17 06/01/24 documented as of this encounter
--- OUTSIDE RECORDS SUMMARY | 2024-10-13 00:40 | XMS_ITS | Encounter Summary ---
Author Organization [facility] Address [address] [place] [address] Phone Care Team Providers Care Cold Reduction Roller Name Role Phone Arben Paredes MD Primary Care Provider [phone] Reason for Visit * Consultation (Routine) - Closed Specialty Diagnoses / Procedures Referred By Contac t Referred To Contact Dermatology Diagnoses Actinic keratosis Arben Paredes MD [address] [place] [address] Phone: tel: fax: [facility] [address] [facility] [address] [place] [address] Phone: tel: fax: Referral ID Status Reason Start Date Expiration Date V isits Requested Visits Authorized [id number] Closed Specialty Services Required 02/16/2020 08/27/2021 12 12 Encounter Details Date Type Department Care Team (Late st Contact Info) Description 03/21/2020 11:00 AM CDT Office Visit 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 Has cll - blood tests stable ROS: No fever, cp, cough, sob, headache, weight change, lad, abdominal pain, n/v, diarrhea, numbness/tingling/weakness, no vision change, no difficulty/pain swallowing, no skin sores, no fatigue, no dizziness, no depression symptoms PHYSICAL EXAM: Peeling, scaly plantar surfaces, pink scaly papules left leg left shoulder and left arm [place] papules mostly perioral and cheeks No concerning lesions on nose Otherwise: GENERAL: Appears well. No acute distress. ORIENTATION: Alert and oriented x3. MOOD/AFFECT: Normal affect. FACE: No abnormalities noted. EARS: No abnormalities noted. SCALP/HAIR: No abnormalities noted. EYES/EYELIDS: No scleral icterus. No abnormalities noted of conjunctiva or eyelids. LIPS/ORAL MUCOSA: No abnormalities noted. NECK: No abnormalities noted. CHEST: No abnormalities noted. BACK: No abnormalities noted. ABDOMEN: No abnormalities noted. EXTREMITIES (RUE): No abnormalities noted. EXTREMITIES (LUE): No abnormalities noted. EXTREMITIES (RLE): No abnormalities noted. EXTREMITIES (LLE): No abnormalities noted. DIGITS/NAILS: No cyanosis, clubbing, or nail abnormality. GENITALIA, GROIN, BUTTOCKS: No abnormalities noted. CARDIOVASCULAR: No edema or varicosities noted. ECCRINE: No hyperhidrosis. LYMPH: No adenopathy cervical, supraclavicular, occipital, axillary, inguinal, popliteal. ASSESSMENT AND PLAN: Tinea pedis - continue ketoconazole cream bid, regularly, can use cerave sa cream Rosacea moderate/severe perioral - metrocream bid pink bumps around mouth po abx if not better by 2m Actinic keratoses ln to 3 today blister care sun protect Ho nmsc Nose is clear Skin cancer education was provided, sun protection measures were discussed. Follow-up if any concerning new or changing moles or non healing sores. documented in this encounter Plan of Treatment Not on file documented as of this encounter Visit Diagnoses Diagnosis Acne rosacea- Primary Rosacea Actinic keratosis History of nonmelanoma skin cancer documented in this encounter Orders Outpatient Referral Count Last Ordered Date Fir st Ordered Date AMB REFERRAL TO DERMATOLOGY 1 03/21/2020 documented in this encounter Care Teams Cold Reduction Roller Relationship Specialty Start Date End Date Arben Paredes MD PCP - General 01/24/17 06/01/24 documented as of this encounter
--- OUTSIDE RECORDS SUMMARY | 2024-10-13 00:40 | XMS_ITS | Encounter Summary ---
Author Organization [facility] Address [address] [place] [address] Care Team Providers Care Director Of Loss Prevention Name Role Phone Arben Paredes MD Primary Care Provider [phone] Reason for Referral * Diagnostic Imaging (Routine) - Closed Specialty Diagnoses / Procedures Referred By Rosangela zabala Referred To Contact Diagnoses Aftercare following right knee joint replacement surgery Procedures XR Knee Right 3 Views Jim Fraire MD Phone: tel: fax: [address] [address] Referral ID Status Reason Start Date Expiration Date Visits Re quested Visits Authorized [id number] Closed 01/23/2019 08/03/2020 1 1 Reason for Visit * Diagnostic Imaging (Routine) - Closed Specialty Diagnoses / Procedures Referred By Rosangela zabala Referred To Contact Diagnoses Aftercare following right knee joint replacement surgery Procedures XR Knee Right 3 Views Jim Fraire MD Phone: tel: fax: [address] [phone] Referral ID Status Reason Start Date Expiration Date Visits Re quested Visits Authorized [id number] Closed 01/23/2019 08/03/2020 1 1 Encounter Details Date Type Department Care Team (Latest Contact Info) Description 01/26/2019 10:33 AM CDT - 01/26/2019 11:59 PM CDT Hospital Encounter [facility] [address] [place] [address] Jim Fraire MD [address] [place] [address] Aftercare following right knee joint replacement surgery Discharge Disposition: Discharge [...] on file Legal Sex Female 9:36 AM NEWSAGENT Gender Identity Not on file Sexual Orientation [...] tablet by mouth daily with dinner 08/24/2018 HYDROcodone-acet aminophen (NORCO) 5-325 mg per tabletIndication s:Pain Take 1-2 tablets by mouth every 4 (four) hours as needed for pain 70 tablet 12/31/2018 9 acidophilus-pect in, citrus 100 million cell-10 mg capsule Take 1 tablet by mouth every other day 4 amLODIPine (NORVASC) 2.5 mg tabletIndication s:hypertension Take 2 tablets (5 mg total) by mouth every morning 4 aspirin 325 mg enteric coated tabletIndication s:Deep Vein Thrombosis Prevention Take 1 tablet (325 mg total) by mouth 2 (two) times a day 84 tablet 12/31/2018 1 ketoconazole (NIZORAL) 2 % creamIndications :do not apply near incision apply to rash on body BID PRN 03/29/2014 0 levocetirizine (XYZAL) 5 mg tablet Take 1 tablet by mouth daily 1 senna-docusate (PERICOLACE) 8.6-50 mgIndications:co nstipation Take [...] VIEWS Schedule Routine, Read Routine (OP Routine) 01/26/2019 10:51 AM CDT Aftercare following right knee joint replacement surgery documented in this encounter Results * XR Knee Right 3 Views (01/26/2019 10:51 AM CDT) Anatomical Region Laterality Modality Lower Extremities, Knee Right Computed Radiography 01/26/2019 10:5 5 AM CDT Impressions 01/26/2019 10:55 AM CDT 1. ??Right total knee arthroplasty in unchanged near-anatomic alignment. Electronically signed by: Joseph Zapata M.D. Narrative 01/26/2019 10:55 AM CDT EXAMINATION: Right knee 3 views HISTORY: Right knee osteoarthritis FINDINGS: Three-view examination of the right knee is submitted for interpretation with comparison to radiograph dated 12/30/2018. ??There is unchanged right total knee arthroplasty in near-anatomic alignment. ??There is no periprosthetic fracture or osteolysis. ??Post surgical soft tissue gas from recent polyethylene liner exchange has resolved with persistent moderate knee effusion. ??There is a left total knee arthroplasty in near-anatomic alignment with scattered adjacent loose bodies. Procedure Note Joseph Zapata MD - 01/26/2019 EXAMINATION: Right knee 3 views HISTORY: Right knee osteoarthritis FINDINGS: Three-view examination of the right knee is submitted for interpretation with comparison to radiograph dated 12/30/2018. There is unchanged right total knee arthroplasty in near-anatomic alignment. There is no periprosthetic fracture or osteolysis. Post surgical soft tissue gas from recent polyethylene liner exchange has resolved with persistent moderate knee effusion. There is a left total knee arthroplasty in near-anatomic alignment with scattered adjacent loose bodies. IMPRESSION: 1. Right total knee arthroplasty in unchanged near-anatomic alignment. Electronically signed by: Joseph Zapata M.D. Jim Fraire MD IMG XR PROCEDURES Final Res ult documented in this encounter Visit Diagnoses Diagnosis Aftercare following right knee joint replacement surgery documented in this encounter Care Teams Director Of Loss Prevention Relationship Specialty Start Date End Date Arben Paredes MD PCP - General 01/24/17 06/01/24 documented as of this encounter
--- OUTSIDE RECORDS SUMMARY | 2024-10-13 00:40 | XMS_ITS | Encounter Summary ---
Author Organization [facility] Address [address] [place] [address] Phone Care Team Providers Care Arc Air Operator Name Role Phone Arben Paredes MD Primary Care Provider [phone] Encounter Details Date Type Department Care Team (Late st Contact Info) Description 11/09/2019 Orders Only [facility] Dermatology [address] [place] [address] [address] [place] [phone] Evita Jerry, [facility] Social History Tobacco Use Types Packs/Day Years [...] on file 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
--- OUTSIDE RECORDS SUMMARY | 2024-10-13 00:40 | XMS_ITS | Encounter Summary ---
Author Organization [facility] Address [address] [place] [address] Phone Care Team Providers Care Liquefaction Supervisor Name Role Phone Arben Paredes MD Primary Care Provider [phone] Reason for Visit * Reason Onset Date Comments Skin Problem 07/07/2020 Encounter Details Date Type Department Care Team (Late st Contact Info) Description 07/07/2020 Telephone [facility] Dermatology [address] [place] [address] [address] [place] [address] Anthony Rodríguez MD [address] [place] [address] [address] [place] [address] Skin Problem Social History Tobacco Use Types Packs/Day Years Used Date Smoking Tobacco: Former Cigarettes 0.3 2 1 798 - 7936 Smokeless Tobacco: Never Alcohol Use Standard Drinks/Week Comments Yes 0 (1 standard drink = 0.6 oz pur e alcohol) RARELY PHQ-2 Answer Date Recorded PHQ-2 Score 0 05/28/2019 Comments No Sex and Gender Information Value Date Recorded Sex Assigned at Not on file Legal 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 TESTER * Telephone Encounter - Evita Jerry RMA - 07/07/2020 1:23 PM CDT Offered pt an appt Saturday; pt declined. * Telephone Encounter - Edita Laguerre - 07/07/2020 8:28 AM CDT Pt calling with issue of raised areas on forehead/scalp. Stating that if she calls office they are able to get her in right away. documented in this encounter Plan of Treatment Not on file documented as of this encounter Visit Diagnoses Not on filedocumented in this encounter Care Teams Liquefaction Supervisor Relationship Specialty Start Date End Date Arben Paredes MD PCP - General 01/24/17 06/01/24 documented as of this encounter
--- OUTSIDE RECORDS SUMMARY | 2024-10-13 00:40 | XMS_ITS | Encounter Summary ---
Author Organization [facility] Address [address] [place] [address] Phone Care Team Providers Care Renewals Representative Name Role Phone Arben Paredes MD Primary Care Provider [phone] Reason for Referral * Diagnostic Imaging (Routine) - Closed Specialty Diagnoses / Procedures Referred By Rosangela zabala Referred To Contact Diagnoses Aftercare following right knee joint replacement surgery Procedures XR Knee Right 3 Views Jim Fraire MD [address] [facility] [address] [place] [address] Phone: tel: fax: [address] [address] Referral ID Status Reason Start Date Expiration Date Visits Re quested Visits Authorized [id number] Closed 07/12/2020 08/11/2021 1 1 Reason for Visit * Reason Comments Pain * Consultation (Routine) - Closed Specialty Diagnoses / Procedures Referred By Rosangela zabala Referred To Contact Orthopedic Surgery Diagnoses Left knee pain, unspecified chronicity Jim Fraire MD [address] [place] [address] Phone: tel: fax: [facility] (All Locations) Referral ID Status Reason Start Date Expiration Date V isits Requested Visits Authorized [id number] Closed Specialty Services Required 07/05/2020 07/05/2021 12 12 Encounter Details Date Type Department Care Team (Late st Contact Info) Description 07/12/2020 9:30 AM CDT Office Visit [facility] Orthopaedic Surgery [address] [facility] [address] [place] [address] Jim Fraire MD [address] [place] [address] Aftercare following left knee joint replacement surgery (Primary Dx); Left knee pain, unspecified chronicity Social History Tobacco Use Types Packs/Day Years Used Date Smoking Tobacco: Former Cigarettes 0.3 2 1 968 - 3748 Smokeless Tobacco: Never Alcohol Use Standard Drinks/Week Comments Yes 0 (1 standard drink = 0.6 oz pur e alcohol) RARELY PHQ-2 Answer Date Recorded PHQ-2 Score 0 05/28/2019 Comments No Sex and Gender Information Value Date Recorded Sex Assigned at Not on file Legal Sex Female 9:36 AM LINE OUT MAN Gender Identity Not on file Sexual Orientation Not on file documented as of this encounter Ordered Prescriptions Prescription Sig Dispense Quantity Refills Last Filled Start Date End Date diclofenac sodium (VOLTAREN) 1 % gel Apply 2 g topically 4 (four) times a day Apply topically 4gms to the effected joint 4 times a day 1 Tube 2 07/12/2020 1 documented in this encounter Progress Notes * Jim Fraire MD - 07/12/2020 9:30 AM CDT Patient is status post revision left knee 12/30/2018. Revision consisted of liner change to a ultraconforming thicker liner for instability. She was asymptomatic until April when she started noticingsome catching in the medial aspect of the knee. This is intermittent. She was able to walk 2 miles this past weekend but and now has catching medially and laterally. On exam she has a normal plantigrade gait no discernible limp uses no assistive device. Incision iswell healed with no redness erythema or drainage. She has full extension 120?? of flexion. There istenderness to palpation medially at the joint line with some crepitus as well. Radiographs show excellent component alignment fixation with no interval change. There is heterotopic bone at the medial joint line that is more prominent and immediately after surgery. 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 Will treat this with topical Voltaren. She was assured that is nothing be too concerned about. She just needs to avoid squatting and kneeling try the topical Voltaren and work my on isometric quad strengthening. documented in this encounter Plan of Treatment Not on file documented as of this encounter Results * XR Knee Right 3 Views (07/12/2020 [...] Diagnosis Aftercare following left knee joint replacement surgery- Primary Left knee pain, unspecified chronicity Aftercare following right knee joint replacement surgery Left knee pain, unspecified chronicity documented in this encounter Historical Medications * This list may reflect changes made after this encounter. ALPRAZolam (XANAX) 0.25 mg tablet TK 2 TS PO 1 HOUR BEFORE PROCEDURE 05/19/2020 1 added in this encounter Orders Outpatient Referral Count Last Ordered Date Fir st Ordered Date AMB REFERRAL TO ORTHOPEDIC SURGERY 1 2019 documented in this encounter Care Teams Renewals Representative Relationship Specialty Start Date End Date Arben Paredes MD PCP - General 01/24/17 06/01/24 documented as of this encounter
--- OUTSIDE RECORDS SUMMARY | 2024-10-13 00:40 | XMS_ITS | Encounter Summary ---
Author Organization [facility] Address [address] [place] [address] Phone Care Team Providers Care Obstetrical Anesthesiologist Name Role Phone Arben Paredes MD Primary Care Provider [phone] Reason for Referral * Diagnostic Imaging (Routine) - Closed Specialty Diagnoses / Procedures Referred By Rosangela zabala Referred To Contact Diagnoses Aftercare following right knee joint replacement surgery Procedures XR Knee Right 3 Views Jim Fraire MD Phone: tel: fax: [facility] [address] [place] [address] Referral ID Status Reason Start Date Expiration Date Visits Re quested Visits Authorized [id number] Closed 01/23/2019 08/03/2020 1 1 Reason for Visit * Orthopedic (Routine) - Closed Specialty Diagnoses / Procedures Referred By Rosangela zabala Referred To Contact Orthopedic Surgery Diagnoses X - RT KN CLICKING PREV REPL NO RECENT FILMS DIRECT REQ Procedures KNEE NEW Arben Paredes MD Phone: tel: fax: Jim Fraire MD [address] [facility] [address] [place] [address] Phone: tel: fax: Referral ID Status Reason Start Date Expiration Date Visits Re quested Visits Authorized [id number] Closed 07/02/2018 07/02/2019 12 12 Encounter Details Date Type Department Care Team (Late st Contact Info) Description 01/26/2019 10:30 AM CDT Office Visit [facility] Orthopaedic Surgery [address] 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 PHYSICAL EXAM: Incision is well healed with no drainage. She has a normal gait with no limp. Range of motion is 0 to 115?? flexion, with excellent alignment. Stability is normal. she uses no assistive device Neurovascular status is intact. REVIEW OF XRAYS/STUDIES: Right Knee X-rays show excellent alignment and fixation MEDICATIONS: no script given in clinic today. TREATMENT PLAN: 1. The patient has been full weight bearing. 2. We will continue routine outpatient physical therapy prn protocol and order given. FOLLOW UP: She will return on an annual basis for routine follow up. Jim Fraire M.D. Rebel Farmer Distinguished Professor of Orthopaedic Surgery documented in this encounter Plan of Treatment [...] Diagnosis Aftercare following right knee joint replacement surgery- Primary Aftercare following right knee joint replacement surgery documented in this encounter Care Teams Obstetrical Anesthesiologist Relationship Specialty Start Date End Date Arben Paredes MD PCP - General 01/24/17 06/01/24 documented as of this encounter
--- OUTSIDE RECORDS SUMMARY | 2024-10-13 00:40 | XMS_ITS | Encounter Summary ---
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 Name Role Phone Arben Paredes MD Primary Care Provider [phone] Reason for Visit * Reason Comments Cataract * Consultation (Routine) - Closed Specialty Diagnoses / Procedures Referred By Contac t Referred To Contact Ophthalmology Diagnoses Nuclear sclerotic cataract of both eyes Arben Paredes MD [address] [place] [address] Phone: tel: fax: Julia Trimble MD [address] DEPT OPHTHALMOLOGY, [address] [address] Phone: tel: fax: Referral ID Status Reason Start Date Expiration Date V isits Requested Visits Authorized [id number] Closed Specialty Services Required 02/02/2020 02/01/2021 12 12 Encounter Details Date Type Department Care Team (Late st Contact Info) Description 04/26/2020 1:00 PM CDT Office Visit [facility] Ophthalmology [address]th [address], [address] [facility] [place] [id number] Julia Trimble MD [address] DEPT OPHTHALMOLOGY, [address] [address] Nuclear sclerotic cataract of both eyes (Primary Dx); Drusen of both optic discs Social History Tobacco Use Types Packs/Day Years [...] on file Legal 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 documented in this encounter Progress Notes * Julia Trimble MD - 04/26/2020 1:00 PM CDT Assessment/Plan Diagnoses and all orders for this visit: Nuclear sclerotic cataract of both eyes (Primary) Assessment & Plan: 2+NS OU. BAT 20/20 but glare and poor night vision are becoming bothersome to the patient and affecting her activities of daily living. Orders: - Ambulatory referral to Ophthalmology - Ambulatory referral to Ophthalmology Drusen of both optic discs Assessment & Plan: More OS>OD. Small optic nerves. Takes amlodipine in the morning. Continue to monitor. Return in about 1 year (around 04/26/2021), or if symptoms worsen or fail to improve, for Dilated exam. Visual Acuity (Snellen - Linear) Right Left Both Dist cc 20/20 20/20 Near cc J1+ Correction: Glasses Tonometry Tonometry (Applanation, 12:59 PM) Right Left Pressure 15 15 Not recorded documented in this encounter Miscellaneous Notes * Assessment & Plan Note - Dejan Guajardo MD PhD - 04/26/2020 1:30 PM CDTAssociated Problem(s): Drusen of both optic discs More OS>OD. Small optic nerves. Takes amlodipine in the morning. Continue to monitor. * Assessment & Plan Note - Dejan Guajardo MD PhD - 04/26/2020 1:28 PM CDTAssociated Problem(s): Nuclear sclerotic cataract of both eyes 2+NS OU. BAT 20/20 but glare and poor night vision are becoming bothersome to the patient and affecting her activities of daily living. 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 documented in this encounter Orders Outpatient Referral Count Last Ordered Date Fir st Ordered Date AMB REFERRAL TO OPHTHALMOLOGY 2 04/26/2020 documented in this encounter Eye Exam Visual Acuity (Snellen - Linear) Right eye Left eye Both eyes Dist cc 20/20 20/20 Near cc J1+ Correction: Glasses Tonometry (Applanation, 12:59 PM) Right eye Left eye Pressure 15 15 Pupils Pupils Dark Light APD Right eye PERRL 5 3.5 None Left eye PERRL 5 3.5 None Visual Johnson Right eye Left eye Full Full Extraocular Movement Right eye Left eye Full, Ortho Full, Ortho Neuro/Psych Oriented x3: Yes Mood/Affect: Normal Dilation Both eyes: 1.0% Mydriacyl @ 12:59 PM Glare Testing High Right eye 20/20 Left eye 20/20 External Exam Right eye Left eye External Normal Normal Slit Lamp Exam Right eye Left eye Lids/Lashes Trace Dermatochalasis Trace Derm atochalasis Conjunctiva/Sclera White and quiet White and mehreen et Cornea Clear, no Guttata Clear, no Gutt piedad Anterior Chamber Deep and quiet Deep and [...] Periphery Normal Normal Wearing Rx Sphere Cylinder [place] Add Right eye +1.75 +0.75 162 +2.50 Left eye +1.25 +0.75 008 +2.50 Type: trifocal Manifest Refraction Sphere Cylinder [place] Dist VA Add Near VA Right eye +1.75 +1.00 165 20/15-2 +2.50 J1+ Left eye +1.25 +1.00 180 20/15 +2.50 J1+ Care Teams Coremaking Machine Setter Relationship Specialty Start Date End Date Arben Paredes MD PCP - General 01/24/17 06/01/24 documented as of this encounter
--- OUTSIDE RECORDS SUMMARY | 2024-10-13 00:40 | XMS_ITS | Encounter Summary ---
Author Organization [facility] Healthcare Address [address] [place] [address] Care Team Providers Care Phlebotomy Manager Name Role Phone Arben Paredes MD Primary Care Provider [phone] Encounter Details Date Type Department Care Team (Latest Contact Info) Description 12/30/2018 5:04 AM CDT - 12/31/2018 3:07 PM CDT Hospital Encounter [facility] [address] [place] [address] Jim Fraire MD [address] [facility] [address] [place] [address] Failure of total knee replacement, initial encounter ([facility]) (Primary Dx) Discharge Disposition: Discharge to home, home health skilled care Social History Tobacco Use Types Packs/Day Years Used Date Smoking Tobacco: Former Cigarettes 0.3 2 1 968 - 1970 Smokeless Tobacco: Never Alcohol Use Standard Drinks/Week Comments Yes 0 (1 standard drink = 0.6 oz pur e alcohol) RARELY Comments No Sex and Gender Information Value Date Recorded Sex Assigned at Not on file Legal Sex Female 9:36 AM SALON SALES CONSULTANT Gender Identity Not on file Sexual Orientation Not on file documented as of this encounter Last Filed Vital Signs Vital Sign Reading Time Taken Comments Blood Pressure 162/72 12/31/2018 2:20 PM CDT Pulse 76 12/31/2018 2:20 PM CDT Temperature 37.2 ??C (99 ??F) 12/31/2018 11:15 AM CDT Respiratory Rate 16 12/31/2018 11:15 AM CDT Oxygen Saturation 97% 12/31/2018 2:20 PM CDT Inhaled Oxygen Concentration - - Weight - - Height - - Body Mass Index - - documented in this encounter Discharge Summaries * iNlam Valladares, FURNACE CHARGER - 12/31/2018 8:28 AM CDT Inpatient Discharge Summary Admitting Provider: Jim Fraire MD Discharge Provider: Jim Fraire MD Primary Care Physician at Discharge: Arben Paredes MD [phone] Admission Date: 12/30/2018 Discharge Date: 12/31/2018 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 * DETAILS OF HOSPITAL STAY Date of Admission: 12/30/2018 Date of Discharge: 12/31/2018 Procedure Performed: Right Revision Total Knee Arthroplasty Chief Complaint: Right knee pain History of Present Illness: The patient is a 68 y.o. year old female cared for by Dr. Jim Fraire. The risks, benefits, alternatives and complications of a right revision total knee arthroplasty was discussed with the patient at length prior to surgery. The patient elected to proceed with a surgical intervention given the significant influence on their quality of life. Informed consent was obtained prior to surgery. Physical Exam: On the day of discharge, the patient was afebrile with stable vital signs. Examination of the rightlower extremity revealed the patient was neurovascularly intact. Incision was clean, dry and intact. Pain was adequately maintained on oral opiates. Hospital Course: The patient was admitted on 12/30/2018 and underwent a right revision total knee arthroplasty. The patient tolerated the procedure well and [...] discharged in stable condition to home with home health care on 12/31/2018. Discharge Medications: Rebeka Hsieh Home Medication Instructions NEHA:[id number] Printed on:12/31/18 0820 Medication Information acidophilus-pectin, citrus 100 million cell-10 mg capsule Take 1 tablet by mouth every other day amLODIPine (NORVASC) 2.5 mg tablet Take 2.5 mg by mouth every morning aspirin 325 mg enteric coated tablet Take 1 tablet (325 mg total) by mouth 2 (two) times a day atorvastatin (LIPITOR) 10 mg tablet Take 10 mg by mouth nightly azelastine (ASTELIN) 137 mcg (0.1 %) nasal spray Administer 1 spray into each nostril 2 (two) times a day calcium carbonate-vitamin D3 (CALTRATE WITH VITAMIN D3) 1,500 mg (600mg elemental) -800 unit per tablet Take 1 tablet by mouth every morning ketoconazole (NIZORAL) 2 % cream apply to rash on body BID PRN montelukast (SINGULAIR) 10 mg tablet Take 10 mg by mouth nightly PARoxetine (PAXIL) 20 mg tablet Take 20 mg by mouth every morning pramipexole (MIRAPEX) 0.125 mg tablet Take 0.125 mg by mouth every morning pramipexole 0.375 mg tablet extended release 24 hr 1 tablet nightly senna-docusate (PERICOLACE) 8.6-50 mg Take 2 tablets by mouth 2 (two) times a day Discharge Activity: 1. Weight bearing: Weight bearing as tolerated right lower extremity 2. Assistive Devices: Walker or crutches for all walking 3. DVT prophylaxis: Aspirin twice daily for 6 weeks and Active Care Pumps at all times for 10 days Discharge Diet: Resume previous diet Follow-up: Dr. Jim Fraire on 01/26/19 at 10:30AM at [facility]: [facility] ([facility]), [address] [place] [address], [address], [place] [address]. Condition on Discharge: Stable Cosigned by Jim Friare MD at 12/31/2018 2:40 PM CDT documented in this encounter Discharge Instructions * Discharge Instr - Other Orders* Christine Ontiveros RN - 12/31/2018 10:17 AM CDT [facility]--[phone] for RN and PT [facility]--[phone] for active care pumps [facility]--[phone] for wheeled walker documented in this encounter Medications at Time [...] rash on body BID PRN 03/29/2014 0 pramipexole (MIRAPEX) 0.125 mg tabletIndication s:Restless Legs Syndrome Take 0.125 mg by mouth every morning 9 senna-docusate (PERICOLACE) 8.6-50 mgIndications:co nstipation Take 2 tablets by mouth 2 (two) times a day 60 tablet 1 12/31/2018 1 documented as of this encounter Ordered Prescriptions Prescription Sig Dispense Quantity Refills Last Filled Start Date End Date HYDROcodone-acetam inophen (NORCO) 5-325 mg per tabletIndications: Pain Take 1-2 tablets by mouth every 4 (four) hours as needed for pain 70 tablet 12/31/2018 9 senna-docusate (PERICOLACE) 8.6-50 mgIndications:cons tipation Take 2 tablets by mouth 2 (two) times a day 60 tablet 1 12/31/2018 1 aspirin 325 mg enteric coated tabletIndications: Deep Vein Thrombosis Prevention Take 1 tablet (325 mg total) by mouth 2 (two) times a day 84 tablet 12/31/2018 1 oxyCODONE-acetamin ophen (PERCOCET) 5-325 mg per tabletIndications: Pain Take 1-2 tablets by mouth every 4 (four) hours as needed for pain 70 tablet 12/30/2018 9 documented in this encounter Discharge Disposition Disposition Code Departure Means Destination Discharge to home, home health skilled care documented in this encounter Progress Notes * Christine Ontiveros RN - 12/31/2018 3:07 PM CDT 12/31/18 1017 Discharge Summary Discharge Disposition Home with Home Health (PT/OT/RN) Equipment/Provider Needs Home Provider Services Needs Identified;Home Equipment Needs Identified Home Care Agency Information Home Care Agency Name [facility] Home Care Agency Home Care Agency Contact [facility] to [facility] Home Care Agency Order Faxed to [phone] Home Equipment Information Home Equipment Provider Name Zayra Home Equipment Provider Equipment Ordered wheeled walker [employer] Provider Used? [employer] Needed Home Equipment Information #2 Home Equipment Provider #2 Name [facility] Home Equipment Provider #2 Equipment Ordered from [employer] [facility] Discharge Additional Assistance Does the patient need discharge transport arranged? No * Karine Marti MD - 12/31/2018 3:07 PM CDT Ortho Recon Daily Progress Subjective This patient is postoperative day 1 following R knee poly exchange Interval History: Pain controlled. NO CP/SOB. Objective Vitals: 24hr Min/Max: Temp Min: 36.8 ??C (98.2 ??F) Max: 37.2 ??C (99 ??F) Pulse Min: 69 Max: 76 BP Min: 145/64 Max: 170/76 Resp Min: 16 Max: 18 SpO2 Min: 93 % Max: 97 % Most Recent : Vitals: 12/31/18 1420 BP: 162/72 Pulse: 76 Resp: Temp: SpO2: 97% I/O last 2 completed shifts: In: 1899 [I.V.:1899] Out: 2074 [Urine:2024; Blood:50] No intake/output data recorded. Surgical Site 12/30/18 Right Leg (Active) Site Assessment RAINA 12/31/2018 8:00 AM Sloan-wound Assessment RAINA 12/31/2018 8:00 AM Closure Unable to assess 12/31/2018 8:00 AM Drainage Amount RAINA 12/31/2018 8:00 AM Dressing Status Clean/Dry/Intact 12/31/2018 8:00 AM Dressing Andrea wrap 12/30/2018 9:54 PM Physical Exam: Awake, alert, oriented No acute distress Breathing regular and unlabored Dressing clean and dry Sensation intact in the superficial peroneal, deep peroneal, and tibial nerves 5/5 strength TA, GS, EHL, FHL Dorsalis pedis pulse on affected limb palpable Lab/Radiology/Diagnostic Review: Laboratory review: Lab results in the last 24 hours: Recent Results (from the past 24 hour(s)) CBC without differential Collection Time: 12/30/18 9:52 PM Result Value Ref Range WBC 13.4 (H) 3.8 - 9.9 K/cumm Hgb 13.2 11.9 - 15.5 g/dL Hct 39.9 35.6 - 45.5 % Plt 232 150 - 400 K/cumm MPV 10.0 9.1 - 12.3 fL RBC 4.71 3.90 - 5.20 M/cumm MCV 84.7 81.3 - 96.4 fL MCH 28.0 27.1 - 33.3 pg MCHC 33.1 32.3 - 35.7 g/dL RDW CV 13.8 11.1 - 14.9 % RDW SD 43.1 35.7 - 48.1 fL NRBC Abs 0.04 (H) 0.00 - 0.01 K/cumm Basic metabolic panel Collection Time: 12/31/18 3:18 AM Result Value Ref Range Sodium 140 135 - 145 mmol/L Potassium, pl 3.7 3.3 - 4.9 mmol/L Chloride 105 97 - 110 mmol/L CO2 26 22 - 32 mmol/L Anion Gap 9 2 - 15 mmol/L BUN 12 8 - 25 mg/dL Creatinine 0.78 0.60 - 1.10 mg/dL Glucose 138 70 - 199 mg/dL Calcium 9.1 8.5 - 10.3 mg/dL CBC without differential Collection Time: 12/31/18 3:18 AM Result Value Ref Range WBC 12.7 (H) 3.8 - 9.9 K/cumm Hgb 13.6 11.9 - 15.5 g/dL Hct 41.8 35.6 - 45.5 % Plt 211 150 - 400 K/cumm MPV 9.2 9.1 - 12.3 fL RBC 4.98 3.90 - 5.20 M/cumm MCV 83.9 81.3 - 96.4 fL MCH 27.3 27.1 - 33.3 pg MCHC 32.5 32.3 - 35.7 g/dL RDW CV 13.9 11.1 - 14.9 % RDW SD 42.8 35.7 - 48.1 fL NRBC Abs 0.06 (H) 0.00 - 0.01 K/cumm Assessment/Plan Remove Rachel Catheter Weight bearing:Weight bearing as tolerated right lower extremity Mobilize with Physical therapy Pain: controlled on current regimen DVT prophylaxis: Aspirin/Active Care Pumps Additional needs: none Discharge planning: Home with home health documented in this encounter H&P Notes * Jim Fraire MD - 12/30/2018 11:00 AM CDT I have reviewed the H&P, examined the patient, and endorse the findings as written. Plan of Care : Based on the above findings, I consider Rebeka Hsieh to be an acceptable risk for : Procedure(s): REVISION ARTHROPLASTY TOTAL KNEE Source Note - Chad Thomas MD PhD - 12/12/2018 10:32 AM SALON SALES CONSULTANT [facility] for Preoperative Assessment and Planning Preoperative Evaluation Record [facility] ([facility]) Date: 12/12/18 Anesthesia Evaluation Rebeka Hsieh [...] . 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 [place] REMOVAL GALLBLADDER Cholecystectomy - (Added by TW Conv) ??? REVISION TOTAL KNEE ARTHROPLASTY Left- 2010 ??? TOTAL KNEE ARTHROPLASTY Bilateral 10/2008 ??? [...] Medication protocol when under care of a BLOCK OPERATOR Planned anesthesia: Spinal and MAC Induction: Induction: intravenous. Postoperative Plan: Postoperative administration opioids intended. No postoperative mechanical ventilation intended. Patient's planned disposition post procedure is Floor. Informed Consent: Discussed plan with BLOCK OPERATOR and resident. Anesthesia plan and risks discussed with patient and daughter. Plan and Consent Comments: Risks and benefits of spinal block vs GETA d/w patient and her daughter by regional resident, BLOCK OPERATOR and myself, including, not limited to, rare [...] and agree to proceed. All questions answered. N SALES CONSULTANT N SALES CONSULTANT * Karine Marti MD - 12/30/2018 9:05 AM CDT I have reviewed the H&P, examined the patient, and endorse the findings as written with the following changes/updates: Aox3, nad, unlabored resp. RLE NVI, SILT, WWP. Valgus deformity. . Plan of Care : Based on the above findings, I consider Rebeka Hsieh to be an acceptable risk for : Procedure(s): REVISION ARTHROPLASTY TOTAL KNEE Cosigned by Jim Fraire MD at 12/31/2018 2:41 PM CDT Source Note - Chad Thomas MD PhD - 12/12/2018 10:32 AM SALON SALES CONSULTANT Center for Preoperative Assessment and Planning Preoperative Evaluation Record [facility] ([facility]) Date: 12/12/18 Anesthesia Evaluation Rebeka Hsieh [...] . 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 [place] REMOVAL GALLBLADDER Cholecystectomy - (Added by TW Conv) ??? REVISION TOTAL KNEE ARTHROPLASTY Left- 2010 ??? TOTAL KNEE ARTHROPLASTY Bilateral 10/2008 ??? [...] Medication protocol when under care of a BLOCK OPERATOR Planned anesthesia: Spinal and MAC Induction: Induction: intravenous. Postoperative Plan: Postoperative administration opioids intended. No postoperative mechanical ventilation intended. Patient's planned disposition post procedure is Floor. Informed Consent: Discussed plan with BLOCK OPERATOR and resident. Anesthesia plan and risks discussed with patient and daughter. Plan and Consent Comments: Risks and benefits of spinal block vs GETA d/w patient and her daughter by regional resident, BLOCK OPERATOR and myself, including, not limited to, rare [...] and agree to proceed. All questions answered. N SALES CONSULTANT N SALES CONSULTANT * Demetrius Kerr MD - 12/30/2018 6:22 AM CDT I have reviewed the H&P, examined the patient, and endorse the findings as written. Plan of Care : Based on the above findings, I consider Rebeka Hsieh to be an acceptable risk for : Procedure(s): REVISION ARTHROPLASTY TOTAL KNEE Demetrius Kerr MD Fellow - [facility] Joint Preservation, Resurfacing, and Reconstruction Department of Orthopaedic Surgery Cosigned by Jim Fraire MD at 12/30/2018 11:06 AM CDT Source Note - Zabrina Oh NP - 12/12/2018 10:32 AM SALON SALES CONSULTANT [place] for Preoperative Assessment and Planning Preoperative Evaluation Record [facility] ([facility]) Date: 12/12/18 Anesthesia Evaluation Rebeka Hsieh [...] . 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 [place] REMOVAL GALLBLADDER Cholecystectomy - (Added by TW Conv) ??? REVISION TOTAL KNEE ARTHROPLASTY Left- 2010 ??? TOTAL KNEE ARTHROPLASTY Bilateral 10/2008 ??? [...] Score: 0 Short Blessed Total Score: 2 Anesthesia Plan N SALES CONSULTANT N SALES CONSULTANT documented in this encounter Nursing Notes * Gissel Marie RN - 12/31/2018 2:37 PM CDT Discharge paperwork and education provided to pt, pt verbalized understanding. MEDS provided by mobile pharmacy. Pt left via wheelchair to private car. * Mike Pierre RN - 12/31/2018 12:10 AM CDT Pt refuses home setting cpap. Vitals WNL. Neurovascular checks WNL. Call light & personal items w/i reach. Continue monitoring 12/30/18 2313 Vital Signs Temp 36.9 ??C (98.4 ??F) Temp src Oral Pulse 75 Resp 18 BP 150/57 BP Location Left arm BP Method Automatic Patient Position Lying SpO2 95 % Oxygen Therapy O2 Therapy None (Room air) documented in this encounter Miscellaneous Notes * Plan of Care - Gissel Marie RN - 12/31/2018 9:14 AM CDT Goals: Clinical Goals for the Shift: pain control, discharge home today, fall prevention Summary: Problem: Health Behavior: Goal: Understanding of discharge needs will improve Outcome: Progressing Problem: Activity: Goal: Risk for activity intolerance will decrease Outcome: Progressing Problem: Physical Regulation: Goal: Ability to maintain clinical measurements within normal limits will improve Outcome: Progressing Problem: Infection Risk: Goal: Will remain free from infection Outcome: Progressing Problem: Skin Integrity: Goal: Risk for impaired skin integrity will decrease Outcome: Progressing Problem: Tissue Perfusion: Goal: Risk factors for ineffective tissue perfusion will decrease Outcome: Progressing Problem: Lack of Knowledge: Goal: Ability to develop a pain control plan will improve Outcome: Progressing Goal: Ability to identify pain intensity on a pain scale and rate it consistently will improve Outcome: Progressing Goal: Ability to notify healthcare provider of pain before it becomes unmanageable or unbearable will improve Outcome: Progressing Problem: Medication: Goal: Satisfaction with pain management regimen will improve Outcome: Progressing Problem: Sensory: Goal: Ability to identify factors that increase the pain will improve Outcome: Progressing Goal: Pain level will decrease Outcome: Progressing * Plan of Care - Mike Pierre RN - 12/31/2018 12:09 AM CDT Problem: Health Behavior: Goal: Understanding of discharge needs will improve Outcome: Progressing Problem: Activity: Goal: Risk for activity intolerance will decrease Outcome: Progressing Problem: Physical Regulation: Goal: Ability to maintain clinical measurements within normal limits will improve Outcome: Progressing Problem: Infection Risk: Goal: Will remain free from infection Outcome: Progressing Problem: Skin Integrity: Goal: Risk for impaired skin integrity will decrease Outcome: Progressing Problem: Tissue Perfusion: Goal: Risk factors for ineffective tissue perfusion will decrease Outcome: Progressing Problem: Lack of Knowledge: Goal: Ability to develop a pain control plan will improve Outcome: Progressing Goal: Ability to identify pain intensity on a pain scale and rate it consistently will improve Outcome: Progressing Goal: Ability to notify healthcare provider of pain before it becomes unmanageable or unbearable will improve Outcome: Progressing Problem: Medication: Goal: Satisfaction with pain management regimen will improve Outcome: Progressing Problem: Sensory: Goal: Ability to identify factors that increase the pain will improve Outcome: Progressing Goal: Pain level will decrease Outcome: Progressing Goals: Clinical Goals for the Shift: pain control, vitals, neurovascular checks * Plan of Care - Gisell Walker RN - 12/30/2018 2:16 PM CDT Problem: Health Behavior: Goal: Understanding of discharge needs will improve Outcome: Progressing Problem: Activity: Goal: Risk for activity intolerance will decrease Outcome: Progressing Problem: Physical Regulation: Goal: Ability to maintain clinical measurements within normal limits will improve Outcome: Progressing Problem: Infection Risk: Goal: Will remain free from infection Outcome: Progressing Problem: Skin Integrity: Goal: Risk for impaired skin integrity will decrease Outcome: Progressing Problem: Tissue Perfusion: Goal: Risk factors for ineffective tissue perfusion will decrease Outcome: Progressing Goals: Clinical Goals for the Shift: monitor pain and frequent VS Summary: * Op Sheri Karine Zaldivar MD - 12/30/2018 8:04 AM CDT OPERATIVE REPORT ATTENDING SURGEON: Jim Fraire M.D. 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 POSTOPERATIVE DIAGNOSIS: Right knee polyethylene liner failure PROCEDURE: Right revision total knee arthroplasty, polyethylene liner exchange IMPLANTS: Career Services Assistant: [employer] Tibial component size: 67 mm Tibial Insert Size: 67 Insert Thickness: 20 mm SURGICAL DETAILS: 1) Incision/arthrotomy type: Medial parapatellar 2) Estimated blood loss: 50 3) Urine output: 200 4) Crystalloid replacement: 1500 5) Colloid replacement: 0 6) Blood replacement: 0 7) Anesthesia type: spinal 8) Specimens removed: none 9) Capsular injection: 30 mL of 0.5% Marcaine with epinephrine and 30 mg of Toradol 10) Tourniquet Use: none 11) Tourniquet Time in Minutes: 0 INDICATIONS FOR PROCEDURE: This patient presents today with pain and instability several years after a total knee arthoplasty.Radiographs demonstrated poly wear and subluxation. The patient [...] A medial parapatellar approach was utilized. The tibial baseplate and poly was exposed and removed. The knee was copiously irrigated. A trial [...] Dr. Fraire's attending addendum for further details. Cosigned by Jim Fraire MD at 12/31/2018 2:41 PM CDT * Brief Op Note - Karine Marti MD - 12/30/2018 8:04 AM CDT Operative Progress Note Attending Surgeon: Jim Fraire MD Surgical Team: Wire Straightening Machine Operator: Lyle Ralph RN Scrub: ST Yakov DEMOLITION HAMMER OPERATOR: JANY Maynard DATE OF SURGERY : 12/30/2018 Preoperative Diagnosis: Pre-op Diagnosis * Failure of total knee replacement, initial encounter ([facility]) [T84.018A, Z96.659] Postoperative Diagnosis: Post-op Diagnosis * Failure of total knee replacement, initial encounter ([facility]) [T84.018A, Z96.659] Procedure: Procedure(s): REVISION ARTHROPLASTY TOTAL KNEE Operative Findings: Instability, poly wear Estimated Blood Loss: 50 mL Intraoperative Fluids: 2000 mls Specimens: No specimen collected in procedure Implants: Implant Name Type Inv. Item Serial No. Career Services Assistant Lot No. LRB No. Used [employer] [id number] BIOMET ASCENT MAXIM PRIMARY LOCK BAR KNEE COMPONENT TIBIAL TRAY - S.0 - [id number] [employer] [id number] BIOMET ASCENT MAXIM PRIMARY LOCK BAR KNEE COMPONENT TIBIAL TRAY .0[employer] [id number] Right 1 [employer] [id number] VANGUARD [id number] ANTERIOR STABILIZE INLAY KNEE 0D BEARING - S.0 - [id number] [employer] [id number] VANGUARD [id number] ANTERIOR STABILIZE INLAY KNEE 0D BEARING .0 [employer] [id number] Right 1 Blood/Blood Products Transfused: 0 mls Complications: None Condition on Discharge from the operating room was stable Karine Marti MD Date: 12/30/2018 Time: 8:51 AM TEACHING ATTESTATION : I was present and directly participated in the entire procedure (including opening and closing). Cosigned by Jim Fraire MD at 12/31/2018 2:41 PM CDT documented in this encounter Plan of Treatment Not on file documented as of this encounter Procedures Procedure Name Priority Date/Time Associated Diagnosis Comments CBC WITHOUT DIFFERENTIAL STAT 12/31/2018 3:18 AM CDT BASIC METABOLIC PANEL STAT 12/31/2018 3:18 AM CDT CBC WITHOUT DIFFERENTIAL Routine 12/30/2018 9:52 PM CDT XR KNEE RIGHT 1 OR 2 VIEWS STAT 12/30/2018 9:59 AM CDT REVISION ARTHROPLASTY TOTAL KNEE 12/30/2018 7:23 AM CDT Failure of total knee replacement, initial encounter ([facility]) Case Notes Revision RTKA revisionCurrent implant: ZB Francia CR, last revision list's 67mm tray (current poly size unknown but other side was upsized to 16 Liner exchange to increase size to UC poly (ZB) TYPE AND SCREEN STAT 12/30/2018 5:58 AM CDT PREPARE RBC Timed 12/30/2018 5:36 AM CDT documented in this encounter Results * (ABNORMAL) CBC without differential (12/31/2018 3:18 AM CDT) WBC 12.7(H) 3.8 - 9.9 K/cumm [facility] Hgb 13.6 11.9 - 15.5 g/dL [facility] Hct 41.8 35.6 - 45.5 % [facility] Plt 211 150 - 400 K/cumm [facility] MPV 9.2 9.1 - 12.3 fL [facility] RBC 4.98 3.90 - 5.20 M/cumm [facility] MCV 83.9 81.3 - 96.4 fL [facility] MCH 27.3 27.1 - 33.3 pg [facility] MCHC 32.5 32.3 - 35.7 g/dL [facility] RDW CV 13.9 11.1 - 14.9 % [facility] RDW SD 42.8 35.7 - 48.1 fL [facility] [facility] NRBC abs 0.06(H) 0.00 - 0.01 K/cumm [facility] Blood specimen (specimen) 12/31/2018 3:18 AM CDT 12/31/2018 3:33 AM CDT Narrative [facility] - 12/31/2018 3:42 AM CDT us Rimma Horn MD LAB BLOOD ORDERAB LES Final Result [facility] Department [place] [address] * Basic metabolic panel (12/31/2018 3:18 AM CDT) Sodium 140 135 - 145 mmol/L [facility] Potassium, pl 3.7 3.3 - 4.9 mmol/L [facility] Comment:Hemolyzed; (++); pot assium value may be falsely elevated by as much as 0.3 - 0.5 mmol/L. Suggest redraw and reanalysis. Chloride 105 97 - 110 mmol/L [facility] CO2 26 22 - 32 mmol/L [facility] Anion gap 9 2 - 15 mmol/L [facility] BUN 12 8 - 25 mg/dL [facility] Creatinine 0.78 0.60 - 1.10 mg/dL [facility] Glucose 138 70 - 199 mg/dL [facility] Comment: Interpretive Data Fasting glucose >/= 126 [...] classification and Diagnosis of Diabetes Diabetes Care 2017;40 (Suppl. 1):S11. Current interpretive data was last revised 2017. Calcium 9.1 8.5 - 10.3 mg/dL [facility] Blood specimen (specimen) 12/31/2018 3:18 AM CDT 12/31/2018 3:34 AM CDT Narrative [facility] - 12/31/2018 3:58 AM CDT us Rimma Horn MD LAB BLOOD ORDERAB LES Final Result [facility] Department [place] [address] * (ABNORMAL) CBC without differential (12/30/2018 9:52 PM CDT) WBC 13.4(H) 3.8 - 9.9 K/cumm [facility] Hgb 13.2 11.9 - 15.5 g/dL [facility] Hct 39.9 35.6 - 45.5 % [facility] Plt 232 150 - 400 K/cumm [facility] MPV 10.0 9.1 - 12.3 fL [facility] RBC 4.71 3.90 - 5.20 M/cumm [facility] MCV 84.7 81.3 - 96.4 fL [facility] MCH 28.0 27.1 - 33.3 pg [facility] MCHC 33.1 32.3 - 35.7 g/dL [facility] RDW CV 13.8 11.1 - 14.9 % [facility] RDW SD 43.1 35.7 - 48.1 fL [facility] NRBC abs 0.04(H) 0.00 - 0.01 K/cumm [facility] Blood specimen (specimen) 12/30/2018 9:52 PM CDT 12/31/2018 4:20 AM CDT Narrative [facility] - 12/31/2018 4:28 AM CDT us Jim Fraire MD LAB BLOOD ORDERABLES Final Result [facility] Department [place] [address] * XR Knee Right 1 or 2 View (12/30/2018 9:59 AM CDT) Anatomical Region Laterality Modality Lower Extremities, Knee Right Computed Radiography 12/30/2018 10:0 2 AM CDT Impressions 12/30/2018 10:02 AM CDT 1. ??Right total knee arthroplasty revision with polyethylene liner exchange. Electronically signed by: Mary Mata M.D. Narrative 12/30/2018 10:02 AM CDT EXAMINATION: Right knee one or 2 views HISTORY: ??Right knee osteoarthritis FINDINGS: 2 views of the right knee are performed with comparison to right knee radiographs on 11/03/2017. There is a right total knee arthroplasty in unchanged near-anatomic position with interval polyethylene liner exchange and new soft tissue gas. No fracture. Procedure Note Mary Mata MD - 12/30/2018 EXAMINATION: Right knee one or 2 views HISTORY: Right knee osteoarthritis FINDINGS: 2 views of the right knee are performed with comparison to right knee radiographs on 11/03/2017. There is a right total knee arthroplasty in unchanged near-anatomic position with interval polyethylene liner exchange and new soft tissue gas. No fracture. IMPRESSION: 1. Right total knee arthroplasty revision with polyethylene liner exchange. Electronically signed by: Mary Mata M.D. us Jim Fraire MD IMG XR PROCEDURES Final Res ult * Type and screen (12/30/2018 5:58 AM CDT) ABO Rh B Positive [facility] Jayce, indirect Negative [facility] Blood specimen (specimen) 12/30/2018 5:58 AM CDT 12/30/2018 6:13 AM CDT Narrative [facility] - 12/30/2018 7:05 AM CDT Has the patient had Daratumumab (Darzalex) in the past 6 months?->Unknown Cathy Johnson NP LAB BLOOD BANK TEST ORD ERABLES Final Result Performing Organization Address [facility] Co de Phone Number [facility] [employer] [place] [address] * Prepare RBC: 1 Units (12/30/2018 5:36 AM CDT) Product code [id number] [facility] Unit Number [id number] [facility] Product Blood Type BPOS [facility] Dispense Status RETURNED [facility] Blood specimen (specimen) 12/30/2018 5:36 AM CDT 12/30/2018 5:35 AM CDT Narrative [facility] - 12/31/2018 7:47 AM CDT Specify Procedure:->total knee arthoplasty revision Are special requirements needed? 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, initial encounter (HCC) documented in this encounter Admitting Diagnoses Diagnosis Failed total knee arthroplasty (CMS/HCC) (HCC) documented in this encounter Administered Medications Inactive Administered Medications - up to 3 most recent administrations Medication Order MAR Action Action Date Dose Rate Site acetaminophen (TYLENOL) tablet 650 mg 650 mg, oral, Once, On Sat12/30/18 at 0615, For 1 dose, Pre-Op, Indications: PainIndications:Pain Given 12/30/2018 5:54 AM CDT 650 mg amLODIPine (NORVASC) tablet 2.5 mg 2.5 mg, oral, Every morning, First dose on Sat12/31/18 at 0900, Indications: hypertensionIndications:hypertensi on Given 12/31/2018 8:05 AM CDT 2.5 mg aspirin enteric coated tablet 325 mg 325 mg, oral, 2 times daily, First dose on Sat12/30/18 at 2100, Start first dose POD#0 at 2100. Do not crush, chew, cut, dissolve, open or otherwise manipulate tablet/capsule., Indications: Deep Vein Thrombosis PreventionIndications:Deep Vein Thrombosis Prevention Given 12/31/2018 8:05 AM CDT 325 mg Given 12/30/2018 9:06 PM CDT 325 mg atorvastatin (LIPITOR) tablet 10 mg 10 mg, oral, Nightly, First dose on Sat12/30/18 at 2100, Indications: hyperlipidemiaIndications:hyperlipidemia Given 12/30/2018 9:05 PM CDT 10 mg azelastine (ASTELIN) 137 mcg (0.1 %) nasal spray 1 spray 1 spray, each nostril, 2 times daily, First dose on Sat12/30/18 at 1330 Given 12/31/2018 8:43 AM CDT 1 spray Given 12/30/2018 9:54 PM CDT 1 spray Given 12/30/2018 3:48 PM CDT 1 spray camphor-menthol (SARNA) 0.5-0.5 % lotion topical, Every 2 hours PRN, other, itching, Starting on Sat12/30/18 at 1248, Apply to affected area: other, Indications: UrticariaIndications:Urticaria ceFAZolin (ANCEF) 1 gram/10 mL in sterile water (premix) 1,000 mg 1,000 mg, intravenous, at 200 mL/hr, Administer over 3 Minutes, Every 8 hours, First dose on Sat12/30/18 at 1600, For 2 doses, Beginning 8 hours after last sloan-operative dose., Indications: Prophylaxis, SurgicalIndications:Prophylaxis, Surgical New Bag 12/30/2018 11:55 PM CDT 1,000 mg 200 mL/hr New Bag 12/30/2018 3:48 PM CDT 1,000 mg 200 mL/hr diphenhydrAMINE (BENADRYL) injection 12.5 mg 12.5 mg, intravenous, Administer over 2 Minutes, Once, On Sat12/30/18 at 1015, For 1 dose Given 12/30/2018 9:57 AM CDT 12.5 mg diphenhydrAMINE (BENADRYL) injection 12.5 mg 12.5 mg, intravenous, Administer over 2 Minutes, Once, On Sat12/30/18 at 1100, For 1 dose, Phase I Given 12/30/2018 10:22 AM CDT 12.5 mg famotidine (PEPCID) tablet 20 mg 20 mg, oral, 2 times daily, First dose on Sat12/30/18 at 1330, Indications: HeartburnIndications:Heartburn Given 12/31/2018 8:05 AM CDT 20 mg Given 12/30/2018 9:06 PM CDT 20 mg Given 12/30/2018 1:04 PM CDT 20 mg HYDROcodone-acetaminophen (NORCO) 5-325 mg per tablet 1 tablet 1 tablet, oral, Every 4 hours PRN, 1st line for pain, Starting on Sat12/30/18 at 1758, May give 1 additional tab in one hour for uncontrolled pain. Max 2 in one dosing period, Indications: PainIndications:Pain Given 12/31/2018 11:55 AM CDT 1 tablet Given 12/31/2018 10:09 AM CDT 1 tablet Given 12/31/2018 6:08 AM CDT 1 tablet HYDROmorphone (DILAUDID) injection 0.2 mg 0.2 mg, intravenous, Administer over 2 Minutes, Every 4 hours PRN, 2nd line for pain, Starting on Sat12/30/18 at 1248, May administer 1 hour after second dose of 1st line analgesic agent for uncontrolled or increasing pain., Indications: PainIndications:Pain ketorolac (TORADOL) injection 15 mg 15 mg, intravenous, Every 6 hours, First dose on Sat12/30/18 at 1330, For 2 doses, For Adult IV push, administer over 15 seconds, Indications: PainIndications:Pain Given 12/30/2018 9:04 PM CDT 15 mg Given 12/30/2018 1:03 PM CDT 15 mg Lactated Ringer's (LR) bolus 1,000 mL 1,000 mL, intravenous, Once, On Sat12/30/18 at 0615, For 1 dose, Pre-Op New Bag 12/30/2018 5:54 AM CDT 1,000 mL Lactated Ringer's (LR) infusion 30 mL/hr, intravenous, Continuous, Starting on Sat12/30/18 at 0615, Pre-Op Rate/Dose Verify 12/30/2018 8:23 AM CDT New Bag 12/30/2018 7:44 AM CDT New Bag 12/30/2018 6:56 AM CDT 30 mL/hr 30 mL/hr montelukast (SINGULAIR) tablet 10 mg 10 mg, oral, Nightly, First dose on Sat12/30/18 at 2100, Indications: Allergic RhinitisIndications:Allergic Rhinitis Given 12/30/2018 9:06 PM CDT 10 mg ondansetron (ZOFRAN) injection 4 mg 4 mg, intravenous, Administer over 2 Minutes, Every 6 hours PRN, nausea, vomiting, if not tolerating PO, Starting on Sat12/30/18 at 1248, Indications: nausea and vomitingIndications:nausea and vomiting ondansetron ODT (ZOFRAN-ODT) disintegrating tablet 4 mg 4 mg, oral, Every 6 hours PRN, nausea, vomiting, Starting on Sat12/30/18 at 1248, Indications: nausea and vomitingIndications:nausea and vomiting PARoxetine (PAXIL) tablet 20 mg 20 mg, oral, Every morning, First dose on Sat12/31/18 at 0900, Indications: depressionIndications:depression Given 12/31/2018 8:04 AM CDT 20 mg polyethylene glycol (MIRALAX) packet 17 g 17 g, oral, Daily PRN, constipation, Starting on Sat12/30/18 at 1248, Indications: constipationIndications:constipation pramipexole (MIRAPEX) tablet 0.125 mg 0.125 mg, oral, Daily, First dose (after last modification) on Sat12/30/18 at 1445, Indications: Restless Legs SyndromeIndications:Restless Legs Syndrome Given 12/31/2018 8:05 A M CDT 0.125 mg Given 12/30/2018 2:22 PM CDT 0.125 mg pramipexole (MIRAPEX) tablet 0.375 mg 0.375 mg, oral, Nightly, First dose on Sat12/30/18 at 2100 Given 12/30/2018 9:05 PM CDT 0.375 mg senna-docusate (PERICOLACE) 8.6-50 mg per tablet 2 tablet 2 tablet, oral, 2 times daily, First dose on Sat12/30/18 at 1330, Hold for diarrhea., Indications: constipationIndications:constipation Given 12/31/2018 8:05 AM CDT 2 table ts Given 12/30/2018 9:04 PM CDT 2 tablets Given 12/30/2018 1:03 PM CDT 2 tablets sodium chloride 0.9% flush 0.5-20 mL 0.5-20 mL, intra-catheter, Every 8 hours scheduled, First dose on Sat12/30/18 at 1400, Flush volume based on line type and size. Given 12/30/2018 2:15 PM CDT 10 mL sodium chloride 0.9% flush 0.5-20 mL 0.5-20 mL, intra-catheter, As needed, line care, Starting on Sat12/30/18 at 1248, Flush volume based on line type and size. Flush before and after each use. sodium chloride 0.9% infusion 100 mL/hr, intravenous, Continuous, Starting on Sat12/30/18 at 0945 New Bag 12/30/2018 9:31 AM CDT 100 mL/hr 100 mL/hr New Bag 12/30/2018 9:30 AM CDT 100 mL/hr 100 mL/hr documented in this encounter Discontinued Medications Medication Sig Discontinue Reason Start Date End Da te oxyCODONE-acetaminophe n (PERCOCET) 5-325 mg per tabletIndications:Pain Take 1-2 tablets by mouth every 4 (four) hours as needed for pain Stop Taking at Discharge 12/30/2018 12/31/2018 multivitamin tabletIndications:Denae min Deficiency Prevention 1 tablet every morning Stop Taking at Discharge 12/31/2018 mupirocin (BACTROBAN) 2 % ointment APPLY INSIDE NOSTRILS USING CLEAN Q-TIP TWICE DAILY FOR 5 DAYS. START 5 DAYS PRIOR TO SURGERY DAY. Stop Taking at Discharge 10/18/2018 12/31/2018 azithromycin (ZITHROMAX) 1 gram powderIndications:Prop hylaxis, Medical,MAR 8 ON DAY 3 OF 5 Take 1 packet by mouth every morning Stop Taking at Discharge 12/31/2018 documented as of this encounter Active and Recently Administered Medications Times are shown in CDT. Scheduled Medication Order 12/29/2018 12/30/2018 12/31/2018 acetaminophen (TYLENOL) tablet 650 mg (COMPLETED) 650 mg, oral, Once, On Sat12/30/18 at 0615, For 1 dose, Pre-Op, Indications: Pain 0554 (Given - Provider: Kateryna Sharpe RN) amLODIPine (NORVASC) tablet 2.5 mg 2.5 mg, oral, Every morning, First dose on Sat12/31/18 at 0900, Indications: hypertension 08 (Given - Provid er: Gissel Marie RN) aspirin enteric coated tablet 325 mg 325 mg, oral, 2 times daily, First dose on Sat12/30/18 at 2100, Start first dose POD#0 at 2100. Do not crush, chew, cut, dissolve, open or otherwise manipulate tablet/capsule., Indications: Deep Vein Thrombosis Prevention 2105 (Given - Provider: Mike Pierre, JUDD) 08 (Given - Provider: Gissel Marie, JUDD) atorvastatin (LIPITOR) tablet 10 mg 10 mg, oral, Nightly, First dose on Sat12/30/18 at 2100, Indications: hyperlipidemia 2104 (Given - Provider: Mike Pierre, JUDD) azelastine (ASTELIN) 137 mcg (0.1 %) nasal spray 1 spray 1 spray, each nostril, 2 times daily, First dose on Sat12/30/18 at 1330 1548 (Given - Provider: Bret Estevez)2154 (Given - Provider: Mike Pierre, JUDD) 0843 (Given - Provider: Gissel Marie, JUDD) ceFAZolin (ANCEF) 1 gram/10 mL in sterile water (premix) 1,000 mg (COMPLETED) 1,000 mg, intravenous, at 200 mL/hr, Administer over 3 Minutes, Every 8 hours, First dose on Sat12/30/18 at 1600, For 2 doses, Beginning 8 hours after last sloan-operative dose., Indications: Prophylaxis, Surgical 1548 (New Bag - Provider: Bret Estevez)2355 (New Bag - Provider: Mike Pierre, JUDD) ceFAZolin (ANCEF) 2,000 mg/20 mL in sterile water (premix) 2,000 mg (COMPLETED) 2,000 mg, intravenous, at 400 mL/hr, Administer over 3 Minutes, Once, On Sat12/30/18 at 0615, For 1 dose, Pre-Op, Administer within 60 minutes of incision., Indications: Prophylaxis, Surgical 0740 (Given - Provider: Hal Gaviria CRNA) diphenhydrAMINE (BENADRYL) injection 12.5 mg (COMPLETED) 12.5 mg, intravenous, Administer over 2 Minutes, Once, On Sat12/30/18 at 1015, For 1 dose 0957 (Given - Provider: Sobeida Morales RN) diphenhydrAMINE (BENADRYL) injection 12.5 mg (COMPLETED) 12.5 mg, intravenous, Administer over 2 Minutes, Once, On Sat12/30/18 at 1100, For 1 dose, Phase I 1022 (Given - Provider: Sobeida Morales RN) famotidine (PEPCID) tablet 20 mg 20 mg, oral, 2 times daily, First dose on Sat12/30/18 at 1330, Indications: Heartburn 1304 (Given - Provider: Gisell Walker RN)2106 (Given - Provider: Mike Pierre, JUDD) 0805 (Given - Provider: Gissel Marie RN) ketorolac (TORADOL) injection 15 mg (COMPLETED) 15 mg, intravenous, Every 6 hours, First dose on Sat12/30/18 at 1330, For 2 doses, For Adult IV push, administer over 15 seconds, Indications: Pain 1303 (Given - Provider: Gisell Walker RN)2104 (Given - Provider: Mike Pierre, JUDD) Lactated Ringer's (LR) bolus 1,000 mL (COMPLETED) 1,000 mL, intravenous, Once, On Sat12/30/18 at 0615, For 1 dose, Pre-Op 0554 (New Bag - Provider: Kateryna Sharpe, JUDD)0655 (Stopped - Provider: Kateryna Sharpe RN) montelukast (SINGULAIR) tablet 10 mg 10 mg, oral, Nightly, First dose on Sat12/30/18 at 2100, Indications: Allergic Rhinitis 210 (Given - Provider: Mike Pierre RN) PARoxetine (PAXIL) tablet 20 mg 20 mg, oral, Every morning, First dose on Sat12/31/18 at 0900, Indications: depression 0804 (Given - Provid er: Gissel Marie RN) pramipexole (MIRAPEX) tablet 0.125 mg 0.125 mg, oral, Daily, First dose (after last modification) on Sat12/30/18 at 1445, Indications: Restless Legs Syndrome 1422 (Given - Provider: Gisell Walker RN) 0805 (Given - Provider: Gissel Marie RN) pramipexole (MIRAPEX) tablet 0.375 mg 0.375 mg, oral, Nightly, First dose on Sat12/30/18 at 2100 210 (Given - Provider: Mike Pierre RN) senna-docusate (PERICOLACE) 8.6-50 mg per tablet 2 tablet 2 tablet, oral, 2 times daily, First dose on Sat12/30/18 at 1330, Hold for diarrhea., Indications: constipation 1303 (Given - Provider: Gisell Walker RN)2104 (Given - Provider: Mike Pierre RN) 0805 (Given - Provider: Gissel Marie, JUDD) sodium chloride 0.9% flush 0.5-20 mL 0.5-20 mL, intra-catheter, Every 8 hours scheduled, First dose on Sat12/30/18 at 1400, Flush volume based on line type and size. 1415 (Given - Provider: Bret Estevez)210 (Not Given - Provider: Mike Pierre RN - Reason: Other) 0414 (Not Given - Provider: Mike Pierre RN - Reason: Other)1400 (Due) Continuous Medication Order 12/29/2018 12/30/2018 12/31/2018 Lactated Ringer's (LR) infusion (CANCELED) 30 mL/hr, intravenous, Continuous, Starting on Sat12/30/18 at 0615, Pre-Op 0656 (New Bag - Provider: Kateryna Sharpe RN)0723 (Anesthesia Volume Adjustment - Provider: Hal Gavirai CRNA)0744 (New Bag - Provider: Hipolito Rob CRNA)0823 (Rate/Dose Verify - Provider: Hal Gaviria CRNA)0902 (Anesthesia Volume Adjustment - Provider: Hipolito Rob CRNA) Lactated Ringer's (LR) infusion 30 mL/hr, intravenous, Continuous, Starting on Sat12/30/18 at 0730 0730 (Due) Lactated Ringer's (LR) infusion 125 mL/hr, intravenous, Continuous, Starting on Sat12/30/18 at 0945, Phase I 1100 (Not Given - Provider: Sobeida Morales RN - Reason: Contraindicated) sodium chloride 0.9% infusion 100 mL/hr, intravenous, Continuous, Starting on Sat12/30/18 at 0945 0930 (New Bag - Provider: Lonnie Morales, JUDD)0931 (New Bag - Provider: Lashay Valiente, JUDD) PRN Medication Order 12/29/2018 12/30/2018 12/31/2018 bupivacaine-EPINEPHrine (MARCAINE with EPI) 60 mL, ketorolac (TORADOL) 15 mg solution (CANCELED) As needed, Starting on Sat12/30/18 at 0828, Intra-Op 0828 (Given - Provider: Jim Fraire MD - Comment: right knee. time reflects time charted) camphor-menthol (SARNA) 0.5-0.5 % lotion topical, Every 2 hours PRN, other, itching, Starting on Sat12/30/18 at 1248, Apply to affected area: other, Indications: Urticaria ceFAZolin (ANCEF) 1,000 mg in sodium chloride 0.9% 1,000 mL irrigation solution (CANCELED) As needed, Starting on Sat12/30/18 at 0831, Intra-Op 0831 (Given - Provider: Jim Fraire MD - Comment: irrigation via simpulse. time reflects time charted) HYDROcodone-acetaminophen (NORCO) 5-325 mg per tablet 1 tablet 1 tablet, oral, Every 4 hours PRN, 1st line for pain, Starting on Sat12/30/18 at 1758, May give 1 additional tab in one hour for uncontrolled pain. Max 2 in one dosing period, Indications: Pain 1807 (Given - Provider: Bret Estevez)2154 (Given - Provider: Mike Pierre, RN) 0205 (Given - Provider: Mike Pierre, RN)0608 (Given - Provider: Mike Pierre, RN)1009 (Given - Provider: Gissel Marie, RN)1155 (Given - Provider: Gissel Marie, RN) HYDROmorphone (DILAUDID) injection 0.2 mg 0.2 mg, intravenous, Administer over 2 Minutes, Every 4 hours PRN, 2nd line for pain, Starting on Sat12/30/18 at 1248, May administer 1 hour after second dose of 1st line analgesic agent for uncontrolled or increasing pain., Indications: Pain ondansetron (ZOFRAN) injection 4 mg(Linked Group 1) 4 mg, intravenous, Administer over 2 Minutes, Every 6 hours PRN, nausea, vomiting, if not tolerating PO, Starting on Sat12/30/18 at 1248, Indications: nausea and vomiting ondansetron ODT (ZOFRAN-ODT) disintegrating tablet 4 mg(Linked Group 1) 4 mg, oral, Every 6 hours PRN, nausea, vomiting, Starting on Sat12/30/18 at 1248, Indications: nausea and vomiting polyethylene glycol (MIRALAX) packet 17 g 17 g, oral, Daily PRN, constipation, Starting on Sat12/30/18 at 1248, Indications: constipation sodium chloride 0.9 % irrigation (CANCELED) As needed, Starting on Sat12/30/18 at 0833, Intra-Op 0833 (Given - Provider: Jim Fraire MD - Comment: irrigation on field. time reflects time charted) sodium chloride 0.9% flush 0.5-20 mL 0.5-20 mL, intra-catheter, As needed, line care, Starting on Sat12/30/18 at 1248, Flush volume based on line type and size. Flush before and after each use. sterile water irrigation (CANCELED) As needed, Starting on Sat12/30/18 at 0833, Intra-Op 0833 (Given - Provider: Jim Fraire MD - Comment: istrument rinse only) Linked Groups Order Group 1: ondansetron ODT (ZOFRAN-ODT) disintegrating tablet 4 mgJump to med 4 mg, oral, Every 6 hours PRN, nausea, vomiting, Starting on Sat12/30/18 at 1248, Indications: nausea and vomiting Or ondansetron (ZOFRAN) injection 4 mgJump to med 4 mg, intravenous, Administer over 2 Minutes, Every 6 hours PRN, nausea, vomiting, if not tolerating PO, Starting on Sat12/30/18 at 1248, Indications: nausea and vomiting documented in this encounter Orders Medications Ordered That Stephen ht Not Have Been Administered Count Last Ordered Date First Ordered Date bupivacaine-EPINEPHrine (MAR VALERIY with EPI) 60 mL, ketorolac (TORADOL) 15 mg solution 1 12/30/2018 camphor-menthol (SARNA) 0.5-0.5 % lotion 1 12/30/2018 ceFAZolin (ANCEF) 1,000 mg i n sodium chloride 0.9% 1,000 mL irrigation solution 1 12/30/2018 ceFAZolin (ANCEF) 2,000 mg/2 0 mL in sterile water (premix) 2,000 mg 1 12/30/2018 HYDROmorphone (DILAUDID) injection 0.2 mg 2 12/30/2018 ketorolac (TORADOL) injection 15 mg 1 12/30 Lactated Ringer's (LR) infusion 2 9 naloxone (NARCAN) 0.4 mg/mL injection 0.04-0.4 mg 1 12/30/2018 ondansetron (ZOFRAN) injection 4 mg 2 12/30 ondansetron ODT (ZOFRAN-ODT) disintegrating tablet 4 mg 1 12/30/2018 oxyCODONE-acetaminophen (PER COCET) 5-325 mg per tablet 1 tablet 1 12/30/2018 polyethylene glycol (MIRALAX) packet 17 g 1 12/30/2018 pramipexole (MIRAPEX) tablet 0.125 mg 1 pramipexole tablet extended release 24 hr 1 tablet 1 12/30/2018 sodium chloride 0.9 % irrigation 1 12/31/19 19 sodium chloride 0.9% flush 0.5-20 mL 2 12/06 sterile water irrigation 1 12/30/2018 tranexamic acid (CYKLOKAPRON ) 1,000 mg in sodium chloride 0.9% 100 mL 2 12/30/2018 General Supply Count Last Ordered Date First Or dered Date WALKER 1 12/31/2018 Diet Count Last Ordered Date First Orde red Date ADULT DISCHARGE DIET 1 12/31/2018 Nursing Count Last Ordered Date First Orde red Date DISCHARGE ACTIVITY 1 12/31/2018 DISCHARGE CALL PROVIDER 11 12/31/2018 DISCHARGE DRESSING 1 12/31/2018 DISCHARGE INSTRUCTIONS 3 12/31/2018 WEIGHT BEARING TOLERATED 1 12/31/2018 Admission Count Last Ordered Date First Orde red Date ASSIGN PATIENT STATUS 3 12/31/20182018 documented in this encounter Care Teams Phlebotomy Manager Relationship Specialty Start Date End Date Arben Paredes MD PCP - General 01/24/17 06/01/24 documented as of this encounter
--- OUTSIDE RECORDS SUMMARY | 2024-10-13 00:40 | XMS_ITS | Encounter Summary ---
Author Organization [facility] Address [address] [place] [address] Phone Care Team Providers Care Grinder Chipper Name Role Phone Arben Paredes MD Primary Care Provider [phone] Encounter Details Date Type Department Care Team (Late st Contact Info) Description 01/12/2019 Orders Only [facility] Orthopaedic Surgery [address] [facility] Advanced Medicine 6th [place] [address] [place] [address] Jim Fraire MD [address] [place] [address] Failure of total knee replacement, sequela (Primary Dx) Social History Tobacco Use Types Packs/Day Years Used Date Smoking Tobacco: Former Cigarettes 0.3 2 1 968 - 1970 Smokeless Tobacco: Never Alcohol Use Standard Drinks/Week Comments Yes 0 (1 standard drink = 0.6 oz pur e alcohol) RARELY Comments No Sex and Gender Information Value Date Recorded Sex Assigned at Not on file 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
--- OUTSIDE RECORDS SUMMARY | 2024-10-13 00:40 | XMS_ITS | Encounter Summary ---
Author Organization [facility] Address [address] [place] [address] Phone Care Team Providers Care Steel Worker Name Role Phone Arben Paredes MD Primary Care Provider [phone] Encounter Details Date Type Department Care Team (Late st Contact Info) Description 01/23/2019 Orders Only [facility] Orthopaedic Surgery [address] [facility] Advanced Medicine 6th [place] [address] [place] [phone] Alondra Hernández RMA Social History Tobacco Use Types Packs/Day Years Used Date Smoking Tobacco: Former Cigarettes 0.3 2 1 968 - 1970 Smokeless Tobacco: Never Alcohol Use Standard Drinks/Week Comments Yes 0 (1 standard drink = 0.6 oz pur e alcohol) RARELY Comments No Sex and Gender Information Value Date Recorded Sex Assigned at Not on file 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 Gender Identity Not on file Sexual Orientation Not on file documented as of this encounter Plan of Treatment Not on file documented as of this encounter Visit Diagnoses Not on filedocumented in this encounter Discontinued Medications Medication Sig Discontinue Reason Start Date End Da te amLODIPine (NORVASC) 2.5 mg tablet Take 1 tablet by mouth daily 01/23/2019 PARoxetine (PAXIL) 30 mg tablet Take by mouth 01/23/2019 atorvastatin (LIPITOR) 10 mg tablet Take 1 tablet by mouth daily 01/23/2019 pramipexole (MIRAPEX) 0.125 mg tablet Take 1 tablet by mouth every 8 hours 01/23/2019 pramipexole (MIRAPEX) 0.125 mg tabletIndications:Restle ss Legs Syndrome Take 0.125 mg by mouth every morning 01/23/2019 montelukast (SINGULAIR) 10 mg tablet Take 1 tablet by mouth daily 01/23/2019 documented as of this encounter Historical Medications * This list may reflect changes made after this encounter. pramipexole (MIRAPEX) 0.125 mg tablet Take 1 tablet by mouth every 8 hours 01/23/2019 PARoxetine (PAXIL) 30 mg tablet Take by mouth 01/23/2019 montelukast (SINGULAIR) 10 mg tablet Take 1 tablet by mouth daily 01/23/2019 atorvastatin (LIPITOR) 10 mg tablet Take 1 tablet by mouth daily 01/23/2019 amLODIPine (NORVASC) 2.5 mg tablet Take 1 tablet by mouth daily 01/23/2019 levocetirizine (XYZAL) 5 mg tablet Take 1 tablet by mouth daily 05/02/2021 added in this encounter Care Teams Steel Worker Relationship Specialty Start Date End Date Arben Paredes MD PCP - General 01/24/17 06/01/24 documented as of this encounter
--- OUTSIDE RECORDS SUMMARY | 2024-10-13 00:40 | XMS_ITS | Encounter Summary ---
Author Organization [facility] Address [address] [place] [address] Phone Care Team Providers Care Rag Collector Name Role Phone Arben Paredes MD Primary Care Provider [phone] Reason for Visit * Dermatology (Routine) - Closed Specialty Diagnoses / Procedures Referred By Rosangela t Referred To Contact Dermatology Diagnoses 6m fu postponed due to surgery...ref#[id number]/ms Procedures RETURN Arben Paredes MD [address] [place] [address] Phone: tel: fax: Anthony Rodríguez MD [address] [place] [address] Phone: tel: fax: Referral ID Status Reason Start Date Expiration Date Visits Re quested Visits Authorized [id number] Closed 01/16/2019 01/17/2020 12 12 Encounter Details Date Type Department Care Team (Late st Contact Info) Description 11/05/2019 2:00 PM VERTICAL BORING MILL OPERATOR Office Visit [facility] Dermatology [address] [place] [address] [place] [phone] Anthony Rodríguez MD [address] [place] [phone] Actinic keratosis (Primary Dx); History of nonmelanoma skin cancer Social History [...] days then stop. 60 g 11/05/2019 1 calcipotriene (Dovonex) 0.005 % creamIndications: Plaque Psoriasis Mix 50/50 with Fluorouracil apply to forehead and chest for 5 days then stop. 60 g 11/05/2019 0 calcipotriene (Dovonex) 0.005 % creamIndications: Plaque Psoriasis Mix 50/50 with Efudex apply to forehead and chest for 5 days then stop. 60 g 11/05/2019 0 documented in this encounter Progress Notes * Anthony Rodríguez MD - 11/05/2019 2:00 PM CST DERMATOLOGY PROGRESS NOTE CC: scaly spot on L eyelid HPI: Rebeka Hsieh is a 69 y.o. 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 Present for a few months, pt notes that she started 5FU treatment to the area 10 days ago and treated BID for 5 days, notes area became irritated and red. Notes other scaly spots on the forehead and nose. Otherwise, no new, darkening, bleeding, changing, non-healing or tender lesions that are of concernto the patient today. ROS: No weight loss, fevers, chills, LAD or oral sores Medications/Allergies/Fam Hx/Social Hx Reviewed in chart PHYSICAL EXAM: scaly erythematous macules on the forehead, temples, cheeks, upper chest, L nasal dorsum, L uppereyelid Scattered regular, well-demarcated brown macules and papules on, trunk and extremities Scattered david stuck on appearing papule on the L helix extending into conchal bowl, trunk and extremities scar nasal tip Otherwise: GENERAL: Appears well. No acute distress. [...] DIGITS/NAILS: No cyanosis, clubbing, or nail abnormality. ASSESSMENT AND PLAN: Actinic Keratosis: Location: L upper eyelid (resolving after treatment), forehead, temples, cheeks, upper chest, L nasal dorsum Start topical 5-FU cream + calcipotriene cream in 1:1 mixture, apply twice daily for 5 days on the forehead. After completing treatment here, start combo treatment to temples/cheeks subsequently followed by combo treatment to upper chest. Pt voiced understanding of treatment plan. Patient was instructed to avoid eyes. Patient was counseled on daily photoprotection and instructed to avoid sun. Side effects discussed, including erythema, pain, blisters, ulceration, recurrence. No need to treat upper eyelid lesion, apply vaseline or aquaphor to area daily while it heals, callour clinic in 1 week if not improved Seborrheic Keratoses -Benign, reassurance Lentigines Benign, reassurance ABCDE's reviewed Sun protection Monthly SSE Annual TBSE Hx NMSC NER Photoprotection Monthly SSE Annual TBSE RTC 4 months Jorge Colindres MD PGY2 Dermatology Resident ATTESTATION: I have seen and examined the patient. I agree with the findings and plan of care as documented in the resident's note. Anthony Rodríguez MD ICAL BORING MILL OPERATOR documented in this encounter Plan of Treatment Not on file documented as of this encounter Visit Diagnoses Diagnosis Actinic keratosis- Primary History of nonmelanoma skin cancer documented in this encounter Discontinued Medications Medication Sig Discontinue Reason Start Date End Da te calcipotriene (Dovonex) 0.005 % creamIndications:Plaq ue Psoriasis Mix 50/50 with Efudex apply to forehead and chest for 5 days then stop. Reorder 11/05/2019 11/05/2019 calcipotriene (Dovonex) 0.005 % creamIndications:Plaq ue Psoriasis Mix 50/50 with Fluorouracil apply to forehead and chest for 5 days then stop. Reorder 11/05/2019 11/05/2019 documented as of this encounter Care Teams Rag Collector Relationship Specialty Start Date End Date Arben Paredes MD PCP - General 01/24/17 06/01/24 documented as of this encounter
--- OUTSIDE RECORDS SUMMARY | 2024-10-13 00:40 | XMS_ITS | Encounter Summary ---
Author Organization [facility] Address [address] [place] [address] Phone Care Team Providers Care Marriage Performer Name Role Phone Arben Paredes MD Primary Care Provider [phone] Reason for Visit * Reason Onset Date Comments Eye Problem 01/04/2020 Encounter Details Date Type Department Care Team (Late st Contact Info) Description 01/04/2020 Telephone [facility] Ophthalmology [address] [place] [address] Julia Trimble MD [address] [facility] DEPT OPHTHALMOLOGY, [address] [address] Eye Problem Social History Tobacco Use Types Packs/Day [...] on file 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 - 01/04/2020 2:54 PM CDT Pt saw optom and got new glasses. He told she is ready for Cataract removal. I let her know our mission at this point in time. She will keep her May appt for now in the hopes Dr. Trimble will be seeing pts at that time. SHe is aware that her May appt may need to be moved out as well. She will wait forour call. * Telephone Encounter - Amelia Madrid B.A. - 01/04/2020 2:03 PM CDT LVM for pt to call back in to discuss her eye prob. * Telephone Encounter - Julia Trimble MD - 01/04/2020 10:48 AM CDT Forwarded to staff to triage and schedule. Let me know if you need anything * Telephone Encounter - Nicole Moreno - 01/04/2020 9:53 AM CDT Pt left message on 11-11-19 & 11-17-19 Wants to move her appointment up because she is experiencing eye problems; she did not specify whatproblems she is having. Please call pt @ [phone] documented in this encounter Plan of Treatment Not on file documented as of this encounter Visit Diagnoses Not on filedocumented in this encounter Care Teams Marriage Performer Relationship Specialty Start Date End Date Arben Paredes MD PCP - General 01/24/17 06/01/24 documented as of this encounter
--- OUTSIDE RECORDS SUMMARY | 2024-10-13 00:40 | XMS_ITS | Encounter Summary ---
Author Organization [facility] Address [address] [place] [address] Phone Care Team Providers Care Windows Systems Admin Name Role Phone Arben Paredes MD Primary Care Provider [phone] Reason for Visit * Dermatology (Routine) - Closed Specialty Diagnoses / Procedures Referred By Rosangela t Referred To Contact Dermatology Diagnoses 6m fu postponed due to surgery...ref#[id number]/ms Procedures RETURN Arben Paredes MD [address] [place] [address] Phone: tel: fax: Anthony Rodríguez MD [address] [place] [address] Phone: tel: fax: Referral ID Status Reason Start Date Expiration Date Visits Re quested Visits Authorized [id number] Closed 01/16/2019 01/17/2020 12 12 Encounter Details Date Type Department Care Team (Late st Contact Info) Description 02/26/2019 2:15 PM CDT Office Visit [facility] Dermatology [address] [place] [address] [address] [place] [phone] Anthony Rodríguez MD [address] [place] [phone] Other seborrheic keratosis (Primary Dx); Lentigines; History of nonmelanoma skin cancer Social History [...] on file Legal Sex Female 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 She notes asymptomatic brown spot on the left antehelix. No growing or changing moles or nonhealingsores. No other skin concerns. Well recovered from recent R knee surgery. ROS: No weight loss, fevers, chills, LAD or oral sores Medications/Allergies/Fam Hx/Social Hx Reviewed in chart PHYSICAL EXAM: Scattered regular, well-demarcated brown macules and papules on, trunk and extremities Scattered david stuck on appearing papules on the L antehelix trunk and extremities Otherwise: GENERAL: Appears well. No acute distress. [...] clubbing, or nail abnormality. ASSESSMENT AND PLAN: # Seborrheic keratosis -Benign, reassurance # Lentigines Benign, reassurance ABCARNULFO's reviewed Sun protection Monthly SSE Annual TBSE # Hx NMSC NER Photoprotection Monthly SSE Annual TBSE RTC 1 year Ovidio Aguilar MD Dermatology Resident ATTESTATION: I have seen and examined the patient. I agree with the findings and plan of care as documented in the resident's note. Anthony Rodríguez MD documented in this encounter Plan of Treatment Not on file documented as of this encounter Visit Diagnoses Diagnosis Other seborrheic keratosis- Primary Lentigines History of nonmelanoma skin cancer documented in this encounter Care Teams Windows Systems Admin Relationship Specialty Start Date End Date Arben Paredes MD PCP - General 01/24/17 06/01/24 documented as of this encounter
--- OUTSIDE RECORDS SUMMARY | 2024-10-13 00:40 | XMS_ITS | Encounter Summary ---
Author Organization [facility] Address [address] [place] [address] Phone Care Team Providers Care Qc Lab Technician Name Role Phone Arben Paredes MD Primary Care Provider [phone] Reason for Visit * Dermatology (Routine) - Closed Specialty Diagnoses / Procedures Referred By Contalbert t Referred To Contact Dermatology Diagnoses 6m fu postponed due to surgery...ref#[id number]/ms Procedures RETURN Arben Paredes MD [address] [place] [address] Phone: tel: fax: Anthony Rodríguez MD [address] [place] [address] Phone: tel: fax: Referral ID Status Reason Start Date Expiration Date Visits Re quested Visits Authorized [id number] Closed 01/16/2019 01/17/2020 12 12 Encounter Details Date Type Department Care Team (Late st Contact Info) Description 08/28/2019 10:45 AM JUNIOR HIGH SCHOOL TEACHER Office Visit [facility] Dermatology [address] [place] [address] [place] [phone] Anthony Rodríguez MD [address] [place] [phone] Skin neoplasm (Primary Dx); Seborrheic keratosis; History of nonmelanoma skin cancer; Inflamed seborrheic keratosis; Lentigines Social History Tobacco Use Types Packs/Day Years [...] on file Legal Sex Female 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 Today notes very itchy spots on back, circled by her daughter. Also notes asymptomatic brown spot on the left ear. Otherwise, no new, darkening, bleeding, changing, non-healing or tender lesions that are of concernto the patient today. ROS: No weight loss, fevers, chills, LAD or oral sores Medications/Allergies/Fam Hx/Social Hx Reviewed in chart PHYSICAL EXAM: Skin colored papule with yellow hue on L cheek, on inferior aspect, speckled Scattered regular, well-demarcated brown macules and papules [...] clubbing, or nail abnormality. ASSESSMENT AND PLAN: 1. Neoplasm - SH vs BCC -Shave bx L cheek -Follow-up path results -Wound Care 2 Inflamed Seborrheic Keratoses 3. Seborrheic Keratoses -Benign, reassurance -LN2 x 4 lesions inflamed on back 4. Lentigines Benign, reassurance ABCDE's reviewed Sun protection Monthly SSE Annual TBSE 5. Hx NMSC NER Photoprotection Monthly SSE Annual TBSE RTC 6 months PROCEDURE: Shave Biopsy DIAGNOSIS: Neoplasm LOCATION: L cheek DESCRIPTION OF PROCEDURE: Informed consent was obtained, including discussion of risks including bleeding, scarring, infection, and recurrence/persistence. Dexter Protocol Time-Out performed. The lesional area was prepped with hibiclens prior to infiltration with 1% lidocaine with epinephrine,1:100,000 x 1 ml. The lesion was biopsied with a 15 blade. Hemostasis was obtained with aluminum chloride. The specimen was placed in formalin and sent for routine histopathological evaluation. Therewere no complications. The wound was then dressed with sterile petrolatum and a sterile dressing. Wound care instructions were provided in verbal and written form including a 24-hour contact number in case of emergency. The patient will be notified by one of the clinical staff (upon return to clinic or by phone) regarding the biopsy results and the need for further treatment. ATTESTATION: I have seen and examined the patient. I agree with the findings and plan of care as documented in the resident's note. I was present for the entire procedure. Anthony Rodríguez MD OR HIGH SCHOOL TEACHER documented in this encounter Miscellaneous Notes * Addendum Note - Tyra Roth - 08/28/2019 10:45 AM CSTAddended by: TYRA ROTH on: 08/31/2019 05:49 AM Modules accepted: Orders OR HIGH SCHOOL TEACHER documented in this encounter Plan of Treatment Not on file documented as of this encounter Procedures Procedure Name Priority Date/Time Associated Diagnosis Comments SURGICAL PATHOLOGY Routine 08/28/2019 12 :00 AM JUNIOR HIGH SCHOOL TEACHER Skin neoplasm documented in this encounter Results * Surgical pathology (08/28/2019 12:00 AM JUNIOR HIGH SCHOOL TEACHER) Tissue 08/28/2019 08/31/2019 6:2 8 AM JUNIOR HIGH SCHOOL TEACHER [facility] 09[facility]01/2019 2:33 PM JUNIOR HIGH SCHOOL TEACHER [facility] results best viewed via link to PDF [facility] Dermatopathology [address] ??[address], [place] [address] ?[email or web address] REPORT Patient Information: PATIENT NAME: ??ALBERT PHAM ? SEX: ??F ? : ??1950 (Age: 69) ? Specimen Information: COLLECTED: ??08/28/2019 ? RECEIVED: ??08/31/2019 ? REPORTED: ??09/01/2019 ? Submitting Physician Information: Anthony Rodríguez M.D. [address] [place], [place] ??[address], [phone] ? DERMATOPATHOLOGY REPORT RESULTS ?? DIAGNOSIS: SKIN, LEFT CHEEK, SHAVE BIOPSY: ? SEBACEOUS HYPERPLASIA klp/isr By this signature, I attest that the above diagnosis is based upon my personal examination of the slides(and/or other material indicated in the diagnosis). Vesta Potts M.D. ?? Report Electronically Reviewed and Signed Out By ??Vesta Potts M.D. 09/01/2019 14:33:30 CLINICAL INFORMATION R/O BCC VS SEBACEOUS HYPERPLASIA. SPECIMEN DATA MICROSCOPIC DESCRIPTION: An increased number of large sebaceous lobules emanate from the undersurface of a dilated follicular infundibulum. (D23.9) GROSS DESCRIPTION: Received in a formalin-containing bottle is a superficial fragment of pale david, finely scaling, and semi-translucent skin measuring 0.3 by 0.3 by 0.1 cm. The specimen is submitted entirely in a single cassette. Due to shrinkage, measurements may be different than those at time of procedure. dm/bms The Characteristics of some immunohistochemical and immunofluorescence stains as well as in-situ hybridization tests were determined by the [facility] in ongoing quality assurance calibrator and in compliance with regulations drawn from the Clinical Laboratory Improvement Act of 1988 (CLIA '88). These tests may rely on the use of analyte specific reagents that are subject to specific labeling requirements by the [place] FDA, and may only be performed in a facility that is certified by the [facility] as a high-complexity laboratory under CLIA '88. ??These tests are used for clinical purposes and are not investigational. ??For lab developed tests, the validation has been reviewed; the performance is considered acceptable for patient testing. Anthony Rodríguez MD LAB PATHOLOGY ORDERABLES [facility] [address] [place] [phone] documented in this encounter Visit Diagnoses Diagnosis Skin neoplasm- Primary Neoplasm of unspecified nature of bone, soft tissue, and skin Seborrheic keratosis History of nonmelanoma skin cancer Inflamed seborrheic keratosis Lentigines documented in this encounter Care Teams Qc Lab Technician Relationship Specialty Start Date End Date Arben Paredes MD PCP - General 01/24/17 06/01/24 documented as of this encounter
--- OUTSIDE RECORDS SUMMARY | 2024-10-13 00:40 | XMS_ITS | Encounter Summary ---
Author Organization [facility] Care Team Providers Care Seasoning Sprayer Name Role Phone Arben Paredes MD Primary Care Provider [phone] Encounter Details Date Type Department Care Team (Latest Contact Info) Description 12/30/2018 Travel Social History Tobacco Use Types Packs/Day Years Used Date Smoking Tobacco: Former Cigarettes 0.3 2 1 968 - 1970 Smokeless Tobacco: Never Alcohol Use Standard Drinks/Week Comments Yes 0 (1 standard drink = 0.6 oz pur e alcohol) RARELY Comments No Sex and Gender Information Value Date Recorded Sex Assigned at Not on file Legal Sex Female 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
--- OUTSIDE RECORDS SUMMARY | 2024-10-13 00:40 | XMS_ITS | Encounter Summary ---
Author Organization [facility] Healthcare Address [address] [place] [address] Care Team Providers Care Formulation Technician Name Role Phone Arben Paredes MD Primary Care Provider [phone] Encounter Details Date Type Department Care Team (Late st Contact Info) Description 12/30/2018 7:30 AM CDT - 12/30/2018 10:25 AM CDT Surgery [facility] Operating Room [address] [place] [address] Jim Fraire MD [address] [facility] [address] [place] [address] REVISION ARTHROPLASTY TOTAL KNEE Surgery Details Date/Time Status Location OR Service Patient Class Case Class Case Type Trauma Case? 12/30/2018 7:30 AM Posted [facility] OR POD 2 206 Orthopaedics Surgery Admit Elective Panel 1 Procedure LRB Anes Op Region Wound Class Comments REVISION ARTHROPLASTY TOTAL KNEE Right Spinal Knee Class I - Clean Surgeon Surgeon Role Service Panel Jim Fraire MD Primary Orthopaedics 1 Karine Marti MD Resident - Assisting Orthopaed ics 1 Case Notes Revision RTKA revisionCurrent implant: ShonB Francia MACIAS, last revision list's 67mm tray (current poly size unknown but other side was upsized to 16 Liner exchange to increase size to UC poly (ZB) documented in this encounter Social History Tobacco [...] file Legal Sex Female 9:36 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 Gender Identity Not on file Sexual Orientation Not on file documented as of this encounter Last Filed Vital Signs Vital Sign Reading Time Taken Comments Blood Pressure 144/58 12/30/2018 10:20 AM CDT Pulse 74 12/30/2018 10:20 AM CDT Temperature 36.1 ??C (97 ??F) 12/30/2018 9:08 AM CDT Respiratory Rate 26 12/30/2018 10:20 AM CDT Oxygen Saturation 100% 12/30/2018 10:20 AM CDT Inhaled Oxygen Concentration - - Weight - - Height - - Body Mass Index - - documented in this encounter Discharge Summaries * Nilam Valladares, NATIONAL SALES DIRECTOR - 12/31/2018 8:28 AM CDT Inpatient Discharge Summary Admitting Provider: Jim Fraire MD Discharge Provider: Jim Fraire MD Primary Care Physician at Discharge: Arben Paredes MD [phone] Admission Date: 12/30/2018 Discharge Date: 12/31/2018 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 * DETAILS [...] Discharge Medications: Rebeka Hsieh Home Medication Instructions NEHA:[id number] Printed on:12/31/18 2879 Medication Information acidophilus-pectin, citrus 100 million cell-10 [...] Jim Fraire on 01/26/19 at 10:30AM at [facility] 6A: [facility] ([facility]), [address] [place] [address], 6[address], [place] [address]. Condition on Discharge: Stable Cosigned by Jim Fraire MD at 12/31/2018 2:40 PM CDT documented in this encounter Discharge Instructions * Discharge Instr - Other Orders* Christine Ontiveros RN - 12/31/2018 10:[address] [facility]--[phone] for RN and PT [facility]--[phone] for active care pumps [facility]--[phone] for wheeled walker documented in this encounter [...] Care Agency Information Home Care Agency Name [facility] Home [facility] Agency Contact Spoken to [facility] Home Care Agency Order Faxed to [phone] Home Equipment Information Home Equipment Provider Name Zayra Home Equipment Provider Equipment Ordered wheeled walker [employer] Eqp Provider Used? [employer] Needed Home Equipment Information #2 Home Equipment Provider #2 Name AB Home Equipment Provider #2 Equipment Ordered from second company ACP Discharge Additional Assistance Does the patient [...] Site 12/30/18 Right Leg (Active) Site Assessment RIANA 12/31/2018 8:00 AM Sloan-wound Assessment RAINA 12/31/2018 [...] (H) 0.00 - 0.01 K/cumm Assessment/Plan Remove Rcahel Catheter Weight bearing:Weight bearing as tolerated right [...] Thomas MD PhD - 12/12/2018 10:32 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 [facility] for Preoperative Assessment and Planning Preoperative Evaluation Record [facility]AP Clinic at [facility] ([facility]) Date: 12/12/18 Anesthesia Evaluation Rbeeka Hsieh is a 68 y.o. female Procedure(s): [...] . 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 LA REMOVAL GALLBLADDER Cholecystectomy - (Added by TW [...] Medication protocol when under care of a SCUBA DIVING INSTRUCTOR Planned anesthesia: Spinal and MAC Induction: Induction: intravenous. Postoperative Plan: Postoperative administration opioids intended. No postoperative mechanical ventilation intended. Patient's planned disposition post procedure is Floor. Informed Consent: Discussed plan with SCUBA DIVING INSTRUCTOR and resident. Anesthesia plan and risks discussed with patient and daughter. Plan and Consent Comments: Risks and benefits of spinal block vs GETA d/w patient and her daughter by regional resident, SCUBA DIVING INSTRUCTOR and myself, including, not limited to, rare [...] and agree to proceed. All questions answered. OR SQL SERVER DBA OR SQL SERVER DBA * Karine Marti MD - 12/30/2018 9:05 [...] Thomas MD PhD - 12/12/2018 10:32 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 [facility] Preoperative Assessment and Planning Preoperative Evaluation Record [facility]AP Clinic at [facility] ([facility]) Date: 12/12/18 Anesthesia Evaluation Rebeka Hsieh is [...] . 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 LA REMOVAL GALLBLADDER Cholecystectomy - (Added by TW [...] Medication protocol when under care of a SCUBA DIVING INSTRUCTOR Planned anesthesia: Spinal and MAC Induction: Induction: intravenous. Postoperative Plan: Postoperative administration opioids intended. No postoperative mechanical ventilation intended. Patient's planned disposition post procedure is Floor. Informed Consent: Discussed plan with SCUBA DIVING INSTRUCTOR and resident. Anesthesia plan and risks discussed with patient and daughter. Plan and Consent Comments: Risks and benefits of spinal block vs GETA d/w patient and her daughter by regional resident, SCUBA DIVING INSTRUCTOR and myself, including, not limited to, rare [...] and agree to proceed. All questions answered. OR SQL SERVER DBA OR SQL SERVER DBA * Demetrius Kerr MD - 12/30/2018 6:22 AM CDT I have reviewed the H&P, examined the patient, and endorse the findings as written. Plan of Care : Based on the above findings, I consider Rebeka Hsieh to be an acceptable risk for : Procedure(s): REVISION ARTHROPLASTY TOTAL KNEE Demetrius Kerr MD Fellow - [facility] Department of Orthopaedic Surgery Cosigned by Jim Fraire MD at 12/30/2018 11:06 AM CDT Source Note - Zabrina Oh NP - 12/12/2018 10:32 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 [facility] for Preoperative Assessment and Planning Preoperative Evaluation Record [facility]AP Clinic at [facility] ([facility]) Date: 12/12/18 Anesthesia Evaluation Rebeka Hsieh is [...] . 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 LA REMOVAL GALLBLADDER Cholecystectomy - (Added by TW [...] Short Blessed Total Score: 2 Anesthesia Plan OR SQL SERVER DBA OR SQL SERVER DBA documented in this encounter Nursing Notes * [...] will decrease Outcome: Progressing * Plan of Tommy - Mike Pierre RN - 12/31/2018 12:09 [...] control, vitals, neurovascular checks * Plan of Gisell Pham RN - 12/30/2018 2:16 PM CDT Problem: [...] pain and frequent VS Summary: * Op Note - Karine Marti MD - 12/30/2018 8:04 AM CDT OPERATIVE REPORT ATTENDING SURGEON: Jim Fraire M.D. 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 POSTOPERATIVE DIAGNOSIS: Right knee polyethylene liner failure PROCEDURE: Right revision total knee arthroplasty, polyethylene liner exchange IMPLANTS: Returns Processor: [employer] Tibial component size: 67 mm Tibial Insert [...] Attending Surgeon: Jim Fraire MD Surgical Team: Rough Planer Tender: Lyle Ralph RN Scrub: ST Yakov NET SOFTWARE ARCHITECT: JANY Maynard DATE OF SURGERY : 12/30/2018 Preoperative Diagnosis: Pre-op Diagnosis * Failure of total knee replacement, initial encounter ([facility]) [T84.018A, Z96.659] Postoperative Diagnosis: Post-op Diagnosis * Failure of total knee replacement, initial encounter ([facility]) [T84.018A, Z96.659] Procedure: Procedure(s): REVISION ARTHROPLASTY TOTAL KNEE Operative Findings: Instability, poly wear Estimated Blood Loss: 50 mL Intraoperative Fluids: 2000 mls Specimens: No specimen collected in procedure Implants: Implant Name Type Inv. Item Serial No. Returns Processor Lot No. LRB No. Used [employer] [id number] BIOMET ASCENT MAXIM PRIMARY LOCK BAR KNEE COMPONENT TIBIAL TRAY - S.0 - [id number] [employer] [id number] BIOMET ASCENT MAXIM PRIMARY LOCK BAR KNEE COMPONENT TIBIAL TRAY .0[employer] [id number] Right 1 [employer] [id number] VANGUARD [id number] ANTERIOR STABILIZE INLAY KNEE 0D BEARING - S.0 - [id number] [employer] 230319 VANGUARD [id number] ANTERIOR STABILIZE INLAY KNEE 0D BEARING .0 [employer] [id number] Right 1 Blood/Blood Products Transfused: 0 mls [...] Failure of total knee replacement, initial encounter ([facility]) Case Notes Revision RTKA revisionCurrent implant: ShonB Francia CR, last revision list's 67mm tray (current poly size unknown but other side was upsized to 16 Liner exchange to increase size to UC poly (ShonB) TYPE AND SCREEN STAT 12/30/2018 5:58 AM CDT PREPARE RBC Timed 12/30/2018 5:36 AM CDT documented in this encounter Results * (ABNORMAL) CBC without differential (12/31/2018 3:18 AM CDT) WBC 12.7(H) 3.8 - 9.9 K/cumm [facility] Hgb 13.6 11.9 - 15.5 g/dL [facility] Hct 41.8 35.6 - 45.5 % [facility] Plt 211 150 - 400 K/cumm [facility] MPV 9.2 9.1 - 12.[address] [facility] RBC 4.98 3.90 - 5.20 M/cumm [facility] MCV 83.9 81.3 - 96.[address] [facility] MCH 27.3 27.1 - 33.[address] [facility] MCHC 32.5 32.3 - 35.7 g/dL [facility] RDW CV 13.9 11.1 - 14.9 % [facility] RDW SD 42.8 35.7 - 48.[address] [facility] NRBC abs 0.06(H) 0.00 - 0.01 K/cumm [facility] Blood specimen (specimen) 12/31/2018 3:18 AM CDT 12/31/2018 3:33 AM CDT Narrative [facility] - 12/31/2018 3:42 AM CDT us Rimma Horn MD LAB BLOOD ORDERAB LES Final Result [facility] One [facility] Department [place] [address] * Basic metabolic panel (12/31/2018 3:18 AM CDT) Sodium 140 135 - 145 mmol/L [facility] Potassium, pl 3.7 3.3 - 4.9 mmol/L [facility] Comment:Hemolyzed; (++); pot assium value may be falsely elevated by as much as 0.3 - 0.5 mmol/L. Suggest redraw and reanalysis. Chloride 105 97 - 110 mmol/L [facility] CO2 26 22 - 32 mmol/L [facility] Anion gap 9 2 - 15 mmol/L [facility] BUN 12 8 - 25 mg/dL [facility] Creatinine 0.78 0.60 - 1.10 mg/dL [facility] Glucose 138 70 - 199 mg/dL [facility] Comment: Interpretive Data Fasting glucose >/= 126 [...] 2017. Calcium 9.1 8.5 - 10.3 mg/dL [facility] Blood specimen (specimen) 12/31/2018 3:18 AM CDT 12/31/2018 3:34 AM CDT Narrative [facility] - 12/31/2018 3:58 AM CDT Rimma Horn MD LAB BLOOD ORDERAB LES Final Result [facility] One [facility] Department [place] [address] * (ABNORMAL) CBC without differential (12/30/2018 9:52 PM CDT) WBC 13.4(H) 3.8 - 9.9 K/cumm [facility] Hgb 13.2 11.9 - 15.5 g/dL [facility] Hct 39.9 35.6 - 45.5 % [facility] Plt 232 150 - 400 K/cumm [facility] MPV 10.0 9.1 - 12.[address] [facility] RBC 4.71 3.90 - 5.20 M/cumm [facility] MCV 84.7 81.3 - 96.[address] [facility] MCH 28.0 27.1 - 33.[address] [facility] MCHC 33.1 32.3 - 35.7 g/dL [facility] RDW CV 13.8 11.1 - 14.9 % [facility] RDW SD 43.1 35.7 - 48.[address] [facility] NRBC abs 0.04(H) 0.00 - 0.01 K/cumm [facility] Blood specimen (specimen) 12/30/2018 9:52 PM CDT 12/31/2018 4:20 AM CDT Narrative [facility] - 12/31/2018 4:28 AM CDT Jim Fraire MD LAB BLOOD ORDERABLES Final Result [facility] One [facility] Department [place] [address] * XR Knee Right 1 or 2 [...] exchange. Electronically signed by: Mary Mata M.D. Jim Fraire MD IMG XR PROCEDURES Final Res ult * Type and screen (12/30/2018 5:58 AM CDT) ABO Rh B Positive [facility] Jayce, indirect Negative [facility] Blood specimen (specimen) 12/30/2018 5:58 AM CDT 12/30/2018 6:13 AM CDT Narrative [facility] - 12/30/2018 7:05 AM CDT Has the patient had Daratumumab (Darzalex) in the past 6 months?->Unknown Cathy Johnson NP LAB BLOOD BANK TEST ORD ERABLES Final Result [facility] One [facility] Department [place] [address] * Prepare RBC: 1 Units (12/30/2018 5:36 AM CDT) Product code [id number] [facility] Unit Number [id number] [facility] Product Blood Type BPOS [facility] Dispense Status RETURNED [facility] Blood specimen (specimen) 12/30/2018 5:36 AM CDT 12/30/2018 5:35 AM CDT Narrative [facility] - 12/31/2018 7:47 AM CDT Specify Procedure:->total knee arthoplasty revision Are special requirements needed? (all products are leukoreduced)->No [facility][id number] [id number] Reasons:-Hold for procedure (specify procedure)} us Cathy Johnson NP BLOOD BANK PRODUCT ORDE CÉSAR Final Result [facility] Department [place] [address] documented in this encounter Visit Diagnoses Diagnosis Failed total knee arthroplasty (CMS/HCC) (HCC)- Primary Failure of total knee replacement, initial encounter (HCC) Failure of total knee replacement, initial encounter (HCC) documented in this encounter Admitting Diagnoses Diagnosis Failed total knee arthroplasty (CMS/HCC) (HCC) documented in this encounter Administered Medications Inactive Administered Medications - up to 3 most recent administrations Medication Order MAR Action Action Date Dose Rate Site amLODIPine (NORVASC) tablet 2.5 mg 2.5 mg, [...] Given 12/30/2018 3:48 PM CDT 1 spray bupivacaine-EPINEPHrine (MARCAINE with EPI) 60 mL, ketorolac (TORADOL) 15 mg solution As needed, Starting on Sat12/30/18 at 0828, Intra-Op Given 12/30/2018 8:28 AM CDT 60.5 mL camphor-menthol (SARNA) 0.5-0.5 % lotion topical, Every 2 hours PRN, other, itching, Starting on Sat12/30/18 at 1248, Apply to affected area: other, Indications: UrticariaIndications:Urticaria ceFAZolin (ANCEF) 1,000 mg in sodium chloride 0.9% 1,000 mL irrigation solution As needed, Starting on Sat12/30/18 at 0831, Intra-Op Given 12/30/2018 8:31 AM CDT 1,000 mL famotidine (PEPCID) tablet 20 mg 20 mg, [...] for uncontrolled or increasing pain., Indications: PainIndications:Pain montelukast (SINGULAIR) tablet 10 mg 10 mg, [...] 1:03 PM CDT 2 tablets sodium chloride 0.9 % irrigation As needed, Starting on Sat12/30/18 at 0833, Intra-Op Given 12/30/2018 8:33 AM CDT 1,000 mL sodium chloride 0.9% flush 0.5-20 mL [...] 9:30 AM CDT 100 mL/hr 100 mL/hr sterile water irrigation As needed, Starting on Sat12/30/18 at 0833, Intra-Op Given 12/30/2018 8:33 AM CDT 1,000 mL documented in this encounter Discontinued Medications Medication [...] 12/31/2018 azithromycin (ZITHROMAX) 1 gram powderIndications:Prop hylaxis, Medical,DEC 8 ON DAY 3 OF 5 Take [...] Thrombosis Prevention 2105 (Given - Provider: Mike Pierre RN) 08 (Given - Provider: Gissel Marie, JUDD) [...] Provider: Bret Estevez)2154 (Given - Provider: Mike Pierre RN) 0843 (Given - Provider: Gissel Marie, JUDD) [...] 1 dose 0957 (Given - Provider: Sobeida Morales, JUDD) diphenhydrAMINE (BENADRYL) injection 12.5 mg (COMPLETED) 12.5 mg, intravenous, Administer over 2 Minutes, Once, On Sat12/30/18 at 1100, For 1 dose, Phase I 1022 (Given - Provider: Sobeida Morales, JUDD) famotidine (PEPCID) tablet 20 mg 20 mg, oral, 2 times daily, First dose on Sat12/30/18 at 1330, Indications: Heartburn 1304 (Given - Provider: Gisell Walker RN)2106 (Given - Provider: Mike Pierre, JUDD) 0805 (Given - Provider: Gissel Marie, JUDD) ketorolac (TORADOL) injection 15 mg (COMPLETED) 15 mg, intravenous, Every 6 hours, First dose on Sat12/30/18 at 1330, For 2 doses, For Adult IV push, administer over 15 seconds, Indications: Pain 1303 (Given - Provider: Gisell Walker, JUDD)2104 (Given - Provider: Mike Pierre, JUDD) Lactated Ringer's (LR) bolus 1,000 mL (COMPLETED) 1,000 mL, intravenous, Once, On Sat12/30/18 at 0615, For 1 dose, Pre-Op 0554 (New Bag - Provider: Kateryna Sharpe, JUDD)0655 (Stopped - Provider: Kateryna Sharpe RN) montelukast (SINGULAIR) tablet 10 mg 10 mg, oral, Nightly, First dose on Sat12/30/18 at 2100, Indications: Allergic Rhinitis 210 (Given - Provider: Mike Pierre, JUDD) PARoxetine (PAXIL) tablet 20 mg 20 mg, oral, Every morning, First dose on Sat12/31/18 at 0900, Indications: depression 0804 (Given - Provid er: Gissel Marie RN) pramipexole (MIRAPEX) tablet 0.125 mg 0.125 mg, oral, Daily, First dose (after last modification) on Sat12/30/18 at 1445, Indications: Restless Legs Syndrome 1422 (Given - Provider: Gisell Walker, JUDD) 0805 (Given - Provider: Gissel Marie, JUDD) pramipexole (MIRAPEX) tablet 0.375 mg 0.375 mg, oral, Nightly, First dose on Sat12/30/18 at 2100 2105 (Given - Provider: Mike Pierre, JUDD) senna-docusate (PERICOLACE) 8.6-50 mg per tablet 2 [...] and size. 1415 (Given - Provider: Bret Estevez)2109 (Not Given - Provider: Mike Pierre, JUDD - Reason: Other) 0414 (Not Given - Provider: Mike Pierre RN - Reason: Other)1400 (Due) Continuous Medication Order 12/29/2018 12/30/2018 12/31/2018 Lactated Ringer's (LR) infusion (CANCELED) 30 mL/hr, intravenous, Continuous, Starting on Sat12/30/18 at 0615, Pre-Op 0656 (New Bag - Provider: Kateryna Sharpe RN)0723 (Anesthesia Volume Adjustment - Provider: Hal Gaviria CRNA)0744 (New Bag - Provider: Hipolito Rob [...] 0930 (New Bag - Provider: Lonnie Morales, RN)0931 (New Bag - Provider: Lashay Valiente RN) PRN Medication Order 12/29/2018 12/30/2018 12/31/2018 bupivacaine-EPINEPHrine [...] Estevez)2154 (Given - Provider: Mike Pierre, JUDD) 0205 (Given - Provider: Mike Pierre, JUDD)0608 (Given - Provider: Mike Pierre, JUDD)1009 (Given - Provider: Gissel Marie, JUDD)1155 (Given - Provider: Gissel Marie, JUDD) HYDROmorphone (DILAUDID) injection 0.2 mg 0.2 mg, [...] Date First Ordered Date acetaminophen (TYLENOL) tablet 650 mg 1 amLODIPine (NORVASC) tablet 2.5 mg 1 2018 aspirin enteric coated tablet 325 mg 1 12/06 atorvastatin (LIPITOR) tablet 10 mg 1 12/30 azelastine (ASTELIN) 137 mcg (0.1 %) nasal spray 1 spray 1 12/30/2018 camphor-menthol (SARNA) 0.5-0.5 % lotion 1 12/30/2018 ceFAZolin (ANCEF) 1 gram/10 mL in sterile water (premix) 1,000 mg 1 12/30/2018 ceFAZolin (ANCEF) 2,000 mg/2 0 mL in sterile water (premix) 2,000 mg 1 12/30/2018 diphenhydrAMINE (BENADRYL) i njection 12.5 mg 2 12/30/2018 famotidine (PEPCID) tablet 20 mg 1 12/31/19 19 HYDROcodone-acetaminophen (N ORCO) 5-325 mg per tablet 1 tablet 1 12/30/2018 HYDROmorphone (DILAUDID) injection 0.2 mg 2 12/30/2018 ketorolac (TORADOL) injection 15 mg 2 12/30 Lactated Ringer's (LR) bolus 1,000 mL 1 Lactated Ringer's (LR) infusion 3 9 montelukast (SINGULAIR) tablet 10 mg 1 12/06 naloxone (NARCAN) 0.4 mg/mL injection 0.04-0.4 mg 1 12/30/2018 ondansetron (ZOFRAN) injection 4 mg 2 12/30 ondansetron ODT (ZOFRAN-ODT) disintegrating tablet 4 mg 1 12/30/2018 oxyCODONE-acetaminophen (PER COCET) 5-325 mg per tablet 1 tablet 1 12/30/2018 PARoxetine (PAXIL) tablet 20 mg 1 9 polyethylene glycol (MIRALAX) packet 17 g 1 12/30/2018 pramipexole (MIRAPEX) tablet 0.125 mg 2 pramipexole (MIRAPEX) tablet 0.375 mg 1 pramipexole tablet extended release 24 hr 1 tablet 1 12/30/2018 senna-docusate (PERICOLACE) 8.6-50 mg per tablet 2 tablet 1 12/30/2018 sodium chloride 0.9% flush 0.5-20 mL 3 12/06 sodium chloride 0.9% infusion 1 12/30/2018 tranexamic acid (CYKLOKAPRON ) 1,000 [...] 12/31/20182018 documented in this encounter Care Teams Formulation Technician Relationship Specialty Start Date End Date Arben Paredes MD PCP - General 01/24/17 06/01/24 documented as of this encounter
--- OUTSIDE RECORDS SUMMARY | 2024-10-13 00:41 | XMS_ITS | Encounter Summary ---
Author Organization [facility] Care Team Providers Care Wire Spring Relay Adjuster Name Role Phone Unavailable Primary Care Provider Unavailabl e Encounter Details Date Type Department Care Team (Late st Contact Info) Description 02/06/2016 9:56 AM CDT - 02/06/2016 4:00 PM T Hospital Encounter [facility] Carole Crane MD [address] [facility] [place] [address] Other diseases of stomach and duodenum; Abdominal pain; Diverticulosis of small intestine without perforation or abscess without bleeding; Sleep apnea; Essential (primary) hypertension; Acquired absence of other specified parts of digestive tract Social History Tobacco Use Types Packs/Day Years Used Date Smoking Tobacco: Never Comments Unknown Sex and Gender Information Value Date Recorded Sex Assigned at Not on file 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 Gender Identity Not on file Sexual Orientation Not on file documented as of this encounter Medications at Time of Discharge ketoconazole (NIZORAL) 2 % creamIndications: do not apply near incision apply to rash on body BID PRN 03/29/2014 03/25/2020 triamcinolone (KENALOG) 0.1 % ointment apply to red areas on chest and arms bid prn 08/08/2015 12/12/2018 documented as of this encounter Plan of Treatment Not on file documented as of this encounter Procedures Procedure Name Priority Date/Time Associated Diagnosis Comments UPPER ENDOSCOPIC ULTRASONOGRAPHY REPORT 02/06/2016 documented in this encounter Results * UPPER ENDOSCOPIC ULTRASONOGRAPHY REPORT (02/06/2016) Anatomical Region Laterality Modality Other Narrative 02/06/2016 Ordered by an unspecified provider. us Historical Provider GI PROCEDURE ORDERABLES F inal Result documented in this encounter Visit Diagnoses Diagnosis Other diseases of stomach and duodenum Abdominal pain Abdominal pain, unspecified site Diverticulosis of small intestine without perforation or abscess without bleeding Sleep apnea Unspecified sleep apnea Essential (primary) hypertension Unspecified essential hypertension Acquired absence of other specified parts of digestive tract documented in this encounter
--- OUTSIDE RECORDS SUMMARY | 2024-10-13 00:41 | XMS_ITS | Encounter Summary ---
Author Organization [facility] Address [address] [place] [address] Phone Care Team Providers Care Medical Genetics Director Name Role Phone Arben Paredes MD Primary Care Provider [phone] Encounter Details Date Type Department Care Team (Late st Contact Info) Description 08/14/2018 Telephone [facility] Orthopaedic Surgery [address] [facility] [address] [place] [address] Gladis De Leon Social History Tobacco Use Types Packs/Day Years Used Date Smoking Tobacco: Former Comments Unknown Sex and Gender Information Value Date Recorded Sex Assigned at Not on file 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 Your upcoming surgery with Dr. Fraire is coded as an inpatient procedure- plan on 1 night in [facility]. Pt understands. CIPAL CONSULTING ENGINEER documented in this encounter Plan of Treatment Not on file documented as of this encounter Visit Diagnoses Not on filedocumented in this encounter Care Teams Medical Genetics Director Relationship Specialty Start Date End Date Arben Paredes MD PCP - General 01/24/17 06/01/24 documented as of this encounter
--- OUTSIDE RECORDS SUMMARY | 2024-10-13 00:41 | XMS_ITS | Encounter Summary ---
Author Organization [facility] Address [address] [place] [address] Care Team Providers Care Remote Sensing Analyst Name Role Phone Unavailable Primary Care Provider Unavailabl e Encounter Details Date Type Department Care Team (Late st Contact Info) Description 01/31/2016 7:20 AM CDT - 01/31/2016 9:58 AM CDT Hospital Encounter [facility] Kay MD [address] [place] [address] [address] Gastro-esophageal reflux disease with esophagitis; Other diseases of stomach and duodenum; Diaphragmatic hernia without obstruction or gangrene; Essential (primary) hypertension; History of colonic polyps; Acquired absence of other specified parts of digestive tract Social History Tobacco Use Types Packs/Day Years Used Date Smoking Tobacco: Never Comments Unknown Sex and Gender Information Value Date Recorded Sex Assigned at Not on file 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 Gender Identity Not on file Sexual Orientation [...] Procedure Name Priority Date/Time Associated Diagnosis Comments HELICOBACTER PYLORI UREASE SCREEN, CDR Routine 01/31/2016 9:10 AM CDT EGD IMAGES 01/31/2016 DISCHARGE LABORATORY CUMULATIVE REPORT 01/31/2016 SURGICAL PATHOLOGY 01/31/2016 documented in this encounter Results * Helicobacter pylori urease screen (01/31/2016 9:10 AM CDT) Biopsy (Unknown) 01/31/2016 9:10 AM CDT Narrative HISTORICAL RESULTS - 02/01/2016 10:54 AM CDT Negative Sade Test Result [facility] Provider LAB MICROBIOLOGY - GENERA L ORDERABLES Final Result HISTORICAL RESULTS * DISCHARGE LABORATORY CUMULATIVE REPORT (01/31/2016) Narrative 01/31/2016 Ordered by an unspecified provider. [facility] Provider LAB BLOOD ORDERABLES Belinda l Result * Surgical pathology (01/31/2016) Narrative 01/31/2016 Ordered by an unspecified provider. [facility] Provider LAB PATHOLOGY ORDERABLES Final Result * EGD IMAGES (01/31/2016) Anatomical Region Laterality Modality Other Narrative 01/31/2016 Ordered by an unspecified provider. [facility] Provider GI PROCEDURE ORDERABLES F inal Result documented in this encounter Visit Diagnoses Diagnosis Gastro-esophageal reflux disease with esophagitis Reflux esophagitis Other diseases of stomach and duodenum Diaphragmatic hernia without obstruction or gangrene Diaphragmatic hernia without mention of obstruction or gangrene Essential (primary) hypertension Unspecified essential hypertension History of colonic polyps Personal history of colonic polyps Acquired absence of other specified parts of digestive tract documented in this encounter
--- OUTSIDE RECORDS SUMMARY | 2024-10-13 00:41 | XMS_ITS | Encounter Summary ---
Author Organization [facility] Address [address] [place] [address] Phone Care Team Providers Care Barge Master Name Role Phone Arben Paredes MD Primary Care Provider [phone] Encounter Details Date Type Department Care Team (Late st Contact Info) Description 01/02/2017 Orders Only [facility] [place], [place] Anthony Rodríguez MD [address] [facility] [address] [place] [address] Social History Tobacco Use Types Packs/Day Years Used Date Smoking Tobacco: Never Comments Unknown Sex and Gender Information Value Date Recorded Sex Assigned at Not on file 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 SEX: F [address] COLLECTED: 01/02/2017 : 1950 (Age: 66) [address] RECEIVED: 01/03/2017 [place], [place] ?? [address] REPORTED 01/04/2017 ?? [phone] ? DERMATOPATHOLOGY REPORT RESULTS ?? DIAGNOSIS: A. ??SKIN, RIGHT MEDIAL CLAVICLE, SHAVE BIOPSY: ? BASAL CELL CARCINOMA B. ??SKIN, BACK, SHAVE BIOPSY: ? SEBORRHEIC KERATOSIS, INFLAMED cdh/isr Vesta Potts M.D. ??Electronic Signature: 01/04/2017 11:06:49 CLINICAL INFORMATION A. ??PINK PAPULE; R/O BCC. B. ??SCALY RED ENLARGED PAPULE; R/O SCCIS. SPECIMEN DATA MICROSCOPIC DESCRIPTION: A. ??Irregular aggregates of atypical basal epithelial cells with palisading of their peripheral nuclei are present within the dermis. (C44.91) B. ??There is hyperkeratosis, papillated and reticulated epithelial hyperplasia, horn pseudocysts and an inflammatory cell infiltrate. (L82.0) GROSS DESCRIPTION: A. ??Received in a formalin-containing bottle is a superficial fragment of david and wrinkled skin measuring 0.8 by 0.6 by 0.1 cm. The specimen is sectioned into 3 pieces and submitted entirely in a single cassette. Due to shrinkage, measurements may be different than those at time of procedure. B. ??Received in a formalin-containing bottle is a superficial fragment of david and crusted skin measuring 1.8 by 0.7 by 0.1 cm. The specimen is sectioned into 3 pieces and submitted entirely in a single cassette. Due to shrinkage, measurements may be different than those at time of procedure. maged/justino The characteristics of some immunohistochemical and immunofluorescence stains as well as in-situ hybridization tests were determined by the [facility] in ongoing senior data quality analyst and in compliance with regulations drawn from the Clinical Laboratory Improvement Act of 1988 (CLIA '88). These tests may rely on the use of analyte specific reagents that are subject to specific labeling requirements by the [place] FDA, and may only be performed in a facility that is certified by the [facility] as a high-complexity laboratory under CLIA '88. These tests are used for clinical purposes and are not investigational.For lab developed tests and IVAN, the validation has been reviewed; the performance is considered acceptable for patient testing. IVAN has not been approved by the US FDA; lipemic/hemolyzed samples can affect the diagnosis. Anthony Rodríguez MD LAB PATHOLOGY ORDERABLES F inal Result [facility] [address] [place] [address] documented in this encounter Visit Diagnoses Not on filedocumented in this encounter Care Teams Barge Master Relationship Specialty Start Date End Date Arben Paredes MD PCP - General 01/24/17 06/01/24 documented as of this encounter
--- OUTSIDE RECORDS SUMMARY | 2024-10-13 00:41 | XMS_ITS | Encounter Summary ---
Author Organization [facility] Care Team Providers Care Sheet Pile Hammer Operator Name Role Phone Unavailable Primary Care Provider Unavailabl e Encounter Details Date Type Department Care Team (Late st Contact Info) Description 11/05/2013 - 11/05/2013 11:59 PM SOUP PERSON Hospital Encounter [facility] Roland, Mauro James MD [address] [facility] [id number] [place] [address] Other screening mammogram Social History Tobacco Use Types Packs/Day Years Used Date Smoking Tobacco: Never Assessed Comments Unknown Sex and Gender Information Value Date Recorded Sex Assigned at Not on file Legal Sex Female 9:36 AM 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 FINAL REPORT ACC# ??Date Time ??Exam [id number] Nov 05, 2013 11:38:00 [facility] [id number] Screening Mamm Bilat ?? Technologist(s): Clover Rodriguez; ; EXAMINATION: ??Mammogram Technique: Bilateral Full-Field Digital Screening Mammogram was performed. ??Views obtained: ??bilateral craniocaudal and bilateral mediolateral oblique. Computer Aided Detection was performed with [employer] 1.3 version 9.3. Mammogram Findings: The present examination has been compared to prior imaging studies performed at [facility] on 10/31/2012, 09/21/2011 and 09/18/2010. There are scattered fibroglandular densities. There is no suspicious abnormality in either breast. IMPRESSION: ??Annual screening mammography is recommended. OVERALL FINAL ASSESSMENT: BI-RADS CATEGORY 1: ??Negative. Requested By: Mauro Watkins ??Kassidy Dictated By: ?? RADHA VILLA M.D. ??on Nov 06 2013 10:43A This document has been electronically signed by: RADHA VILLA M.D. on Nov 06 2013 10:43A Procedure Note Provider, MD Kelton - 02/06/2017 RADHA VILLA M.D. FINAL REPORT ACC# Date Time Exam [id number] Nov 05, 2013 11:38:00 [facility] [id number] Screening Mamm Bilat Technologist(s): Clover Rodriguez; ; EXAMINATION: Mammogram Technique: Bilateral Full-Field Digital Screening Mammogram was performed. Views obtained: bilateral craniocaudal and bilateral mediolateral oblique. Computer Aided Detection was performed with Avexxin 1.3 version 9.3. Mammogram Findings: The present examination has been compared to prior imaging studies performed at [facility] on 10/31/2012, 09/21/2011 and 09/18/2010. There are scattered fibroglandular densities. There is no suspicious abnormality in either breast. IMPRESSION: Annual screening mammography is recommended. OVERALL FINAL ASSESSMENT: BI-RADS CATEGORY 1: Negative. Requested By: Mauro Watkins M.D. Dictated By: RADHA VILLA M.D. on Nov 06 2013 10:43A This document has been electronically signed by: RADHA VILLA M.D. on Nov 06 2013 10:43A Historical Provider MD [facility] MAMMO PROCEDURES Belinda l Result documented in this encounter Visit Diagnoses Diagnosis Other screening mammogram documented in this encounter
--- OUTSIDE RECORDS SUMMARY | 2024-10-13 00:41 | XMS_ITS | Encounter Summary ---
Author Organization [facility] Address [address] [place] [address] Phone Care Team Providers Care Shoe Repairer Apprentice Name Role Phone Arben Paredes MD Primary Care Provider [phone] Reason for Visit * Dermatology (Routine) - Closed Specialty Diagnoses / Procedures Referred By Contac t Referred To Contact Dermatology Diagnoses Abstratcted Appt Comment: PER TASK LEILANI/ 5WEEK F/U Procedures IN OFFICE PROCEDURE Libertad Alegre MD Phone: tel: fax: Anthony Rodríguez MD [address] [place] [address] [address] [place] [address] Phone: tel: fax: Referral ID Status Reason Start Date Expiration Date Visits Re quested Visits Authorized [id number] Closed 08/08/2017 08/08/2018 12 10 Encounter Details Date Type Department Care Team (Latest Contact Info) Description 03/11/2018 2:00 PM CDT Procedure visit 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 HPI: Rebeka Hsieh presents today for follow up for SCCIS biopsied on nasal supratip 01/09/18. She has since treated with area with 5-FU topical two weeks bid and notes it became slightly red. She notes the area appears depressed since the biopsy. No symptoms. No other concerns today. ROS: No fever, cp, cough, sob, headache, weight change, lad, abdominal pain, n/v, diarrhea, numbness/tingling/weakness, no vision change, no difficulty/pain swallowing, no skin sores, no fatigue, no dizziness, no depression symptoms PHYSICAL EXAM: Stagecoach depressed biopsy site on supranasal tip, well healed without scale or erosion or scab. Otherwise: GENERAL: Appears well. No acute distress. ORIENTATION: Alert and oriented x3. MOOD/AFFECT: Normal affect. FACE: No abnormalities noted. EARS: No abnormalities noted. SCALP/HAIR: No abnormalities noted. EYES/EYELIDS: No scleral icterus. No abnormalities noted of conjunctiva or eyelids. LIPS/ORAL MUCOSA: No abnormalities noted. NECK: No abnormalities noted. ASSESSMENT AND PLAN: Problem List History of nonmelanoma skin cancer (Chronic) Overview Description: NER, Photoprotection,; Regular MD FBSE next visit. 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 Area appears to be helaing well with no clinically evident residual SCCIS. Patient counseled to re-treat area with 5- FU topical bid for 2 weeks at some pointbefore follow up in 6 months. Relevant Medications fluorouracil (EFUDEX) 5 % cream ketoconazole (NIZORAL) 2 % cream triamcinolone (KENALOG) 0.1 % ointment Scar of nose Overview From SCCIS that has been biopsied. Patient counseled on sun protection and dermablend. Light pink color will likely improve over time. Discussed option of referral for laser or scar revision. Recheckat follow up visit. 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 montelukast (SINGULAIR) 10 mg tabletIndication s:Allergic Rhinitis Take 1 tablet (10 mg total) by mouth nightly calcium carbonate-vitami n D3 (CALTRATE WITH VITAMIN D3) 1,500 mg (600mg elemental) -800 unit per tabletIndication s:Prevention of Vitamin D Deficiency Take 1 tablet by mouth every morning azelastine (ASTELIN) 137 mcg (0.1 %) nasal sprayIndications :Seasonal Allergic Rhinitis Administer 1 spray into each nostril 2 (two) times a day triamcinolone (KENALOG) 0.1 % ointment apply to red areas on chest and arms bid prn 08/08/[address] (PROTONIX) 40 mg EC tablet 9 multivitamin tabletIndication s:Vitamin Deficiency Prevention 1 tablet every morning 9 pramipexole (MIRAPEX) 0.75 mg tablet 9 atorvastatin (LIPITOR) 80 mg tablet 8 ketoconazole (NIZORAL) 2 % creamIndications :do not apply near incision apply to rash on body BID PRN 03/29/2014 0 hydroCHLOROthiaz bonilla (HYDRODIURIL) 12.5 mg tablet 9 fluorouracil (EFUDEX) 5 % cream ARUNA TO NOSE BID FOR 2 WKS THEN STOP 0 01/15/2018 9 cephalexin (KEFLEX) 500 mg capsule TK 1 C PO Q 6 H FOR 24 H BEFORE APPT AND 24 HOURS AFTER APPT 0 02/04/2018 03/08/201 9 added in this encounter Care Teams Shoe Repairer Apprentice Relationship Specialty Start Date End Date Arben Pardees MD PCP - General 01/24/17 06/01/24 documented as of this encounter
--- OUTSIDE RECORDS SUMMARY | 2024-10-13 00:41 | XMS_ITS | Encounter Summary ---
Author Organization [facility] Facility Care Team Providers Care Motel Food Service Supervisor Name Role Phone Unavailable Primary Care Provider Unavailabl e Encounter Details Date Type Department Care Team (Late st Contact Info) Description 01/21/2015 - 01/21/2015 11:59 PM CDT Hospital Encounter [facility] Roland, Mauro James MD [address] [facility] [id number] [place] [address] Other screening mammogram; Inconclusive mammogram Social History Tobacco Use Types Packs/Day Years Used Date Smoking Tobacco: Never Comments Unknown Sex and Gender Information Value Date Recorded Sex Assigned at Not on file 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 Gender Identity Not on file Sexual Orientation Not on file documented as of this encounter Medications at Time of Discharge ketoconazole (NIZORAL) 2 % creamIndications: do not apply near incision apply to rash on body BID PRN 03/29/2014 03/25/2020 documented as of this encounter Plan of Treatment Not on file documented as of this encounter Procedures Procedure Name Priority Date/Time Associated Diagnosis Comments SCREENING MAMMOGRAM Routine 01/21/2015 1 1:50 AM CDT documented in this encounter Results * Screening Mammogram (01/21/2015 11:50 AM CDT) Anatomical Region Laterality Modality Breast N/A Mammography 01/21/2015 11:5 0 AM CDT Narrative 01/24/2015 12:41 PM CDT CHIRAG YEE M.D. FINAL REPORT The radiology attending physician has personally reviewed this study, and has reviewed and/or edited this written report and agrees with it. ACC# ??Date Time ??Exam [id number] Jan 21, 2015 11:50:00 [facility] [id number] Bilateral Screen w Mauricio ?? Technologist(s): Susanna Sheffield; ; EXAMINATION: ??Mammogram Technique: Bilateral Bilateral Full-Field Digital Screening Mammogram and Digital Breast Tomosynthesis were performed. ??Views obtained: ??bilateral craniocaudal and bilateral mediolateral oblique. ??Computer Aided Detection of the 2D images was performed with [employer] version 9.3. Mammogram Findings: The present examination has been compared to prior imaging studies performed at [facility] on 11/05/2013, 10/31/2012, 09/21/2011, 09/18/2010 and 09/07/2009. There are scattered fibroglandular densities. There is no suspicious abnormality in either breast. IMPRESSION: ??Annual screening mammography is recommended. OVERALL FINAL ASSESSMENT: BI-RADS CATEGORY 1: ??Negative. Requested By: Dictated By: ?? CHIRAG YEE M.D. ??on Jan 24 2015 12:41P This document has been electronically signed by: CHIRAG YEE M.D. on Jan 24 2015 12:40P [id number] Procedure Note Provider, MD Kelton - 02/06/2017 CHIRAG YEE M.D. FINAL REPORT The radiology attending physician has personally reviewed this study, and has reviewed and/or edited this written report and agrees with it. ACC# Date Time Exam [id number] Jan 21, 2015 11:50:00 [facility] [id number] Bilateral Screen w Mauricio Technologist(s): Susanna Sheffield; ; EXAMINATION: Mammogram Technique: Bilateral Bilateral Full-Field Digital Screening Mammogram and Digital Breast Tomosynthesis were performed. Views obtained: bilateral craniocaudal and bilateral mediolateral oblique. Computer AidedDetection of the 2D images was performed with [employer] 1.3 version 9.3. Mammogram Findings: The present examination has been compared to prior imaging studies performed at [facility] on 11/05/2013, 10/31/2012,09/21/2011, 09/18/2010 and 09/07/2009. There are scattered fibroglandular densities. There is no suspicious abnormality in either breast. IMPRESSION: Annual screening mammography is recommended. OVERALL FINAL ASSESSMENT: BI-RADS CATEGORY 1: Negative. Requested By: Dictated By: CHIRAG YEE M.D. on Jan 24 2015 12:41P This document has been electronically signed by: CHIRAG YEE M.D. on Jan 24 2015 12:40P [id number] Historical Provider MD [facility] MAMMO PROCEDURES Belinda l Result documented in this encounter Visit Diagnoses Diagnosis Other screening mammogram Inconclusive mammogram documented in this encounter
--- OUTSIDE RECORDS SUMMARY | 2024-10-13 00:41 | XMS_ITS | Encounter Summary ---
Author Organization [facility] Address [address] [place] [address] Phone Care Team Providers Care Neurocritical Care Physician Name Role Phone Arben Paredes MD Primary Care Provider [phone] Reason for Referral * Diagnostic Imaging (Routine) - Closed Specialty Diagnoses / Procedures Referred By Contalbert t Referred To Contact Diagnoses Left knee pain, unspecified chronicity Aftercare following left knee joint replacement surgery Procedures XR Knee Left 3 Views Jim Fraire MD Phone: tel: fax: [address] [address] Referral ID Status Reason Start Date Expiration Date Visits Re quested Visits Authorized [id number] Closed 10/31/2018 05/11/2020 1 1 GALVANIZER Reason for Visit * Orthopedic (Routine) - Closed Specialty Diagnoses / Procedures Referred By Contac t Referred To Contact Orthopedic Surgery Diagnoses X - RT KN CLICKING PREV REPL NO RECENT FILMS DIRECT REQ Procedures KNEE NEW Arben Paredes MD Phone: tel: fax: Jim Fraire MD [address] [facility] [address] [place] [address] Phone: tel: fax: Referral ID Status Reason Start Date Expiration Date Visits Re quested Visits Authorized [id number] Closed 07/02/2018 07/02/2019 12 12 Encounter Details Date Type Department Care Team (Late st Contact Info) Description 11/03/2018 10:45 AM WIRE GALVANIZER Office Visit [facility] Orthopaedic Surgery [address] [facility] 6th [place] [address] [place] [address] Jim Fraire MD [address] [place] [address] Failure of total knee replacement, subsequent encounter (Primary Dx); Left knee pain, unspecified chronicity; Aftercare following left knee joint replacement surgery Social History Tobacco Use Types Packs/Day Years Used Date Smoking Tobacco: Former Comments Unknown Sex and Gender Information Value Date Recorded Sex Assigned at Not on file Legal Sex Female 9:36 AM WIRE GALVANIZER Gender Identity Not on file Sexual Orientation Not on file documented as of this encounter Progress Notes * Jim Fraire MD - 11/03/2018 10:45 AM CST The patient continues taken plane of pain and instability in her right knee. She had a tibial linerchange in the left knee for broken liner of 7 8 years ago and has done well following this. She is having similar symptoms on the right side with instability of 2+ with stress testing as well as functionally. Radiographs show subluxation of the right knee consistent with tibial liner wear or possibly breakage. Given her similar level of symptoms good result from liner change on the left side plan proceed with a tibial liner change on the right to a thicker ultra conforming implant. Risks benefits alternatives were discussed including the risk of persistent pain and instability. She understands and wish es to proceed. GALVANIZER documented in this encounter Plan of Treatment Not on file documented as of this encounter Results * XR Knee Left 3 Views (11/03/2018 11:11 AM WIRE GALVANIZER) Anatomical Region Laterality Modality Lower Extremities, Knee Left Computed Radiography 11/03/2018 11:1 7 AM WIRE GALVANIZER Impressions 11/03/2018 11:17 AM WIRE GALVANIZER 1. ??Left total knee arthroplasty in unchanged near-anatomic position. Electronically signed by: Mary Mata M.D. Narrative 11/03/2018 11:17 AM WIRE GALVANIZER EXAMINATION: Left knee 3 views HISTORY: ??Left knee osteoarthritis FINDINGS: 3 views of the left knee are performed with comparison to knee radiographs on 10/28/2017. There is a left total knee arthroplasty in unchanged near-anatomic position. There is no fracture. There is a small left knee joint effusion. Procedure Note Mary Mata MD - 11/03/2018 EXAMINATION: Left knee 3 views HISTORY: Left knee osteoarthritis FINDINGS: 3 views of the left knee are performed with comparison to knee radiographs on 10/28/2017. There is a left total knee arthroplasty in unchanged near-anatomic position. There is no fracture. There is a small left knee joint effusion. IMPRESSION: 1. Left total knee arthroplasty in unchanged near-anatomic position. Electronically signed by: Mary Mata M.D. Jim Fraire MD IMG XR PROCEDURES Final Res ult documented in this encounter Visit Diagnoses Diagnosis Failure of total knee replacement, subsequent encounter- Primary Left knee pain, unspecified chronicity Aftercare following left knee joint replacement surgery Left knee pain, unspecified chronicity Aftercare following left knee joint replacement surgery documented in this encounter Care Teams Neurocritical Care Physician Relationship Specialty Start Date End Date Arben Paredes MD PCP - General 01/24/17 06/01/24 documented as of this encounter
--- OUTSIDE RECORDS SUMMARY | 2024-10-13 00:41 | XMS_ITS | Encounter Summary ---
Author Organization [facility] Address [address] [place] [address] Phone Care Team Providers Care Trade Clerk Name Role Phone Arben Paredes MD Primary Care Provider [phone] Encounter Details Date Type Department Care Team (Late st Contact Info) Description 07/28/2018 Orders Only [facility] Orthopaedic Surgery [address] [facility] 2nd Floor [address] [place] [address] Alondra Hernández RMA Social History Tobacco Use Types Packs/Day Years Used Date Smoking Tobacco: Former Comments Unknown Sex and Gender Information Value Date Recorded Sex Assigned at Not on file 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 atorvastatin (LIPITOR) 10 mg tabletIndications :hyperlipidemia Take 1 tablet (10 mg total) by mouth nightly 07/27/2018 added in this encounter Care Teams Trade Clerk Relationship Specialty Start Date End Date Arben Paredes MD PCP - General 01/24/17 06/01/24 documented as of this encounter
--- OUTSIDE RECORDS SUMMARY | 2024-10-13 00:41 | XMS_ITS | Encounter Summary ---
Author Organization [facility] Address [address] [place] [address] Phone Care Team Providers Care Windows Desktop Support Name Role Phone Arben Paredes MD Primary Care Provider [phone] Encounter Details Date Type Department Care Team (Late st Contact Info) Description 10/18/2018 Orders Only [facility] Orthopaedic Surgery [address] [facility] 6th [place] [address] [place] [address] Jim Fraire MD [address] [place] [address] Failed total knee arthroplasty, initial encounter ([facility]) (Primary Dx) Social History Tobacco Use Types Packs/Day Years Used Date Smoking Tobacco: Former Comments Unknown Sex and Gender Information Value Date Recorded Sex Assigned at Not on file 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 START 5 DAYS PRIOR TO SURGERY DAY. 22 g 10/18/2018 9 documented in this encounter Plan of Treatment Not on file documented as of this encounter Visit Diagnoses Diagnosis Failed total knee arthroplasty, initial encounter (HCC)- Primary documented in this encounter Care Teams Windows Desktop Support Relationship Specialty Start Date End Date Arben Paredes MD PCP - General 01/24/17 06/01/24 documented as of this encounter
--- OUTSIDE RECORDS SUMMARY | 2024-10-13 00:41 | XMS_ITS | Encounter Summary ---
Author Organization [facility] Address [address] [place] [address] Phone Care Team Providers Care Nursing Home Assistant Name Role Phone Arben Paredes MD Primary Care Provider [phone] Encounter Details Date Type Department Care Team (Late st Contact Info) Description 07/28/2018 Documentation [facility] Orthopaedic Surgery [address] [facility] 6th [place] [address] [place] [address] Gladis De Leon Social History Tobacco Use Types Packs/Day Years Used Date Smoking Tobacco: Former Comments Unknown Sex and Gender Information Value Date Recorded Sex Assigned at Not on file 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 (home) [phone] (work) Procedure: R TKA Rev OR Date: 12/30/18 OR Location: [facility] Joint Development Professional Name: Yared PCP: Arben Paredes MD When was you last visit: 2018 Pre-Op Scheduling Anesthesia: Spinal Preferred Blood Requirements: T & C Consents: Surgery procedure consent obtained. Blood transfusion consent obtained. Preadmission Testing/Anesthesia H&P: Date: 12/12/18 Time: 10:30 Pre-Op Joint Class Scheduled for: Date: Time: PreHab Rx given to Patient: yes Faxed to: Doppler: n/a Date: Time: Pre-Op Meds/Anticoag: Instructed to stop primary prevention ASA/hormones/supplements 7 Days prior to surgery Instructed to stop NSAIDS 5 days prior to surgery Anticoagulation protocol discussed: ASA/Active Care Pumps 10 days Decolonization Instructions: Skin preparations guide Mupirocin Rx Prescription for Celebrex N/A The patient was given a TKA teaching packet including surgery guidelines with instructions, DECOL protocol instructions, instructions to stop all NSAID's, Blood thinners and aspirin products one weekbefore surgery, as well as office contacts to call if they have any additional questions prior to their surgery date. Current Outpatient Prescriptions: ??? amLODIPine (NORVASC) 2.5 mg tablet, daily., Disp: , Rfl: ??? atorvastatin (LIPITOR) 10 mg tablet, , Disp: , Rfl: ??? azelastine (ASTELIN) 137 mcg (0.1 %) nasal spray, , Disp: , Rfl: ??? calcium carbonate-vitamin D3 (CALTRATE WITH VITAMIN D3) 1,500 mg (600mg elemental) -800 unit per tablet, , Disp: , Rfl: ??? cephalexin (KEFLEX) 500 mg capsule, TK 1 C PO Q 6 H FOR 24 H BEFORE APPT AND 24 HOURS AFTER APPT, Disp: , Rfl: 0 ??? fluorouracil (EFUDEX) 5 % cream, ARUNA TO NOSE BID FOR 2 WKS THEN STOP, Disp: , Rfl: 0 ??? hydroCHLOROthiazide (HYDRODIURIL) 12.5 mg tablet, , Disp: , Rfl: ??? ketoconazole (NIZORAL) 2 % cream, apply to rash on body BID PRN, Disp: , Rfl: ??? levocetirizine (XYZAL) 5 mg tablet, , Disp: , Rfl: ??? montelukast (SINGULAIR) 10 mg tablet, , Disp: , Rfl: ??? multivitamin tablet, , Disp: , Rfl: ??? mupirocin (BACTROBAN) 2 % ointment, APPLY INSIDE NOSTRILS USING CLEAN Q-TIP TWICE DAILY FOR 5 DAYS. START 5 DAYS PRIOR TO SURGERY DAY., Disp: 22 g, Rfl: 0 ??? pantoprazole DR (PROTONIX) 40 mg EC tablet, , Disp: , Rfl: ??? PARoxetine (PAXIL) 20 mg tablet, , Disp: , Rfl: ??? pramipexole (MIRAPEX) 0.75 mg tablet, , Disp: , Rfl: ??? triamcinolone (KENALOG) 0.1 % ointment, apply to red areas on chest and arms bid prn, Disp: , Rfl: She is allergic to opioids - morphine analogues and nickel. Risk Assessment CARRILLO RISK: Yes STOP BANG Score: CMP(CO2): ordered Sleep Study: CPAP/BIPAP: Yes Malnutrition screen - CMP ordered Bone Health screen - Vitamin D Level Ordered: Yes No Oral Health: Healthy teeth Smoking History: No Family History of DVT/PE: No She reports that she has quit smoking. She does not have any smokeless tobacco history on file. Audit-C Alcohol Screening How often do you have a drink containing alcohol?: Never How many standard drinks containing alcohol do you have on a typical day?: 1 or 2 drinks How often do you have six or more drinks on one occasion?: Never Audit-C Score: 0 Male: Female: <3 (negative) Illegal Drug Use: Never Functional/Home Assessment tin flopper assistance: Live in available day/night In a: Home Home Accessibility: Stairs Home Environment: Entry Steps: Yes: Number of Steps: 14 Bedroom Location: 1st Floor Bathroom Location:1st Floor What Medical Devices/Equipment used: CPAP/BIPAP Are you able to self-manage activities of daily living: ADL's: Bathing, Dressing, Self-feeding, Personal Hygiene and Toilet Hygiene IADL's: Housework, Medications, Managing Money, Shopping and Telephone Transportation: Self Pre-Op Ambulation: Independent Community distances Projected Post-Op Weight bearing: Full or WBAT Home Location: < 150 miles RAPT: What is your age group?: Gender: How far on average can you walk? (a block is 200 meters): Which gait aid do you use most? (more often than not): Do you use community supports? (home-help, meals on wheels, district nursing): Will you live with someone who can care for you after your operation?: RAPT Total Score: (If <9 send to Recon INSTALLER INSPECTOR FINAL's floor care team for review) (If <6 [...] agreed to. Patient's preference: Home Agreed destination: Home with < 5 Home Health visits Social Work Referral: Potential Rehab/SNF Candidate: RRAT Infection Risk Factors: Is patient positive for MRSA colonization at CPAP?: Every Patient is decolonized per guideline. - Nasal Mupirocin (Bid x5 days pre-op) or povidone-iodine (DOS) and chlorhexidine gluconate (CHG) showers (QD x5 days prior to surgery & morning of surgery) and appropriate antibiotic coverage. - If these requirements are not met then HARD STOP until protocol implemented. Smoking (Tobacco Use): Current Smoker? Obesity: What is the patient's BMI? Encourage enrollment in nutritional counseling program. Cardiovascular Disease: Patient has a history of Coronary Artery Disease (CAD), stroke, Peripheral Vascular Disease or VTED, is 60 years of age or older and has at least 2 cardiac risk factors: All qualifying patients will require medical and/or cardiac clearance/and will be flagged for CPAP high risk screening/monitoring sloan-Operatively. Venous Thromboembolic Disease: Does the patient have a history of Pulmonary Embolus or Deep Vein Thrombosis? Does the patient have any of the following VTED risk factors: CVA, COPD, BMI>30, CAD, Stroke, PVD, or Activated Protein C Resistance? Neurocognitive, Psychological and Behavioral Problems (including alcohol and drug dependency): Does the patient have a history of alcohol abuse or chronic active narcotic dependency? Does the patient have any neurocognitive deficits such as traumatic brain injury (TBI)l active psychiatric illness, dementia, etc? Was the patient's last calculated PROMIS depression score greater than or equal to 60? Physical Deconditioning: Patient is nonambulatory or needs assistance with transfer status? Patient has comorbidities affecting physical function and ambulation? Diabetes: Is the patient diabetic? Last calculated Fasting Blood Glucose > 180 mg/dl? Last calculated Hgb A1c > 8? Is DM well controlled? RRAT Total Score: Recommendations for Preoperative Care/Optimization: < 2 Proceed with Scheduling Surgery. Gladis De Leon RN ETICS SUPERVISOR documented in this encounter Plan of Treatment Not on file documented as of this encounter Visit Diagnoses Not on filedocumented in this encounter Care Teams Nursing Home Assistant Relationship Specialty Start Date End Date Arben Paredes MD PCP - General 01/24/17 06/01/24 documented as of this encounter
--- OUTSIDE RECORDS SUMMARY | 2024-10-13 00:41 | XMS_ITS | Encounter Summary ---
Author Organization [facility] Address [address] [place] [address] Phone Care Team Providers Care Freelance Writer Name Role Phone Arben Paredes MD Primary Care Provider [phone] Reason for Referral * Diagnostic Imaging (Routine) - Closed Specialty Diagnoses / Procedures Referred By Contac t Referred To Contact Diagnoses Right knee pain, unspecified chronicity Procedures XR Knee Right 3 Views iJm Fraire MD Phone: tel: fax: [facility] [address] [place] [address] Referral ID Status Reason Start Date Expiration Date Visits Re quested Visits Authorized [id number] Closed 07/24/2018 02/02/2020 1 1 Reason for Visit * Orthopedic (Routine) - Closed Specialty Diagnoses / Procedures Referred By Contalbert t Referred To Contact Orthopedic Surgery Diagnoses X - RT KN CLICKING PREV REPL NO RECENT FILMS DIRECT REQ Procedures KNEE NEW Arben Paredes MD Phone: tel: fax: Jim Fraire MD [address] [facility] [address] [place] [address] Phone: tel: fax: Referral ID Status Reason Start Date Expiration Date Visits Re quested Visits Authorized [id number] Closed 07/02/2018 07/02/2019 12 12 Encounter Details Date Type Department Care Team (Late st Contact Info) Description 07/28/2018 7:30 AM CDT Office Visit [facility] Orthopaedic Surgery [address] [facility] 6th [place] [address] [place] [address] Jim Fraire MD [address] [place] [address] Right knee pain, unspecified chronicity (Primary Dx) Social History Tobacco Use Types Packs/Day Years Used Date Smoking Tobacco: Former Comments Unknown Sex and Gender Information Value Date Recorded Sex Assigned at Not on file 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 female presents c/o clicking and difficulty with going up and down stairs on the right. Shereports that she had B/L knees in 2008. She had the left knee revised by Dr. Fraire in 2009 due tofracture of the poly liner on the left. She denies any issue with motion or infections post operatively on the right. In addition, she reports that her right leg feels shorter than the right. She denies any recent infections. She reports that this clicking has been going on for a couple months. PAST MEDICAL HISTORY She has a past medical history of Aftercare following joint replacement surgery; Basal cell carcinoma of skin of other part of trunk; Cataract; and Personal history of other malignant neoplasm of skin. PAST SURGICAL HISTORY She has a past surgical history that includes Knee surgery and pr removal gallbladder. MEDICATIONS She has a current medication list which includes the following prescription(s): amlodipine, atorvastatin, azelastine, calcium carbonate-vitamin d3, cephalexin, fluorouracil, hydrochlorothiazide, ketoconazole, levocetirizine, montelukast, multivitamin, pantoprazole dr, paroxetine, pramipexole, and triamcinolone. ALLERGIES She is allergic to opioids - morphine analogues and nickel. SOCIAL HISTORY She reports that she has never smoked. She does not have any smokeless tobacco history on file. FAMILY HISTORY She family history includes Hypertension in her father. REVIEW OF SYSTEMS: 1. Sleep Apnea 2. Hemorrhoids 3. Seasonal allergies PHYSICAL EXAMINATION Well-developed well-nourished in no acute distress. Alert and oriented ??3. Normal respirations without dyspnea with speaking. Distal pulses are palpable and rhythm is regular. Neurologically intact to light touch throughout extremities. Skin is intact throughout the extremities. Gait: No Limp or with any aids. Tenderness to palpation at the medial joint line: No. Tenderness to palpation at the lateral joint line: No ROM R knee: -2-130 degrees of flexion ROM L knee: 0-130 degrees of flexion Pain with ROM of R hip: No Pain with ROM of L hip:No Motor: Bilateral lower extremity iliopsoas, quadriceps, hamstring, tibialis anterior, EHL, gastrocsoleus 5/5 Sensation: Sensation intact and symmetric in superficial peroneal, deep peroneal, sural and saphenous nerve distributions Stability: R: Extension: Opens up 3mm Medially with valgus stress and 2mm laterally with varus stress at 5 degrees of flexion. Flexion: Opens up 4mm Medially and 3 mm laterally at 30 degrees of flexion L: Extension: Opens up 1mm Medially with valgus stress and 2mm laterally with varus stress at 5 degrees of flexion. Flexion: Opens up 1mm Medially with valgus stress and 2mm laterally with varus stress at 30 degreesof flexion. Ant/Post with the knee at 90 degrees of flexion: Right: 4mm Left: 1mm REVIEW OF X-RAYS/STUDIES I have ordered and personally reviewed radiographs of the patient's B/L Knees. 1. S/p B/L CR knee replacements. Right knee with an intact cement mantle and increased tibial slopeon the tibial side and implants in overall acceptable alignment. Left knee is s/p L TKA with stableimplants in overall acceptable alignment. IMPRESSION 1. Flexion instability. 2. Left knee progressing well. PLAN/FOLLOW-UP The patient's main complaint is not pain, but clicking and instability. She's a candidate for rightknee revision with up sizing of the poly liner. We would start with a CBC and inflammatory labs to rule out infection. If the labs are elevated she would require a synovial fluid aspirate with analysis of the fluid for cell count, gram stain, and culture. We will get her on the schedule for a poly liner change. She has B/L Vangaurd CR knees from [employer]. Manolo [place] MD Recon Fellow [phone] Fraire was present for the entire encounter and formulated the plan above. documented in this encounter Plan of Treatment Not on file documented as of this encounter Results * XR Knee Right 3 Views (07/28/2018 7:23 AM CDT) Anatomical Region Laterality Modality Lower Extremities, Knee Right Computed Radiography 07/28/2018 7:33 AM CDT Impressions 07/28/2018 7:33 AM CDT Right total knee arthroplasty in near-anatomic position Electronically signed by: Marco Reardon M.D. Narrative 07/28/2018 7:33 AM CDT EXAMINATION: Right knee 3 views HISTORY: Right knee osteoarthritis FINDINGS: 3 view examination of the right knee is performed and compared to prior study on 09/17/2011. ??There is right total knee arthroplasty in near anatomic position. ??There is small knee effusion. ??There is no osteolysis. ??There is left total knee arthroplasty in expected position. Procedure Note Marco Reardon MD - 07/28/2018 EXAMINATION: Right knee 3 views HISTORY: Right knee osteoarthritis FINDINGS: 3 view examination of the right knee is performed and compared to prior study on 09/17/2011. There is right total knee arthroplasty in near anatomic position. There is small knee effusion. There is no osteolysis. There is left total knee arthroplasty in expected position. IMPRESSION: Right total knee arthroplasty in near-anatomic position Electronically signed by: Marco Reardon M.D. Jim Fraire MD IMG XR PROCEDURES Final Res ult documented in this encounter Visit Diagnoses Diagnosis Right knee pain, unspecified chronicity- Primary Right knee pain, unspecified chronicity documented in this encounter Care Teams Freelance Writer Relationship Specialty Start Date End Date Arben Paredes MD PCP - General 01/24/17 06/01/24 documented as of this encounter
--- OUTSIDE RECORDS SUMMARY | 2024-10-13 00:41 | XMS_ITS | Encounter Summary ---
Author Organization [facility] Address [address] [place] [address] Phone Care Team Providers Care Stringing Machine Tender Name Role Phone Arben Paredes MD Primary Care Provider [phone] Reason for Visit * Reason Comments Cataract * Ophthalmology (Routine) - Closed Specialty Diagnoses / Procedures Referred By Contac t Referred To Contact Ophthalmology Diagnoses Encounter for examination of eyes and vision without abnormal findings Appt Comment: 1Y FU Procedures RETURN Arben Paredes MD Phone: tel: fax: Julia Trimble MD [address] DEPT OPHTHALMOLOGY, [address] [address] Phone: tel: fax: Referral ID Status Reason Start Date Expiration Date Visits Re quested Visits Authorized [id number] Closed 04/11/2018 04/11/2019 12 12 Encounter Details Date Type Department Care Team (Late st Contact Info) Description 04/15/2018 10:15 AM CDT Office Visit 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 documented in this encounter Progress Notes * Julia Trimble MD - 04/15/2018 10:15 AM CDT Assessment/Plan Diagnoses and all orders for this visit: Nuclear sclerotic cataract of both eyes (Primary) Assessment & Plan: Not visually significant. Do not recommend surgery at this time. Continue to monitor. Patient to call if problems with activities of daily living. Brochure offered/given. Try MRx change. 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 Small optic nerves. Takes bp meds in the AM. Return in about 18 months (around 10/16/2019) for Dilated exam, Cataract eval. 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 Small optic nerves. Takes bp meds in the AM. * Assessment & Plan Note - Julia Trimble MD - 04/15/2018 11:12 AM CDT Associated Problem(s): Nuclear sclerotic cataract of both eyes Not visually significant. Do not recommend surgery at this time. Continue to monitor. Patient to call if problems with activities of daily living. Brochure offered/given. Try MRx change. 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 PARoxetine (PAXIL) 20 mg tabletIndications :depression Take 1 tablet (20 mg total) by mouth every morning 02/06/2018 pramipexole (MIRAPEX) 0.125 mg tablet 02/05/2018 04/15/2018 levocetirizine (XYZAL) 5 mg tablet 03/24/2018 12/12/2018 amLODIPine (NORVASC) 2.5 mg tabletIndications :hypertension Take 2 tablets (5 mg total) by mouth every morning 07/14/2024 added in this encounter Eye Exam Visual Acuity (Snellen - Linear) Right eye Left eye Dist cc 20/20 20/15 Correction: Glasses Tonometry (Applanation, 10:41 AM) Right eye Left eye Pressure 18 18 Pupils Dark Light Shape APD Right eye 4+ 3+ Round None Left eye 4+ 3+ Round None Visual Johnson Right eye Left eye Full Extraocular Movement Right eye Left eye Full, Ortho Full, Ortho Neuro/Psych Oriented x3: Yes Dilation Both eyes: 1.0% Mydriacyl @ 10:41 AM External Exam Right eye Left eye External Normal Normal Slit Lamp Exam Right eye Left eye Lids/Lashes Trace Dermatochalasis Trace Derm atochalasis Conjunctiva/Sclera White and quiet White and mehreen et Cornea Clear, no Guttata Clear, no Gutt piedad Anterior Chamber Deep and quiet Deep and quiet Iris Round and reactive Round and ayad ctive Lens 2+ Nuclear sclerosis 2+ Nuclear sclerosis Vitreous Normal Normal Fundus Exam Right eye Left eye Disc no Optic disc hemorrhage, slight ly crowded optic drusen, slightly crowded C/D Ratio 0.2 0.15 Macula Normal Normal Vessels Normal Normal Periphery Normal Normal Wearing Rx Sphere Cylinder Carrizozo Add Right eye +1.50 +0.75 180 +2.50 Left eye +1.00 +0.75 180 +2.50 Age: 1 yrs Type: tri Manifest Refraction #1 Sphere Cylinder Carrizozo Dist VA Add Right eye +1.75 +0.75 160 20/15 +2.75 Left eye +1.00 +0.75 180 20/15 +2.75 Manifest Refraction #2 Sphere Cylinder Carrizozo Dist VA Add Right eye +1.75 +0.75 160 20/15 +2.75 Left eye +1.25 +0.75 180 20/15 +2.75 Manifest Refraction Comments M2 LMT Final Rx Sphere Cylinder Carrizozo Dist VA Add Right eye +1.75 +0.75 160 20/15 +2.75 Left eye +1.25 +0.75 180 20/15 +2.75 Comments: TRIFOCAL Care Teams Stringing Machine Tender Relationship Specialty Start Date End Date Arben Paredes MD PCP - General 01/24/17 06/01/24 documented as of this encounter
--- OUTSIDE RECORDS SUMMARY | 2024-10-13 00:41 | XMS_ITS | Encounter Summary ---
Author Organization [facility] Healthcare Address [address] [place] [address] Care Team Providers Care Clothespin Drier Operator Name Role Phone Unavailable Primary Care Provider Unavailabl e Encounter Details Date Type Department Care Team (Late st Contact Info) Description 12/29/2011 9:25 PM CDT - 12/29/2011 11:59 PM CDT Hospital Encounter [facility], Te Fernandez MD [address] [facility] [address] [place] [address] Obstructive sleep apnea; Obesity; Body mass index 31.0-31.9, adult Social History Tobacco Use Types Packs/Day Years Used Date Smoking Tobacco: Never Assessed Comments Unknown Sex and Gender Information Value Date Recorded Sex Assigned at Not on file Legal Sex Female 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
--- OUTSIDE RECORDS SUMMARY | 2024-10-13 00:41 | XMS_ITS | Encounter Summary ---
Author Organization 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
--- OUTSIDE RECORDS SUMMARY | 2024-10-13 00:41 | XMS_ITS | Encounter Summary ---
Author Organization [facility] Address [address] [place] [address] Phone Care Team Providers Care Director Of Managed Services Name Role Phone Arben Paredes MD Primary Care Provider [phone] Encounter Details Date Type Department Care Team (Late st Contact Info) Description 07/30/2018 Orders Only [facility] Orthopaedic Surgery [address] [facility] [address] [facility] 6th [place] [address] [place] [address] Jim Fraire MD [address] [place] [address] Social History Tobacco Use Types Packs/Day Years Used Date Smoking Tobacco: Former Comments Unknown Sex and Gender Information Value Date Recorded Sex Assigned at Not on file Legal 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 Gender Identity Not on file Sexual Orientation Not on file documented as of this encounter Plan of Treatment Not on file documented as of this encounter Procedures Procedure Name Priority Date/Time Associated Diagnosis Comments CBC WITH AUTO DIFFERENTIAL Routine 07/30/2018 9:51 AM CDT ERYTHROCYTE SEDIMENTATION RATE Routine 07/30/2018 9:51 AM CDT CRP (ACUTE PHASE) Routine 07/30/2018 9:5 1 AM CDT documented in this encounter Results * CRP (acute phase) (07/30/2018 9:51 AM CDT) Pathologist [facility] C-RP 2.8 <8.0 mg/L [facility] [place] 07/30/2018 9:51 AM CDT 07/30/2018 9:52 AM CDT Narrative [facility] - 07/31/2018 12:51 PM CDT ORDER 1 OF 2 FASTING:NO FASTING: NO Resulting Agency Comment Performing Organization Information: ?Site ID: [place] ?Name: [facility] ?Address: [address] [place] [id number] ?Director: Hal Anglin D.O., MPH us Jim Fraire MD LAB BLOOD ORDERABLES Final Result [facility] - [place], [place] * (ABNORMAL) CBC with auto differential (07/30/2018 9:51 AM CDT) [facility] WBC 8.7 3.8 - 10.8 Thousand/ uL [facility] [place] RBC, POC 5.09 3.80 - 5.10 Million/u L [facility] [place] Hgb 13.9 11.7 - 15.5 g/dL [facility] [place] Hct 43.2 35.0 - 45.0 % [facility] [place] MCV 84.9 80.0 - 100.0 fL [facility] [place] MCH 27.3 27.0 - 33.0 pg [facility] [place] MCHC 32.2 32.0 - 36.0 g/dL [facility] [place] Rdw 13.9 11.0 - 15.0 % [facility] [place] Platelets 259 140 - 400 Thousand/ uL [facility] [place] MPV 9.9 7.5 - 12.5 fL [facility] [place] Neutrophils, abs 2,993 1,500 - 7,800 cells/uL [facility] [place] Lymphocytes, abs 4,924(H) 850 - 3,900 cells/uL [facility] [place] Monocyte abs 609 200 - 950 cells/uL [facility] [place] Eosinophils, abs 131 15 - 500 cells/uL [facility] [place] Basophils, abs 44 0 - 200 cells/uL [facility] [place] Neutrophils 34.4 % [facility] [place] Lymphocyte pct 56.6 % [facility] [place] Monocytes 7.0 % [facility] [place] Eosinophils 1.5 % [facility] [place] Basophils 0.5 % [facility] [place] 07/30/2018 9:51 AM CDT 07/30/2018 9:52 AM CDT Narrative [facility] - 07/31/2018 12:51 PM CDT ORDER 1 OF 2 FASTING:NO FASTING: NO Resulting Agency Comment Performing Organization Information: ?Site ID: [place] ?Name[facility] ?Address: [facility] [place] [id number] ?Director: Lyndsey Kline us Jim Fraire MD LAB BLOOD ORDERABLES Final Result Performing Organization Address City/[facility] Co de Phone Number [facility] [place], [place] * Erythrocyte sedimentation rate (07/30/2018 9:51 AM CDT) Erythrocyte sedimentation rate 2 < OR = 30 mm/h [facility] [place] 07/30/2018 9:51 AM CDT 07/30/2018 9:52 AM CDT Narrative [facility] - 07/31/2018 12:51 PM CDT ORDER 1 OF 2 FASTING:NO FASTING: NO Resulting Agency Comment Performing Organization Information: ?Site ID: [place] ?Name: [facility] ?Address: [facility] [place] [id number] ?Director: Lyndsey Kline us Jim Fraire MD LAB BLOOD ORDERABLES Final Result Performing Organization Address City/[facility] Co de Phone Number [facility] [place], [place] documented in this encounter Visit Diagnoses Not on filedocumented in this encounter Care Teams Director Of Managed Services Relationship Specialty Start Date End Date Arben Paredes MD PCP - General 01/24/17 06/01/24 documented as of this encounter
--- OUTSIDE RECORDS SUMMARY | 2024-10-13 00:41 | XMS_ITS | Encounter Summary ---
Author Organization [facility] Healthcare Address [address] [place] [address] Care Team Providers Care Quality Improvement Analyst Name Role Phone Arben Paredes MD Primary Care Provider [phone] Reason for Referral * Diagnostic Imaging (Routine) - Closed Specialty Diagnoses / Procedures Referred By Rosangela zabala Referred To Contact Diagnoses Left knee pain, unspecified chronicity Aftercare following left knee joint replacement surgery Procedures XR Knee Left 3 Views Jim Fraire MD Phone: tel: fax: [address] [address] Referral ID Status Reason Start Date Expiration Date Visits Re quested Visits Authorized [id number] Closed 10/31/2018 05/11/2020 1 1 R HEAD STRINGER Reason for Visit * Diagnostic Imaging (Routine) - Closed Specialty Diagnoses / Procedures Referred By Rosangela zabala Referred To Contact Diagnoses Left knee pain, unspecified chronicity Aftercare following left knee joint replacement surgery Procedures XR Knee Left 3 Views Jim Fraire MD Phone: tel: fax: [address] [phone] Referral ID Status Reason Start Date Expiration Date Visits Re quested Visits Authorized [id number] Closed 10/31/2018 05/11/2020 1 1 Encounter Details Date Type Department Care Team (Latest Contact Info) Description 11/03/2018 10:56 AM CIGAR HEAD STRINGER - 11/03/2018 11:59 PM CIGAR HEAD STRINGER Hospital Encounter [facility] [address] [place] [address] Jim Fraire MD [address] [place] [address] Left knee pain, unspecified chronicity; Aftercare following left knee joint replacement surgery Discharge Disposition: Discharge to home or self care Social History Tobacco Use Types Packs/Day Years Used Date Smoking Tobacco: Former Comments Unknown Sex and Gender Information Value Date Recorded Sex Assigned at Not on file Legal Sex Female 9:36 AM CIGAR HEAD STRINGER Gender Identity Not on file Sexual Orientation [...] needed for pain 70 tablet 12/31/2018 9 amLODIPine (NORVASC) 2.5 mg tabletIndication s:hypertension Take 2 tablets (5 mg total) by mouth every morning 4 aspirin 325 mg enteric coated tabletIndication s:Deep Vein Thrombosis Prevention Take 1 tablet (325 mg total) by mouth 2 (two) times a day 84 tablet 12/31/2018 1 azithromycin (ZITHROMAX) 250 mg tablet 0 09/03/2018 9 cephalexin (KEFLEX) 500 mg capsule TK 1 C PO Q 6 H FOR 24 H BEFORE APPT AND 24 HOURS AFTER APPT 0 02/04/2018 9 fluorouracil (EFUDEX) 5 % cream ARUNA TO NOSE BID FOR 2 WKS THEN STOP 0 01/15/2018 9 hydroCHLOROthiaz bonilla (HYDRODIURIL) 12.5 mg tablet 9 ketoconazole (NIZORAL) 2 % creamIndications :do not apply near incision apply to rash on body BID PRN 03/29/2014 0 levocetirizine (XYZAL) 5 mg tablet 03/24/2018 9 multivitamin tabletIndication s:Vitamin Deficiency Prevention 1 tablet every morning 9 mupirocin (BACTROBAN) 2 % ointment APPLY INSIDE NOSTRILS USING CLEAN Q-TIP TWICE DAILY FOR 5 DAYS. START 5 DAYS PRIOR TO SURGERY DAY. 22 g 10/18/2018 9 oxyCODONE-acetam inophen (PERCOCET) 5-325 mg per tabletIndication s:Pain Take 1-2 tablets by mouth every 4 (four) hours as needed for pain 70 tablet 12/30/[address] (PROTONIX) 40 mg EC tablet 9 senna-docusate (PERICOLACE) 8.6-50 mgIndications:co nstipation Take 2 tablets by mouth 2 (two) times a day 60 tablet 1 12/31/2018 1 triamcinolone (KENALOG) 0.1 % ointment apply to red areas on chest and arms bid prn 08/08/2015 9 documented as of this encounter Discharge Disposition Disposition Code Departure Means Destination Discharge to home or self care documented in this encounter Plan of Treatment Not on file documented as of this encounter Procedures Procedure Name Priority Date/Time Associated Diagnosis Comments XR KNEE LEFT 3 VIEWS Schedule Routine, Read Routine (OP Routine) 11/03/2018 11:11 AM CIGAR HEAD STRINGER Left knee pain, unspecified chronicity Aftercare following left knee joint replacement surgery documented in this encounter Results * XR Knee Left 3 Views (11/03/2018 11:11 AM CIGAR HEAD STRINGER) Anatomical Region Laterality Modality Lower Extremities, Knee Left Computed Radiography 11/03/2018 11:1 7 AM CIGAR HEAD STRINGER Impressions 11/03/2018 11:17 AM CIGAR HEAD STRINGER 1. ??Left total knee arthroplasty in unchanged near-anatomic position. Electronically signed by: Mary Mata M.D. Narrative 11/03/2018 11:17 AM CIGAR HEAD STRINGER EXAMINATION: Left knee 3 views HISTORY: ??Left [...] documented in this encounter Visit Diagnoses Diagnosis Left knee pain, unspecified chronicity Aftercare following left knee joint replacement surgery documented in this encounter Care Teams Quality Improvement Analyst Relationship Specialty Start Date End Date Arben Paredes MD PCP - General 01/24/17 06/01/24 documented as of this encounter
--- OUTSIDE RECORDS SUMMARY | 2024-10-13 00:41 | XMS_ITS | Encounter Summary ---
Author Organization [facility] Address [address] [place] [address] Phone Care Team Providers Care High School Librarian Name Role Phone Arben Paredes MD Primary Care Provider [phone] Encounter Details Date Type Department Care Team (Late st Contact Info) Description 08/19/2018 1:20 PM PHARMACIST MANAGER Office Visit [facility] Dermatology [address] [place] [address] [address] [place] [address] Anthony Rodríguez MD [address] [place] [address] [address] [place] [address] Inflamed seborrheic keratosis (Primary Dx); History of nonmelanoma skin cancer Social History Tobacco Use Types Packs/Day Years Used Date Smoking Tobacco: Former Comments Unknown Sex and Gender Information Value Date Recorded Sex Assigned at Not on file Legal Sex Female 9:36 AM PHARMACIST MANAGER Gender Identity Not on file Sexual Orientation Not on file documented as of this encounter Progress Notes * Anthony Rodríguez MD - 08/19/2018 1:20 PM CST Chief Complaint: growths on legs History of Present Illness: Rebeka Hsieh is a 68 y.o. 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 Erythematous david scaly stuck-on appearing papules on right upper thigh, left knee, and left forearm Otherwise: GENERAL: Appears well. No acute distress. ORIENTATION: Alert and oriented x3. MOOD/AFFECT: Normal affect. FACE: No abnormalities noted. EARS: No abnormalities noted. SCALP/HAIR: No abnormalities noted. EYES/EYELIDS: No scleral icterus. No abnormalities noted of conjunctiva or eyelids. LIPS/ORAL MUCOSA: No abnormalities noted. NECK: No abnormalities noted. EXTREMITIES (RUE): No abnormalities noted. EXTREMITIES (LUE): No abnormalities noted. EXTREMITIES (RLE): No abnormalities noted. EXTREMITIES (LLE): No abnormalities noted. DIGITS/NAILS: No cyanosis, clubbing, or nail abnormality. Assessment & Plan: 1. Inflamed seborrheic keratoses - LN2 x 7-10sec to 3 lesions today - blister care reviewed 2. Hx of NMSC - not addressed today RTC 6 months for regular FBSE Authored by: French Alegre MD Dermatology Resident, PGY-3 ATTESTATION: I have seen and examined the patient. I agree with the findings and plan of care as documented in the resident's note. I was present for the entire procedure. Anthony Rodríguez MD MACIST MANAGER documented in this encounter Plan of Treatment Not on file documented as of this encounter Visit Diagnoses Diagnosis Inflamed seborrheic keratosis- Primary History of nonmelanoma skin cancer documented in this encounter Care Teams High School Librarian Relationship Specialty Start Date End Date Arben Paredes MD PCP - General 01/24/17 06/01/24 documented as of this encounter
--- OUTSIDE RECORDS SUMMARY | 2024-10-13 00:41 | XMS_ITS | Encounter Summary ---
Author Organization [facility] Healthcare Address [address] [facility] [place] [address] Care Team Providers Care Mill Washer Name Role Phone Unavailable Primary Care Provider Unavailabl e Encounter Details Date Type Department Care Team (Late st Contact Info) Description 04/01/2012 2:05 PM CDT - 04/01/2012 11:59 PM CDT Hospital Encounter [place] [address] [address] Shortness of breath Social History Tobacco Use Types Packs/Day Years Used Date Smoking Tobacco: Never Assessed Comments Unknown Sex and Gender Information Value Date Recorded Sex Assigned at Not on file Legal Sex Female 9:36 AM MANAGER ACTION Gender Identity Not on file Sexual Orientation Not on file documented as of this encounter Plan of Treatment Not on file documented as of this encounter Visit Diagnoses Diagnosis Shortness of breath documented in this encounter
--- OUTSIDE RECORDS SUMMARY | 2024-10-13 00:41 | XMS_ITS | Encounter Summary ---
Author Organization [facility] Address [address] [place] [address] Phone Care Team Providers Care Language Specialist Name Role Phone Arben Paredes MD Primary Care Provider [phone] Encounter Details Date Type Department Care Team (Late st Contact Info) Description 12/25/2018 Telephone [facility] Orthopaedic Surgery [address] [place] [address] [place] [address] Claudia Velez Social History Tobacco Use Types Packs/Day Years Used Date Smoking Tobacco: Former Cigarettes 0.3 2 1 968 - 1970 Smokeless Tobacco: Never Alcohol Use Standard Drinks/Week Comments Yes 0 (1 standard drink = 0.6 oz pur e alcohol) RARELY Comments No Sex and Gender Information Value Date Recorded Sex Assigned at Not on file Legal Sex Female 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 Confirm patient understands exactly what medications should be held 1 week prior to surgery: Yes Verify patient understands exactly what medications to take AM of surgery: Yes Verify if patient has CPAP machine & remind them to bring it with them to the hospital: Yes Verify patient still has a joint transition coach that will be caring for them AT LEAST 3-5 days/24 hours a day post op: Yes If patient having Posterior HARITHA -- verify patient has a raised toilet seat & hip kit: Yes Verify changes in medical status: Yes If Yes, comment: no changes Verify clean skin integrity: Yes documented in this encounter Plan of Treatment Not on file documented as of this encounter Visit Diagnoses Not on filedocumented in this encounter Care Teams Language Specialist Relationship Specialty Start Date End Date Arben Paredes MD PCP - General 01/24/17 06/01/24 documented as of this encounter
--- OUTSIDE RECORDS SUMMARY | 2024-10-13 00:41 | XMS_ITS | Encounter Summary ---
Author Organization [facility] Address [address] [place] [address] Phone Care Team Providers Care Shellfish Shucker Name Role Phone Arben Paredes MD Primary Care Provider [phone] Encounter Details Date Type Department Care Team (Late st Contact Info) Description 10/23/2018 Orders Only [facility] Orthopaedic Surgery [address] 2[address] [place] [address] Alondra Hernández RMA Social History Tobacco Use Types Packs/Day Years Used Date Smoking Tobacco: Former Comments Unknown Sex and Gender Information Value Date Recorded Sex Assigned at Not on file Legal Sex Female 9:36 AM BRICK UNLOADER TENDER Gender Identity Not on file Sexual Orientation Not on file documented as of this encounter Plan of Treatment Not on file documented as of this encounter Visit Diagnoses Not on filedocumented in this encounter Discontinued Medications Medication Sig Discontinue Reason Start Date End Da te pramipexole (MIRAPEX) 0.75 mg tablet 10/23/2018 pramipexole (MIRAPEX) 0.125 mg tablet 07/28/2018 10/23/2018 documented as of this encounter Historical Medications * This list may reflect changes made after this encounter. pramipexole 0.375 mg tablet extended release 24 hrIndications:Res tless Legs Syndrome,ALSO TAKING AN AM DOSE Take 1 tablet by mouth daily with dinner 08/24/2018 pramipexole (MIRAPEX) 0.125 mg tablet 07/28/2018 10/23/2018 azithromycin (ZITHROMAX) 250 mg tablet 0 09/03/2018 12/12/2018 added in this encounter Care Teams Shellfish Shucker Relationship Specialty Start Date End Date Arben Paredes MD PCP - General 01/24/17 06/01/24 documented as of this encounter
--- OUTSIDE RECORDS SUMMARY | 2024-10-13 00:41 | XMS_ITS | Encounter Summary ---
Author Organization [facility] Address [address] [place] [address] Phone Care Team Providers Care Judo Teacher Name Role Phone Arben Paredes MD Primary Care Provider [phone] Encounter Details Date Type Department Care Team (Late st Contact Info) Description 08/01/2018 Telephone [facility] Orthopaedic Surgery [address] [facility] [address] 6th [place] [address] [place] [address] Ana Laura Hernandez RN Social History Tobacco Use Types Packs/Day Years Used Date Smoking Tobacco: Former Comments Unknown Sex and Gender Information Value Date Recorded Sex Assigned at Not on file Legal Sex Female 9:36 AM LANDFILL ATTENDANT Gender Identity Not on file Sexual Orientation Not on file documented as of this encounter Miscellaneous Notes * Telephone Encounter - Ana Laura Hernandez RN - 08/01/2018 10:35 AM CDT Patient called asking if surgery was going to out patient or inpatient. I discussed with patient about surgery and how it depends on the patient and doctor. Patient would like to spend the night in the hospital because she does not come out of anesthesia well Pt would also like labs to be faxed to Dr. Paredes at [facility]. documented in this encounter Plan of Treatment Not on file documented as of this encounter Visit Diagnoses Not on filedocumented in this encounter Care Teams Judo Teacher Relationship Specialty Start Date End Date Arben Paredes MD PCP - General 01/24/17 06/01/24 documented as of this encounter
--- OUTSIDE RECORDS SUMMARY | 2024-10-13 00:41 | XMS_ITS | Encounter Summary ---
Author Organization [facility] Facility Care Team Providers Care Ortho Tech Name Role Phone Unavailable Primary Care Provider Unavailabl e Encounter Details Date Type Department Care Team (Late st Contact Info) Description 10/31/2012 - 10/31/2012 11:59 PM RAIL SIGNAL WORKER Hospital Encounter [facility] Roland, Mauro James MD [address] [facility] [phone] [place] [address] Other screening mammogram Social History Tobacco Use Types Packs/Day Years Used Date Smoking Tobacco: Never Assessed Comments Unknown Sex and Gender Information Value Date Recorded Sex Assigned at Not on file Legal Sex Female 9:36 AM RAIL SIGNAL WORKER Gender Identity Not on file Sexual Orientation Not on file documented as of this encounter Plan of Treatment Not on file documented as of this encounter Procedures Procedure Name Priority Date/Time Associated Diagnosis Comments SCREENING MAMMOGRAM Routine 10/31/2012 1 0:20 AM RAIL SIGNAL WORKER documented in this encounter Results * Screening Mammogram (10/31/2012 10:20 AM RAIL SIGNAL WORKER) Anatomical Region Laterality Modality Breast N/A Mammography 10/31/2012 10:2 0 AM RAIL SIGNAL WORKER Narrative 10/31/2012 5:06 PM RAIL SIGNAL WORKER CHIRAG YEE M.D. FINAL REPORT ACC# ??Date Time ??Exam [id number] Oct 31, 2012 10:20:00 [facility] [id number] Screening Mamm Bilat ?? Technologist(s): Soumya Israel; ; EXAMINATION: ??Mammogram Findings: A Full-Field Digital Screening Mammogram was performed. ??Views obtained: bilateral craniocaudal; bilateral mediolateral oblique. Computer Aided Detection was performed with R2, version 9.2. The present examination has been compared to prior imaging studies performed at [facility] on 09/21/2011, 09/18/2010, 09/07/2009, 08/20/2008 and 08/05/2007. There are scattered fibroglandular densities. There is no suspicious abnormality in either breast. IMPRESSION: ??Annual screening mammography is recommended. OVERALL FINAL ASSESSMENT: BI-RADS CATEGORY 1: ??Negative. Requested By: Mauro Watkins ??Kassidy Dictated By: ?? CHIRAG YEE M.D. ??on Oct 31 2012 ??5:06P This document has been electronically signed by: CHIRAG YEE M.D. on Oct 31 2012 ??5:06P Procedure Note Provider, MD Kelton - 02/06/2017 CHIRAG YEE M.D. FINAL REPORT ACC# Date Time Exam [id number] Oct 31, 2012 10:20:00 [facility] [id number] Screening Mamm Bilat Technologist(s): Soumya Israel; ; EXAMINATION: Mammogram Findings: A Full-Field Digital Screening Mammogram was performed. Views obtained: bilateral craniocaudal; bilateral mediolateral oblique. Computer Aided Detection was performed with R2, version 9.2. The present examination has been compared to prior imaging studies performed at [facility] on 09/21/2011, 09/18/2010,09/07/2009, 08/20/2008 and 08/05/2007. There are scattered fibroglandular densities. There is no suspicious abnormality in either breast. IMPRESSION: Annual screening mammography is recommended. OVERALL FINAL ASSESSMENT: BI-RADS CATEGORY 1: Negative. Requested By: Mauro Watkins M.D. Dictated By: CHIRAG YEE M.D. on Oct 31 2012 5:06P This document has been electronically signed by: CHIRAG YEE M.D. on Oct 31 2012 5:06P us Historical Provider MD [facility] PROCED[facility] Belinda l Result documented in this encounter Visit Diagnoses Diagnosis Other screening mammogram documented in this encounter
--- OUTSIDE RECORDS SUMMARY | 2024-10-13 00:41 | XMS_ITS | Encounter Summary ---
Author Organization [facility] Address [address] [place] [address] Phone Care Team Providers Care Rn Practitioner Name Role Phone Arben Paredes MD Primary Care Provider [phone] Reason for Visit * Dermatology (Routine) - Closed Specialty Diagnoses / Procedures Referred By Contac t Referred To Contact Dermatology Diagnoses Abstratcted Appt Comment: PER TASK LEILANI/ 5WEEK F/U Procedures IN OFFICE PROCEDURE Libertad Alegre MD Phone: tel: fax: Anthony Rodríguez MD [address] [place] [address] [address] [place] [address] Phone: tel: fax: Referral ID Status Reason Start Date Expiration Date Visits Re quested Visits Authorized [id number] Closed 08/08/2017 08/08/2018 12 10 Encounter Details Date Type Department Care Team (Late st Contact Info) Description 07/18/2018 1:30 PM CDT Office Visit [facility] Dermatology [address] [place] [address] [address] [facility] [phone] Anthony Rodríguez MD [address] [place] [address] [address] [place] [address] Lentigo (Primary Dx); History of nonmelanoma skin cancer Social History Tobacco Use Types Packs/Day Years Used Date Smoking Tobacco: Never Comments Unknown Sex and Gender Information Value Date Recorded Sex Assigned at Not on file Legal Sex Female 9:36 AM CEMENT WORKER Gender Identity Not on file Sexual Orientation Not on file documented as of this encounter Progress Notes * Anthony Rodríguez MD - 07/18/2018 1:30 PM CDT CC: spot check HPI: Rebeka Hsieh is a 67 y.o. 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 Concerns today include: 1) Rough brown spot on right thigh, present for years but recently has changed, asymptomatic Reports she treated spot on nose with Efudex again since last visit but it did not get red or inflamed. She thinks it has completely resolved. Patient denies any other new or changing moles or non-healing sores. MEDICATIONS/ALLERGIES/FAMILY HX/SOCIAL HX: Reviewed in chart ROS: No oral lesions. No non-healing sores. PHYSICAL EXAM: WHSS nasal tip Homogenous david macules upper back, chest, arms Otherwise: GENERAL: Appears well. No acute distress. [...] abnormality. GENITALIA, GROIN, BUTTOCKS: No abnormalities noted. ASSESSMENT AND PLAN: 1. Lentigines - Benign, reassured - ABCDE and photoprotection reviewed - Recommend monthly self skin checks - Recommend annual MD FBSE 2. History of NMSC - NER - ABCDE and photoprotection reviewed - Recommend monthly self skin checks - Recommend annual MD FBSE RTC 6 months Payton Smith, PGY-3 Dermatology Resident 07/18/2018 ATTESTATION: I interviewed and examined the patient. I agree with the residents findings as documented in the note. Anthony Rodríguez MD Skin cancer education was provided, sun protection measures were discussed. Follow-up if any concerning new or changing moles or non healing sores. documented in this encounter Plan of Treatment Not on file documented as of this encounter Visit Diagnoses Diagnosis Lentigo- Primary Other dyschromia History of nonmelanoma skin cancer documented in this encounter Care Teams Rn Practitioner Relationship Specialty Start Date End Date Arben Paredes MD PCP - General 01/24/17 06/01/24 documented as of this encounter
--- OUTSIDE RECORDS SUMMARY | 2024-10-13 00:41 | XMS_ITS | Encounter Summary ---
Author Organization [facility] Address [address] [place] [address] Phone Care Team Providers Care Backend Tester Name Role Phone Arben Paredes MD Primary Care Provider [phone] Reason for Visit * Reason Onset Date Comments sooner appt request 08/18/2018 Encounter Details Date Type Department Care Team (Late st Contact Info) Description 08/18/2018 Telephone [facility] Dermatology [address] [facility] [address] [place] [address] Anthony Rodríguez MD [address] [place] [address] [address] [place] [address] sooner appt request Social History Tobacco Use Types Packs/Day Years Used Date Smoking Tobacco: Former Comments Unknown Sex and Gender Information Value Date Recorded Sex Assigned at Not on file Legal Sex Female 9:36 AM HOSPICE CARE SALES CONSULTANT Gender Identity Not on file Sexual Orientation Not on file documented as of this encounter Miscellaneous Notes * Telephone Encounter - Evita Jerry MA - 08/18/2018 10:13 AM CST Scheduled pt for 08/19 @ 1:20 ICE CARE SALES CONSULTANT * Telephone Encounter - Hanane Stephenalice - 08/18/2018 9:45 AM CST Pt called and states that she have irregular spot/ bump that she would like Dr. Rodríguez to take alook at sooner then later. ICE CARE SALES CONSULTANT documented in this encounter Plan of Treatment Not on file documented as of this encounter Visit Diagnoses Not on filedocumented in this encounter Care Teams Backend Tester Relationship Specialty Start Date End Date Arben Paredes MD PCP - General 01/24/17 06/01/24 documented as of this encounter
--- OUTSIDE RECORDS SUMMARY | 2024-10-13 00:41 | XMS_ITS | Encounter Summary ---
Author Organization [facility] Address [address] [place] [address] Care Team Providers Care Aluminizer Name Role Phone Arben Paredes MD Primary Care Provider [phone] Reason for Referral * Diagnostic Imaging (Routine) - Closed Specialty Diagnoses / Procedures Referred By Rosangela zabala Referred To Contact Diagnoses Right knee pain, unspecified chronicity Procedures XR Knee Right 3 Views Jim Fraire MD Phone: tel: fax: [address] [phone] Referral ID Status Reason Start Date Expiration Date Visits Re quested Visits Authorized [id number] Closed 07/24/2018 02/02/2020 1 1 Reason for Visit * Diagnostic Imaging (Routine) - Closed Specialty Diagnoses / Procedures Referred By Rosangela zabala Referred To Contact Diagnoses Right knee pain, unspecified chronicity Procedures XR Knee Right 3 Views Jim Fraire MD Phone: tel: fax: [address] [phone] Referral ID Status Reason Start Date Expiration Date Visits Re quested Visits Authorized [id number] Closed 07/24/2018 02/02/2020 1 1 Encounter Details Date Type Department Care Team (Latest Contact Info) Description 07/28/2018 7:12 AM CDT - 07/28/2018 11:59 PM CDT Hospital Encounter [facility] [address] [place] [address] Jim Fraire MD [address] [place] [address] Right knee pain, unspecified chronicity Discharge Disposition: Discharge to home or self care Social History Tobacco Use Types Packs/Day Years Used Date Smoking Tobacco: Former Comments Unknown Sex and Gender Information Value Date Recorded Sex Assigned at Not on file Legal Sex Female 9:36 AM SAMPLE MOUNTER Gender Identity Not on file Sexual Orientation [...] mg total) by mouth every morning 02/06/2018 amLODIPine (NORVASC) 2.5 mg tabletIndication s:hypertension Take 2 tablets (5 mg total) by mouth every morning 4 cephalexin (KEFLEX) 500 mg capsule TK 1 [...] Deficiency Prevention 1 tablet every morning [address] (PROTONIX) 40 mg EC tablet 9 pramipexole (MIRAPEX) 0.125 mg tablet 07/28/2018 9 pramipexole (MIRAPEX) 0.75 mg tablet 9 triamcinolone (KENALOG) 0.1 % ointment apply to [...] VIEWS Schedule Routine, Read Routine (OP Routine) 07/28/2018 7:23 AM CDT Right knee pain, unspecified chronicity documented in [...] Visit Diagnoses Diagnosis Right knee pain, unspecified chronicity documented in this encounter Care Teams Aluminizer Relationship Specialty Start Date End Date Arben Paredes MD PCP - General 01/24/17 06/01/24 documented as of this encounter
--- OUTSIDE RECORDS SUMMARY | 2024-10-13 00:41 | XMS_ITS | Encounter Summary ---
Author Organization [facility] Address [address] [place] [address] Phone Care Team Providers Care Stave Planer Tender Name Role Phone Arben Paredes MD Primary Care Provider [phone] Encounter Details Date Type Department Care Team (Late st Contact Info) Description 01/09/2018 Orders Only [facility] Dermatology [address] [place] [address] [address] [place] [phone] Anthony Rodríguez MD [address] [place] [address] [address] [place] [address] Social History Tobacco Use Types Packs/Day Years Used Date Smoking Tobacco: Never Comments Unknown Sex and Gender Information Value Date Recorded Sex Assigned at Not on file Legal Sex Female 9:36 AM SPORTS TRAINER Gender Identity Not on file Sexual Orientation Not on file documented as of this encounter Plan of Treatment Not on file documented as of this encounter Procedures Procedure Name Priority Date/Time Associated Diagnosis Comments SURGICAL PATHOLOGY Routine 01/09/2018 12 :00 AM CDT documented in this encounter Results * Surgical pathology (01/09/2018 12:00 AM CDT) 01/09/2018 01/10/2018 5:4 1 AM CDT Narrative 01/13/2018 11:03 AM CDT FINAL REPORT PATIENT INFORMATION PHYSICIAN INFORMATION SPECIMEN INFORMATION ALBERT PHAM M.D. SEX: F [address] COLLECTED: 01/10/2018 : 1950 (Age: 67) [address] RECEIVED: 01/09/2018 [place], [place] ??[address] REPORTED 01/13/2018 ?? [phone] ? DERMATOPATHOLOGY REPORT RESULTS ?? DIAGNOSIS: SKIN, NASAL SUPRA TIP, SHAVE BIOPSY: ? SQUAMOUS CELL CARCINOMA IN SITU tjb/isr Vesta Potts M.D. ??Electronic Signature: 01/13/2018 11:03:16 CLINICAL INFORMATION 5MM ROUND TELANGIECTATIC PINK PAPULE; R/O BCC. SPECIMEN DATA MICROSCOPIC DESCRIPTION: Atypical keratinocytes are present throughout the entire thickness of the epidermis. (D04.9) GROSS DESCRIPTION: Received in a formalin-containing bottle is a superficial fragment of pale david, finely scaling and semi-translucent skin measuring 0.7 by 0.5 by 0.1 cm. The specimen is sectioned into 2 pieces and submitted entirely in a single cassette. Due to shrinkage, measurements may be different than those at time of procedure. tjb/bms The characteristics of some immunohistochemical and immunofluorescence stains as well as in-situ hybridization tests were determined by the [facility] in ongoing quality systems manager and in compliance with regulations drawn from the Clinical Laboratory Improvement Act of 1988 (CLIA '88). These tests may rely on the use of analyte specific reagents that are subject to specific labeling requirements by the [place] FDA, and may only be performed in a facility that is certified by the [facility] as a high-complexity laboratory under CLIA '88. These tests are used for clinical purposes and are not investigational.For lab developed tests and IVAN, the validation has been reviewed; the performance is considered acceptable for patient testing. IVAN has not been approved by the US FDA; lipemic/hemolyzed samples can affect the diagnosis. Anthony Rodríguez MD LAB PATHOLOGY ORDERABLES F inal Result documented in this encounter Visit Diagnoses Not on filedocumented in this encounter Care Teams Stave Planer Tender Relationship Specialty Start Date End Date Arben Paredes MD PCP - General 01/24/17 06/01/24 documented as of this encounter
--- OUTSIDE RECORDS SUMMARY | 2024-10-13 00:42 | XMS_ITS | Encounter Summary ---
Author Organization [facility] Care Team Providers Care Spreader Box Operator Name Role Phone Unavailable Primary Care Provider Unavailabl e Encounter Details Date Type Department Care Team (Late st Contact Info) Description 08/05/2007 - 08/05/2007 11:59 PM CDT Hospital Encounter [facility] Mauro White MD [facility] [address] [address] Social History Tobacco Use Types Packs/Day Years Used Date Smoking Tobacco: Never Assessed Comments Unknown Sex and Gender Information Value Date Recorded Sex Assigned at Not on file Legal Sex Female 9:36 AM HOSE OPERATOR Gender Identity Not on file Sexual Orientation Not on file documented as of this encounter Plan of Treatment Not on file documented as of this encounter Visit Diagnoses Not on filedocumented in this encounter
--- OUTSIDE RECORDS SUMMARY | 2024-10-13 00:42 | XMS_ITS | Encounter Summary ---
Author Organization [facility] Facility Care Team Providers Care Shipping Inspector Name Role Phone Unavailable Primary Care Provider Unavailabl e Encounter Details Date Type Department Care Team (Late st Contact Info) Description 03/14/2007 - 03/14/2007 11:59 PM CDT [facility] [address] [facility] [address] [place] [address] Social History Tobacco Use Types Packs/Day Years Used Date Smoking Tobacco: Never Assessed Comments Unknown Sex and Gender Information Value Date Recorded Sex Assigned at Not on file Legal Sex Female 9:36 AM EXPANDED FUNCTION DENTAL ASSISTANT Gender Identity Not on file Sexual Orientation Not on file documented as of this encounter Plan of Treatment Not on file documented as of this encounter Visit Diagnoses Not on filedocumented in this encounter
--- OUTSIDE RECORDS SUMMARY | 2024-10-13 00:42 | XMS_ITS | Encounter Summary ---
Author Organization [facility] Facility Care Team Providers Care Manager Business Planning Name Role Phone Unavailable Primary Care Provider Unavailabl e Encounter Details Date Type Department Care Team (Late st Contact Info) Description 10/19/2010 - 10/19/2010 11:59 PM WELDER ASSEMBLER Hospital Encounter [facility] Arben Arias MD [address] [place] [address] Social History Tobacco Use Types Packs/Day Years Used Date Smoking Tobacco: Never Assessed Comments Unknown Sex and Gender Information Value Date Recorded Sex Assigned at Not on file Legal Sex Female 9:36 AM WELDER ASSEMBLER Gender Identity Not on file Sexual Orientation Not on file documented as of this encounter Plan of Treatment Not on file documented as of this encounter Visit Diagnoses Not on filedocumented in this encounter
--- OUTSIDE RECORDS SUMMARY | 2024-10-13 00:42 | XMS_ITS | Encounter Summary ---
Author Organization [facility] Facility Care Team Providers Care Industrial Controller Name Role Phone Unavailable Primary Care Provider Unavailabl e Encounter Details Date Type Department Care Team (Late st Contact Info) Description 06/22/2009 - 10/06/2009 11:59 PM FISHERIES TECHNICIAN Hospital Encounter [facility] CLINCONAnthony Cabrera MD [address] [place] [address] Social History Tobacco Use Types Packs/Day Years Used Date Smoking Tobacco: Never Assessed Comments Unknown Sex and Gender Information Value Date Recorded Sex Assigned at Not on file Legal Sex Female 9:36 AM FISHERIES TECHNICIAN Gender Identity Not on file Sexual Orientation Not on file documented as of this encounter Plan of Treatment Not on file documented as of this encounter Visit Diagnoses Not on filedocumented in this encounter
--- OUTSIDE RECORDS SUMMARY | 2024-10-13 00:42 | XMS_ITS | Encounter Summary ---
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
--- OUTSIDE RECORDS SUMMARY | 2024-10-13 00:42 | XMS_ITS | Encounter Summary ---
Author Organization [facility] Facility Care Team Providers Care Tub Operator Name Role Phone Unavailable Primary Care Provider Unavailabl e Encounter Details Date Type Department Care Team (Late st Contact Info) Description 06/11/2008 - 10/06/2008 11:59 PM COMMERCIAL TELLER Hospital Encounter [facility] CLINCONAnthony Cabrera MD [address] [place] [address] Social History Tobacco Use Types Packs/Day Years Used Date Smoking Tobacco: Never Assessed Comments Unknown Sex and Gender Information Value Date Recorded Sex Assigned at Not on file Legal Sex Female 9:36 AM COMMERCIAL TELLER Gender Identity Not on file Sexual Orientation Not on file documented as of this encounter Plan of Treatment Not on file documented as of this encounter Visit Diagnoses Not on filedocumented in this encounter
--- OUTSIDE RECORDS SUMMARY | 2024-10-13 00:42 | XMS_ITS | Encounter Summary ---
Author Organization [facility] Facility Care Team Providers Care Expanded Function Dental Assistant Name Role Phone Unavailable Primary Care Provider Unavailabl e Encounter Details Date Type Department Care Team (Late st Contact Info) Description 09/18/2010 - 09/18/2010 11:59 PM OILING MACHINE OPERATOR Hospital Encounter [facility] CLINArben Cotto MD [address] [place] [address] Other screening mammogram Social History Tobacco Use Types Packs/Day Years Used Date Smoking Tobacco: Never Assessed Comments Unknown Sex and Gender Information Value Date Recorded Sex Assigned at Not on file Legal Sex Female 9:36 AM OILING MACHINE OPERATOR Gender Identity Not on file Sexual Orientation Not on file documented as of this encounter Plan of Treatment Not on file documented as of this encounter Visit Diagnoses Diagnosis Other screening mammogram documented in this encounter
--- OUTSIDE RECORDS SUMMARY | 2024-10-13 00:42 | XMS_ITS | Encounter Summary ---
Author Organization [facility] Facility Care Team Providers Care Mine Boss Name Role Phone Unavailable Primary Care Provider Unavailabl e Encounter Details Date Type Department Care Team (Late st Contact Info) Description 06/18/2011 - 06/18/2011 11:59 PM CDT Hospital Encounter [facility] Jim Hester MD [address] [phone] Aftercare following joint replacement; Knee joint replaced by other means Social History Tobacco Use Types Packs/Day Years Used Date Smoking Tobacco: Never Assessed Comments Unknown Sex and Gender Information Value Date Recorded Sex Assigned at Not on file Legal Sex Female 9:36 AM SCALLOP CUTTER Gender Identity Not on file Sexual Orientation Not on file documented as of this encounter Plan of Treatment Not on file documented as of this encounter Visit Diagnoses Diagnosis Aftercare following joint replacement Knee joint replaced by other means documented in this encounter
--- OUTSIDE RECORDS SUMMARY | 2024-10-13 00:42 | XMS_ITS | Encounter Summary ---
Author Organization [facility] Facility Care Team Providers Care Professional Security Officer Name Role Phone Unavailable Primary Care Provider Unavailabl e Encounter Details Date Type Department Care Team (Late st Contact Info) Description 05/09/2011 9:34 AM CDT - 05/09/2011 4:00 PM T Hospital Encounter [facility] CL[facility] Jim Fraire MD [address] [place] [address] Other specified pre-operative examination; Pain in joint, lower leg; Essential hypertension; Esophageal reflux; Obstructive sleep apnea; Other depressive disorder; Other and unspecified hyperlipidemia; Personal history of tobacco use, presenting hazards to health Social History Tobacco Use Types Packs/Day Years Used Date Smoking Tobacco: Never Assessed Comments Unknown Sex and Gender Information Value Date Recorded Sex Assigned at Not on file Legal Sex Female 9:36 AM RETAINING ROOM CUTTER Gender Identity Not on file Sexual Orientation Not on file documented as of this encounter Plan of Treatment Not on file documented as of this encounter Visit Diagnoses Diagnosis Other specified pre-operative examination Pain in joint, lower leg Essential hypertension Unspecified essential hypertension Esophageal reflux Obstructive sleep apnea Obstructive sleep apnea (adult) (pediatric) Other depressive disorder Other and unspecified hyperlipidemia Personal history of tobacco use, presenting hazards to health documented in this encounter
--- OUTSIDE RECORDS SUMMARY | 2024-10-13 00:42 | XMS_ITS | Encounter Summary ---
Author Organization [facility] Facility Care Team Providers Care Program Evaluator Name Role Phone Unavailable Primary Care Provider Unavailabl e Encounter Details Date Type Department Care Team (Late st Contact Info) Description 09/21/2011 - 09/21/2011 11:59 PM LIME SLAKER Hospital Encounter [facility] CLINArben Cotto MD [address] [place] [address] Other screening mammogram Social History Tobacco Use Types Packs/Day Years Used Date Smoking Tobacco: Never Assessed Comments Unknown Sex and Gender Information Value Date Recorded Sex Assigned at Not on file Legal Sex Female 9:36 AM LIME SLAKER Gender Identity Not on file Sexual Orientation Not on file documented as of this encounter Plan of Treatment Not on file documented as of this encounter Visit Diagnoses Diagnosis Other screening mammogram documented in this encounter
--- OUTSIDE RECORDS SUMMARY | 2024-10-13 00:42 | XMS_ITS | Encounter Summary ---
Author Organization [facility] Facility Care Team Providers Care Water Treatment Plant Repairer Name Role Phone Unavailable Primary Care Provider Unavailabl e Encounter Details Date Type Department Care Team (Late st Contact Info) Description 05/15/2011 7:43 AM CDT - 05/17/2011 1:52 PM T Hospital Encounter [facility] CLINCONV Jim Fraire MD [address] [place] [address] Broken prosthetic joint implant (CMS/HCC) ([facility]); Pure hypercholesterolemia ; Essential hypertension; Esophageal reflux; Obstructive sleep apnea; Other and unspecified hyperlipidemia; Restless legs syndrome; Localized osteoarthrosis, lower leg; Knee joint replaced by other means; Surgical operation with implant of artificial internal device causing abnormal patient reaction, or later complication; Place of occurrence, home Social History Tobacco Use Types Packs/Day Years Used Date Smoking Tobacco: Never Assessed Comments Unknown Sex and Gender Information Value Date Recorded Sex Assigned at Not on file Legal Sex Female 9:36 AM BUSINESS EXECUTIVE Gender Identity Not on file Sexual Orientation Not on file documented as of this encounter Plan of Treatment Not on file documented as of this encounter Visit Diagnoses Diagnosis Broken prosthetic joint implant (CMS/HCC) (HCC) Broken prosthetic joint implant Pure hypercholesterolemia Essential hypertension Unspecified essential hypertension Esophageal reflux Obstructive sleep apnea Obstructive sleep apnea (adult) (pediatric) Other and unspecified hyperlipidemia Restless legs syndrome Restless legs syndrome (RLS) Localized osteoarthrosis, lower leg Localized osteoarthrosis not specified whether primary or secondary, lower leg Knee joint replaced by other means Surgical operation with implant of artificial internal device causing abnormal patient reaction, or later complication Place of occurrence, home documented in this encounter
--- OUTSIDE RECORDS SUMMARY | 2024-10-13 00:42 | XMS_ITS | Encounter Summary ---
Author Organization [facility] Healthcare Address [address] [place] [address] Care Team Providers Care Recording Studio Set Up Worker Name Role Phone Unavailable Primary Care Provider Unavailabl e Encounter Details Date Type Department Care Team (Late st Contact Info) Description 01/06/2011 12:01 AM CDT - 01/06/2011 11:59 PM CDT Hospital Encounter [facility] Arben Paredes MD [address] [place] [id number] Essential hypertension; Other and unspecified hyperlipidemia; Restless legs syndrome; Esophageal reflux Social History Tobacco Use Types Packs/Day Years Used Date Smoking Tobacco: Never Assessed Comments Unknown Sex and Gender Information Value Date Recorded Sex Assigned at Not on file Legal Sex Female 9:36 AM HUMAN RESOURCES RECEPTIONIST Gender Identity Not on file Sexual Orientation Not on file documented as of this encounter Plan of Treatment Not on file documented as of this encounter Visit Diagnoses Diagnosis Essential hypertension Unspecified essential hypertension Other and unspecified hyperlipidemia Restless legs syndrome Restless legs syndrome (RLS) Esophageal reflux documented in this encounter
--- OUTSIDE RECORDS SUMMARY | 2024-10-13 00:42 | XMS_ITS | Encounter Summary ---
Author Organization [facility] Healthcare Address [address] [place] [address] Care Team Providers Care Flying Squad Worker Name Role Phone Unavailable Primary Care Provider Unavailabl e Encounter Details Date Type Department Care Team (Late st Contact Info) Description 04/21/2008 2:26 PM CDT - 04/21/2008 11:59 PM CDT Hospital Encounter [facility] Social History Tobacco Use Types Packs/Day Years Used Date Smoking Tobacco: Never Assessed Comments Unknown Sex and Gender Information Value Date Recorded Sex Assigned at Not on file Legal Sex Female 9:36 AM MULTISKILL OPERATOR Gender Identity Not on file Sexual Orientation Not on file documented as of this encounter Plan of Treatment Not on file documented as of this encounter Visit Diagnoses Not on filedocumented in this encounter
--- OUTSIDE RECORDS SUMMARY | 2024-10-13 00:42 | XMS_ITS | Encounter Summary ---
Author Organization [facility] Facility Care Team Providers Care Plate Worker Helper Name Role Phone Unavailable Primary Care Provider Unavailabl e Encounter Details Date Type Department Care Team (Late st Contact Info) Description 12/14/2009 - 10/06/2010 11:59 PM COLLECTOR OF INTERNAL REVENUE Hospital Encounter [facility] CLINCONAnthony Cabrera MD [address] [place] [address] Social History Tobacco Use Types Packs/Day Years Used Date Smoking Tobacco: Never Assessed Comments Unknown Sex and Gender Information Value Date Recorded Sex Assigned at Not on file Legal Sex Female 9:36 AM COLLECTOR OF INTERNAL REVENUE Gender Identity Not on file Sexual Orientation Not on file documented as of this encounter Plan of Treatment Not on file documented as of this encounter Visit Diagnoses Not on filedocumented in this encounter
--- OUTSIDE RECORDS SUMMARY | 2024-10-13 00:42 | XMS_ITS | Encounter Summary ---
Author Organization [facility] Facility Care Team Providers Care Communications Field Technician Name Role Phone Unavailable Primary Care Provider Unavailabl e Encounter Details Date Type Department Care Team (Late st Contact Info) Description 09/07/2009 - 09/07/2009 11:59 PM SUPERVISOR MAIL CARRIERS Hospital Encounter [facility] CL[facility] Roland, Mauro James MD [id number] [place] [address] Other screening mammogram Social History Tobacco Use Types Packs/Day Years Used Date Smoking Tobacco: Never Assessed Comments Unknown Sex and Gender Information Value Date Recorded Sex Assigned at Not on file Legal Sex Female 9:36 AM SUPERVISOR MAIL CARRIERS Gender Identity Not on file Sexual Orientation Not on file documented as of this encounter Plan of Treatment Not on file documented as of this encounter Visit Diagnoses Diagnosis Other screening mammogram documented in this encounter
--- OUTSIDE RECORDS SUMMARY | 2024-10-13 00:42 | XMS_ITS | Encounter Summary ---
Author Organization [facility] Facility Care Team Providers Care Stucco Worker Name Role Phone Unavailable Primary Care Provider Unavailabl e Encounter Details Date Type Department Care Team (Late st Contact Info) Description 05/10/2011 - 05/10/2011 11:59 PM CDT Hospital Encounter [facility] Jim Hester MD [address] [place] [address] Pre-procedural laboratory examination; Pain in joint, lower leg Social History Tobacco Use Types Packs/Day Years Used Date Smoking Tobacco: Never Assessed Comments Unknown Sex and Gender Information Value Date Recorded Sex Assigned at Not on file Legal Sex Female 9:36 AM SLIP DUMPER Gender Identity Not on file Sexual Orientation Not on file documented as of this encounter Plan of Treatment Not on file documented as of this encounter Visit Diagnoses Diagnosis Pre-procedural laboratory examination Pain in joint, lower leg documented in this encounter
--- OUTSIDE RECORDS SUMMARY | 2024-10-13 00:42 | XMS_ITS | Encounter Summary ---
Author Organization [facility] Facility Care Team Providers Care Trials Manager Name Role Phone Unavailable Primary Care Provider Unavailabl e Encounter Details Date Type Department Care Team (Late st Contact Info) Description 08/20/2008 - 08/20/2008 11:59 PM PEANUT SALTER Hospital Encounter [facility] CL[facility] Roland, Mauro James MD [phone] [place] [address] Other screening mammogram Social History Tobacco Use Types Packs/Day Years Used Date Smoking Tobacco: Never Assessed Comments Unknown Sex and Gender Information Value Date Recorded Sex Assigned at Not on file Legal Sex Female 9:36 AM PEANUT SALTER Gender Identity Not on file Sexual Orientation Not on file documented as of this encounter Plan of Treatment Not on file documented as of this encounter Visit Diagnoses Diagnosis Other screening mammogram documented in this encounter
--- OUTSIDE RECORDS SUMMARY | 2024-10-13 00:42 | XMS_ITS | Encounter Summary ---
Author Organization [facility] Facility Care Team Providers Care Flasher Adjuster Name Role Phone Unavailable Primary Care Provider Unavailabl e Encounter Details Date Type Department Care Team (Late st Contact Info) Description 08/01/2011 - 08/01/2011 11:59 PM CDT Hospital Encounter [facility] CLINCONJim Palmer MD [address] [phone] Pain in joint, lower leg; Aftercare following joint replacement; Knee joint replaced by other means Social History Tobacco Use Types Packs/Day Years Used Date Smoking Tobacco: Never Assessed Comments Unknown Sex and Gender Information Value Date Recorded Sex Assigned at Not on file Legal Sex Female 9:36 AM LICENSED PRACTICAL NURSE CLINIC NURSE Gender Identity Not on file Sexual Orientation Not on file documented as of this encounter Plan of Treatment Not on file documented as of this encounter Visit Diagnoses Diagnosis Pain in joint, lower leg Aftercare following joint replacement Knee joint replaced by other means documented in this encounter
--- OUTSIDE RECORDS SUMMARY | 2024-10-13 00:42 | XMS_ITS | Encounter Summary ---
Author Organization [facility] Facility Care Team Providers Care Music Director Name Role Phone Unavailable Primary Care Provider Unavailabl e Encounter Details Date Type Department Care Team (Late st Contact Info) Description 09/17/2011 - 09/17/2011 11:59 PM VIDEO CONTROL ENGINEER Hospital Encounter [facility] CLINCONJim Palmer MD [address] [place] [address] Pain in joint, lower leg; Other orthopedic aftercare; Knee joint replaced by other means Social History Tobacco Use Types Packs/Day Years Used Date Smoking Tobacco: Never Assessed Comments Unknown Sex and Gender Information Value Date Recorded Sex Assigned at Not on file Legal Sex Female 9:36 AM VIDEO CONTROL ENGINEER Gender Identity Not on file Sexual Orientation Not on file documented as of this encounter Plan of Treatment Not on file documented as of this encounter Visit Diagnoses Diagnosis Pain in joint, lower leg Other orthopedic aftercare Knee joint replaced by other means documented in this encounter
== END 2024-10-09 15:25 | disposition home or self-care (01) | DRG 194 ==
LOC: ANHED 23:09 → ANH3MEDSUR 10-06 00:35
PROVIDERS: Emergency Medicine; Admitting Provider Internal Medicine; Emergency Provider Physician Assistant; Visit Provider Nurse Practitioner
DX: J10.00 Influenza due to other identified influenza virus with unspecified type of pneumonia (principal); C91.10 Chronic lymphocytic leukemia of B-cell type not having achieved remission; E78.5 Hyperlipidemia, unspecified
CPT/HCPCS: 36415; 71045; 71046; 80048; 80053; 84484; 85025; 85027; 85380; 87040; 87637; 93005; 94640; 94667; 96365; 96375; 99285; A9270; G0378; J0456; J0696; J2919; J7512